=== PATIENT | female | born 1960 | race Caucasian/White ===

== ENCOUNTER 2021-04-21 13:06 | Outpatient (CLI) | payer OTHER, SELFPAY ==
--- NOTE | 2021-04-21 13:42 | MM_ITS ---
WS: [id number] BILATERAL DIGITAL SCREENING MAMMOGRAM WITH CAD CLINICAL INFORMATION: SCREEN HISTORY: Screening mammogram. No current complaints. COMPARISON: TECHNIQUE: Bilateral CC and MLO. FINDINGS: The breast are composed of extremely dense tissue, which can limit the detection of small underlying mass lesions. Vascular calcification. Lucent centered calcification left breast. No suspicious focal mass, asymmetry, calcifications, or architectural distortion. No evidence of malignancy. MM/[place] [id number] IMPRESSION: BI-RADS: 2-Benign FOLLOW UP: 1 Year Follow-up Recommend return to annual screening mammography.
== END 2021-04-21 13:07 | disposition home or self-care (01) ==
LOC: RADSHAW 13:10
PROVIDERS: PCP Physician Assistant; Visit Provider Physician Assistant
DX: Z12.31 Encounter for screening mammogram for malignant neoplasm of breast (principal)
CPT/HCPCS: 77067

== ENCOUNTER 2024-09-22 18:15 | Inpatient (IN) | payer OTHER, SELFPAY ==
[2024-09-22] VITALS (25 sets, daily range): BP systolic 74–123; BP diastolic 48–78; PULSE 79–100; RESP 7–25; TEMP 35.6–35.9; O2SAT 91–100
--- NOTE | 2024-09-22 18:20 | ECG_ITS ---
[employer] ([facility]) Test Date: 2024-09-22 Pat Name: Denisse Narayanan Department: Room: Gender: Female Manager Hvac: : 1960 Requested By: Bertha Balderas Order Number: [id number] Sirisha MD: Annelise Ball M.D. Measurements Intervals [place] Rate: 104 P: 0 IA: 0 QRS: 64 QRSD: 81 T: 47 QT: 340 QTc: 448 Interpretive Statements possible sinus tachycardia with the frequent PVCs. 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 [email or web address]
--- NOTE | 2024-09-22 18:21 | XRR_ITS ---
PROCEDURE INFORMATION: Exam: XR Chest Exam date and time: 09/22/2024 7:14 PM Age: 63 years old Clinical indication: Shortness of breath TECHNIQUE: Imaging protocol: Radiologic exam of the chest. Views: 1 view. COMPARISON: No relevant prior studies available. FINDINGS: Lungs: The lungs are clear and free of effusions. The left diaphragm is slightly elevated with minimal left basilar atelectasis. Pleural spaces: Unremarkable. No pleural effusion. No pneumothorax. Heart/Mediastinum: Unremarkable. No cardiomegaly. Bones/joints: There is a very mild thoracolumbar scoliosis. XR/XR chest 1V portable [id number] IMPRESSION: No significant findings.
[2024-09-22] MEDS: naloxone 0.4 mg/ml SDV 0.1 MG IVP (18:27)
[2024-09-22 18:36] LABS: Basophils % 0.7 %; Eosinophils % 0.9 %; Hematocrit 41.4 % (36-47); Lymphocytes # 1.2 10^3/uL (0.8-4.8); Lymphocytes % 25.4 %; Mean Corpuscular HGB Conc 32.4 g/dL (30-55); Mean Corpuscular Hemoglobin 29.8 pg (27-33); Mean Platelet Volume 10.3 fL (7.4-10.4); Monocytes # 0.4 10^3/uL (0.2-0.9); Monocytes % 8.8 %; Neutrophils # 2.92 10^3/uL (1.8-7.7); Nucleated Red Blood Cells % 0 %; Platelet Count 197 10^3/cmm (157-399); Red Cell Distribution Width 12.4 % (12.1-15.1); White Blood Count 4.56 10^3/uL (3.29-11.43)
[2024-09-22 18:41] LABS: ABG PCO2 51.4 mmHg (35-45); ABG PH Result 7.34 (7.35-7.45); Alveolar-Arterial Oxygen Gradi 2.4 mmHg (5-10); Arterial Blood Gas Hematocrit 40.9 % (37-47); Blood Gas Operator Identificat AMH; Blood Gas Sample Site Brachial, right; Blood Gas Sample Type Arterial; Carboxyhemoglobin 1.1 %THgb (0.4-20.1); HCO3 ABG 27.7 mmol/L (22-26); HGB O2 Sat 89.6 % (95-100); Ionized Calcium Level - ABG 1.2 mmol/L (1.1-1.4); Oxygen Device ROOM AIR; Oxygen Saturation ABG 91.5; PO2 FiO2 Ratio Arterial Blood 314; Potassium Level - ABG 3.4 mmol/L (3.5-5.0); Total Hemoglobin 13.3 g/dL (12-16)
[2024-09-22] MEDS: naloxone 0.4 mg/ml SDV IVP ×2 (18:42→19:20)
--- NOTE | 2024-09-22 18:50 | PC.NURSE ---
PT UNRESPONSIVE UPON ARRIVAL. SNORING RESPIRATIONS. UNABLE TO ASSES PT COGNITION. PT MAINTAINING AIRWAY. EMS STATES PT FOUND WITH MEDICATIONS BESIDE HER. MEDICATIONS IN BOTTLE APPEAR TO BE TRAZEDONE, DIAZEPAM AND OXYCODONE PER THE PILL LABEL
[2024-09-22 18:52] LABS: Lactic Sepsis W/Reflex 2.6 mmol/L (0.5-2.2)
[2024-09-22 19:04] LABS: Alanine Aminotransferase 15 U/L (0-33); Albumin Level 4.3 g/dL (3.5-5.2); Alkaline Phosphatase 80 U/L (35-105); Anion Gap 15.8 (5-19); Aspartate Amino Transferase 30 U/L (0-32); Blood Urea Nitrogen 12 mg/dL (8-23); Calcium 9.4 mg/dL (8.5-10.5); Carbon Dioxide 25 mmol/L (22-29); Chloride 97 mmol/L (98-107); Globulin 2.7 g/dL (1.3-4.6); Glomerular Filtration Rate 101.6 mL/min (90-130); Glucose 113 mg/dL (65-115); Osmolality Calculated 279 mOsm/kg (285-295); Potassium 3.8 mmol/L (3.5-5.1); Sodium 134 mmol/L (136-145); Total Bilirubin 0.4 mg/dL (0.15-1.2)
[2024-09-22 19:05] LABS: Alcohol Level < 10 mg/dL (0-10); Salicylate < 0.3 mg/dL (3-10)
[2024-09-22 19:30] LABS: Bilirubin Urine Negative (Negative); Blood Urine Negative (Negative); Glucose Urine UA Negative (Normal); Ketones Urine Trace (Negative); Leukocyte Esterase Urine Negative (Negative); Nitrate Urine Negative (Negative); Protein Urine 1+ (Negative); Specific Gravity, Urine 1.027 (1.005-1.030); Urine Appearance Clear (CLEAR); Urine Color Yellow (Yellow); pH Urine 5.5 (5-7)
[2024-09-22 19:33] LABS: Bacteria Urine None Seen /hpf; RBC Urine 0-2 /hpf (0-2); Squamous Epithelial Cell Urine 0-5 /hpf (0-5); WBC Urine 0-5 /hpf (0-5)
[2024-09-22 19:39] LABS: Amphetamines Screen Urine Negative (Negative); Barbiturates Screen Urine Negative (Negative); Benzodiazepines Screen Urine Positive (Negative); Cocaine Screen Urine Negative (Negative); Opiate Screen Urine Negative (Negative); PCP Screen Urine Negative (Negative); THC Screen Urine Negative (Negative)
--- NOTE | 2024-09-22 20:03 | W.ED.OVERDOS ---
HPI - Overdose General: Chief Complaint: Overdose Stated Complaint: possible OD Time Seen by Provider: 09/22/24 18:15 History of Present Illness: 63-year-old female who presents emergency room by ambulance with chief complaint of being unresponsive. Family had last doctor last night. They tried to call today and she was not answering her phone. The last that her she had had a really hard day yesterday. She was found with to open pill bottles 1 week was pantoprazole with several unidentified pills left in it. The pills that were leftover included oxycodone, diazepam and trazodone. EMS reports she was somnolent at first they became very agitated on the ambulance ride and by the time she arrives here she is quite somnolent again. She is maintaining her airway. No other history able to be obtained at this time Review of Systems General: Reports: ROS unobtainable due to medical condition and ROS unobtainable due to mental status Physical Exam Narrative: EXAM NARRATIVE: General: responds minimally to painful stimuli. Skin: Warm, dry Head: Normocephalic, atraumatic. Neck: Supple, trachea midline. Eye: Extraocular movements are intact. Ears, nose, mouth and throat: Dry oral mucosa. Cardiovascular: Regular rate and rhythm, Normal peripheral perfusion. Respiratory: Lungs are clear to auscultation, respirations are non-labored, breath sounds are equal, Symmetrical chest wall expansion. Gastrointestinal: Soft, Non distended, Normal bowel sounds. Musculoskeletal: no deformity. Neurological: Not Alert and oriented, No obvious focal neurological deficit observed. Psychiatric: unable to assess. Course Vital Signs: Vital signs: Vital Signs Temperature 96.6 F L 09/22/24 18:17 Pulse Rate 90 09/22/24 18:48 Respiratory Rate 10 L 09/22/24 18:48 Blood Pressure 116/63 09/22/24 18:48 Pulse Oximetry 91 09/22/24 18:48 Oxygen Delivery Me thod Room Air 09/22/24 18:48 MDM - Overdose Medical Decision Making Differential diagnosis: Patient with reported depression and suicidal ideation and possible overdose. concerns for infection, alcohol intoxication, cardiac issues or other medical problems prior to psychiatric admission. Workup: labwork, ekg ordered to evaluate the pathologies and to clear the patient medically prior to psychiatric admission EKG: Time 1818. Rate 104. Sinus tachycardia, No ST-T changes, no ectopy, normal IL & QRS intervals, This was reviewed and interpreted by myself the ER physician at 1820. There is quite a bit of interference secondary to patient movement. No obvious ST elevation. Chest x-ray: No acute process. No infiltrate. No pneumothorax. This was reviewed and interpreted by myself the emergency room physician. I also reviewed the radiology report. Lab Review: Laboratory results were reviewed and interpreted by myself the emergency room physician. - EKG shows no ischemic changes. - Blood alcohol level is negative, -Tylenol and salicylate levels are negative. - Drug screen is positive for benzodiazepine - No signs of infection, urinalysis clear and white count is not elevated - No anemia. - BUN and creatinine are within normal limits. Consultation: Post control was consulted. Their recommendations are being followed. Consultation: I spoke with Dr. Matias who is on-call for the hospitalist service who agrees to admission to the ICU. Reexamination: Patient is still quite somnolent but is maintaining her airway with a O2 sat of 100%. pCO2 was only mildly elevated on her blood gas. For now I am going to sustain from intubation. I spoke to the family at length about the patient. Assessment and plan: Medication overdose Somnolence Suicide attempt ?Admit to the ICU. - All lab work was reviewed and interpreted personally by myself, the ER physician - Evaluation and treatment of this problem were appropriate in the emergency setting Lab Data 09/22/24 18:31 09/22/24 18:31 Radiology Impressions Chest X-Ray 09/22/24 18:21 IMPRESSION: No significant findings. Laboratory Results WBC 4.56 10^3/uL (3.29-11.43) 09/22/24 18: RBC 4.50 10^6/uL (3.85-5.65) 09/22/24 18: Hgb 13.40 g/dL (11.27-16.99) 09/22/24 18: Hct 41.4 % (36-47) 09/22/24 18: MCV 92.0 fl (85-98) 09/22/24 18: MCH 29.8 pg (27-33) 09/22/24 18: MCHC 32.4 g/dL (30-55) 09/22/24 18: RDW 12.4 % (12.1-15.1) 09/22/24 18: Plt Count 197 10^3/cmm (157-399) 09/22/24 18: MPV 10.3 fL (7.4-10.4) 09/22/24 18: Neut % (Auto) 64.0 % 09/22/24 18: Lymph % (Auto) 25.4 % 09/22/24 18: Woodward % (Auto) 8.8 % 09/22/24 18: Eos % (Auto) 0.9 % 09/22/24 18: Baso % (Auto) 0.7 % 09/22/24 Neut # (Auto) 2.92 10^3/uL (1.8-7.7) 09/22/24 Lymph # (Auto) 1.2 10^3/uL (0.8-4.8) 09/22/24 18: Woodward # (Auto) 0.4 10^3/uL (0.2-0.9) 09/22/24 18: Eos # (Auto) 0.0 10^3/uL (0.0-0.8) 09/22/24 18: Baso # (Auto) 0.0 10^3/uL (0.0-0.1) 09/22/24: Nucleated RBC % (auto) 0 % 09/22/24 Nucleated RBCs # 0.0 /100WBC 09/22/24 18 Specimen Type Arterial 09/22/24 18: Sample Site Brachial, right 09/22/24 18:30 ABG pH 7.34 (7.35-7.45) L 09/22/24 18: ABG pCO2 51.4 mmHg (35-45) H 09/22/24 18:30 ABG pO2 66.0 mmHg (80.0-100.0) L 09/22/24 18: ABG PO2/FiO2 Ratio 314 09/22/24 18: ABG HCO3 27.7 mmol/L (22-26) H 09/22/24 18:30 ABG O2 Saturation 91.5 09/22/24 18: ABG Base Excess 1.0 mmol/L (-2.0-2.0) 11/18/24 18:30 Saravanan Test N/a 09/22/24 18:30 A-a O2 Gradient 2.4 mmHg (5-10) L 09/22/24 18:30 Hematocrit 40.9 % (37-47) 09/22/24 18:30 Hgb O2 Saturation 89.6 % (95-100) L 09/22/24 18:30 Carboxyhemoglobin 1.1 %THgb (0.4-20.1) 09/22/24 18:30 Methemoglobin 1.0 % (0.4-1.5) 09/22/24 18:30 Total Hemoglobin 13.3 g/dL (12-16) 09/22/24 18:30 Sodium 140.0 mmol/L (131-143) 09/22/24 18:30 Potassium 3.4 mmol/L (3.5-5.0) L 09/22/24 18:30 Glucose 119.0 mg/dL (70-115) H 09/22/24 18:30 Ionized Calcium 1.2 mmol/L (1.1-1.4) 09/22/24 18:30 O2 Delivery Device Room air 09/22/24 18:30 FiO2 21.0 % 09/22/24 18:30 Real Time Operator ID [id number] 09/22/24 18:30 Sodium 134 mmol/L (136-145) L 09/22/24 18:31 Potassium 3.8 mmol/L (3.5-5.1) 09/22/24 18:31 Chloride 97 mmol/L (98-107) L 09/22/24 18:31 Carbon Dioxide 25 mmol/L (22-29) 09/22/24 18:31 Anion Gap 15.8 (5-19) 09/22/24 18:31 BUN 12 mg/dL (8-23) 09/22/24 18:31 Creatinine 0.6 mg/dL (0.5-0.9) 09/22/24 18:31 GFR Calculation 101.6 mL/min (90-130) 09/22/24 18:31 Glucose 113 mg/dL (65-115) 09/22/24 18:31 Calculated Osmolality 279 mOsm/kg (285-295) L 09/22/24 18:31 Lactic Acid 2.6 mmol/L (0.5-2.2) H 09/22/24 18:31 Calcium 9.4 mg/dL (8.5-10.5) 09/22/24 18:31 Total Bilirubin 0.4 mg/dL (0.15-1.2) 09/22/24 18:31 AST 30 U/L (0-32) 09/22/24 18:31 ALT 15 U/L (0-33) 09/22/24 18:31 Alkaline Phosphatase 80 U/L (35-105) 09/22/24 18:31 Total Protein 7.0 g/dL (6.6-8.7) 09/22/24 18:31 Albumin 4.3 g/dL (3.5-5.2) 09/22/24 18: Globulin 2.7 g/dL (1.3-4.6) 09/22/24 18: TSH 2.90 uIU/mL (0.27-4.20) 09/22/24 18:31 Urine Color Yellow (Yellow) 09/22/24 19:15 Urine Appearance Clear (CLEAR) 09/22/24 19:15 Urine pH 5.5 (5-7) 09/22/24 19:15 Ur Specific Freeman 1.027 (1.005-1.030) 09/22/24 19:15 Urine Protein 1+ (Negative) A 09/22/24 19:15 Urine Glucose (UA) Negative (Normal) 09/22/24 19:15 Urine Ketones Trace (Negative) 09/22/24 19:15 Urine Blood Negative (Negative) 09/22/24 19:15 Urine Nitrate Negative (Negative) 09/22/24 19:15 Urine Bilirubin Negative (Negative) 09/22/24 19:15 Urine Urobilinogen 1.0 mg/dL (Negative) 09/22/24 19:15 Ur Leukocyte Esterase Negative (Negative) 09/22/24 19:15 Urine RBC 0-2 /hpf (0-2) 09/22/24 19:15 Urine WBC 0-5 /hpf (0-5) 09/22/24 19:15 Ur Squamous Epith Cells 0-5 /hpf (0-5) 09/22/24 19:15 Amorphous Sediment Not Reportable 09/22/24 19:15 Urine Bacteria None seen /hpf (NONE) 09/22/24 19:15 Hyaline Casts 0.40 /lpf 09/22/24 19:15 Salicylates < 0.3 mg/dL (3-10) L 09/22/24 18:31 Urine Opiates Screen Negative ng/mL (Negative) 09/22/24 19:15 Acetaminophen 6.0 ug/mL (10-30) L 09/22/24 18:31 Ur Barbiturates Screen Negative ng/mL (Negative) 09/22/24 19:15 Ur Phencyclidine Scrn Negative ng/mL (Negative) 09/22/24 19:15 Ur Amphetamines Screen Negative ng/mL (Negative) 09/22/24 19:15 U Benzodiazepines Scrn Positive ng/mL (Negative) H 09/22/24 19:15 Urine Cocaine Screen Negative ng/mL (Negative) 09/22/24 19:15 U Marijuana (THC) Screen Negative ng/mL (Negative) 09/22/24 19:15 Ethyl Alcohol < 10 mg/dL (0-10) 09/22/24 18:31 All radiology interpretation(s) finalized by discharge Discharge Plan Discharge Patient Disposition: Admitted As Inpatient Clinical Impression: Drug overdose, Suicide attempt by multiple drug overdose Condition: Stable Coding Level of Care Code ED Boat Officer for Denton Chapman
[2024-09-22 20:21] LABS: Reflex Lactate Order REFLEX LACTIC ORDERD
--- NOTE | 2024-09-22 20:28 | P.HP_ITS ---
Providers/Chief Complaint 2 Primary Care Provider: Mireya Willingham Chief Complaint: possible OD History of Present Illness Denisse Narayanan is a 63 year old female with an unknown past medical history who presented the emergency department unresponsive. Upon assessment, patient is unable to provide any history. She is unresponsive. She does not respond to sternal rub. Her niece is bedside and supportive. She provides the history. She reports that the patient lost her in November. She does not have any children. She reports concerns for depression this year with recent worsening which she thinks may be related to the upcoming holidays. She notes that her boss had mention similar concerns recently. Patient was reportedly found today by her mother at her home after she did not answer the phone on multiple attempts. There is reportedly numerous pill bottles and pills everywhere. The obvious concern was for intentional drug overdose. Niece reports that patient initially resisted EMS. By the time she arrived to the emergency department, she was in a comatose state. She was noted to be protecting her airway did not require intubation. Vital signs were significant for bradypnea. CBC was unremarkable. CMP was largely unremarkable with very mild hyponatremia. Mild lactic acidosis 2.6 noted. Toxicology screen revealed Tylenol level was 6 ug/mL and positive for benzodiazepine. Urine opiate screen was negative. She was treated with Narcan and IV fluid bolus in the ED. Niece reports she does not know much about her medical history. She reports patient is severely hard of hearing and is dependent on hearing aids. She states she briefly looked at the home today and was unable to find the hearing aids. She states the patient usually does not follow with physicians. She is not aware of any chronic medical conditions the patient has. She knows she does take some medications, notably a sleep med. She is unsure about her past surgeries. Patient is it is with mentioned above. Patient never had any children. Attempted to obtain a complete medical history, surgical history, family history, and social history; but unable to due to patient's stuporous state. Review of Systems 2 Narrative: Attempted to obtain a complete review of systems but unable due to altered mental status. PFSH Acute 2 PFSH: Medical History (Updated 09/22/24 @ 22:29 by Fede Matias MD) Hearing loss Vitals/I&O/Wt Last Vital Signs Temp 96.6 F L 09/22/24 18:17 Pulse 90 09/22/24 18:48 Resp 10 L 09/22/24 18:48 BP 116/63 09/22/24 18:48 Pulse Ox 91 09/22/24 18:48 O2 Del Method Room Air 09/22/24 18:48 Weight last 48 hrs Weight 57.153 kg Physical Exam 2 Narrative: General: Patient is in a stuporous state. Head: Normocephalic. Pupils are equally round reactive to light. Neck: No JVD. Cardiovascular: RRR. No gallops. No murmurs. No peripheral edema. Blood pressure soft. Lungs: Clear to auscultation, no use of accessory muscles, no crackles or wheezes. Intermittent snores. Skin: No jaundice. No rashes. Abdomen: Hypoactive bowel sounds. Abdomen is not distended. Genito Urinary: Genital exam not performed since complaints not related. Rectal: Rectal exam not performed since no symptoms indicated blood loss. Extremities: No cyanosis or clubbing. Musculoskeletal: No swollen or erythematous joints. Neurological: No myoclonus. Data 09/22/24 18:31 09/22/24 18:31 A&P Assessment and plan (1) Suicide attempt by multiple drug overdose: Presentation consistent with suspected intentional drug overdose ED provider reportedly placed 96-hour hold Admit to intensive care unit Continuous telemetry monitoring Tylenol level mildly elevated, trend acetaminophen levels Start IV fluids Monitor cardiopulmonary status, patient may require intubation if she is unable to protect airway Supportive care Will eventually need psychiatric care when medically improved (2) Acute encephalopathy: Acute toxic encephalopathy Serial neurological exams Management as above (3) Hyponatremia: Status post IV fluid bolus in ED Start maintenance fluids Repeat labs in a.m. (4) Hearing loss: Patient is severely hard of hearing at baseline She currently does not have her hearing aids here, family may be able to bring later Plan DVT prophylaxis: Lovenox CODE STATUS: Full code Attestations 2 Medical Necessity Statement*: Patient presents with altered mentation suspected secondary to intentional drug overdose with expected hospitalization not to cross 2 midnights for IV fluids, serial labs, psychiatric eval, and supportive care. Coding Level of Care Code Acute Code for Chg Fwd Diagnoses Suicide attempt by multiple drug overdose T50.912A Acute encephalopathy G93.40 Hyponatremia E87.1 Hearing loss H91.90
--- NOTE | 2024-09-22 20:55 | PC.NURSE ---
POISON CONTROL CONTACTED @1930. INFO WILL BE FAXED.
--- NOTE | 2024-09-22 20:57 | PC.NURSE ---
PT UNRESPONSIVE AT THIS TIME. PT DOES HAVE SNORING RESPIRATIONS. UNABLE TO ASSES PT COGNITION. PT MAINTAINING AIRWAY. PT IS NOW ON 4L OXYMASK.
[2024-09-22 21:30] LABS: Lactic Acid level (Lactate) 0.9 mmol/L (0.5-2.2)
--- NOTE | 2024-09-22 21:32 | PC.NURSE ---
96 HH Pt served with copy of 96 HH by this RN and Security. Pt slightly responsive to painful stimuli. Pt on oxymask, unable to keep eyes open, low blood pressures with 74 systolic.
[2024-09-22] MEDS: sodium chloride 0.9% 1,000 ML 999 ML IV (21:47)
--- NOTE | 2024-09-22 21:49 | PC.NURSE ---
PT HAS 2 PILL BOTTLES AT BEDSIDE. IN THE PANTOPROZOLE SODIUM PILL BOTTLE 40MG/90 TABS ARE: - (17) WHITE PILLS 06/09 (TRAZODONE) - (5 AND A HALF) OF BLUE TEVA 3927 (DIAZEPAM) - (1) 512 WHITE PILL (OXYCODONE + ACETAMINOPHEN) IN THE PREGABALIN 50MG/60 TAB (PRESCRIBED TO URSULA TUCKER): - (7) PILLS EXP DATE: 06/04/24
--- NOTE | 2024-09-22 22:27 | PC.NURSE ---
PT BELONGINGS AND PILL BOTTLES HANDED TO BARB DINERO IN ICU.
[2024-09-22] MEDS: sodium chloride 0.9% 1,000 ML 100 ML IV (22:49)
[2024-09-22] MEDS: enoxaparin 40 mg/0.4 mL Syringe SUBCUT (22:49)
[2024-09-22 23:07] LABS: Acetaminophen < 5.0 ug/mL (10-30)
[2024-09-23] VITALS (53 sets, daily range): BP systolic 63–165; BP diastolic 34–99; PULSE 61–107; RESP 9–26; TEMP 35.3–38.6; O2SAT 95–100
--- NOTE | 2024-09-23 01:01 | PC.NURSE ---
Pt arrived to ICU @2210. Pt is unresponsive to stimuli/sternal rub. Pupil response brisk/3mm. Pt on 2 L oxygen via oxy mask, normal RR w/snoring. 2 pill bottles handed to this nurse from BARB Pichardo, ER nurse placed in [facility].
[2024-09-23 03:28] LABS: Basophils % 0.3 %; Hematocrit 38.5 % (36-47); Lymphocytes # 0.8 10^3/uL (0.8-4.8); Mean Corpuscular HGB Conc 31.2 g/dL (30-55); Mean Corpuscular Hemoglobin 30.4 pg (27-33); Mean Corpuscular Volume 97.5 fl (85-98); Mean Platelet Volume 10.5 fL (7.4-10.4); Monocytes # 0.7 10^3/uL (0.2-0.9); Monocytes % 6.5 %; Neutrophils # 8.79 10^3/uL (1.8-7.7); Neutrophils % 84.8 %; Nucleated Red Blood Cells % 0 %; Platelet Count 236 10^3/cmm (157-399); Red Blood Count 3.95 10^6/uL (3.85-5.65); Red Cell Distribution Width 12.3 % (12.1-15.1); White Blood Count 10.36 10^3/uL (3.29-11.43)
[2024-09-23] MEDS: sodium chloride 0.9% 1,000 ML 999 ML IV (03:44)
[2024-09-23 03:47] LABS: Alanine Aminotransferase 18 U/L (0-33); Albumin Level 4.1 g/dL (3.5-5.2); Alkaline Phosphatase 83 U/L (35-105); Anion Gap 7.5 (5-19); Aspartate Amino Transferase 34 U/L (0-32); Blood Urea Nitrogen 14 mg/dL (8-23); Calcium 7.7 mg/dL (8.5-10.5); Carbon Dioxide 34 mmol/L (22-29); Chloride 106 mmol/L (98-107); Creatinine Clr Calc Pharmacy 87.9789; Globulin 1.8 g/dL (1.3-4.6); Glomerular Filtration Rate 101.6 mL/min (90-130); Glucose 247 mg/dL (65-115); Magnesium 2.1 mg/dL (1.7-2.3); Osmolality Calculated 305 mOsm/kg (285-295); Phosphorus 5.9 mg/dL (2.5-4.5); Potassium 4.5 mmol/L (3.5-5.1); Sodium 143 mmol/L (136-145); Total Bilirubin 0.2 mg/dL (0.15-1.2); Total Protein 5.9 g/dL (6.6-8.7)
[2024-09-23 03:52] LABS: Acetaminophen < 5.0 ug/mL (10-30)
[2024-09-23] MEDS: vasopressin 40 UNIT/100 ML PREMIX 4.5 UNIT IV (04:58)
[2024-09-23] MEDS: naloxone 0.4 mg/ml SDV IVP (04:58)
[2024-09-23] MEDS: norepinephrine 4 MG/250 ML BAG 7.5 MG IV ×2 (04:59→19:26)
[2024-09-23] MEDS: flumazenil 0.1 mg/mL SDV 5mL 0.2 MG IV (05:15)
--- NOTE | 2024-09-23 05:18 | PC.NURSE ---
Pt hypothermic and hypotensive. Dr Matias at bedside. New order for Narcan 0.4 ivp once, vasopressin and levophed, Flumazenil 0.2 stat. Levophed titrated to 10mcg/min per Dr Matias's order.
--- NOTE | 2024-09-23 08:50 | PC.PHAR ---
pts' niece verified pt medications. Verified fill dates with pharmacy.
[2024-09-23 08:51] LABS: Arterial Blood Gas Hematocrit 35.1 % (37-47); Base Excess ABG -2.5 mmol/L (-2.0-2.0); Blood Gas Operator Identificat MONRO; Blood Gas Sample Site Radial, right; Blood Gas Sample Type Arterial; Carboxyhemoglobin 0.8 %THgb (0.4-20.1); HCO3 ABG 27.9 mmol/L (22-26); HGB O2 Sat 97.6 % (95-100); Ionized Calcium Level - ABG 1.2 mmol/L (1.1-1.4); Methemoglobin 0.4 % (0.4-1.5); Oxygen Device OXY MASK; Oxygen Saturation ABG 98.9; PO2 FiO2 Ratio Arterial Blood 435; Potassium Level - ABG 4.6 mmol/L (3.5-5.0); Total Hemoglobin 11.5 g/dL (12-16)
[2024-09-23 08:52] LABS: ABG PCO2 80.5 mmHg (35-45); ABG PH Result 7.15 (7.35-7.45)
[2024-09-23] MEDS: fentaNYL 1,000 MCG/100 ML BAG 2.5 MCG IV (09:04)
[2024-09-23] MEDS: etomidate 20 ML 1 MG (09:04)
[2024-09-23] MEDS: midazolam hcl 100 MG/100 ML BAG IV (09:04)
--- NOTE | 2024-09-23 09:31 | XR_ITS ---
WS: [id number] Exam: XR chest 1V portable [id number] Date/Time of Exam: 09/23/2024 9:33 AM Reason For Exam: Intubation Comparison 09/22/2024. ET tube is in place ending about 5 cm above the jerod in good position. A gastric tube extends into the stomach with the tip is not visible. No consolidating infiltrates seen in the right lower lung zo ne. The lungs remain fully inflated. No pleural effusion. Prominent pulmonary vascularity. Cardiomedi astinal silhouette is unremarkable. XR/XR chest 1V portable [id number] IMPRESSION: 1. New consolidating infiltrate in the mid and lower RIGHT lung. 2. ET tube and gastric tube both appearing to be in satisfactory position. The tip of the gastric tube is out of the [id number]. 3. Increased pulmonary vascularity.
--- NOTE | 2024-09-23 10:26 | PC.NURSE ---
Upon visulizing patient, patient seemed lethargic, spoke to Dr. Wise and primary nurse Aren DAY, received orders for an ABG. Upon results on ABG, Dr. Wise and Dr. Crawley made the decision to intubate patient. Family in waiting room and notified of patients condition and proceeded with interventions. Dr. Crawley the intubating provider ordered patient to be put on bipap to hyperoxygenate patient. RT currently busy at that moment, and placed patient on non rebreathing to hyper oxygenate. After a few minutes, Dr. Crawley was ready to proceed. At 0925 medications were given to sedate then paralyze for intubation, see MAR. ET tube in place at 0927 size 8 ET 22 @ lip. OG placed at 1020. Xray ordered.
[2024-09-23] MEDS: succinylcholine 20 mg/mL SDV 10mL IVP (10:30)
--- NOTE | 2024-09-23 10:32 | XR_ITS ---
WS: [id number] Exam: XR chest 1V portable [id number] Date/Time of Exam: 09/23/2024 11:38 AM Reason For Exam: PICC PLACEMENT Comparison with the latest exam performed on the same day at 10:18 a.m. A RIGHT subclavian central line has been placed and ends in the lower one third of the SVC. ET tube i n place ending about 5 cm above the jerod. An enteric tube extends below the diaphragm. Again noted is infiltrate in the mid and lower RIGHT lung unchanged. XR/XR chest 1V portable [id number] IMPRESSION: 1. RIGHT subclavian central line ending in the lower one third of the SVC. ET t ube in satisfactory position. 2. The chest x-ray is otherwise unchanged since the earlier exam performed on t he same day.
[2024-09-23 10:57] LABS: ABG PCO2 44.6 mmHg (35-45); ABG PH Result 7.35 (7.35-7.45); Base Excess ABG -1.2 mmol/L (-2.0-2.0); Blood Gas Operator Identificat MONRO; Blood Gas Sample Site Radial, left; Blood Gas Sample Type Arterial; Carboxyhemoglobin 0.6 %THgb (0.4-20.1); HCO3 ABG 24.6 mmol/L (22-26); HGB O2 Sat 98.3 % (95-100); Ionized Calcium Level - ABG 1.1 mmol/L (1.1-1.4); Methemoglobin 0.4 % (0.4-1.5); Oxygen Device VENT; Oxygen Saturation ABG > 99.1; PO2 FiO2 Ratio Arterial Blood 297; Potassium Level - ABG 4.3 mmol/L (3.5-5.0); Total Hemoglobin 12.4 g/dL (12-16)
--- NOTE | 2024-09-23 12:48 | PHA.VACGOAL ---
Vancomycin Goal - Goal Vancomycin Goal:: 15-20 mg/L Vancomycin Indication:: Other - Therapy Current therapy:: Pip/Tazo Day of therpy:: Day 1 of [] Actual body weight (kg): 123 lb 7.342 oz - Data Labs: WBC 10.36 10^3/uL (3.29-11.43) 09/23/24 02:55 RBC 3.95 10^6/uL (3.85-5.65) 09/23/24 02:55 Hgb 12.00 g/dL (11.27-16.99) 09/23/24 02:55 Hct 38.5 % (36-47) 09/23/24 02:55 MCV 97.5 fl (85-98) D 09/23/24 02:55 MCH 30.4 pg (27-33) 09/23/24 02:55 MCHC 31.2 g/dL (30-55) 09/23/24 02:55 RDW 12.3 % (12.1-15.1) 09/23/24 02:55 Sodium 143 mmol/L (136-145) 09/23/24 02:55 Potassium 4.5 mmol/L (3.5-5.1) 09/23/24 02:55 Chloride 106 mmol/L (98-107) 09/23/24 02:55 Carbon Dioxide 34 mmol/L (22-29) H 09/23/24 02:55 Anion Gap 7.5 (5-19) 09/23/24 02:55 BUN 14 mg/dL (8-23) 09/23/24 02:55 Creatinine 0.6 mg/dL (0.5-0.9) 09/23/24 02:55 GFR Calculation 101.6 mL/min (90-130) 09/23/24 02:55 Last dialysis session:: N/A Treatment plan:: new consult Regimen:: Loading dose of 1750 mg x 1 per dosing protocol Maintenance dose of 1000 mg Q12H Follow up:: Will continue to monitor and follow up daily
[2024-09-23] MEDS: vancomycin 1,750 MG/350 ML PIGGYBACK 175 MG IV (13:03)
[2024-09-23] MEDS: acetaminophen 325 mg Tablet 650 MG PO (13:03)
[2024-09-23] MEDS: piperacillin-tazobactam 3.375 GM in sodium chloride 0.9% (plus) 50 ML IV ×2 (13:03→23:12)
--- NOTE | 2024-09-23 13:21 | ANES.PROC ---
Anesthesia Procedures Procedure/Date: 09/23/24 Intubation: Time Out Performed: Yes Consent: risks and benefits reviewed and emergency procedure Sedative (amount): etomidate Paralytic (amount): succinylcholine Laryngoscope: fiber optic video scope Assist Device Used: fiber optic device ET Tube Size: 7 ET Tube Uncuffed: Yes Tube Secured Depth (cm): 23 Tube Secured Location: teeth Tube Placement Confirmation: visualized tube passing through cords, equal breath sounds bilaterally, no breath sounds over epigastrium, confirmation by capnometry and color change noted Patient Tolerated Procedure: well and no complications Intubation Complications: none Additional Comments: paralytic and sedative were ordered by Dr. Crawley
[2024-09-23 14:00] LABS: Alanine Aminotransferase 18 U/L (0-33); Albumin Level 3.4 g/dL (3.5-5.2); Alkaline Phosphatase 68 U/L (35-105); Blood Urea Nitrogen 14 mg/dL (8-23); Calcium 8.2 mg/dL (8.5-10.5); Carbon Dioxide 26 mmol/L (22-29); Chloride 108 mmol/L (98-107); Creatinine Clr Calc Pharmacy 105.5747; Globulin 2.2 g/dL (1.3-4.6); Glomerular Filtration Rate 125.4 mL/min (90-130); Glucose 82 mg/dL (65-115); Osmolality Calculated 292 mOsm/kg (285-295); Sodium 141 mmol/L (136-145); Total Bilirubin 0.4 mg/dL (0.15-1.2); Total Protein 5.6 g/dL (6.6-8.7)
[2024-09-23 14:11] LABS: Anion Gap 11.1 (5-19); Aspartate Amino Transferase 36 U/L (0-32); Potassium 4.1 mmol/L (3.5-5.1)
[2024-09-23 14:11] LABS: ABG PCO2 37.5 mmHg (35-45); ABG PH Result 7.46 (7.35-7.45); Arterial Blood Gas Hematocrit 33.9 % (37-47); Base Excess ABG 2.8 mmol/L (-2.0-2.0); Blood Gas Allen Test Pos; Blood Gas Sample Type Arterial; Carboxyhemoglobin 0.8 %THgb (0.4-20.1); HCO3 ABG 26.7 mmol/L (22-26); HGB O2 Sat 98.2 % (95-100); Ionized Calcium Level - ABG 1.1 mmol/L (1.1-1.4); Methemoglobin 0.5 % (0.4-1.5); Oxygen Saturation ABG > 99.1; Potassium Level - ABG 3.4 mmol/L (3.5-5.0); Total Hemoglobin 11.1 g/dL (12-16)
[2024-09-23 14:13] LABS: Creatine Phosphokinase 1425 U/L (26-192)
[2024-09-23 14:13] LABS: Alveolar-Arterial Oxygen Gradi 16.4 mmHg (5-10); Blood Gas Operator Identificat MONRO; Blood Gas Sample Site Radial, right; Oxygen Device VENT; PO2 FiO2 Ratio Arterial Blood 270
--- NOTE | 2024-09-23 14:45 | P.PN_ITS ---
Subjective 2 Subjective: Seen this morning. Blood gas done this morning showed pH 7.1/CO2 80. Patient unresponsive unable to follow any commands at this time. Decision made to intubate the patient. She is on 2 pressors vasopress[address] and Levop[address] Sepulveda intubated the patient. After administration of succinylcholine patient did develop some rigors and had a temperature rise up to 101.8. Malignant hyperthermia was suspected. Discussed with anesthesia Dr. Powell at bedside. Did call malignant hyperthermia helpline over the phone and discussed with consultants. At this time he does not believe this could be malignant hyperthermia since CO2 has normalized after intubation. Upon reviewing chest x-ray postintubation patient did aspirate and there is infiltrate in right middle and lower lobe. There is a possibility that may be the source of the fever at this time. We have dantrolene available and will administer Tylenol to the patient at this time. If there is no response may consider dantrolene at a later time however suspicion of MH is low at this point. Zosyn vancomycin was added, lactic acid CMP, repeat blood gas ordered. Sputum culture Gram stain, blood cultures, urine culture ordered at this time as well. Patient on Versed and fentanyl. The above note is events from 9 AM to 1 PM. Patient was seen multiple times this morning. Vitals/I&O/Wt Last Vital Signs Temp 97.9 F 09/23/24 10:30 Pulse 93 09/23/24 10:30 Resp 16 09/23/24 11:52 BP 149/81 09/23/24 10:30 Pulse Ox 100 09/23/24 11:52 O2 Del Method Mechanical Ventilation 09/23/24 10:30 O2 Flow Rate 2 09/23/24 08:00 FiO2 40 09/23/24 11:52 09/22/24 09/23/24 09/23/24 22:59 06:59 14:59 Intake Total 2545.667 / 2545.667 698.774 / 698.774 Output Total 350 / 350 Balance 2195.667 / 2195.667 698.774 / 698.774 Weight last 48 hrs Weight 56 kg Weight 56 kg Weight 56 kg Weight 57.153 kg Physical Exam 2 Narrative: General: Intubated sedated. Head: Normocephalic. Pupils are equally round reactive to light. Neck: No JVD. Cardiovascular: RRR. No gallops. No murmurs. No peripheral edema. Currently on pressors, normal S1-S2. Lungs: Clear to auscultation, no use of accessory muscles, no crackles or wheezes. Abdomen: Hypoactive bowel sounds. Abdomen is not distended. Extremities: No cyanosis or clubbing. Musculoskeletal: No swollen or erythematous joints. Neurological: Patient is intubated. initially unresponsive not following any commands. Data 09/23/24 02:55 09/23/24 13:23 Micro: Microbiology 09/23/24 13:23 Blood Culture - Preliminary Blood SPECIMEN COLLECTED 09/23/24 10:35 Gram Stain - Final Sputum - Endotracheal Wash A&P Assessment and plan (1) Suicide attempt by multiple drug overdose: Presentation consistent with suspected intentional drug overdose ED provider reportedly placed 96-hour hold Admit to intensive care unit Continuous telemetry monitoring Tylenol level mildly elevated, trend acetaminophen levels Start IV fluids Monitor cardiopulmonary status, patient may require intubation if she is unable to protect airway Supportive care Will eventually need psychiatric care when medically improved (2) Acute encephalopathy: Acute toxic encephalopathy Serial neurological exams Management as above (3) Hyponatremia: Status post IV fluid bolus in ED Start maintenance fluids Repeat labs in a.m. (4) Hearing loss: Patient is severely hard of hearing at baseline She currently does not have her hearing aids here, family may be able to bring later Plan DVT prophylaxis: Lovenox CODE STATUS: Full code #Electively intubated for airway protection #Suicide attempt #Drug overdose #Malignant hyperthermia? #Fever of unknown origin however most likely secondary to aspiration pneumonia #Aspiration pneumonia #Hyperphosphatemia #Mild hyponatremia?corrected #Hearing loss. -96-hour hold placed in ER -Patient intubated for airway protection ? Fever most likely secondary to aspiration pneumonia. Check blood cultures, sputum culture Gram stain, urine culture to rule out other sources ? Chest x-ray shows aspiration pneumonia, infiltrate right middle lobe and lower lobe. 25. Not present on admission. ? Continue Versed and fentanyl at this time. Patient requiring 2 vasopressors in the ER. Vasopressin and Levophed. Will attempt to wean off as able. ?Discussed with malignant hyperthermia cardiology clinical consultant over the phone. Low suspicion for NPH at this time. Continue to monitor. ? Check CT head, chest abdomen pelvis ? Hyponatremia corrected. ? Continue IV fluids. ? QT 480. Will recheck EKG. ?Psychiatric consult once patient is extubated. ? Continue vancomycin and Zosyn ? CPK 1400. Continue IV fluids ? Continue to monitor Full code Heparin subcu twice daily GI prophylaxis: Protonix 40 IV daily Attestations 2 Medical Necessity Statement*: intubated Critical Care Time: The high probability of a clinically significant, sudden or life threatening deterioration of the patient's [neurological, cardiovascular, respiratory] system(s) required my full and direct attention, intervention and personal management. The critical care time is as shown. This time is in addition to time spent performing any reported procedures but includes the following: [x] Data and vital sign review and interpretation [x] Patient assessment, examination and intervention [x] Documentation [x] Medication orders and management Critical Care Time (min): 120 Coding Level of Care Code Acute Code for Chg Fwd Diagnoses Suicide attempt by multiple drug overdose T50.912A Acute encephalopathy G93.40 Hyponatremia E87.1 Hearing loss H91.90
--- NOTE | 2024-09-23 17:10 | ECG_ITS ---
[employer] Test Date: 2024-09-23 Pat Name: Denisse Narayanan Department: Room: ICU03 Gender: Female Healthcare Management Consultant: : 1960 Requested By: Anna Wise Order Number: [id number] Reading MD: ALEXANDER KING Measurements Intervals [place] Rate: 84 P: -59 VT: 122 QRS: 64 QRSD: 77 T: 57 QT: 370 QTc: 438 Interpretive Statements SINUS RHYTHM SEPTAL MYOCARDIAL INFARCTION , PROBABLY OLD [40+ ms Q WAVE IN V1/V2] Compared to ECG 09/22/2024 18:18:27 Myocardial infarct finding now present Electronically Signed On 09-24-2024 18:10:30 PREPARATOR by ALEXANDER KING [email or web address]
[2024-09-23 17:47] LABS: Glucose Point of Care 58 mg/dL (70-110)
[2024-09-23] MEDS: dextrose 10% 250 ML 1000 ML IV (18:13)
[2024-09-23] MEDS: dextrose 5%-sod chloride 0.9% 1,000 ML 100 ML IV (18:18)
--- NOTE | 2024-09-23 19:05 | PC.NURSE ---
Doctor Billie ordered to stop versed drip and instead do 2 mg versed pushes every 4 hours but can do 2 mg versed pushed every 2 hours if the patient really needs it for tolerating the ventilator.
--- NOTE | 2024-09-23 19:22 | PC.NURSE ---
Patient started to develop a high temperature that kept climbing after intubation medication succinylcholine was given. Temperature went from 97 F to 100 F and then to 102 F. Charge Nurse brought the malignant hyperthermia cart. Doctor Billie was notified and she called the Malignant Hyperthermia hotline. Dr. Arteaga anesthesiologist was also contacted and evaluated the patient at bedside as well. Hotline stated that they did not believe that it was malignant hyperthermia. Doctor Billie ordered to treat fever with tylenol and see what happens. Tylenol helped the patient with the high temperature. 2 vials of Dantrolene were wasted from the Malignant Hyperthermia cart which equaled 40 mg. Pharmacy was notified.
--- NOTE | 2024-09-23 19:43 | ECG_ITS ---
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
[2024-09-23] MEDS: enoxaparin 40 mg/0.4 mL Syringe SUBCUT (20:42)
[2024-09-23] MEDS: fentaNYL 1,000 MCG/100 ML BAG 7.5 MCG IV (20:42)
--- NOTE | 2024-09-23 22:57 | ECG_ITS ---
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
[2024-09-24] VITALS (46 sets, daily range): BP systolic 94–144; BP diastolic 51–79; PULSE 79–123; RESP 14–17; TEMP 37.3–38.6; O2SAT 99–100
--- NOTE | 2024-09-24 00:35 | CTR_ITS ---
PROCEDURE INFORMATION: Exam: CT Head Without Contrast Exam date and time: 09/24/2024 12:55 AM Age: 63 years old Clinical indication: Altered mental status/memory loss TECHNIQUE: Imaging protocol: Computed tomography of the head without contrast. Radiation optimization: All CT scans at this facility use at least one of these dose optimization techniques: automated exposure control; mA and/or kV adjustment per patient size (includes targeted exams where dose is matched to clinical indication); or iterative reconstruction. COMPARISON: No relevant prior studies available. RADIATION DOSE METRICS: Total DLP (mGy-cm): 1418.28 FINDINGS: Brain: No acute intracranial hemorrhage, mass effect or midline shift. Minimal matter hypodensities likely from chronic microangiopathy. Cerebral ventricles: Mild ex vacuo expansion of the ventricles due to volume loss. Paranasal sinuses: Extensive ethmoid air cells opacification along with a small effusion in the right maxillary sinus. Mastoid air cells: Visualized mastoid air cells are well aerated. Bones: No acute bony findings. Soft tissues: Unremarkable. CT/CT head wo con* [id number] IMPRESSION: 1. No acute intracranial findings. 2. Paranasal sinus disease. Correlate for sinusitis.
--- NOTE | 2024-09-24 00:36 | CTR_ITS ---
PROCEDURE INFORMATION: Exam: CTA Chest With Contrast Exam date and time: 09/24/2024 12:59 AM Age: 63 years old Clinical indication: Other: SOB, od, poss pe; Shortness of breath; Additional info: Overdose TECHNIQUE: Imaging protocol: Computed tomographic angiography of the chest with contrast. Exam focused on the arteries. 3D rendering (Not supervised by radiologist): MIP and/or 3D reconstructed images were created by the technologist. Radiation optimization: All CT scans at this facility use at least one of these dose optimization techniques: automated exposure control; mA and/or kV adjustment per patient size (includes targeted exams where dose is matched to clinical indication); or iterative reconstruction. Contrast material: OMNI 350; Contrast volume: 100 ml; Contrast route: INTRAVENOUS (IV); COMPARISON: CR XR chest 1V portable [id number] 09/23/2024 11:40 AM RADIATION DOSE METRICS: Total DLP (mGy-cm): 256.1 FINDINGS: Tubes, catheters and devices: There is an endotracheal tube in place. There is an enteric tube in place. Pulmonary arteries: Pulmonary emboli splaying the right lower lobe pulmonary artery and extending into the basilar segments. There is also suggestion of small distal bibasilar segmental/subsegmental pulmonary emboli (see for example the right lower lobe, series 7, image 327 and left lower lobe, series 7, image 299). Aorta: The aorta is normal in caliber. No aneurysm. Thyroid: The visualized thyroid gland is unremarkable. Trachea: There are scattered impacted small airways at bilateral lung bases. Lungs: Bibasilar atelectasis. Mild heterogeneity of the atelectatic lung, nxova-[id number]-wbpx-left. Pleural spaces: Bilateral pleural fluid, small on the right and trace on the left. No pneumothorax. Heart: The heart is normal in size. No pericardial effusion. Heart RV/LV ratio: 0.8 (normal less than 1). Lymph nodes: No enlarged lymph nodes by size criteria. Bones/joints: The spine demonstrates mild degenerative changes at multiple levels. Soft tissues: Soft tissues are unremarkable as visualized. PROCEDURE INFORMATION: Exam: CT Abdomen And Pelvis With Contrast Exam date and time: 09/24/2024 12:59 AM Age: 63 years old Clinical indication: Other: SOB, od, poss pe; Shortness of breath; Additional info: Overdose TECHNIQUE: Imaging protocol: Computed tomography of the abdomen and pelvis with contrast. Radiation optimization: All CT scans at this facility use at least one of these dose optimization techniques: automated exposure control; mA and/or kV adjustment per patient size (includes targeted exams where dose is matched to clinical indication); or iterative reconstruction. Contrast material: OMNI 350; Contrast volume: 100 ml; Contrast route: INTRAVENOUS (IV); COMPARISON: CR XR chest 1V portable [id number] 09/23/2024 11:40 AM RADIATION DOSE METRICS: Total DLP (mGy-cm): 491.4 FINDINGS: Tubes, catheters and devices: There is an enteric tube terminating within the gastric body. Liver: The liver is unremarkable. There is mild periportal edema, which may be related to hydration status. Gallbladder and biliary ducts: The gallbladder is unremarkable. No biliary dilation. Trace pericholecystic fluid is likely tracking ascites due to 3rd spacing. There is no gallbladder wall thickening. Pancreas: The pancreas is unremarkable. Spleen: The spleen is unremarkable. Adrenal glands: The adrenal glands are unremarkable. Kidneys and ureters: The kidneys are unremarkable. Stomach and bowel: There is no bowel wall thickening. No bowel obstruction. Appendix: Appendix is not identified. No findings to suggest acute appendicitis. Intraperitoneal space: There is mild mesenteric edema.There is a small amount of abdominopelvic ascites. Vasculature: The vasculature is unremarkable. No aneurysm. Lymph nodes: No enlarged lymph nodes by size criteria. Urinary bladder: There is a Dolan catheter within the bladder. Reproductive: Uterus is unremarkable. No suspicious adnexal lesion seen. Bones/joints: The bones are diffusely demineralized. The spine demonstrates mild degenerative changes at multiple levels. Soft tissues: There is mild subcutaneous stranding and air in the anterior abdominal wall, consistent with recent injection. Mild body wall edema. CT/CT angio chest w abd pel w con IMPRESSION: 1. Pulmonary emboli splaying the right lower lobe pulmonary artery and extending into the segmental branches, as well as small bilateral distal segmental/subsegmental pulmonary emboli. 2. No CT evidence of right heart strain. 3. Bibasilar atelectasis and bilateral lower lobe consolidations, which may be the sequela of alveolar edema or multifocal pneumonia. Findings may also be aspiration in etiology given multifocal impacted small airways. 4. Bilateral pleural fluid, small on the right and trace on the left. IMPRESSION: 1. Small amount of abdominopelvic ascites, mesenteric edema and findings suggestive of 3rd spacing. 2. Otherwise, no acute findings. 3. Enteric tube in satisfactory position.
[2024-09-24] MEDS: iohexol 350 mg/mL 500 mL Btl (per mL) IV (01:13)
[2024-09-24] MEDS: midazolam 1 mg/mL INJ 2 mL 2 MG IVP ×2 (01:17→20:48)
[2024-09-24] MEDS: VANCOMYCIN ADD-Vantage 1,000 MG in 0.9% NaCl ADD-Vantage 250 ML 250 MG IV ×2 (02:29→13:31)
[2024-09-24] MEDS: heparin 5,000 unit/mL INJ 1 mL IVP (03:28)
[2024-09-24] MEDS: heparin drip 25,000 UNIT/500 ML PREMIX 16 UNIT IV (03:29)
[2024-09-24] MEDS: dextrose 5%-sod chloride 0.9% 1,000 ML 100 ML IV ×2 (04:42→16:24)
[2024-09-24 05:41] LABS: Basophils % 0.2 %; Eosinophils % 0.1 %; Hematocrit 32.8 % (36-47); Lymphocytes # 0.8 10^3/uL (0.8-4.8); Lymphocytes % 9.1 %; Mean Corpuscular HGB Conc 32.6 g/dL (30-55); Mean Corpuscular Hemoglobin 29.6 pg (27-33); Mean Corpuscular Volume 90.9 fl (85-98); Mean Platelet Volume 11.4 fL (7.4-10.4); Monocytes # 0.6 10^3/uL (0.2-0.9); Monocytes % 7.3 %; Neutrophils # 6.81 10^3/uL (1.8-7.7); Neutrophils % 82.9 %; Nucleated Red Blood Cells % 0 %; Platelet Count 140 10^3/cmm (157-399); Red Blood Count 3.61 10^6/uL (3.85-5.65); Red Cell Distribution Width 12.3 % (12.1-15.1); White Blood Count 8.22 10^3/uL (3.29-11.43)
[2024-09-24 06:08] LABS: Alanine Aminotransferase 15 U/L (0-33); Albumin Level 3.1 g/dL (3.5-5.2); Alkaline Phosphatase 64 U/L (35-105); Aspartate Amino Transferase 28 U/L (0-32); Blood Urea Nitrogen 12 mg/dL (8-23); Carbon Dioxide 24 mmol/L (22-29); Chloride 109 mmol/L (98-107); Creatinine Clr Calc Pharmacy 131.9684; Globulin 1.9 g/dL (1.3-4.6); Glomerular Filtration Rate 162.3 mL/min (90-130); Glucose 104 mg/dL (65-115); Magnesium 1.6 mg/dL (1.7-2.3); Osmolality Calculated 288 mOsm/kg (285-295); Sodium 139 mmol/L (136-145); Total Bilirubin 0.4 mg/dL (0.15-1.2)
[2024-09-24 06:15] LABS: Slide Review Slide Review Perform
[2024-09-24 06:23] LABS: Anion Gap 9.5 (5-19); Creatine Phosphokinase 703 U/L (26-192); Potassium 3.5 mmol/L (3.5-5.1)
[2024-09-24] MEDS: piperacillin-tazobactam 3.375 GM in sodium chloride 0.9% (plus) 50 ML IV ×3 (06:40→21:37)
--- NOTE | 2024-09-24 07:07 | PC.NURSE ---
While waiting for the Malignant Hyperthermia hotline to tell Doctor Billie what their conclusion was, Dr. Varela decided to start reconstituting 2 bottles of Dantrolene but were not used and had to be waisted after 6 hours due to them expiring.
[2024-09-24] MEDS: fentaNYL 1,000 MCG/100 ML BAG 7.5 MCG IV ×2 (08:42→22:25)
[2024-09-24] MEDS: pantoprazole 40 mg SDV IVP (10:24)
[2024-09-24 10:47] LABS: Partial Thromboplastin Time 140.1 SECONDS (23.9-36.7)
[2024-09-24] MEDS: midazolam 1 mg/mL INJ 2 mL IVP (12:20)
--- NOTE | 2024-09-24 13:12 | P.PN_ITS ---
Subjective 2 Subjective: Seen this morning. CT chest and pelvis reviewed from yesterday evening. Patient does have pulmonary embolism. Heparin drip was started overnight. Patient is off vasopressors. She has been off the Versed drip since yesterday evening and 2 mg every 4 hours as needed has been ordered. She only received 1 dose of Versed overnight. Currently on 75 of fentanyl. Will open her eyes to sternal rub. Does appear to be comfortable however is not responding enough at this time. Is on minimal vent settings. Will hold off on breathing trial today. Nieces are present in waiting room. Updated them in detail. They are the closest living relative at this time along with the patient's grandma who is 90 years old. They will be coming in again today around 3:00 to see the patient. Both nieces told me that Protonix and Lyrica was found around the patient and they belong to the patient's . They are not sure if she took those as well. They are unsure regarding oxycodone Valium and trazodone. They believe trazodone might be a previously prescribed medication which she may have taken however they are unsure exactly what she took. Urine drug screen was negative for opioids. They do not know how she could have gotten a hold of Valium. They do strongly believe that she did try to kill herself. They state that she has been depressed. Vitals/I&O/Wt Last Vital Signs Temp 99.8 F H 09/24/24 10:47 Pulse 108 H 09/24/24 12:06 Resp 14 09/24/24 10:53 BP 118/51 09/24/24 12:06 Pulse Ox 100 09/24/24 12:06 O2 Del Method Mechanical Ventilation 09/24/24 12:06 O2 Flow Rate 2 09/23/24 08:00 FiO2 28 09/24/24 12:06 09/23/24 09/24/24 09/24/24 22:59 06:59 14:59 Intake Total 812.50 / 4155.043 3275.125 / 2832.774 228.900 / 228.900 Output Total 100 / 100 550 / 650 800 / 800 Balance 712.50 / 1420.649 762.125 / 2182.774 -571.100 / -571.100 Weight last 48 hrs Weight 56 kg Weight 56 kg Weight 56 kg Weight 57.153 kg Physical Exam 2 Narrative: General: Intubated sedated. Will occasionally open eyes but mainly to sternal rub. Not following any commands at this time. Off sedation. Head: Normocephalic. Pupils are equally round reactive to light. Cardiovascular: RRR. No gallops. No murmurs. No peripheral edema. normal S1-S2. Lungs: Clear to auscultation, no use of accessory muscles, no crackles or wheezes. Abdomen: Hypoactive bowel sounds. Abdomen is not distended. Extremities: No cyanosis or clubbing. Neurological: Patient is intubated. Data 09/24/24 04:30 09/24/24 04:30 Micro: Microbiology 09/23/24 10:35 Gram Stain - Final Sputum - Endotracheal Wash Sputum Culture - Preliminary 09/23/24 21:42 Blood Culture - Preliminary Blood SPECIMEN COLLECTED 09/23/24 13:23 Blood Culture - Preliminary Blood SPECIMEN COLLECTED A&P Assessment and plan (1) Suicide attempt by multiple drug overdose: Presentation consistent with suspected intentional drug overdose ED provider reportedly placed 96-hour hold Admit to intensive care unit Continuous telemetry monitoring Tylenol level mildly elevated, trend acetaminophen levels Start IV fluids Monitor cardiopulmonary status, patient may require intubation if she is unable to protect airway Supportive care Will eventually need psychiatric care when medically improved (2) Acute encephalopathy: Acute toxic encephalopathy Serial neurological exams Management as above (3) Hyponatremia: Status post IV fluid bolus in ED Start maintenance fluids Repeat labs in a.m. (4) Hearing loss: Patient is severely hard of hearing at baseline She currently does not have her hearing aids here, family may be able to bring later Plan DVT prophylaxis: Lovenox CODE STATUS: Full code #Electively intubated for airway protection #Suicide attempt #Drug overdose #Malignant hyperthermia??Ruled out #Fever most likely secondary to aspiration pneumonia #Atelectasis #Aspiration pneumonia #Hyperphosphatemia #Mild hyponatremia?corrected #Hearing loss. #Pulmonary embolism -96-hour hold placed in ER -Patient intubated for airway protection ? Fever most likely secondary to aspiration pneumonia. Check blood cultures, sputum culture Gram stain, urine culture to rule out other sources ? Chest x-ray shows aspiration pneumonia, infiltrate right middle lobe and lower lobe. 25. Not present on admission. ? Continue Versed and fentanyl at this time. Patient requiring 2 vasopressors in the ER. Vasopressin and Levophed. Will attempt to wean off as able. ?Discussed with malignant hyperthermia micro[employer] bi consultant over the phone. Low suspicion for NPH at this time. Continue to monitor. ? Check CT head, chest abdomen pelvis ? Hyponatremia corrected. ? Continue IV fluids. ? QT 480. Will recheck EKG. ?Psychiatric consult once patient is extubated. ? Continue vancomycin and Zosyn ? CPK 1400. Continue IV fluids ? Continue to monitor Full code Heparin subcu twice daily GI prophylaxis: Protonix 40 IV daily 09/24/2024 ?96-hour hold placed in ER patient intubated for airway protection. Fever of unknown origin mostly secondary to aspiration pneumonia but also has evidence of atelectasis on chest x-ray. Malignant hyperthermia unlikely. Discussed with malignant hyperthermia helpline over the phone on 09/23. Blood cultures urine culture urine culture pending. ? Continue Versed every 4 hours as needed and fentanyl. Versed drip was turned off yesterday evening. ? Have discussed with nursing staff to avoid Versed if possible. ? When patient more awake and following commands we will plan for spontaneous breathing trial and potential extubation in next 24 to 48 hours. ? CT head negative for stroke or acute bleed. ? Continue IV fluids ? EKG reviewed. QTc within normal range ? Psychiatric consult when patient extubated ? CPK trending down 700 today. ? Continue to hospitalize patient at this time. Patient is on minimal vent settings however he is not following commands and is not participating despite being off sedation. Will continue with elective intubation at this time. - time was spent discussing patient's care with patient's nurses, multidisciplinary round, family meeting chart review, documentation. Attestations 2 Medical Necessity Statement*: intubated Critical Care Time: The high probability of a clinically significant, sudden or life threatening deterioration of the patient's [neurological, cardiovascular, respiratory] system(s) required my full and direct attention, intervention and personal management. The critical care time is as shown. This time is in addition to time spent performing any reported procedures but includes the following: [x] Data and vital sign review and interpretation [x] Patient assessment, examination and intervention [x] Documentation [x] Medication orders and management Critical Care Time (min): 65 Coding Level of Care Code Acute Code for Chg Fwd Diagnoses Suicide attempt by multiple drug overdose T50.912A Acute encephalopathy G93.40 Hyponatremia E87.1 Hearing loss H91.90
[2024-09-24] MEDS: acetaminophen 325 mg Tablet 650 MG PO (13:48)
[2024-09-24 16:46] LABS: Glucose Point of Care 94 mg/dL (70-110)
[2024-09-24 18:32] LABS: Partial Thromboplastin Time 115.6 SECONDS (23.9-36.7)
[2024-09-24 21:17] LABS: Glucose Point of Care 92 mg/dL (70-110)
[2024-09-25] VITALS (57 sets, daily range): BP systolic 82–157; BP diastolic 45–114; PULSE 80–123; RESP 14–22; TEMP 37.2–38.3; O2SAT 97–100
[2024-09-25 00:50] LABS: Glucose Point of Care 91 mg/dL (70-110)
[2024-09-25 01:05] LABS: Partial Thromboplastin Time 93.1 SECONDS (23.9-36.7)
[2024-09-25] MEDS: VANCOMYCIN ADD-Vantage 1,000 MG in 0.9% NaCl ADD-Vantage 250 ML 250 MG IV (01:45)
[2024-09-25] MEDS: chlorhexidine gluconate 4% Btl 118 mL 1 APPLIC TOPICAL (01:48)
[2024-09-25] MEDS: dextrose 5%-sod chloride 0.9% 1,000 ML 100 ML IV ×3 (02:35→23:01)
[2024-09-25 03:54] LABS: Basophils % 0.5 %; Eosinophils % 0.5 %; Hematocrit 29.7 % (36-47); Lymphocytes # 0.6 10^3/uL (0.8-4.8); Lymphocytes % 8.7 %; Mean Corpuscular HGB Conc 31.6 g/dL (30-55); Mean Corpuscular Hemoglobin 29.7 pg (27-33); Mean Platelet Volume 11.1 fL (7.4-10.4); Monocytes # 0.6 10^3/uL (0.2-0.9); Neutrophils # 5.33 10^3/uL (1.8-7.7); Neutrophils % 80.8 %; Nucleated Red Blood Cells % 0 %; Platelet Count 126 10^3/cmm (157-399); Red Blood Count 3.16 10^6/uL (3.85-5.65); Red Cell Distribution Width 12.4 % (12.1-15.1); White Blood Count 6.58 10^3/uL (3.29-11.43)
[2024-09-25 04:17] LABS: Alanine Aminotransferase 14 U/L (0-33); Albumin Level 2.5 g/dL (3.5-5.2); Alkaline Phosphatase 111 U/L (35-105); Anion Gap 10.9 (5-19); Aspartate Amino Transferase 35 U/L (0-32); Blood Urea Nitrogen 12 mg/dL (8-23); Calcium 6.9 mg/dL (8.5-10.5); Carbon Dioxide 20 mmol/L (22-29); Chloride 116 mmol/L (98-107); Creatinine Clr Calc Pharmacy 43.9895; Globulin 1.8 g/dL (1.3-4.6); Glomerular Filtration Rate 45.7 mL/min (90-130); Glucose 301 mg/dL (65-115); Magnesium 1.4 mg/dL (1.7-2.3); Osmolality Calculated 309 mOsm/kg (285-295); Sodium 144 mmol/L (136-145); Total Bilirubin 0.5 mg/dL (0.15-1.2); Total Protein 4.3 g/dL (6.6-8.7)
[2024-09-25 04:56] LABS: Potassium 2.9 mmol/L (3.5-5.1)
[2024-09-25] MEDS: piperacillin-tazobactam 3.375 GM in sodium chloride 0.9% (plus) 50 ML IV ×3 (05:15→23:01)
[2024-09-25] MEDS: potassium chloride ER 20 mEq Tablet 40 MEQ PO (05:16)
[2024-09-25 06:03] LABS: Glucose Point of Care 96 mg/dL (70-110)
--- NOTE | 2024-09-25 07:00 | PC.NURSE ---
Report received at shift change. Pt remains intubated and sedate with medical restraints. No 1:1 sitters available for day shift. This nurse also has another critical care pt, so constant monitoring of patient is unrealistic/ physically impossible at this time.
[2024-09-25 08:31] LABS: Glucose Point of Care 109 mg/dL (70-110)
[2024-09-25] MEDS: fentaNYL 1,000 MCG/100 ML BAG 10 MCG IV (08:48)
[2024-09-25] MEDS: calcium gluconate 0.9% NaCL 1 GM/50 ML PREMIX IV (09:43)
[2024-09-25] MEDS: pantoprazole 40 mg SDV IVP (09:44)
[2024-09-25] MEDS: potassium chloride premix 100 ML 25 MEQ IV ×2 (09:44→14:22)
--- NOTE | 2024-09-25 11:21 | PM.PN ---
Subjective Subjective: Patient seen at bedside this morning. She is opening eyes to verbal stimuli but not following commands. Still on fentanyl drip for sedation, will try to wean fentanyl off and follow-up mental status. She has to be more alert and awake for breathing trial, hence will hold off on extubation for today. She still had a temperature of 100.4 this morning. Vitals/I&O/Wt Last Vital Signs Temp 99.7 F H 09/25/24 04:00 Pulse 80 09/25/24 06:00 Resp 14 09/25/24 10:17 BP 144/72 09/25/24 06:00 Pulse Ox 99 09/25/24 10:17 O2 Del Method Mechanical Ventilation 09/25/24 06:00 O2 Flow Rate 2 09/23/24 08:00 FiO2 28 09/25/24 10:17 09/24/24 09/25/24 09/25/24 22:59 06:59 14:59 Intake Total 477.967 / 0512.978 1680.167 / 3172.034 154.5 / 154.5 Output Total 250 / 1050 600 / 1650 Balance 227.967 / 706.867 815.167 / 1522.034 154.5 / 154.5 Data 09/25/24 03:14 09/25/24 03:14 Micro: Microbiology 09/23/24 10:35 Gram Stain - Final Sputum - Endotracheal Wash Sputum Culture - Final 09/23/24 21:45 Urine Culture - Preliminary Urine Catheterized 09/23/24 21:42 Blood Culture - Preliminary Blood NEGATIVE TO DATE 09/23/24 13:23 Blood Culture - Preliminary Blood NEGATIVE TO DATE A&P Assessment and plan (1) Suicide attempt by multiple drug overdose: (2) Acute encephalopathy: (3) Hyponatremia: resolved (4) Hearing loss: (5) Pulmonary embolism: (6) Acute hypercapnic respiratory failure: (7) Aspiration pneumonia: Plan 09/22/24 (1) Suicide attempt by multiple drug overdose: Presentation consistent with suspected intentional drug overdose ED provider reportedly placed 96-hour hold Admit to intensive care unit Continuous telemetry monitoring Tylenol level mildly elevated, trend acetaminophen levels Start IV fluids Monitor cardiopulmonary status, patient may require intubation if she is unable to protect airway Supportive care Will eventually need psychiatric care when medically improved (2) Acute encephalopathy: Acute toxic encephalopathy Serial neurological exams Management as above (3) Hyponatremia: Status post IV fluid bolus in ED Start maintenance fluids Repeat labs in a.m. (4) Hearing loss: Patient is severely hard of hearing at baseline She currently does not have her hearing aids here, family may be able to bring later 09/23/24 #Electively intubated for airway protection #Suicide attempt #Drug overdose #Malignant hyperthermia??Ruled out #Fever most likely secondary to aspiration pneumonia #Atelectasis #Aspiration pneumonia #Hyperphosphatemia #Mild hyponatremia?corrected #Hearing loss. #Pulmonary embolism -96-hour hold placed in ER -Patient intubated for airway protection ? Fever most likely secondary to aspiration pneumonia. Check blood cultures, sputum culture Gram stain, urine culture to rule out other sources ? Chest x-ray shows aspiration pneumonia, infiltrate right middle lobe and lower lobe. 25. Not present on admission. ? Continue Versed and fentanyl at this time. Patient requiring 2 vasopressors in the ER. Vasopressin and Levophed. Will attempt to wean off as able. ?Discussed with malignant hyperthermia animal nutrition consultant over the phone. Low suspicion for NPH at this time. Continue to monitor. ? Check CT head, chest abdomen pelvis ? Hyponatremia corrected. ? Continue IV fluids. ? QT 480. Will recheck EKG. ?Psychiatric consult once patient is extubated. ? Continue vancomycin and Zosyn ? CPK 1400. Continue IV fluids ? Continue to monitor 09/24/24 96-hour hold placed in ER patient intubated for airway protection. Fever of unknown origin mostly secondary to aspiration pneumonia but also has evidence of atelectasis on chest x-ray. Malignant hyperthermia unlikely. Discussed with malignant hyperthermia helpline over the phone on 09/23. Blood cultures urine culture urine culture pending. ? Continue Versed every 4 hours as needed and fentanyl. Versed drip was turned off yesterday evening. ? Have discussed with nursing staff to avoid Versed if possible. ? When patient more awake and following commands we will plan for spontaneous breathing trial and potential extubation in next 24 to 48 [address]. ? CT head negative for stroke or acute bleed. ? Continue IV fluids ? EKG reviewed. QTc within normal range ? Psychiatric consult when patient extubated ? CPK trending down 700 today. ? Continue to hospitalize patient at this time. Patient is on minimal vent settings however he is not following commands and is not participating despite being off sedation. Will continue with elective intubation at this time. - time was spent discussing patient's care with patient's nurses, multidisciplinary round, family meeting chart review, documentation. 09/25/24 Patient still intubated. Has been responsive only to verbal stimuli, on fentanyl drip for sedation. Will try to taper off the fentanyl drip for SBT trial. Will repeat chest x-ray in a.m. Continue IV fluids D5 NS at 100 cc/h IV vancomycin 1 g every 12 hours IV Zosyn 3.375 g every 8 hours Blood culture and urine culture negative so far Creatinine 1.2 continue IV fluids Continue heparin drip. Hemoglobin 9.4, platelet count 126. Monitor CBC Will do psychiatric consult once extubated QTc improved to 470. Continue to monitor in ICU. Attestations Medical Necessity Statement*: She needs continued hospitalization crossing 2 midnights for management of acute respiratory failure secondary to drug overdose and psychiatric consult for suicidal ideation, management of PE with heparin drip Time Spent in Patient Care: 35 minutes Coding Level of Care Code Acute Code for [facility] Fwd Diagnoses Suicide attempt by multiple drug overdose T50.912A Acute encephalopathy G93.40 Hyponatremia E87.1 Hearing loss H91.90 Pulmonary embolism I26.99 Acute hypercapnic respiratory failure J96.02 Aspiration pneumonia J69.0 Time Spent (min) 35
[2024-09-25 12:05] LABS: Glucose Point of Care 89 mg/dL (70-110)
[2024-09-25 12:42] LABS: Vancomycin Trough 20.3 ug/mL (10-15)
--- NOTE | 2024-09-25 13:00 | PC.NURSE ---
Due to patient's critical condition allowance made for pt's mother, Omari Barrow, to see pt outside of the 96 hour hold visiting hour restrictions. Discussed this with Charge nurse, BARB Nielson.
[2024-09-25 13:56] LABS: Partial Thromboplastin Time 43.3 SECONDS (23.9-36.7)
[2024-09-25] MEDS: VANCOMYCIN ADD-Vantage 750 MG in 0.9% NaCl ADD-Vantage 250 ML 250 MG IV (14:26)
[2024-09-25 18:00] LABS: Glucose Point of Care 111 mg/dL (70-110)
--- NOTE | 2024-09-25 18:33 | PC.NURSE ---
Shift summary: Pt remains intubated and sedated at end of shift. No changes in the vent settings noted. SHe is making copious secretions per ETT and orally. Fentanyl gtt, at 100 mcg/min, stopped for several hours today, Pt would then open her eyes spontaneously but not track staff while they spoke to her. She did furrow her brow and lean in towards her mother when her mother spoke to her. But she did not track mother with her eyes. She localized to pain mostly . She has been extending her feet. Scleral and periorbital edema noted. Generalized edema on her arms. She does have blisters on her left arm around her elbow and upper arm. Lungs clear and diminished. Her bowel sounds were hypoactive. Heparin gtt infusing and adjusted per PTTs as ordered. Fentanyl rate changed to 30mcg/min. 600 ml of clear yellow urine noted. Calcium and Potassium replacement done per IV today.
--- NOTE | 2024-09-25 19:00 | PC.NURSE ---
MAR Upon initial assessment of patient, heparin drip administering at 10.1 ml/hr while MAR displayed 10.14 unit/kg/hr. MAR updated to reflect administration rate.
[2024-09-25 20:28] LABS: Glucose Point of Care 104 mg/dL (70-110)
[2024-09-25 21:08] LABS: Partial Thromboplastin Time 39.6 SECONDS (23.9-36.7)
[2024-09-25] MEDS: heparin 5,000 unit/mL INJ 1 mL IVP (21:17)
[2024-09-25] MEDS: heparin drip 25,000 UNIT/500 ML PREMIX 12 UNIT IV (22:59)
[2024-09-26] VITALS (55 sets, daily range): BP systolic 109–173; BP diastolic 63–111; PULSE 70–110; RESP 14–141; TEMP 37–38.3; O2SAT 94–100
[2024-09-26 00:35] LABS: Glucose Point of Care 107 mg/dL (70-110)
[2024-09-26] MEDS: VANCOMYCIN ADD-Vantage 750 MG in 0.9% NaCl ADD-Vantage 250 ML 250 MG IV ×2 (03:05→16:20)
[2024-09-26 03:49] LABS: Basophils % 0.5 %; Eosinophils # 0.1 10^3/uL (0.0-0.8); Eosinophils % 1.7 %; Hematocrit 27.3 % (36-47); Lymphocytes # 0.6 10^3/uL (0.8-4.8); Lymphocytes % 10.2 %; Mean Corpuscular HGB Conc 32.6 g/dL (30-55); Mean Corpuscular Hemoglobin 29.9 pg (27-33); Mean Corpuscular Volume 91.6 fl (85-98); Mean Platelet Volume 10.6 fL (7.4-10.4); Monocytes # 0.6 10^3/uL (0.2-0.9); Monocytes % 9.7 %; Neutrophils # 4.57 10^3/uL (1.8-7.7); Neutrophils % 77.7 %; Nucleated Red Blood Cells % 0 %; Platelet Count 99 10^3/cmm (157-399); Red Blood Count 2.98 10^6/uL (3.85-5.65); Red Cell Distribution Width 12.7 % (12.1-15.1); White Blood Count 5.88 10^3/uL (3.29-11.43)
[2024-09-26 04:02] LABS: Partial Thromboplastin Time 66.5 SECONDS (23.9-36.7)
[2024-09-26 04:06] LABS: Blood Urea Nitrogen 14 mg/dL (8-23); Calcium 7.8 mg/dL (8.5-10.5); Carbon Dioxide 19 mmol/L (22-29); Chloride 121 mmol/L (98-107); Creatine Phosphokinase 234 U/L (26-192); Creatinine Clr Calc Pharmacy 23.9943; Glomerular Filtration Rate 22.7 mL/min (90-130); Glucose 115 mg/dL (65-115); Osmolality Calculated 305 mOsm/kg (285-295); Sodium 147 mmol/L (136-145)
[2024-09-26 05:06] LABS: Glucose Point of Care 106 mg/dL (70-110)
[2024-09-26] MEDS: dextrose 10% 1,000 ML 40 ML IV (05:40)
[2024-09-26] MEDS: piperacillin-tazobactam 3.375 GM in sodium chloride 0.9% (plus) 50 ML IV ×2 (05:43→16:20)
[2024-09-26] MEDS: chlorhexidine gluconate 4% Btl 118 mL 1 APPLIC TOPICAL (05:54)
--- NOTE | 2024-09-26 06:00 | XRR_ITS ---
PROCEDURE INFORMATION: Exam: XR Chest Exam date and time: 09/26/2024 5:44 AM Age: 63 years old Clinical indication: Device placement; Ett placement (vent status); Additional info: Intubated patient TECHNIQUE: Imaging protocol: Radiologic exam of the chest. Views: 1 view. COMPARISON: CT angio chest w abd pel w con 09/24/2024 12:59 AM FINDINGS: Tubes, catheters and devices: Endotracheal tube is present with its tip 3 cm above the jerod. PICC line is seen on the right with its tip overlying the SVC. Nasogastric tube is present with its tip below the level of the film. Lungs: There are hazy opacities at both lung bases worse on the left than on the right. Findings may reflect layering pleural fluid, atelectasis, pneumonia, or a combination. There has been interval worsening at the left lung base when compared to prior exam. There has been interval improvement at the right lung base. Pleural spaces: Suspect small pleural effusions. No pneumothorax is appreciated. Heart/Mediastinum: Unremarkable. No cardiomegaly. Bones/joints: Unremarkable. XR/XR chest 1V portable [id number] IMPRESSION: 1. Bibasilar opacities worse on the left.
--- NOTE | 2024-09-26 06:22 | PC.NURSE ---
Physician Communication Patient's platelet count decreasing over time, currently 99. Additionally, increased coarseness noted to be heard in patient's bilateral lower lung ibarra with increasing edema in bilateral hands. Dr. Matias notified; order received to discontinue D5NS and start D10 at 40 ml/hr instead.
--- NOTE | 2024-09-26 07:26 | USCV_ITS ---
Denisse Narayanan Age: 63 Gender: F : 1960 Exam Date: 09/26/2024 08:05 Ordering Phys: Josefina Mendoza MD Technologist: Exam Location: [facility] [place]: cp sob on vent BP: 146 / 81 HR: 98 Rhythm: Sinus Technical Quality: Adequate MEASUREMENTS (Male / Female) Normal Values 2D ECHO LV Diastolic Diameter PLAX 3.7 cm 4.2 - 5.9 / 3.9 - 5.3 cm IVS Diastolic Thickness 0.7 cm 0.6 - 1.0 / 0.6 - 0.9 cm IVS Systolic Thickness 1.3 cm LVPW Diastolic Thickness 1.0 cm 0.6 - 1.0 / 0.6 - 0.9 cm LVPW Systolic Thickness 1.3 cm LVOT Diameter 2.4 cm LV Ejection Fraction 2D Teich 69.7 % LV Ejection Fraction MOD 4C 68.5 % LV Ejection Fraction MOD 2C 67.5 % LV Ejection Fraction 2C AL 68.0 % LA Diameter 2.9 cm RA Systolic Volume 4C AL 25.3 ml RA Systolic Volume 4C MOD 24.2 ml Aorta at Sinotubular Diameter 2.6 cm IVC Diameter 2.5 cm M-MODE LA Ao Ratio MM 1.3 AV Cusp Separation MM 2.1 cm DOPPLER AV Peak Velocity 127.0 cm/s LVOT Peak Velocity 94.0 cm/s AV Area Cont Eq vti 3.4 cm squared AV Area Cont Eq pk 3.2 cm squared MV Peak Velocity 114.0 cm/s MV Area PHT 3.9 cm squared Mitral E to A Ratio 1.3 TR Peak Velocity 136.0 cm/s TR Peak Gradient 7.4 mmHg TV Peak E Velocity 101.0 cm/s Right Atrial Pressure 3.0 mmHg Pulmonary Artery Systolic Pressu 10.4 mmHg PV Peak Velocity 117.0 cm/s FINDINGS Left Ventricle Left ventricle is normal size. LV systolic function is normal with EF of 55 to 60%. No regional wall motion abnormalities are seen. Right Ventricle Normal in size and function Right Atrium Normal in size Left Atrium Normal in size Mitral Valve Structurally normal mitral valve. Trace mitral regurgitation. Aortic Valve Structurally normal aortic valve. No significant stenosis or regurgitation. Tricuspid Valve Mild tricuspid regurgitation. Insufficient TR jet to evaluate RVSP. Pulmonic Valve Not well visualized Pericardium Normal Aorta Normal in size IVC Appears to be dilated CONCLUSIONS LV systolic function is normal with EF of 55-60% Trace mitral regurgitation Mild tricuspid regurgitation No comparison studies are available. Andres Juan MD (Electronically Signed) Final Date: 27 September 2024 10:55 S
[2024-09-26 07:46] LABS: Glucose Point of Care 104 mg/dL (70-110)
--- NOTE | 2024-09-26 09:17 | CT_ITS ---
WS: [id number] CT HEAD TECHNIQUE: Noncontrast CT of the head obtained from the skullbase to the vertex. CLINICAL INFORMATION: neurological deficits, possible stroke? COMPARISON: CT 09/24/2024 DLP: 1058.[address] scans at [facility] use at least one of these dose optimization techniques: automated e xposure control; mA and/or kV adjustment per patient size (includes targeted exams where dose is matc hed to clinical indication); or iterative reconstruction. FINDINGS: No evidence of intracranial hemorrhage or mass effect. Ventricular system and basal cisterns are navarro nt. Mild small vessel changes with mild parenchymal volume loss. Vascular calcification. No extra-axi al fluid collections. No evidence of mass or mass effect. Normal farias-white differentiation. Paranasal sinusitis with air-fluid levels. Air-fluid levels in the maxillary sinuses. Fluid in the RI GHT greater than LEFT frontoethmoidal recesses and ethmoid air cells. Fluid in the sphenoid sinuses. Fluid in the posterior nasopharynx. CT/CT head wo con* [id number] IMPRESSION: 1. No evidence of intracranial hemorrhage or mass effect. 2. Mild small vessel changes with mild parenchymal volume loss. 3. Vascular calcification. 4. Paranasal sinusitis with air-fluid levels. 5. No acute intracranial findings.
[2024-09-26] MEDS: pantoprazole 40 mg SDV IVP (09:55)
[2024-09-26] MEDS: apixaban 5 mg Tablet PO ×2 (09:55→20:08)
[2024-09-26 11:39] LABS: Glucose Point of Care 102 mg/dL (70-110)
--- NOTE | 2024-09-26 13:54 | P.CONIM_ITS ---
Providers/Reason For Consult 2 Consulting Physician/Specialty*: kommana/Nephrology Reason for Consult*: LYNNETTE Attending Physician: Josefina Mendoza MD Primary Care Provider: Mireya Willingham History of Present Illness History of Present Illness Denisse Narayanan is a 63 year old female Patient is a 63-year-old female with no known medical problems was brought to the emergency department after she was found down at home in an unresponsive state. There was also reportedly numerous pill bottles around her. Vital signs in the emergency department were significant for bradycardia other vitals are stable. Other lab data significant for mild hyponatremia, elevated lactic acid urine tox screen positive for benzodiazepines. Patient was started on IV fluids. Her creatinine on presentation was normal at 0.4. During the course of last 2 days patient's mental status has gotten worse progressively and patient is currently intubated for airway protection. CT scan head was unremarkable. Renal function has gotten worse in the last 2 days up to 2.2 today. Nonoliguric. Also has mild metabolic acidosis with a CO2 level of 19. Review of Systems 2 Narrative: Unable to obtain full review of system assessment, patient intubated Medications/Allergies Home Medications Medication Instructions Recorded Confirmed Last Taken Type latanoprost 0.005 % eye drops 1 drp ophthalmic (eye) QPM 09/23/24 09/23/24 Unknown History timolol maleate 0.5 % eye drops 1 drp ophthalmic (eye) BID 09/23/24 09/23/24 Unknown History trazodone 50 mg tablet 50 mg PO QPM PRN Sleep 09/23/24 09/23/24 Unknown History Allergies Allergy/AdvReac Type Severity Reaction Status Date / Time No Known Allergies Allergy Verified 09/23/24 19:05 Current Medications Generic Name Dose Route Start Last Admin Trade Name Freq PRN Reason Stop Dose Admin Acetaminophen 650 mg 09/23/24 12:24 09/24/24 13:48 Acetaminophen 325 Mg Tablet PO 650 mg Q6H PRN Administration MILD PAIN Apixaban 5 mg 09/26/24 10:00 09/26/24 09:55 Apixaban 5 Mg Tablet PO 5 mg BID@0900,2100 GIACOMO Administration Chlorhexidine Gluconate 1 applic 09/25/24 00:00 09/26/24 05:54 Chlorhexidine Gluconate 4% Btl 118 Ml TOPICAL 1 applic DAILY GIACOMO Administration Fentanyl 1,000 mcg in 100 mls @ 0 mls/hr 09/23/24 09:15 09/26/24 12:30 Sublimaze IV 0 mcg/hr .Q0M GIACOMO 0 mls/hr Titration Protocol Per Protocol Piperacillin Sod/Tazobactam 50 mls @ 12.5 mls/hr 09/23/24 14:00 09/26/24 09:35 Sod 3.375 gm/ Sodium Chloride IV Infused Q8H GIACOMO Infusion Dextrose 250 mls @ 1,000 mls/hr 09/23/24 17:53 09/23/24 18:56 D10w IV Infused PRN PRN Infusion HYPOGLYCEMIA Vancomycin HCl 750 mg/ Sodium 250 mls @ 250 mls/hr 09/25/24 14:00 09/26/24 05:43 Chloride IV Infused Q12H GIACOMO Infusion Dextrose 1,000 mls @ 40 mls/hr 09/26/24 05:30 09/26/24 05:40 D10w IV 40 mls/hr .Q24H GIACOMO Administration Midazolam HCl 2 mg 09/23/24 19:17 09/24/24 20:48 Midazolam 1 Mg/Ml Inj 2 Ml IVP 2 mg Q4H PRN Administration Intubated Naloxone HCl 0.1 mg 09/22/24 18:20 09/22/24 18:27 Naloxone 0.4 Mg/Ml Sdv IVP 0.1 mg Q2M PRN Administration RESPIRATORY RATE < 8/MIN Naloxone HCl 0.4 mg 09/22/24 18:35 09/22/24 19:20 Naloxone 0.4 Mg/Ml Sdv IVP 0.4 mg PRN PRN Administration RESPIRATORY RATE < 8/MIN Pantoprazole Sodium 40 mg 09/24/24 09:00 09/26/24 09:55 Pantoprazole 40 Mg Sdv IVP 40 mg DAILY GIACOMO Administration PFSH Acute 2 PFSH: Medical History (Updated 09/26/24 @ 20:05 by Rose Wallace MD) Hearing loss Vitals/I&O/Wt Last Vital Signs Temp 99.5 F 09/26/24 12:00 Pulse 83 09/26/24 12:30 Resp 23 H 09/26/24 13:29 BP 144/80 09/26/24 12:30 Pulse Ox 97 09/26/24 13:29 O2 Del Method Mechanical Ventilation 09/26/24 12:30 O2 Flow Rate 2 09/23/24 08:00 FiO2 24 09/26/24 13:29 09/25/24 09/26/24 09/26/24 22:59 06:59 14:59 Intake Total 507.713 / 0300.462 6442.467 / 3951.600 147.9 / 147.9 Output Total 600 / 600 525 / 1125 Balance -92.287 / 6811.508 7867.467 / 2826.600 147.9 / 147.9 Physical Exam 2 Narrative: Intubated and sedated. Urinary Catheter Management: Dolan: Cath Placed During This Visit: no Reason for Continuing Indwelling Catheter: Accurate Measurement of Urinary Output in Critically Ill Patients Data 09/26/24 03:09 09/26/24 03:09 Micro: Microbiology 09/23/24 21:45 Urine Culture - Final Urine Catheterized 09/23/24 10:35 Gram Stain - Final Sputum - Endotracheal Wash Sputum Culture - Final A&P Assessment and plan (1) LYNNETTE (acute kidney injury): 1. Acute kidney injury: Baseline creatinine was normal on presentation now the creatinine is up to 2.2. Etiology of LYNNETTE likely multifactorial -possible ATN in the setting of acute infection and poor p.o. intake, contrast exposure. Patient nonoliguric, has mild metabolic acidosis -No acute indication for dialysis currently, will monitor closely in the next 24 hours if renal function fails to improve will consider temporary hemodialysis -Avoid nephrotoxic agents and IV contrast studies 2. Metabolic acidosis: Mild, monitor for now 3. Question toxic ingestion of meds, 4. Pulmonary embolism, on anticoagulation 5. Bilateral pneumonia 6. Altered mental status, patient's mental status failed to improve so far, monitor closely, consider neurology consult Patient evaluated using audiovisual cart. Time spent 40 minutes. Consult Attestations 2 Medical Necessity Statement: Per medicine team Coding Level of Care Code Acute Code for [facility] Diagnoses LYNNETTE (acute kidney injury) N17.9
--- NOTE | 2024-09-26 14:53 | P.PN_ITS ---
Subjective 2 Subjective: Patient seen at bedside this morning. She is opening eyes to verbal stimuli but not following commands. Medications: Reviewed: Yes Vitals/I&O/Wt Last Vital Signs Temp 99.5 F 09/26/24 12:00 Pulse 83 09/26/24 12:30 Resp 23 H 09/26/24 13:29 BP 144/80 09/26/24 12:30 Pulse Ox 97 09/26/24 13:29 O2 Del Method Mechanical Ventilation 09/26/24 12:30 O2 Flow Rate 2 09/23/24 08:00 FiO2 24 09/26/24 13:29 09/25/24 09/26/24 09/26/24 22:59 06:59 14:59 Intake Total 507.713 / 1076.579 1663.467 / 3951.600 147.9 / 147.9 Output Total 600 / 600 525 / 1125 Balance -92.287 / 9453.530 1325.467 / 2826.600 147.9 / 147.9 Physical Exam 2 Narrative: General: Intubated sedated. Opening eyes to verbal stimuli, severely hard of hearing . Not following any commands at this ti me. Off sedation. Head: Normocephalic. Pupils are equally round reactive to light but sluggish Cardiovascular: RRR. No gallops. No murmurs. No peripheral edema. normal S1-S2. Lungs: Bilateral crackles present Abdomen: Hypoactive bowel sounds. Abdomen is not distended. Extremities: No cyanosis or clubbing. Neurological: Tongue deviated to left side, right upper and lower extremity flaccid, retracts right lower extremity on plantar reflex. Urinary Catheter Management: Dolan: Cath Placed During This Visit: no Reason for Continuing Indwelling Catheter: Accurate Measurement of Urinary Output in Critically Ill Patients Data 09/26/24 03:09 09/26/24 03:09 Micro: Microbiology 09/23/24 21:45 Urine Culture - Final Urine Catheterized 09/23/24 10:35 Gram Stain - Final Sputum - Endotracheal Wash Sputum Culture - Final A&P Assessment and plan (1) Suicide attempt by multiple drug overdose: (2) Acute encephalopathy: (3) Hyponatremia: resolved (4) Hearing loss: (5) Pulmonary embolism: (6) Acute hypercapnic respiratory failure: (7) Aspiration pneumonia: Plan 11/18/24 (1) Suicide attempt by multiple drug overdose: Presentation consistent with suspected intentional drug overdose ED provider reportedly placed 96-hour hold Admit to intensive care unit Continuous telemetry monitoring Tylenol level mildly elevated, trend acetaminophen levels Start IV fluids Monitor cardiopulmonary status, patient may require intubation if she is unable to protect airway Supportive care Will eventually need psychiatric care when medically improved (2) Acute encephalopathy: Acute toxic encephalopathy Serial neurological exams Management as above (3) Hyponatremia: Status post IV fluid bolus in ED Start maintenance fluids Repeat labs in a.m. (4) Hearing loss: Patient is severely hard of hearing at baseline She currently does not have her hearing aids here, family may be able to bring later 09/23/24 #Electively intubated for airway protection #Suicide attempt #Drug overdose #Malignant hyperthermia??Ruled out #Fever most likely secondary to aspiration pneumonia #Atelectasis #Aspiration pneumonia #Hyperphosphatemia #Mild hyponatremia?corrected #Hearing loss. #Pulmonary embolism -96-hour hold placed in ER -Patient intubated for airway protection ? Fever most likely secondary to aspiration pneumonia. Check blood cultures, sputum culture Gram stain, urine culture to rule out other sources ? Chest x-ray shows aspiration pneumonia, infiltrate right middle lobe and lower lobe. 25. Not present on admission. ? Continue Versed and fentanyl at this time. Patient requiring 2 vasopressors in the ER. Vasopressin and Levophed. Will attempt to wean off as able. ?Discussed with malignant hyperthermia analytics consultant over the phone. Low suspicion for NPH at this time. Continue to monitor. ? Check CT head, chest abdomen pelvis ? Hyponatremia corrected. ? Continue IV fluids. ? QT 480. Will recheck EKG. ?Psychiatric consult once patient is extubated. ? Continue vancomycin and Zosyn ? CPK 1400. Continue IV fluids ? Continue to monitor 09/24/24 96-hour hold placed in ER patient intubated for airway protection. Fever of unknown origin mostly secondary to aspiration pneumonia but also has evidence of atelectasis on chest x-ray. Malignant hyperthermia unlikely. Discussed with malignant hyperthermia helpline over the phone on 09/23. Blood cultures urine culture urine culture pending. ? Continue Versed every 4 hours as needed and fentanyl. Versed drip was turned off yesterday evening. ? Have discussed with nursing staff to avoid Versed if possible. ? When patient more awake and following commands we will plan for spontaneous breathing trial and potential extubation in next 24 to 48 hours. ? CT head negative for stroke or acute bleed. ? Continue IV fluids ? EKG reviewed. QTc within normal range ? Psychiatric consult when patient extubated ? CPK trending down 700 today. ? Continue to hospitalize patient at this time. Patient is on minimal vent settings however he is not following commands and is not participating despite being off sedation. Will continue with elective intubation at this time. - time was spent discussing patient's care with patient's nurses, multidisciplinary round, family meeting chart review, documentation. 09/25/24 Patient still intubated. Has been responsive only to verbal stimuli, on fentanyl drip for sedation. Will try to taper off the fentanyl drip for SBT trial. Will repeat chest x-ray in a.m. Continue IV fluids D5 NS at 100 cc/h IV vancomycin 1 g every 12 hours IV Zosyn 3.375 g every 8 hours Blood culture and urine culture negative so far Creatinine 1.2 continue IV fluids Continue heparin drip. Hemoglobin 9.4, platelet count 126. Monitor CBC Will do psychiatric consult once extubated QTc improved to 470. Continue to monitor in ICU. 09/26/24 Patient still intubated, has been responsive to verbal stimuli, off sedation but unable to follow commands. Also noticed to have tongue deviation and right upper and lower extremity flaccid, pupils sluggish, hence CT head without contrast done was negative for acute stroke. Neurological findings could likely be due to drug overdose. Unable to do MRI at this time since patient is intubated. Also creatinine trending up to 2.2, nephrology consulted. Will follow for further recommendations. Continue to monitor creatinine for now. Follow-up 2D echo Platelet count trending down to 99 as compared to 236 on admission. Will discontinue heparin drip and start Eliquis via NG tube Psychiatry to see the patient once extubated Will continue to monitor in ICU Will discuss with family about goals of care. Attestations 2 Medical Necessity Statement*: She needs continued hospitalization crossing 2 midnights for management of acute respiratory failure secondary to drug overdose and psychiatric consult for suicidal ideation, management of PE , worsening renal function Time Spent in Patient Care: 35 minutes Coding Level of Care Code Critical Care >/= 30 minutes Diagnoses Suicide attempt by multiple drug overdose T50.912A Acute encephalopathy G93.40 Hyponatremia E87.1 Hearing loss H91.90 Pulmonary embolism I26.99 Acute hypercapnic respiratory failure J96.02 Aspiration pneumonia J69.0 Time Spent (min) 35
[2024-09-26 17:35] LABS: Glucose Point of Care 103 mg/dL (70-110)
--- NOTE | 2024-09-26 18:20 | PC.NURSE ---
Shift summary: Pt rested in bed throughout shift. Fentanyl gtt at 30mcg/min stopped (paused) to check patient's alertness today. It remains off at this time.. Pt opening eyes but not tracking or looking at people speaking to her. Her right side is more flaccid than the left. Her tongue protrudes. She does cough and gag on her copious secretions. She does raise eyebrows, shrug and move knees inward while her feet remain extended with stimulus. The periorbital and scleral edema have resolved. Her arms remain edematous. During one of the coughing episodes, gastric secretions filled up her clamped OG, unclamped attached to LIS for a couple hours. Green output noted, at the end slight amount of bloody secretions noted. Bowel sounds improved today. NO flatus or BM this shift. 500 ml of yellow urine output. Nephrology consult done today.
[2024-09-26 20:18] LABS: Glucose Point of Care 105 mg/dL (70-110)
--- NOTE | 2024-09-26 22:36 | PC.NURSE ---
Fever Patient's axillary temperature 101F. Dr. Maitas contacted and order received to change PRN indication for 650 mg tylenol to mild pain or increased temperature.
[2024-09-26] MEDS: acetaminophen 325 mg Tablet 650 MG OG-TUBE (22:56)
[2024-09-27] VITALS (57 sets, daily range): BP systolic 120–167; BP diastolic 62–108; PULSE 49–99; RESP 12–28; TEMP 36.6–38.2; O2SAT 95–100
[2024-09-27 00:24] LABS: Glucose Point of Care 111 mg/dL (70-110)
[2024-09-27] MEDS: piperacillin-tazobactam 3.375 GM in sodium chloride 0.9% (plus) 50 ML IV ×4 (00:32→23:05)
[2024-09-27] MEDS: VANCOMYCIN ADD-Vantage 750 MG in 0.9% NaCl ADD-Vantage 250 ML 250 MG IV (03:00)
[2024-09-27 04:29] LABS: Glucose Point of Care 105 mg/dL (70-110)
[2024-09-27] MEDS: chlorhexidine gluconate 4% Btl 118 mL 1 APPLIC TOPICAL ×2 (04:41→22:40)
[2024-09-27 05:18] LABS: Basophils % 0.6 %; Eosinophils # 0.1 10^3/uL (0.0-0.8); Eosinophils % 2.2 %; Hematocrit 26.6 % (36-47); Lymphocytes # 0.6 10^3/uL (0.8-4.8); Lymphocytes % 11.2 %; Mean Corpuscular HGB Conc 32.3 g/dL (30-55); Mean Corpuscular Hemoglobin 29.9 pg (27-33); Mean Corpuscular Volume 92.4 fl (85-98); Mean Platelet Volume 11.4 fL (7.4-10.4); Monocytes # 0.6 10^3/uL (0.2-0.9); Monocytes % 11.3 %; Neutrophils % 74.3 %; Nucleated Red Blood Cells % 0 %; Platelet Count 106 10^3/cmm (157-399); Red Blood Count 2.88 10^6/uL (3.85-5.65); Red Cell Distribution Width 12.8 % (12.1-15.1); White Blood Count 5.38 10^3/uL (3.29-11.43)
[2024-09-27 05:44] LABS: Anion Gap 13.9 (5-19); Blood Urea Nitrogen 18 mg/dL (8-23); Calcium 8.1 mg/dL (8.5-10.5); Carbon Dioxide 18 mmol/L (22-29); Chloride 118 mmol/L (98-107); Creatinine Clr Calc Pharmacy 21.1149; Glomerular Filtration Rate 19.6 mL/min (90-130); Glucose 107 mg/dL (65-115); Osmolality Calculated 304 mOsm/kg (285-295); Potassium 3.9 mmol/L (3.5-5.1); Sodium 146 mmol/L (136-145)
[2024-09-27] MEDS: dextrose 10% 1,000 ML 40 ML IV (06:25)
[2024-09-27] MEDS: dextrose 5%-sod chloride 0.45% 1,000 ML 75 ML IV ×2 (07:57→21:17)
[2024-09-27] MEDS: pantoprazole 40 mg SDV IVP (08:11)
--- NOTE | 2024-09-27 09:35 | PC.NUTR ---
Since Pt has been NPO for 5 days, recommend consideration of trophic feed w/Jevity 1.5, starting @10mls/hr and increasing 10mls Q8H or as tolerated with goal rate of 40mls/hr, monitoring electrolytes for possible refeeding syndrome, with FWF 120mls Q4H or per MD discretion. Details in RD assessment.
[2024-09-27] MEDS: apixaban 5 mg Tablet OG-TUBE ×2 (09:58→21:29)
[2024-09-27 10:03] LABS: Glucose Point of Care 110 mg/dL (70-110)
--- NOTE | 2024-09-27 11:31 | PC.NURSE ---
pt placed on cpap this am tolerated for approx 3 hr until having apnic resperation , placed back on cmv family at bedside heart rate with episodes of aggie 40s to sr 80 has spontanous eye opening and movement but not purposeful reactions . Mts contacted this am doctor talked with family at length about status
--- NOTE | 2024-09-27 13:07 | P.PN_ITS ---
Subjective 2 Subjective: No acute overnight events noted. Seen her at bedside this morning still opening eyes to verbal stimuli but not following commands. Family at bedside, updated with diagnosis and plan of care. Family still does not want to proceed with dialysis at this time. Explained to them about the need of tracheostomy and PEG tube placement in future, family to think about it. Medications: Reviewed: Yes Vitals/I&O/Wt Last Vital Signs Temp 99.3 F 09/27/24 03:30 Pulse 60 09/27/24 11:00 Resp 23 H 09/27/24 12:48 BP 150/71 09/27/24 11:00 Pulse Ox 98 09/27/24 12:48 O2 Del Method Mechanical Ventilation 09/27/24 03:30 O2 Flow Rate 2 09/23/24 08:00 FiO2 28 09/27/24 12:48 09/26/24 09/27/24 09/27/24 22:59 06:59 14:59 Intake Total 360 / 532.9 1300 / 1832.9 0 / 0 Output Total 500 / 500 425 / 925 Balance -140 / 32.9 875 / 907.9 0 / 0 Physical Exam 2 Narrative: General: Intubated sedated. Opening eyes to verbal stimuli, severely hard of hearing . Not following any commands at this ti me. Off sedation. Head: Normocephalic. Pupils are equally round reactive to light but sluggish Cardiovascular: RRR. No gallops. No murmurs. No peripheral edema. normal S1-S2. Lungs: Bilateral crackles present Abdomen: Hypoactive bowel sounds. Abdomen is not distended. Extremities: No cyanosis or clubbing. Neurological: Tongue deviated to left side, right upper and lower extremity flaccid, retracts right lower extremity on plantar reflex. Urinary Catheter Management: Dolan: Cath Placed During This Visit: no Reason for Continuing Indwelling Catheter: Accurate Measurement of Urinary Output in Critically Ill Patients Data 09/27/24 04:26 09/27/24 04:26 Micro: Microbiology 09/23/24 21:45 Urine Culture - Final Urine Catheterized A&P Assessment and plan (1) Suicide attempt by multiple drug overdose: (2) Acute encephalopathy: (3) Hyponatremia: resolved (4) Hearing loss: (5) Pulmonary embolism: (6) Acute hypercapnic respiratory failure: (7) Aspiration pneumonia: Plan 09/22/24 (1) Suicide attempt by multiple drug overdose: Presentation consistent with suspected intentional drug overdose ED provider reportedly placed 96-hour hold Admit to intensive care unit Continuous telemetry monitoring Tylenol level mildly elevated, trend acetaminophen levels Start IV fluids Monitor cardiopulmonary status, patient may require intubation if she is unable to protect airway Supportive care Will eventually need psychiatric care when medically improved (2) Acute encephalopathy: Acute toxic encephalopathy Serial neurological exams Management as above (3) Hyponatremia: Status post IV fluid bolus in ED Start maintenance fluids Repeat labs in a.m. (4) Hearing loss: Patient is severely hard of hearing at baseline She currently does not have her hearing aids here, family may be able to bring later 09/23/24 #Electively intubated for airway protection #Suicide attempt #Drug overdose #Malignant hyperthermia??Ruled out #Fever most likely secondary to aspiration pneumonia #Atelectasis #Aspiration pneumonia #Hyperphosphatemia #Mild hyponatremia?corrected #Hearing loss. #Pulmonary embolism -96-hour hold placed in ER -Patient intubated for airway protection ? Fever most likely secondary to aspiration pneumonia. Check blood cultures, sputum culture Gram stain, urine culture to rule out other sources ? Chest x-ray shows aspiration pneumonia, infiltrate right middle lobe and lower lobe. 25. Not present on admission. ? Continue Versed and fentanyl at this time. Patient requiring 2 vasopressors in the ER. Vasopressin and Levophed. Will attempt to wean off as able. ?Discussed with malignant hyperthermia packaging sales consultant over the phone. Low suspicion for NPH at this time. Continue to monitor. ? Check CT head, chest abdomen pelvis ? Hyponatremia corrected. ? Continue IV fluids. ? QT 480. Will recheck EKG. ?Psychiatric consult once patient is extubated. ? Continue vancomycin and Zosyn ? CPK 1400. Continue IV fluids ? Continue to monitor 09/24/24 96-hour hold placed in ER patient intubated for airway protection. Fever of unknown origin mostly secondary to aspiration pneumonia but also has evidence of atelectasis on chest x-ray. Malignant hyperthermia unlikely. Discussed with malignant hyperthermia helpline over the phone on 09/23. Blood cultures urine culture urine culture pending. ? Continue Versed every 4 hours as needed and fentanyl. Versed drip was turned off yesterday evening. ? Have discussed with nursing staff to avoid Versed if possible. ? When patient more awake and following commands we will plan for spontaneous breathing trial and potential extubation in next 24 to 48 hours. ? CT head negative for stroke or acute bleed. ? Continue IV fluids ? EKG reviewed. QTc within normal range ? Psychiatric consult when patient extubated ? CPK trending down 700 today. ? Continue to hospitalize patient at this time. Patient is on minimal vent settings however he is not following commands and is not participating despite being off sedation. Will continue with elective intubation at this time. - time was spent discussing patient's care with patient's nurses, multidisciplinary round, family meeting chart review, documentation. 09/25/24 Patient still intubated. Has been responsive only to verbal stimuli, on fentanyl drip for sedation. Will try to taper off the fentanyl drip for SBT trial. Will repeat chest x-ray in a.m. Continue IV fluids D5 NS at 100 cc/h IV vancomycin 1 g every 12 hours IV Zosyn 3.375 g every 8 hours Blood culture and urine culture negative so far Creatinine 1.2 continue IV fluids Continue heparin drip. Hemoglobin 9.4, platelet count 126. Monitor CBC Will do psychiatric consult once extubated QTc improved to 470. Continue to monitor in ICU. 09/26/24 Patient still intubated, has been responsive to verbal stimuli, off sedation but unable to follow commands. Also noticed to have tongue deviation and right upper and lower extremity flaccid, pupils sluggish, hence CT head without contrast done was negative for acute stroke. Neurological findings could likely be due to drug overdose. Unable to do MRI at this time since patient is intubated. Also creatinine trending up to 2.2, nephrology consulted. Will follow for further recommendations. Continue to monitor creatinine for now. Follow-up 2D echo Platelet count trending down to 99 as compared to 236 on admission. Will discontinue heparin drip and start Eliquis via NG tube Psychiatry to see the patient once extubated Will continue to monitor in ICU Will discuss with family about goals of care. 09/27/24 Neurological and respiratory status unchanged. Patient is not on CPAP, SBT trial but not able to support respiration independently. Neurological changes could likely be due to hypoxic brain injury secondary to drug overdose and respiratory acidosis. Family updated about prognosis and plan of care. Continues to defer for trial of hemodialysis at this time. Will start tube feedings. Continue SBT trial. Organ donation contacted, to see family this afternoon Creatinine trending up to 2.5. 2D echo normal Platelets improved to 109. Continue Eliquis. Will continue to monitor in ICU, family aware of current prognosis and goals of care. Case management consulted for placement Attestations 2 Medical Necessity Statement*: She needs continued hospitalization crossing 2 midnights for management of acute respiratory failure secondary to drug overdose and psychiatric consult for suicidal ideation, management of PE , worsening renal function Time Spent in Patient Care: 35 minutes Coding Level of Care Code Critical Care >/= 30 minutes Diagnoses Suicide attempt by multiple drug overdose T50.912A Acute encephalopathy G93.40 Hyponatremia E87.1 Hearing loss H91.90 Pulmonary embolism I26.99 Acute hypercapnic respiratory failure J96.02 Aspiration pneumonia J69.0 Time Spent (min) 35
[2024-09-27 13:10] LABS: Vancomycin Trough 37.6 ug/mL (10-15)
--- NOTE | 2024-09-27 17:02 | P.PN_ITS ---
Subjective 2 Subjective: pt status unchanged remains on vent Medications: Reviewed: Yes Vitals/I&O/Wt Last Vital Signs Temp 98 F 09/27/24 12:30 Pulse 71 09/27/24 16:00 Resp 28 H 09/27/24 16:00 BP 148/74 09/27/24 16:00 Pulse Ox 100 09/27/24 16:00 O2 Del Method Mechanical Ventilation 09/27/24 03:30 O2 Flow Rate 2 09/23/24 08:00 FiO2 28 09/27/24 14:01 09/27/24 09/27/24 09/27/24 06:59 14:59 22:59 Intake Total 1300 / 1832.9 50 / 50 Output Total 425 / 925 Balance 875 / 907.9 50 / 50 Physical Exam 2 Narrative: Intubated and sedated. Urinary Catheter Management: Dolan: Cath Placed During This Visit: no Reason for Continuing Indwelling Catheter: Accurate Measurement of Urinary Output in Critically Ill Patients Data 09/27/24 04:26 09/27/24 04:26 Micro: Microbiology 09/23/24 21:45 Urine Culture - Final Urine Catheterized A&P Assessment and plan (1) LYNNETTE (acute kidney injury): 1. Acute kidney injury: Baseline creatinine was normal on presentation now the creatinine is up to 2.2. Etiology of LYNNETTE likely multifactorial -possible ATN in the setting of acute infection and poor p.o. intake, contrast exposure. Patient nonoliguric, has mild metabolic acidosis -No acute indication for dialysis currently, Temporary HD proposed , but family deferred for now -Avoid nephrotoxic agents and IV contrast studies 2. Metabolic acidosis: Mild, monitor for now 3. Question toxic ingestion of meds, 4. Pulmonary embolism, on anticoagulation 5. Bilateral pneumonia 6. Altered mental status, patient's mental status failed to improve so far, Patient evaluated using audiovisual cart. Time spent 40 minutes. Attestations 2 Medical Necessity Statement*: per medicine Coding Level of Care Code Acute Code for [facility] Diagnoses LYNNETTE (acute kidney injury) N17.9
--- NOTE | 2024-09-27 18:37 | PC.NURSE ---
Addendum entered by Renae Alvarado RN 09/27/24 21:31: Witnessed 35ml Fentanyl waste w/ LUIS ALBERTO RN. Original Note: wasted 35 cc fentynl with witness
--- NOTE | 2024-09-27 21:10 | PC.NURSE ---
Dextrose 10%: D10 off on arrival to shift @1900, MAR edited to reflect this.
[2024-09-27 21:29] LABS: Glucose Point of Care 119 mg/dL (70-110)
[2024-09-28] VITALS (58 sets, daily range): BP systolic 130–184; BP diastolic 72–107; PULSE 61–120; RESP 11–31; TEMP 36.6–38.2; O2SAT 91–100
[2024-09-28 01:10] LABS: Glucose Point of Care 110 mg/dL (70-110)
[2024-09-28 04:40] LABS: Basophils % 0.8 %; Eosinophils # 0.2 10^3/uL (0.0-0.8); Eosinophils % 3.1 %; Hematocrit 28.1 % (36-47); Lymphocytes # 0.4 10^3/uL (0.8-4.8); Lymphocytes % 9.2 %; Mean Corpuscular Hemoglobin 30.3 pg (27-33); Mean Corpuscular Volume 94.6 fl (85-98); Monocytes # 0.8 10^3/uL (0.2-0.9); Monocytes % 16.3 %; Neutrophils # 3.32 10^3/uL (1.8-7.7); Neutrophils % 69.6 %; Nucleated Red Blood Cells % 0 %; Platelet Count 115 10^3/cmm (157-399); Red Blood Count 2.97 10^6/uL (3.85-5.65); Red Cell Distribution Width 12.8 % (12.1-15.1); White Blood Count 4.78 10^3/uL (3.29-11.43)
[2024-09-28 04:46] LABS: ABG PCO2 28.8 mmHg (35-45); ABG PH Result 7.41 (7.35-7.45); Alveolar-Arterial Oxygen Gradi 12.6 mmHg (5-10); Arterial Blood Gas Hematocrit 27.7 % (37-47); Base Excess ABG -5.8 mmol/L (-2.0-2.0); Blood Gas Operator Identificat SAM; Blood Gas Sample Site Brachial, left; Blood Gas Sample Type Arterial; HCO3 ABG 18.1 mmol/L (22-26); HGB O2 Sat 95.2 % (95-100); Ionized Calcium Level - ABG 1.2 mmol/L (1.1-1.4); Methemoglobin 1.1 % (0.4-1.5); Oxygen Device VENT; Oxygen Saturation ABG 97.2; PO2 ABG 78.9 mmHg (80.0-100.0); PO2 FiO2 Ratio Arterial Blood 263; Potassium Level - ABG 3.2 mmol/L (3.5-5.0)
[2024-09-28 05:02] LABS: Glucose Point of Care 117 mg/dL (70-110)
[2024-09-28 05:33] LABS: Anion Gap 14.2 (5-19); Blood Urea Nitrogen 22 mg/dL (8-23); Calcium 7.9 mg/dL (8.5-10.5); Carbon Dioxide 16 mmol/L (22-29); Chloride 114 mmol/L (98-107); Creatinine Clr Calc Pharmacy 19.5509; Glomerular Filtration Rate 17.9 mL/min (90-130); Glucose 137 mg/dL (65-115); Osmolality Calculated 297 mOsm/kg (285-295); Potassium 3.2 mmol/L (3.5-5.1); Sodium 141 mmol/L (136-145)
--- NOTE | 2024-09-28 07:28 | XRR_ITS ---
PROCEDURE INFORMATION: Exam: XR Chest Exam date and time: 09/28/2024 7:45 AM Age: 63 years old Clinical indication: Condition or disease; Lung condition and disease; Pneumonia; Aspiration; Additional info: Aspiration pneumonia TECHNIQUE: Imaging protocol: Radiologic exam of the chest. Views: 1 view. COMPARISON: CR XR chest 1V portable [id number] 09/26/2024 5:44 AM FINDINGS: Tubes, catheters and devices: Endotracheal tube tip resides 3.2 cm above the jerod. Central vascular catheter tip resides at the area of upper superior vena cava. Lungs: Developing pulmonary venous congestion. Pleural spaces: Hazy density at the lower lungs suggests bilateral pleural effusions. Partial involvement of persistent interstitial infiltrate likely. Heart/Mediastinum: Cardiomediastinal silhouette is similar. Diaphragm: The hemidiaphragms are of limited definition. Bones/joints: Thoracic curve left concavity. XR/XR chest 1V portable [id number] IMPRESSION: 1. Bilateral pleural effusions. 2. Pulmonary venous congestion developing or progressive. 3. Bilateral lower lung interstitial infiltrates are likely persistent.
[2024-09-28] MEDS: piperacillin-tazobactam 3.375 GM in sodium chloride 0.9% (plus) 50 ML IV ×2 (07:40→21:13)
[2024-09-28] MEDS: potassium chloride premix 100 ML 25 MEQ IV ×2 (07:40→10:31)
[2024-09-28 08:40] LABS: Glucose Point of Care 117 mg/dL (70-110)
[2024-09-28] MEDS: apixaban 5 mg Tablet OG-TUBE (09:01)
[2024-09-28] MEDS: pantoprazole 40 mg SDV IVP (09:01)
--- NOTE | 2024-09-28 10:02 | PM.PN ---
Subjective Subjective: seen and examined. remains on vent. minimally responsive Medications: Reviewed: Yes Medication Review Details: Current Medications Acetaminophen (Acetaminophen 325 Mg Tablet) 650 mg OG-TUBE Q6H PRN PRN Reason: MILD PAIN OR INCREASE TEMP Last Admin: 09/26/24 22:56 Dose: 650 mg Apixaban (Apixaban 5 Mg Tablet) 5 mg OG-TUBE BID@0900,2100 [facility] Last Admin: 09/28/24 09:01 Dose: 5 mg Chlorhexidine Gluconate (Chlorhexidine Gluconate 4% Btl 118 Ml) 1 applic TOPICAL Q24H [facility] Last Admin: 09/27/24 22:40 Dose: 1 applic Piperacillin Sod/Tazobactam (Sod 3.375 gm/ Sodium Chloride) 50 mls @ 12.5 mls/hr IV Q8H [facility] Last Admin: 09/28/24 07:40 Dose: 12.5 mls/hr Dextrose (D10w) 250 mls @ 1,000 mls/hr IV PRN PRN PRN Reason: HYPOGLYCEMIA Last Infusion: 09/23/24 18:56 Dose: Infused Vancomycin HCl 750 mg/ Sodium (Chloride) 250 mls @ 250 mls/hr IV Q12H [facility] Last Infusion: 09/27/24 04:40 Dose: Infused Dextrose (D10w) 1,000 mls @ 40 mls/hr IV .Q24H [facility] Last Admin: 09/28/24 05:21 Dose: Not Given Dextrose/Sodium Chloride (Dextrose 5%-Sod Chloride 0.45%) 1,000 mls @ 75 mls/hr IV .[id number] [facility] Last Infusion: 09/28/24 05:21 Dose: 75 mls/hr Potassium Chloride (K-Escobar) 100 mls @ 25 mls/hr IV Q4H [facility] Stop: 09/28/24 15:29 Last Admin: 09/28/24 07:40 Dose: 25 mls/hr Lanolin (Lanolin Oint 7 Gm) 1 applic TOPICAL PRN PRN PRN Reason: DRYNESS Naloxone HCl (Naloxone 0.4 Mg/Ml Sdv) 0.1 mg IVP Q2M PRN PRN Reason: RESPIRATORY RATE < 8/MIN Last Admin: 09/22/24 18:27 Dose: 0.1 mg Naloxone HCl (Naloxone 0.4 Mg/Ml Sdv) 0.4 mg IVP PRN PRN PRN Reason: RESPIRATORY RATE < 8/MIN Last Admin: 09/22/24 19:20 Dose: 0.4 mg Pantoprazole Sodium (Pantoprazole 40 Mg Sdv) 40 mg IVP DAILY [facility] Last Admin: 09/28/24 09:01 Dose: 40 mg Vancomycin HCl (Vancomycin 1,000 Mg Sdv (Pharmacy Mix)) 0 mg XX PRN PRN PRN Reason: Pharmacy to Dose Vitals/I&O/Wt Last Vital Signs Temp 98.9 F 09/28/24 05:32 Pulse 80 09/28/24 08:00 Resp 20 H 09/28/24 08:11 BP 147/80 09/28/24 08:00 Pulse Ox 100 09/28/24 08:11 O2 Del Method Mechanical Ventilation 09/28/24 06:00 O2 Flow Rate 2 09/23/24 08:00 FiO2 30 09/28/24 08:11 09/27/24 09/28/24 09/28/24 22:59 06:59 14:59 Intake Total 1282.5 / 1332.5 1005.00 / 2337.50 0 / 0 Output Total 350 / 350 350 / 700 Balance 932.5 / 982.5 655.00 / 1637.50 0 / 0 Physical Exam Narrative: intubated, minimally responsive on vent heent- nc/at, eomi, anicteric neck supple lungs crackles and ronchi b/l heart regular, + s1, s2 abdomen soft, + bs, NT ext no edema neuro- minimally responsive to pain Urinary Catheter Management: Dolan: Cath Placed During This Visit: no Reason for Continuing Indwelling Catheter: Accurate Measurement of Urinary Output in Critically Ill Patients Data 09/28/24 04:21 09/28/24 04:21 A&P Assessment and plan (1) HARMONY (acute kidney injury): 63 year old female s/p suicide attempt w/ drug overdose per chart. she is intubated, has an aspiration pneumonia. Treated with Romycin and Zosyn. Renal called as patient developed acute kidney injury. My partner saw the patient yesterday and the family did not want hemodialysis. Patient is urinating. 1. harmony-urine is 1+ protein. Patient had contrast study on September 24, 2024 she had no hydronephrosis. At that time she had normal renal function her creatinine has since increased to 2.7 mg/dL. Working diagnosis is ATN. Hopefully renal function is improving. No emergent need for dialysis at this time. Will replace potassium and give furosemide. 2. Patient has a respiratory alkalosis with a metabolic acidosis the patient is balance. 3. Hyponatremia improved. 4. Please potassium 5. Pulmonary embolism on anticoagulation. 6. Please renal dose all antibiotics hold vancomycin until levels under 19 Patient was examined using audiovisual equipment as a telehealth visit. The nurse examined the patient. . Check salicylate level Plan See above. Attestations Medical Necessity Statement*: Altered mental status, vent dependent respiratory failure, hypokalemia, acute kidney injury Time Spent in Patient Care: 16 - 35 minutes (>than 50% of time spent in counselling and/or direct pt care on unit). Coding Level of Care Code Acute Code for [facility] Diagnoses HARMONY (acute kidney injury) N17.9
[2024-09-28] MEDS: dextrose 5%-sod chloride 0.45% 1,000 ML 75 ML IV ×2 (10:06→23:00)
[2024-09-28] MEDS: FUROsemide 10 mg/mL SDV 10mL 60 MG IVP (10:30)
[2024-09-28 11:23] LABS: Glucose Point of Care 122 mg/dL (70-110)
--- NOTE | 2024-09-28 13:30 | PC.NURSE ---
pt awake responding approp to family , moving ext, tube feeding off Dr at bedside extubated and placed on 3lnc lot of sectetions og tube removed also and restraints off lasix prior pending nuro consult after family in for visit pt requesting to go home , family had brought up issue that because of 96hr hold they were kept from loved one for 3 days and then allowed to be at beside for 2 days. house superviser call to floor to talk with jil who was also stressing that the 96 hr hold was up and that they were not happy, Dr Kline here has not had consult order obtainted consult . Dr Kline stated that she would not be leaving would reinstat 96 hr hold ,
[2024-09-28 13:51] LABS: Vancomycin Random 24.2 ug/mL (20.0-40.0)
--- NOTE | 2024-09-28 13:59 | PC.NURSE ---
after long discussion with neices and broadcast supervisor family now agree that policy was followed , first of stay and then when staff felt that pt was not going to make it off vent exception was made to allow family with her when unresponsive, and now after extubation will follow visiting policy npu to help staff keep pt safe , after pt stated she wants to go home ,family very agreeable to npu rules and policy
--- NOTE | 2024-09-28 14:56 | PC.NURSE ---
Dr kwan exam pt kept asking to go home , not answering questions about where she is ect.. pt to be placed under 96hour hold
--- NOTE | 2024-09-28 15:27 | P.NPUHP_ITS ---
Providers/Chief Complaint 2 Admitting Physician: Fede Matias MD Primary Care Provider: Mireya Willingham Chief Complaint: possible OD HPI NPU History of Present Illness Denisse Narayanan is a 63 year old female with no history of reported inpatient hospitalization who presented to the emergency department unresponsive and ultimately found to have overdosed on multiple medications intentionally. The patient had been placed in the ICU since 09/22/2024 and today was extubated. The patient was interviewed for the first time today and proceeded to provide no information regarding her placement here. She repeatedly stated I want to go home the patient was unable to provide her name where she is, where she was at this time, but were date, month, or year. She had refused to answer any questions. Some information provided from friends and family members had intimated that the patient had been depressed with the recent of her in November 2023. She had allegedly been more isolative and more sad as the holiday approached. Inpatient psychiatric history: None Outpatient psychiatric history: Unknown Medical history: Hearing loss Surgical history: Unknown Allergies: No known drug allergies Legal history: Unknown Substance abuse history: Unknown Family psychiatric history: Notable for depression and completed suicide Social history: Patient is and currently lives alone in [facility]. 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 Meds NPU Home Medications Medication Instructions Recorded Confirmed Last Taken Type latanoprost 0.005 % eye drops 1 drp ophthalmic (eye) QPM 09/23/24 09/23/24 Unknown History timolol maleate 0.5 % eye drops 1 drp ophthalmic (eye) BID 09/23/24 09/23/24 Unknown History trazodone 50 mg tablet 50 mg PO QPM PRN Sleep 09/23/24 09/23/24 Unknown History Allergies Allergy/AdvReac Type Severity Reaction Status Date / Time No Known Allergies Allergy Verified 09/23/24 19:05 PFS NPU 2 PFSH: Medical History (Updated 09/28/24 @ 15:42 by Omar Henriquez MD) Hearing loss Mental Status Exam 2 MSE Comments: The patient appeared her stated age with fleeting eye contact who appeared hard of hearing. Her speech was nonproductive and slurred. Her mood was not endorsed. Her affect was restricted in range. Her thought process was nonlinear. She had repeatedly stated that she wanted to go home. She did not endorse homicidal or suicidal ideation. She did not appear willing to answer questions regarding her name, location, intent for being here in the hospital. She did not appear to be responding to internal stimuli. There was no clear evidence of delusional thinking. Her insight is impaired. Her judgment appeared poor. Her impulse control appeared limited. Vitals/I&O/Wt Last Vital Signs Temp 98 F 09/28/24 12:00 Pulse 90 09/28/24 14:00 Resp 11 L 09/28/24 11:15 BP 162/107 09/28/24 14:00 Pulse Ox 100 09/28/24 14:00 O2 Del Method Mechanical Ventilation 09/28/24 06:00 O2 Flow Rate 2 09/23/24 08:00 FiO2 30 09/28/24 11:15 09/28/24 09/28/24 09/28/24 06:59 14:59 22:59 Intake Total 1005.00 / 2337.50 677.50 / 677.50 Output Total 350 / 700 Balance 655.00 / 1637.50 677.50 / 677.50 Physical Exam 2 Urinary Catheter Management: Dolan: Cath Placed During This Visit: no Reason for Continuing Indwelling Catheter: Accurate Measurement of Urinary Output in Critically Ill Patients Data NPU 09/28/24 04:21 09/28/24 04:21 Micro: Microbiology 09/23/24 13:23 Blood Culture - Final Blood NO GROWTH AFTER 5 DAYS Microbiology 09/23/24 13:23 Blood Blood Culture - Final NO GROWTH AFTER 5 DAYS A&P Assessment and plan (1) Depression, unspecified: (2) Suicide attempt by multiple drug overdose: Plan 63-year-old female who admitted initially to ICU on overdose currently appearing confused and unable to answer questions with significant concerns about the patient's depression. She expresses desire to return home but does not appear to be capable of returning home at this time. #1.? Engage patient in individual milieu and group therapy. #2?? Recommend sober living treatment at the highest level of care to which the patient is willing to commit #3??? Recommend transfer to NPU when stabilized. Patient placed on involuntary hold. #4?? TO-15 minute checks? #5?? Will attempt to gather collateral information Attestations NPU 2 Medical Necessity Statement*: Inpatient hospitalization is medically necessary and deemed to ?be ?the clinically appropriate intervention ?at this time once acutely stabilized on ICU or medical floor. ? We will monitor/initiate medications and make changes as indicated.? The patient will be in the hospital for over 2 midnights.? The patient?s likely length of stay 7-10 days. Coding Level of Care Code Acute Code for [facility] Fwd Diagnoses Depression, unspecified F32.A Suicide attempt by multiple drug overdose T50.912A
--- NOTE | 2024-09-28 16:08 | P.CONIM_ITS ---
Providers/Reason For Consult 2 Consulting Physician/Specialty*: Josefina Steele Reason for Consult*: prolongued coma Attending Physician: Josefina Mendoza MD Primary Care Provider: Mrieya Willingham History of Present Illness History of Present Illness Denisse Narayanan is a 63 year old female who was found unresponsive and admitted here 09/22/2024. She did not answer her phone and was found with an open pill bottle and leftover tablets of oxycodone, diazepam and trazodone and pantoprazole. The bottle said pantoprazole but there were mixed medications and side. She was initially somnolent when EMS arrived but by the time she came here she was agitated. Her EKG showed sinus tachycardia otherwise unremarkable. Initial chest x-ray was negative. Drug screen was positive for benzodiazepines. She was maintaining her airway and admitted to ICU. It is significant that the patient is deaf at baseline. She is childless and her in November. Hide the following morning her blood gas showed a pH of 7.1 with CO2 of 80 and she was not following commands. She was intubated. During administration of succinylcholine she developed rigors and her temperature went up to 101.8 initially but not ultimately of concern for malignant hyperthermia. Her chest x-ray postintubation showed infiltrate in the right middle and lower lobe and it was thought that aspiration pneumonia accounted for her fever. She was found to have a pulmonary embolism. Heparin drip was started. She was hypotensive and transiently on vasopressors. She has been mainly on fentanyl for sedation. CT head was negative. She developed nonoliguric renal failure and has continued to demonstrate metabolic acidosis. Nephrology has been involved. The family has been somewhat reluctant to proceed with dialysis. She was apparently extubated this morning and talked with Dr. Henriquez saying I want to go home. She otherwise refused to answer questions. Her laboratory exam today shows pancytopenia with hemoglobin 9/hematocrit 28.1 and platelets of 115. BUN/creatinine 22/2.7. Potassium 3.2. CT scan head 09/26/2024 images were reviewed. That is a normal study. Similarly normal study from 09/24/2024. Yesterday she was not really breathing over the vent and she was not following commands. This morning she woke up abruptly and was able to be extubated. Although early on she would not talk with Dr. Henriquez, this afternoon she has been tearful he expressing that she wished she was with her . She actively has expressed the desire to be . Her family has had a hard time trying to decide whether she should be placed on comfort care because of her desire to be . She has not previously been a depressed person. She works full-time at [employer] and has worked there for about 5 years since she left here. I have known her for many years and she recognizes me and says I know you. Review of Systems 2 Narrative: As far as I know she has not ever been depressed before. She just got a deaf English bulldog that she is very fond of. She has her hearing aids on this afternoon but she is still very deaf. She is having a hard time expressing herself because of vocal cord injury from her intubation and she has quite a lot of stridor. She is actively coughing up profuse sputum. Medications/Allergies Home Medications Medication Instructions Recorded Confirmed Last Taken Type latanoprost 0.005 % eye drops 1 drp ophthalmic (eye) QPM 09/23/24 09/23/24 Unknown History timolol maleate 0.5 % eye drops 1 drp ophthalmic (eye) BID 09/23/24 09/23/24 Unknown History trazodone 50 mg tablet 50 mg PO QPM PRN Sleep 09/23/24 09/23/24 Unknown History Allergies Allergy/AdvReac Type Severity Reaction Status Date / Time No Known Allergies Allergy Verified 09/23/24 19:05 Current Medications Generic Name Dose Route Start Last Admin Trade Name Freq PRN Reason Stop Dose Admin Acetaminophen 650 mg 09/26/24 22:52 09/26/24 22:56 Acetaminophen 325 Mg Tablet OG-TUBE 650 mg Q6H PRN Administration MILD PAIN OR INCREASE TEMP Apixaban 5 mg 09/27/24 09:00 09/28/24 09:01 Apixaban 5 Mg Tablet OG-TUBE 5 mg BID@0900,2100 [facility] Administration Chlorhexidine Gluconate 1 applic 09/26/24 22:00 09/27/24 22:40 Chlorhexidine Gluconate 4% Btl 118 Ml TOPICAL 1 applic Q24H [facility] Administration Furosemide 60 mg 09/28/24 10:30 09/28/24 10:30 Furosemide 10 Mg/Ml Sdv 10ml IVP 60 mg Q24H [facility] Administration Dextrose 250 mls @ 1,000 mls/hr 09/23/24 17:53 09/23/24 18:56 D10w IV Infused PRN PRN Infusion HYPOGLYCEMIA Vancomycin HCl 750 mg/ Sodium 250 mls @ 250 mls/hr 09/25/24 14:00 09/27/24 04:40 Chloride IV Infused Q12H [facility] Infusion Dextrose 1,000 mls @ 40 mls/hr 09/26/24 05:30 09/28/24 05:21 D10w IV Not Given .Q24H [facility] Dextrose/Sodium Chloride 1,000 mls @ 75 mls/hr 09/27/24 07:00 09/28/24 10:06 Dextrose 5%-Sod Chloride 0.45% IV 75 mls/hr .[id number] [facility] Administration Naloxone HCl 0.1 mg 09/22/24 18:20 09/22/24 18:27 Naloxone 0.4 Mg/Ml Sdv IVP 0.1 mg Q2M PRN Administration RESPIRATORY RATE < 8/MIN Naloxone HCl 0.4 mg 09/22/24 18:35 09/22/24 19:20 Naloxone 0.4 Mg/Ml Sdv IVP 0.4 mg PRN PRN Administration RESPIRATORY RATE < 8/MIN Pantoprazole Sodium 40 mg 09/24/24 09:00 09/28/24 09:01 Pantoprazole 40 Mg Sdv IVP 40 mg DAILY [facility] Administration PFSH Acute 2 PFSH: Medical History (Updated 09/28/24 @ 17:11 by Ailyn Joshua MD) Hearing loss Vitals/I&O/Wt Last Vital Signs Temp 98 F 09/28/24 12:00 Pulse 82 09/28/24 15:40 Resp 11 L 09/28/24 11:15 BP 162/107 09/28/24 14:00 Pulse Ox 100 09/28/24 14:00 O2 Del Method Mechanical Ventilation 09/28/24 06:00 O2 Flow Rate 2 09/23/24 08:00 FiO2 30 09/28/24 11:15 09/28/24 09/28/24 09/28/24 06:59 14:59 22:59 Intake Total 1005.00 / 2337.50 677.50 / 677.50 100 / 777.50 Output Total 350 / 700 Balance 655.00 / 1637.50 677.50 / 677.50 100 / 777.50 Physical Exam 2 Narrative: She is wide-awake and was talking with her one-on-one sitter when I arrived. She called her nurse by name. She recognized me and called me by name. 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 She was unable to tell me that whole story but she seems somewhat resentful about it or upset. She has been tearful and expressing the wish to be this afternoon but she did not express that to me. She cannot tell me who is taking care of her dog. She says that she got the dog because the dog is deaf like she is. Cranial nerves visual ibarra full on the bitemporal ibarra to counting fingers. Eye movements full. Face symmetric. She has stridor. She is moving air well enough to oxygenate. Motor: She is weak in all 4 extremities. Sensory: Intact to touch distally. Deep tendon reflexes: 2+ throughout. Plantar responses flexor bilaterally. HEENT: Respiratory stridor otherwise unremarkable Neck: Supple. Chest: Diffuse rhonchi Cardiac: S1 and S2 normal without murmur gallop Extremities: No deformities Urinary Catheter Management: Dolan: Cath Placed During This Visit: no Reason for Continuing Indwelling Catheter: Accurate Measurement of Urinary Output in Critically Ill Patients Data 09/28/24 04:21 09/28/24 04:21 Micro: Microbiology 09/23/24 13:23 Blood Culture - Final Blood NO GROWTH AFTER [address] Head: My impression: Normal A&P Assessment and plan (1) Suicide attempt by multiple drug overdose: As far as we know this 63-year-old woman who has no previous history of depression took multiple drugs and possibly other substances that we do not know about. She presented with encephalopathy but initially was managing her oxygenation and CO2 very well but within hours of admission developed hypercapnic respiratory acidosis and renal failure. It is not clear to me why she went into acute renal failure. Her stay has been complicated by pulmonary embolism. I think we have to assume that there were other substances that we do not know about. Although she had some opioid exposure she received Narcan and it did not reverse her problems. There was some benzodiazepine involved as well and those can result in prolonged encephalopathy if they are not cleared, as in the case of her acute kidney injury. As presumably the reason why she woke up abruptly this morning. I have to assume that there were other substances involved. Perhaps she will reveal what those were as she becomes more alert. She appears unwilling at this time to admit to multiple drug suicide attempt although she is willing to admit that she wants to be when her is and he is . There is no reason to give up on this patient's care as this is a single event of depression brought on by her 's and she should eventually finish grieving and go on about her life. We need to do everything we can to support her through this. Qualifiers: Encounter type: initial encounter Qualified Code(s): T50.912A - Poisoning by multiple unspecified drugs, medicaments and biological substances, intentional self-harm, initial encounter (2) Reactive depression: (3) Acute hypercapnic respiratory failure: (4) Aspiration pneumonia: (5) Other specified injuries of vocal cord, initial encounter: Consult Attestations 2 Medical Necessity Statement: 63-year-old woman with polysubstance antonio g overdose. Time Spent in Patient Care: 60 min Coding Level of Care Code Acute Code for Chg Fwd Diagnoses Suicide attempt by multiple drug overdose, initial encounter T50.912A Encounter type: initial encounter Reactive depression F32.9 Acute hypercapnic respiratory failure J96.02 Aspiration pneumonia J69.0 Other specified injuries of vocal cord, initial encounter S19.83XA
--- NOTE | 2024-09-28 16:18 | PM.PN ---
Subjective Subjective: No acute overnight events noted. Seen her at bedside this morning, she was actually following me with her eyes, looked as if she is getting more responsive. Medications: Reviewed: Yes Vitals/I&O/Wt Last Vital Signs Temp 98 F 09/28/24 12:00 Pulse 82 09/28/24 15:40 Resp 11 L 09/28/24 11:15 BP 162/107 09/28/24 14:00 Pulse Ox 100 09/28/24 14:00 O2 Del Method Mechanical Ventilation 09/28/24 06:00 O2 Flow Rate 2 09/23/24 08:00 FiO2 30 09/28/24 11:15 09/28/24 09/28/24 09/28/24 06:59 14:59 22:59 Intake Total 1005.00 / 2337.50 677.50 / 677.50 100 / 777.50 Output Total 350 / 700 Balance 655.00 / 1637.50 677.50 / 677.50 100 / 777.50 Physical Exam Narrative: General: awake, trying to respond, severely hard of hearing . Not following any commands at this time. Off sedation.s/p extubation, family at bedside and responding with few words to the family. Head: Normocephalic. Pupils are equally round reactive to light but sluggish Cardiovascular: RRR. No gallops. No murmurs. No peripheral edema. normal S1-S2. Lungs: Bilateral crackles present Abdomen: Hypoactive bowel sounds. Abdomen is not distended. Extremities: No cyanosis or clubbing. Neurological: awake, but occasionally drowsy, able to squeeze the finger, but not following command completely. Urinary Catheter Management: Dolan: Cath Placed During This Visit: no Reason for Continuing Indwelling Catheter: Accurate Measurement of Urinary Output in Critically Ill Patients Data 09/28/24 04:21 09/28/24 04:21 Micro: Microbiology 09/23/24 13:23 Blood Culture - Final Blood NO GROWTH AFTER 5 DAYS A&P Assessment and plan (1) Suicide attempt by multiple drug overdose: (2) Acute encephalopathy: (3) Hyponatremia: resolved (4) Hearing loss: (5) Pulmonary embolism: (6) Acute hypercapnic respiratory failure: (7) Aspiration pneumonia: Plan 09/22/24 (1) Suicide attempt by multiple drug overdose: Presentation consistent with suspected intentional drug overdose ED provider reportedly placed 96-hour hold Admit to intensive care unit Continuous telemetry monitoring Tylenol level mildly elevated, trend acetaminophen levels Start IV fluids Monitor cardiopulmonary status, patient may require intubation if she is unable to protect airway Supportive care Will eventually need psychiatric care when medically improved (2) Acute encephalopathy: Acute toxic encephalopathy Serial neurological exams Management as above (3) Hyponatremia: Status post IV fluid bolus in ED Start maintenance fluids Repeat labs in a.m. (4) Hearing loss: Patient is severely hard of hearing at baseline She currently does not have her hearing aids here, family may be able to bring later 09/23/24 #Electively intubated for airway protection #Suicide attempt #Drug overdose #Malignant hyperthermia??Ruled out #Fever most likely secondary to aspiration pneumonia #Atelectasis #Aspiration pneumonia #Hyperphosphatemia #Mild hyponatremia?corrected #Hearing loss. #Pulmonary embolism -96-hour hold placed in ER -Patient intubated for airway protection ? Fever most likely secondary to aspiration pneumonia. Check blood cultures, sputum culture Gram stain, urine culture to rule out other sources ? Chest x-ray shows aspiration pneumonia, infiltrate right middle lobe and lower lobe. 25. Not present on admission. ? Continue Versed and fentanyl at this time. Patient requiring 2 vasopressors in the ER. Vasopressin and Levophed. Will attempt to wean off as able. ?Discussed with malignant hyperthermia foreign law consultant over the phone. Low suspicion for NPH at this time. Continue to monitor. ? Check CT head, chest abdomen pelvis ? Hyponatremia corrected. ? Continue IV fluids. ? QT 480. Will recheck EKG. ?Psychiatric consult once patient is extubated. ? Continue vancomycin and Zosyn ? CPK 1400. Continue IV fluids ? Continue to monitor 09/24/24 96-hour hold placed in ER patient intubated for airway protection. Fever of unknown origin mostly secondary to aspiration pneumonia but also has evidence of atelectasis on chest x-ray. Malignant hyperthermia unlikely. Discussed with malignant hyperthermia helpline over the phone on 09/23. Blood cultures urine culture urine culture pending. ? Continue Versed every 4 hours as needed and fentanyl. Versed drip was turned off yesterday evening. ? Have discussed with nursing staff to avoid Versed if possible. ? When patient more awake and following commands we will plan for spontaneous breathing trial and potential extubation in next 24 to 48 hours. ? CT head negative for stroke or acute bleed. ? Continue IV fluids ? EKG reviewed. QTc within normal range ? Psychiatric consult when patient extubated ? CPK trending down 700 today. ? Continue to hospitalize patient at this time. Patient is on minimal vent settings however he is not following commands and is not participating despite being off sedation. Will continue with elective intubation at this time. - time was spent discussing patient's care with patient's nurses, multidisciplinary round, family meeting chart review, documentation. 09/25/24 Patient still intubated. Has been responsive only to verbal stimuli, on fentanyl drip for sedation. Will try to taper off the fentanyl drip for SBT trial. Will repeat chest x-ray in a.m. Continue IV fluids D5 NS at 100 cc/h IV vancomycin 1 g every 12 hours IV Zosyn 3.375 g every 8 hours Blood culture and urine culture negative so far Creatinine 1.2 continue IV fluids Continue heparin drip. Hemoglobin 9.4, platelet count 126. Monitor CBC Will do psychiatric consult once extubated QTc improved to 470. Continue to monitor in ICU. 09/26/24 Patient still intubated, has been responsive to verbal stimuli, off sedation but unable to follow commands. Also noticed to have tongue deviation and right upper and lower extremity flaccid, pupils sluggish, hence CT head without contrast done was negative for acute stroke. Neurological findings could likely be due to drug overdose. Unable to do MRI at this time since patient is intubated. Also creatinine trending up to 2.2, nephrology consulted. Will follow for further recommendations. Continue to monitor creatinine for now. Follow-up 2D echo Platelet count trending down to 99 as compared to 236 on admission. Will discontinue heparin drip and start Eliquis via NG tube Psychiatry to see the patient once extubated Will continue to monitor in ICU Will discuss with family about goals of care. 09/27/24 Neurological and respiratory status unchanged. Patient is not on CPAP, SBT trial but not able to support respiration independently. Neurological changes could likely be due to hypoxic brain injury secondary to drug overdose and respiratory acidosis. Family updated about prognosis and plan of care. Continues to defer for trial of hemodialysis at this time. Will start tube feedings. Continue SBT trial. Organ donation contacted, to see family this afternoon Creatinine trending up to 2.5. 2D echo normal Platelets improved to 109. Continue Eliquis. Will continue to monitor in ICU, family aware of current prognosis and goals of care. Case management consulted for placement 09/28/24 Neurological status improved slightly, she is s/p extubation. Able to communicate with us and family although severely hearing impaired. Doubt hypoxic brain injury given rapid improvement post starting feeds. Creat still trending up to 2.7, As per nephrology, given one dose of lasix. Psychiatry and neurology input appreciated. She is on 96 hour hold again and will need inpatient psych. Continue to monitor in ICU for now. Attestations Medical Necessity Statement*: Needs continued hospitalization for care s/p extubation, management of PE and worsening renal function. Time Spent in Patient Care: 30 minutes Coding Level of Care Code Acute Code for [facility] Fwd Diagnoses Suicide attempt by multiple drug overdose T50.912A Acute encephalopathy G93.40 Hyponatremia E87.1 Hearing loss H91.90 Pulmonary embolism I26.99 Acute hypercapnic respiratory failure J96.02 Aspiration pneumonia J69.0 Time Spent (min) 30
--- NOTE | 2024-09-28 16:30 | PC.NURSE ---
during visiting time from 3 to 4 had conversation about dog and that had [facility] and that she just wants to go be with him .. very tearful , continues to have meaningful conversation with staff about other things but refuses to talk about events before admission , karon here read pt her right and placed under new 96 hold
[2024-09-28 17:35] LABS: Glucose Point of Care 101 mg/dL (70-110)
[2024-09-28 17:41] LABS: Alanine Aminotransferase 33 U/L (0-33); Albumin Level 2.4 g/dL (3.5-5.2); Alkaline Phosphatase 89 U/L (35-105); Anion Gap 12.2 (5-19); Aspartate Amino Transferase 43 U/L (0-32); Blood Urea Nitrogen 20 mg/dL (8-23); Calcium 7.4 mg/dL (8.5-10.5); Carbon Dioxide 17 mmol/L (22-29); Chloride 111 mmol/L (98-107); Creatinine Clr Calc Pharmacy 21.1149; Globulin 2.2 g/dL (1.3-4.6); Glomerular Filtration Rate 19.6 mL/min (90-130); Magnesium 1.6 mg/dL (1.7-2.3); Osmolality Calculated 314 mOsm/kg (285-295); Potassium 3.2 mmol/L (3.5-5.1); Sodium 137 mmol/L (136-145); Total Bilirubin 0.5 mg/dL (0.15-1.2); Total Protein 4.6 g/dL (6.6-8.7)
[2024-09-28 17:44] LABS: Glucose 585 mg/dL (65-115)
--- NOTE | 2024-09-28 17:52 | PC.NURSE ---
asked redraw , had just done accucheck result of 101 ..and have never been above 150
--- NOTE | 2024-09-28 18:01 | PC.NURSE ---
niece brought up xtra hearing aids and glasses as we are not sure the ones she is wearing is working approp.
--- NOTE | 2024-09-28 19:05 | PC.NURSE ---
1:1 Observation: See paper chart for Q15M environment/behavior checks.
[2024-09-28 22:02] LABS: Glucose Point of Care 115 mg/dL (70-110)
[2024-09-28] MEDS: ipratropium-albuterol 3 mL Neb INHALATION (22:28)
--- NOTE | 2024-09-28 22:39 | PC.NURSE ---
Increased SOB: Noted increase in shortness of breath from beginning of shift. Course lung sounds, weak and wet cough. On 1L NC, SpO2 92%, RR 26. Dr. Matias notified @9153. New order for PRN breathing treatments Q4HRs. RT notified. Also notified Dr. Matias of Eliquis ordered to be given via OG and NPO stautus. New order to change Eliquis route from OG to PO and consult speech for eval and treat.
[2024-09-29] VITALS (60 sets, daily range): BP systolic 114–184; BP diastolic 66–107; PULSE 68–121; RESP 17–35; TEMP 36.9–37.9; O2SAT 88–100
[2024-09-29 02:25] LABS: Glucose Point of Care 101 mg/dL (70-110)
[2024-09-29] MEDS: chlorhexidine gluconate 4% Btl 118 mL 1 APPLIC TOPICAL (03:14)
[2024-09-29 04:32] LABS: Basophils % 0.4 %; Eosinophils # 0.1 10^3/uL (0.0-0.8); Eosinophils % 0.9 %; Hematocrit 29.3 % (36-47); Lymphocytes # 0.8 10^3/uL (0.8-4.8); Lymphocytes % 9.2 %; Mean Corpuscular HGB Conc 32.8 g/dL (30-55); Mean Corpuscular Volume 91.6 fl (85-98); Mean Platelet Volume 11.3 fL (7.4-10.4); Monocytes # 1.4 10^3/uL (0.2-0.9); Monocytes % 15.4 %; Neutrophils # 6.52 10^3/uL (1.8-7.7); Neutrophils % 71.5 %; Nucleated Red Blood Cells % 0 %; Platelet Count 201 10^3/cmm (157-399); Red Cell Distribution Width 12.9 % (12.1-15.1); White Blood Count 9.12 10^3/uL (3.29-11.43)
--- NOTE | 2024-09-29 04:48 | ECG_ITS ---
[email or web address] Test Date: 2024-09-29 Pat Name: Denisse Narayanan Department: Room: ICU03 Gender: Female Mattress Stuffer: : [id number] Requested By: Fede Duval Order Number: [id number] Sirisha MD: ALEXANDER KING Measurements Intervals [place] Rate: 116 P: 152 [place]: 128 QRS: 137 QRSD: 72 T: 147 QT: 295 QTc: 411 Interpretive Statements SINUS TACHYCARDIA WITH FREQUENT VENTRICULAR PREMATURE COMPLEXES ARM LEADS REVERSED [INVERTED P AND QRS IN I] ABNORMAL RHYTHM ECG Compared to ECG 09/23/2024 22:57:44 Ventricular premature complex(es) now present Supraventricular rhythm no longer present Electronically Signed On 09-29-2024 19:29:52 PELOTA MAKER by ALEXANDER KING [email or web address]
[2024-09-29 04:52] LABS: Anion Gap 13.9 (5-19); Blood Urea Nitrogen 24 mg/dL (8-23); Calcium 8.2 mg/dL (8.5-10.5); Carbon Dioxide 20 mmol/L (22-29); Chloride 115 mmol/L (98-107); Creatinine Clr Calc Pharmacy 17.5958; Glomerular Filtration Rate 15.9 mL/min (90-130); Glucose 110 mg/dL (65-115); Magnesium 1.8 mg/dL (1.7-2.3); Osmolality Calculated 305 mOsm/kg (285-295); Potassium 3.9 mmol/L (3.5-5.1); Sodium 145 mmol/L (136-145)
[2024-09-29] MEDS: ipratropium-albuterol 3 mL Neb INHALATION ×2 (05:16→10:25)
--- NOTE | 2024-09-29 05:31 | PC.NURSE ---
SOB: At approximately 0445 SpO2 dropped to 87% despite increasing from 1L to 6L NC and HR increased to 120's with frequent PVC's. Oxymask applied @6L. SpO2 increased to low 90's, RR in the 30's. Breathing is shallow and labored. Pt is pale, will track nurse with her eyes but not talk or follow commands. EKG obtained. Dr. Matias and Donald, RT notified of change in oxygen requirements and current vitals. RT on unit to see pt. RR remains in the 30's, HR decreased to 105. Slight improvement noted in pts color. Dr. Matias updated on current vitals @0530.
[2024-09-29 06:55] LABS: Glucose Point of Care 129 mg/dL (70-110)
--- NOTE | 2024-09-29 07:57 | PC.NURSE ---
Notified Dr. Mendoza of patients status change, lethargy, flaccid, increased resp rate. Order for ABG given. Notified Kylee Kirby of order for stat ABG.
[2024-09-29 08:10] LABS: Arterial Blood Gas Hematocrit 34.8 % (37-47); Base Excess ABG -9.3 mmol/L (-2.0-2.0); Blood Gas Allen Test Pos; Blood Gas Operator Identificat BROMA; Blood Gas Sample Site Radial, right; Blood Gas Sample Type Arterial; HCO3 ABG 20.7 mmol/L (22-26); Oxygen Device OXY MASK; PO2 ABG 79.3 mmHg (80.0-100.0)
[2024-09-29 08:13] LABS: ABG PCO2 65.9 mmHg (35-45); ABG PH Result 7.11 (7.35-7.45)
--- NOTE | 2024-09-29 08:20 | PC.NURSE ---
Notified Dr. Mendoza of [facility] results
[2024-09-29 09:07] LABS: Basophils # 0.1 10^3/uL (0.0-0.1); Basophils % 0.6 %; Eosinophils % 0.1 %; Hematocrit 34.1 % (36-47); Lymphocytes # 0.9 10^3/uL (0.8-4.8); Lymphocytes % 5.6 %; Mean Corpuscular HGB Conc 31.7 g/dL (30-55); Mean Corpuscular Hemoglobin 29.8 pg (27-33); Mean Corpuscular Volume 94.2 fl (85-98); Mean Platelet Volume 10.8 fL (7.4-10.4); Monocytes # 2.1 10^3/uL (0.2-0.9); Neutrophils # 12.55 10^3/uL (1.8-7.7); Neutrophils % 76.7 %; Nucleated Red Blood Cells % 0 %; Platelet Count 282 10^3/cmm (157-399); Red Blood Count 3.62 10^6/uL (3.85-5.65); Red Cell Distribution Width 13.2 % (12.1-15.1); White Blood Count 16.35 10^3/uL (3.29-11.43)
[2024-09-29] MEDS: piperacillin-tazobactam 3.375 GM in sodium chloride 0.9% (plus) 50 ML IV ×2 (09:15→20:28)
[2024-09-29] MEDS: lactated ringers 500 ML 999 ML IV (09:16)
[2024-09-29] MEDS: pantoprazole 40 mg SDV IVP (09:16)
[2024-09-29 09:20] LABS: Lactate (Lactic Acid level) 0.9 mmol/L (0.5-2.2)
[2024-09-29 09:21] LABS: Alanine Aminotransferase 48 U/L (0-33); Albumin Level 3.2 g/dL (3.5-5.2); Alkaline Phosphatase 111 U/L (35-105); Anion Gap 17.1 (5-19); Aspartate Amino Transferase 57 U/L (0-32); Blood Urea Nitrogen 22 mg/dL (8-23); Calcium 8.1 mg/dL (8.5-10.5); Carbon Dioxide 18 mmol/L (22-29); Chloride 112 mmol/L (98-107); Creatinine Clr Calc Pharmacy 17.5958; Globulin 2.6 g/dL (1.3-4.6); Glomerular Filtration Rate 15.9 mL/min (90-130); Glucose 144 mg/dL (65-115); Osmolality Calculated 302 mOsm/kg (285-295); Potassium 4.1 mmol/L (3.5-5.1); Sodium 143 mmol/L (136-145); Total Bilirubin 0.4 mg/dL (0.15-1.2); Total Protein 5.8 g/dL (6.6-8.7)
[2024-09-29 09:22] LABS: Troponin(5th) Baseline 28 ng/L (0-10)
--- NOTE | 2024-09-29 09:22 | PC.SLP ---
Hold EMPLOYMENT DIRECTOR evaluation due to patient on biPap this am and intubation is being discussed per nursing.
[2024-09-29 09:36] LABS: Bilirubin Urine Negative (Negative); Blood Urine 2+ (Negative); Glucose Urine UA Negative (Normal); Ketones Urine Negative (Negative); Leukocyte Esterase Urine Negative (Negative); Nitrate Urine Negative (Negative); Protein Urine 1+ (Negative); Specific Gravity, Urine 1.009 (1.005-1.030); Urine Appearance Cloudy (CLEAR); Urine Color Yellow (Yellow); Urobilinogen Urine 0.2 mg/dL (Negative)
--- NOTE | 2024-09-29 09:37 | PC.NURSE ---
0830 -- Dr. Mendoza to bedside, ABG and current patient status reviewed. Labwork and 500ml LR bolus ordered. Placed on bipap per RT. 0835 -- [facility] called and notified that Dr. Mendoza is requesting them to be at bedside with patient due to decline in patient status. 844 - Dr. Mendoza called [facility] and updated on patient status. 899 -- Family to bedside, Dr. Mendoza talking with family. Family states that they do not want her to be intubated. 939 -- Medications reviewed with Dr. Mendoza. D10W discontinued, Elaquis discontinued, Lasix discontinued, Lovenox 1mg/kg every 12 hours ordered for VTE
[2024-09-29 09:41] LABS: Add Urine Microscopic? YES; Bacteria Urine None Seen /hpf; Hyaline Casts Urine 17.77 /lpf; RBC Urine 0-2 /hpf (0-2); WBC Urine 0-5 /hpf (0-5)
[2024-09-29 09:54] LABS: Glucose Point of Care 131 mg/dL (70-110)
[2024-09-29 10:08] LABS: Arterial Blood Gas Hematocrit 32.7 % (37-47); Base Excess ABG -9.7 mmol/L (-2.0-2.0); Blood Gas Allen Test Pos; Blood Gas Sample Type Arterial; HCO3 ABG 20.3 mmol/L (22-26)
[2024-09-29 10:10] LABS: ABG PCO2 65.2 mmHg (35-45); Blood Gas Operator Identificat BROMA; Oxygen Device AVAPS
[2024-09-29 10:11] LABS: PO2 FiO2 Ratio Arterial Blood 282
--- NOTE | 2024-09-29 10:21 | PC.NURSE ---
otified Dr. Mendoza of ABG results pH , pCo2 65.2, pO2 141. Order given to continue bipap.
--- NOTE | 2024-09-29 11:01 | PM.PN ---
Subjective Subjective: on bipap lethargic Medications: Reviewed: Yes Vitals/I&O/Wt Last Vital Signs Temp 98.4 F 09/29/24 08:00 Pulse 104 H 09/29/24 10:00 Resp 26 H 09/29/24 10:00 BP 133/73 09/29/24 10:00 Pulse Ox 100 09/29/24 10:00 O2 Del Method BiPAP 09/29/24 10:00 O2 Flow Rate 5 09/29/24 08:00 FiO2 50 09/29/24 10:00 09/28/24 09/29/24 09/29/24 22:59 06:59 14:59 Intake Total 932.50 / 1610.00 535.0 / 2145.00 0 / 0 Output Total 2150 / 2150 1225 / 3375 Balance -1217.50 / -540.00 -690.0 / -1230.00 0 / 0 Physical Exam Narrative: lethargic on BIPAP Urinary Catheter Management: Dolan: Cath Placed During This Visit: no Reason for Continuing Indwelling Catheter: Accurate Measurement of Urinary Output in Critically Ill Patients Data 09/29/24 08:42 09/29/24 08:42 Micro: Microbiology 09/29/24 09:25 Blood Culture - Preliminary Blood SPECIMEN COLLECTED 09/29/24 09:25 Blood Culture - Preliminary Blood SPECIMEN COLLECTED 09/23/24 21:42 Blood Culture - Final Blood NO GROWTH AFTER 5 DAYS 09/23/24 13:23 Blood Culture - Final Blood NO GROWTH AFTER 5 DAYS A&P Assessment and plan (1) LYNNETTE (acute kidney injury): 63 year old female s/p suicide attempt w/ drug overdose per chart. she is intubated, has an aspiration pneumonia. Treated with Romycin and Zosyn. Renal called as patient developed acute kidney injury. My partner saw the patient yesterday and the family did not want hemodialysis. Patient is urinating. 1. lynnette-urine is 1+ protein. Patient had contrast study on September 24, 2024 she had no hydronephrosis. At that time she had normal renal function her creatinine has since increased to 3.0 mg/dL today . Working diagnosis is ATN. No emergent need for dialysis at this time. Will replace potassium and give furosemide. 2. Patient has a respiratory alkalosis with a metabolic acidosis the patient is balance. 3. Hyponatremia improved. 4. Please potassium 5. Pulmonary embolism on anticoagulation. 6. Please renal dose all antibiotics hold vancomycin until levels under 19 Patient was examined using audiovisual equipment as a telehealth visit. The nurse examined the patient. . Check salicylate level Plan See above. Attestations Medical Necessity Statement*: per medicine Coding Level of Care Code Acute Code for [facility] Fwd Diagnoses LYNNETTE (acute kidney injury) N17.9
[2024-09-29] MEDS: dextrose 5%-sod chloride 0.45% 1,000 ML 75 ML IV (11:25)
[2024-09-29] MEDS: enoxaparin 60 mg/0.6 mL Syringe SUBCUT (11:25)
[2024-09-29 11:32] LABS: Troponin 5 2HR 32.43 ng/L (0-10); Troponin 5 2HR Delta 4.43 ABS# (0-10)
--- NOTE | 2024-09-29 11:47 | PC.NURSE ---
Dr. lepe to bedside, patient status and current treatment plan discussed with family. Will continue Bipap at present time and reevaluate ABG at around 2PM.
--- NOTE | 2024-09-29 13:37 | PC.PT ---
PT eval on hold, patient but back on Bipap and unable to complete PT at this time.
[2024-09-29 13:50] LABS: Glucose Point of Care 102 mg/dL (70-110)
[2024-09-29 14:52] LABS: Vancomycin Trough 19.8 ug/mL (10-15)
[2024-09-29 15:38] LABS: Troponin 5 6HR 27.97 ng/L (0-10)
[2024-09-29 15:44] LABS: Troponin 5 6HR Delta -0.03 ng/L (0-12)
[2024-09-29 15:58] LABS: ABG PCO2 39.9 mmHg (35-45); ABG PH Result 7.29 (7.35-7.45); Arterial Blood Gas Hematocrit 30.4 % (37-47); Base Excess ABG -6.9 mmol/L (-2.0-2.0); Blood Gas Allen Test Pos; Blood Gas Operator Identificat glc; Blood Gas Sample Site Radial, right; Blood Gas Sample Type Arterial; HCO3 ABG 19.2 mmol/L (22-26); Oxygen Device BIPAP; PO2 FiO2 Ratio Arterial Blood 455
--- NOTE | 2024-09-29 16:13 | PC.NURSE ---
Dr. Mendoza to bedside, current ABG and labs reviewed. Patient currently awake on bipap and moving all extremities. Dr. Mendoza on phone to consult with Dr. Joshua about patients waxing and waning status.
[2024-09-29 17:50] LABS: Glucose Point of Care 87 mg/dL (70-110)
--- NOTE | 2024-09-29 18:28 | P.PN_ITS ---
Subjective 2 Subjective: Seen her at bedside this morning. She was stable s/p extubation yesterday, although was noncooperative with subspecialty consultants, was having a normal meaningful conversation with the sitter. Since 5:00 this morning she was found to be drowsy and in respiratory distress. Medications: Reviewed: Yes Vitals/I&O/Wt Last Vital Signs Temp 99.1 F 09/29/24 16:00 Pulse 79 09/29/24 18:00 Resp 25 H 09/29/24 18:00 BP 144/92 09/29/24 18:00 Pulse Ox 100 09/29/24 18:00 O2 Del Method BiPAP 09/29/24 18:00 O2 Flow Rate 5 09/29/24 08:00 FiO2 50 09/29/24 18:00 09/29/24 09/29/24 09/29/24 06:59 14:59 22:59 Intake Total 535.0 / 2145.00 663.75 / 663.75 Output Total 1225 / 3375 575 / 575 Balance -690.0 / -1230.00 663.75 / 663.75 -575 / 88.75 Physical Exam 2 Narrative: General: in severe respiratory distress, non comprehensive and unable to follow commands, currently on BiPaP. Head: Normocephalic. Pupils are equally round reactive to light but sluggish Cardiovascular: RRR. No gallops. No murmurs. No peripheral edema. normal S1-S2. Lungs: Bilateral crackles present Abdomen: Hypoactive bowel sounds. Abdomen is not distended. Extremities: No cyanosis or clubbing. Neurological: occasionally opening eyes and family felt like she is responding. Urinary Catheter Management: Dolan: Cath Placed During This Visit: no Reason for Continuing Indwelling Catheter: Accurate Measurement of Urinary Output in Critically Ill Patients Data 09/29/24 08:42 09/29/24 08:42 Micro: Microbiology 09/29/24 09:25 Blood Culture - Preliminary Blood SPECIMEN COLLECTED 09/29/24 09:25 Blood Culture - Preliminary Blood SPECIMEN COLLECTED 09/23/24 21:42 Blood Culture - Final Blood NO GROWTH AFTER 5 DAYS 09/23/24 13:23 Blood Culture - Final Blood NO GROWTH AFTER 5 DAYS A&P Assessment and plan (1) Suicide attempt by multiple drug overdose: Qualifiers: Encounter type: initial encounter Qualified Code(s): T50.912A - Poisoning by multiple unspecified drugs, medicaments and biological substances, intentional self-harm, initial encounter (2) Acute encephalopathy: (3) Hyponatremia: resolved (4) Hearing loss: (5) Pulmonary embolism: (6) Acute hypercapnic respiratory failure: (7) Aspiration pneumonia: Plan 09/22/24 (1) Suicide attempt by multiple drug overdose: Presentation consistent with suspected intentional drug overdose ED provider reportedly placed 96-hour hold Admit to intensive care unit Continuous telemetry monitoring Tylenol level mildly elevated, trend acetaminophen levels Start IV fluids Monitor cardiopulmonary status, patient may require intubation if she is unable to protect airway Supportive care Will eventually need psychiatric care when medically improved (2) Acute encephalopathy: Acute toxic encephalopathy Serial neurological exams Management as above (3) Hyponatremia: Status post IV fluid bolus in ED Start maintenance fluids Repeat labs in a.m. (4) Hearing loss: Patient is severely hard of hearing at baseline She currently does not have her hearing aids here, family may be able to bring later 09/23/24 #Electively intubated for airway protection #Suicide attempt #Drug overdose #Malignant hyperthermia??Ruled out #Fever most likely secondary to aspiration pneumonia #Atelectasis #Aspiration pneumonia #Hyperphosphatemia #Mild hyponatremia?corrected #Hearing loss. #Pulmonary embolism -96-hour hold placed in ER -Patient intubated for airway protection ? Fever most likely secondary to aspiration pneumonia. Check blood cultures, sputum culture Gram stain, urine culture to rule out other sources ? Chest x-ray shows aspiration pneumonia, infiltrate right middle lobe and lower lobe. 25. Not present on admission. ? Continue Versed and fentanyl at this time. Patient requiring 2 vasopressors in the ER. Vasopressin and Levophed. Will attempt to wean off as able. ?Discussed with malignant hyperthermia science consultant over the phone. Low suspicion for NPH at this time. Continue to monitor. ? Check CT head, chest abdomen pelvis ? Hyponatremia corrected. ? Continue IV fluids. ? QT 480. Will recheck EKG. ?Psychiatric consult once patient is extubated. ? Continue vancomycin and Zosyn ? CPK 1400. Continue IV fluids ? Continue to monitor 09/24/24 96-hour hold placed in ER patient intubated for airway protection. Fever of unknown origin mostly secondary to aspiration pneumonia but also has evidence of atelectasis on chest x-ray. Malignant hyperthermia unlikely. Discussed with malignant hyperthermia helpline over the phone on 09/23. Blood cultures urine culture urine culture pending. ? Continue Versed every 4 hours as needed and fentanyl. Versed drip was turned off yesterday evening. ? Have discussed with nursing staff to avoid Versed if possible. ? When patient more awake and following commands we will plan for spontaneous breathing trial and potential extubation in next 24 to 48 hours. ? CT head negative for stroke or acute bleed. ? Continue IV fluids ? EKG reviewed. QTc within normal range ? Psychiatric consult when patient extubated ? CPK trending down 700 today. ? Continue to hospitalize patient at this time. Patient is on minimal vent settings however he is not following commands and is not participating despite being off sedation. Will continue with elective intubation at this time. - time was spent discussing patient's care with patient's nurses, multidisciplinary round, family meeting chart review, documentation. 09/25/24 Patient still intubated. Has been responsive only to verbal stimuli, on fentanyl drip for sedation. Will try to taper off the fentanyl drip for SBT trial. Will repeat chest x-ray in a.m. Continue IV fluids D5 NS at 100 cc/h IV vancomycin 1 g every 12 hours IV Zosyn 3.375 g every 8 hours Blood culture and urine culture negative so far Creatinine 1.2 continue IV fluids Continue heparin drip. Hemoglobin 9.4, platelet count 126. Monitor CBC Will do psychiatric consult once extubated QTc improved to 470. Continue to monitor in ICU. 09/26/24 Patient still intubated, has been responsive to verbal stimuli, off sedation but unable to follow commands. Also noticed to have tongue deviation and right upper and lower extremity flaccid, pupils sluggish, hence CT head without contrast done was negative for acute stroke. Neurological findings could likely be due to drug overdose. Unable to do MRI at this time since patient is intubated. Also creatinine trending up to 2.2, nephrology consulted. Will follow for further recommendations. Continue to monitor creatinine for now. Follow-up 2D echo Platelet count trending down to 99 as compared to 236 on admission. Will discontinue heparin drip and start Eliquis via NG tube Psychiatry to see the patient once extubated Will continue to monitor in ICU Will discuss with family about goals of care. 09/27/24 Neurological and respiratory status unchanged. Patient is not on CPAP, SBT trial but not able to support respiration independently. Neurological changes could likely be due to hypoxic brain injury secondary to drug overdose and respiratory acidosis. Family updated about prognosis and plan of care. Continues to defer for trial of hemodialysis at this time. Will start tube feedings. Continue SBT trial. Organ donation contacted, to see family this afternoon Creatinine trending up to 2.5. 2D echo normal Platelets improved to 109. Continue Eliquis. Will continue to monitor in ICU, family aware of current prognosis and goals of care. Case management consulted for placement 09/28/24 Neurological status improved slightly, she is s/p extubation. Able to communicate with us and family although severely hearing impaired. Doubt hypoxic brain injury given rapid improvement post starting feeds. Creat still trending up to 2.7, As per nephrology, given one dose of lasix. Psychiatry and neurology input appreciated. She is on 96 hour hold again and will need inpatient psych. Continue to monitor in ICU for now. 09/29/24 Deterioration of neurological and respiratory status since this morning. She was found to be tachypneic, using accessory muscles. Patient is on BiPAP. Was initially in acute respiratory acidosis with pCO2 of 72, repeated ABG in 1 hour showed pCO2 of 65. After being on BiPAP for 4 to 5 hours ABG improved with pCO2 in 40s. Patient seen at bedside repeatedly, later during the afternoon was found to be awake, responding to verbal stimuli, family at bedside. As the day progressed she became more awake and is now agitated secondary to BiPAP. She is alert, will discontinue BiPAP and monitor respiratory status on nasal cannula. Had an extensive discussion with the family at bedside about fluctuations in encephalopathic state could likely be secondary to medications overdose which we still not sure about what she actually took. Leukocyte count trended up to 16.3, likely reactive. Will continue to monitor Renal function continue to deteriorate with creatinine of 3 today. Hemoglobin stable Family, her mom and niece decided about limited resuscitation with DNI/no mechanical ventilator. Currently agree with plan of care. Will continue to monitor in ICU. Attestations 2 Medical Necessity Statement*: Needs continued hospitalization for fluctuating encephalopathy secondary to drug overdose, acute hypercarbic respiratory failure/respiratory acidosis. Time Spent in Patient Care: 120 minutes Coding Level of Care Code Critical Care >/= 30 minutes Diagnoses Suicide attempt by multiple drug overdose, initial encounter T50.912A Encounter type: initial encounter Acute encephalopathy G93.40 Hyponatremia E87.1 Hearing loss H91.90 Pulmonary embolism I26.99 Acute hypercapnic respiratory failure J96.02 Aspiration pneumonia J69.0 Time Spent (min) 120
--- NOTE | 2024-09-29 20:00 | PC.NURSE ---
Neuro Assessment Upon asking patient her name, , location, and date, patient unwilling to answer. Patient additionally unwilling to follow commands. While family present, patient witnessed saying water and no as well as moving arm feebly.
[2024-09-29 20:40] LABS: Glucose Point of Care 102 mg/dL (70-110)
[2024-09-30] VITALS (33 sets, daily range): BP systolic 126–174; BP diastolic 68–125; PULSE 67–115; RESP 13–24; TEMP 36.3–37.1; O2SAT 92–100
[2024-09-30] MEDS: dextrose 5%-sod chloride 0.45% 1,000 ML 75 ML IV ×2 (00:41→14:27)
[2024-09-30 00:48] LABS: Glucose Point of Care 107 mg/dL (70-110)
[2024-09-30 04:44] LABS: Glucose Point of Care 109 mg/dL (70-110)
[2024-09-30 05:04] LABS: Basophils % 0.4 %; Eosinophils # 0.1 10^3/uL (0.0-0.8); Eosinophils % 1.4 %; Hematocrit 25.9 % (36-47); Lymphocytes # 0.7 10^3/uL (0.8-4.8); Lymphocytes % 8.9 %; Mean Corpuscular HGB Conc 32.8 g/dL (30-55); Mean Corpuscular Hemoglobin 29.4 pg (27-33); Mean Corpuscular Volume 89.6 fl (85-98); Mean Platelet Volume 10.9 fL (7.4-10.4); Monocytes # 0.9 10^3/uL (0.2-0.9); Monocytes % 11.2 %; Neutrophils # 5.97 10^3/uL (1.8-7.7); Neutrophils % 76.3 %; Nucleated Red Blood Cells % 0 %; Platelet Count 188 10^3/cmm (157-399); Red Blood Count 2.89 10^6/uL (3.85-5.65); Red Cell Distribution Width 13.3 % (12.1-15.1); White Blood Count 7.83 10^3/uL (3.29-11.43)
--- NOTE | 2024-09-30 05:08 | PM.PN ---
Subjective Subjective: events noted Medications: Reviewed: Yes Vitals/I&O/Wt Last Vital Signs Temp 98.6 F 09/30/24 04:00 Pulse 92 09/30/24 04:00 Resp 20 H 09/30/24 04:00 BP 174/84 09/30/24 04:00 Pulse Ox 100 09/30/24 04:00 O2 Del Method BiPAP 09/30/24 04:00 O2 Flow Rate 5 09/29/24 08:00 FiO2 30 09/30/24 04:00 09/29/24 09/29/24 09/30/24 14:59 22:59 06:59 Intake Total 663.75 / 663.75 1045 / 1708.75 Output Total 575 / 575 Balance 663.75 / 663.75 -575 / 88.75 1045 / 1133.75 Physical Exam Narrative: lethargic on BIPAP Urinary Catheter Management: Dolan: Cath Placed During This Visit: no Reason for Continuing Indwelling Catheter: Accurate Measurement of Urinary Output in Critically Ill Patients Data 09/30/24 04:35 09/30/24 04:35 Micro: Microbiology 09/29/24 09:25 Blood Culture - Preliminary Blood SPECIMEN COLLECTED 09/29/24 09:25 Blood Culture - Preliminary Blood SPECIMEN COLLECTED A&P Assessment and plan (1) LYNNETTE (acute kidney injury): 63 year old female s/p suicide attempt w/ drug overdose per chart. she is intubated, has an aspiration pneumonia. Treated with Romycin and Zosyn. Renal called as patient developed acute kidney injury. . Patient is urinating. 1. lynnette-urine is 1+ protein. Patient had contrast study on September 24, 2024 she had no hydronephrosis. At that time she had normal renal function her creatinine has since increased to 2.9 mg/dL today . Working diagnosis is ATN. No emergent need for dialysis at this time. Will replace potassium and give furosemide. 2. Patient has a respiratory alkalosis with a metabolic acidosis the patient is balance. 3. Hyponatremia improved. 4. Please potassium 5. Pulmonary embolism on anticoagulation. Patient was examined using audiovisual equipment as a telehealth visit. The nurse examined the patient. Plan See above. Attestations Medical Necessity Statement*: per medicine Coding Level of Care Code Acute Code for [facility] Diagnoses LYNNETTE (acute kidney injury) N17.9
[2024-09-30 05:17] LABS: Vancomycin Random 18.5 ug/mL (20.0-40.0)
[2024-09-30 05:19] LABS: Alanine Aminotransferase 48 U/L (0-33); Albumin Level 2.8 g/dL (3.5-5.2); Alkaline Phosphatase 101 U/L (35-105); Anion Gap 13.7 (5-19); Aspartate Amino Transferase 61 U/L (0-32); Blood Urea Nitrogen 24 mg/dL (8-23); Calcium 8.2 mg/dL (8.5-10.5); Carbon Dioxide 18 mmol/L (22-29); Chloride 114 mmol/L (98-107); Creatinine Clr Calc Pharmacy 18.2025; Globulin 2.5 g/dL (1.3-4.6); Glomerular Filtration Rate 16.5 mL/min (90-130); Glucose 109 mg/dL (65-115); Magnesium 1.9 mg/dL (1.7-2.3); Osmolality Calculated 299 mOsm/kg (285-295); Potassium 3.7 mmol/L (3.5-5.1); Sodium 142 mmol/L (136-145); Total Bilirubin 0.4 mg/dL (0.15-1.2); Total Protein 5.3 g/dL (6.6-8.7)
[2024-09-30 05:23] LABS: Salicylate < 0.3 mg/dL (3-10)
--- NOTE | 2024-09-30 06:00 | XRR_ITS ---
PROCEDURE INFORMATION: Exam: XR Chest Exam date and time: 09/30/2024 6:58 AM Age: 63 years old Clinical indication: Condition or disease; Lung condition and disease; Pneumonia; Aspiration; Additional info: Aspiration pneumonia TECHNIQUE: Imaging protocol: Radiologic exam of the chest. Views: 1 view. COMPARISON: CR (CHEST, ) 09/28/2024 7:45 AM FINDINGS: Tubes, catheters and devices: Right PICC line terminates in the SVC. Lungs: Haziness in the lower half of each lung are caused by an unknown combination of effusion plus atelectasis and/or infiltrate. There is vascular engorgement with mild interstitial edema and congestive heart failure or fluid overload is suspected. Pleural spaces: Unremarkable. No pleural effusion. No pneumothorax. Heart/Mediastinum: The heart mediastinum are normal. Bones/joints: Unremarkable. XR/XR chest 1V portable [id number] IMPRESSION: 1. No acute findings. 2. Persistent opacity in the lower lobes.
--- NOTE | 2024-09-30 08:00 | PC.NURSE ---
Pt begging for a drink. Bedside swallow test done. Pt's voice raspy and garbled. Water dribbled out the side of her mouth and she coughed. Bedside swallow test failed.
--- NOTE | 2024-09-30 08:00 | PC.NURSE ---
Assessment: Pt coughing. BiPap mask removed to provide oral care. Pt's voice raspy and garbled. Stridor noted upon inspiration. RT at bedside. Treatment started. BiPap back on.
[2024-09-30] MEDS: racepinephrine 0.5 mL Neb INHALATION ×2 (08:30→15:26)
--- NOTE | 2024-09-30 08:52 | P.PN_ITS ---
Subjective 2 Subjective: She was wide-awake and alert day before yesterday when I saw her and then yesterday slipped into unconsciousness again with elevated CO2 and had to go on BiPAP. She has convinced her family not to allow dialysis and they have also been concerned about administering any life-saving measures because she wanted to be and be with her . She tells me this morning that she took diazepam (the tablets were 10 mg and there were several of them remaining), trazodone and oxycodone. He has significant renal failure from one of the steps and says that she consumed, but she does not want to do dialysis because that is what killed her . She told him not to take dialysis but he did and then he . Vitals/I&O/Wt Last Vital Signs Temp 98.6 F 09/30/24 04:00 Pulse 115 H 09/30/24 08:30 Resp 24 H 09/30/24 08:30 BP 155/88 09/30/24 07:00 Pulse Ox 92 09/30/24 08:30 O2 Del Method Room Air 09/30/24 08:30 O2 Flow Rate 5 09/29/24 08:00 FiO2 24 09/30/24 08:23 09/29/24 09/30/24 09/30/24 22:59 06:59 14:59 Intake Total 1045 / 1708.75 Output Total 575 / 575 475 / 1050 Balance -575 / 88.75 570 / 658.75 Physical Exam 2 Narrative: She was awake and called me by name. Has been on BiPAP since yesterday. She has a racking cough. She can tell me what pills she took. She can tell me I wanted to be with my . She is moving both upper extremities with strong handgrips. She has significant stridor which has been present since she was extubated Urinary Catheter Management: Dolan: Cath Placed During This Visit: no Reason for Continuing Indwelling Catheter: Accurate Measurement of Urinary Output in Critically Ill Patients Data 09/30/24 04:35 09/30/24 04:35 Micro: Microbiology 09/29/24 09:25 Blood Culture - Preliminary Blood SPECIMEN COLLECTED 09/29/24 09:25 Blood Culture - Preliminary Blood SPECIMEN COLLECTED A&P Assessment and plan (1) Suicide attempt by multiple drug overdose: She presented with altered mental status and multiple pills beside her including diazepam 10 mg which she has probably never taken in her life and those were presumably her 's pills. All of the other pills that she took belonged to her . She keeps becoming hypercarbic again because she is in renal failure and not clearing diazepam. She is unwilling to be dialyzed because her after dialysis. Romazicon might be an alternative but she would basically have to be on a Romazicon drip until the Valium clears. Her creatinine is not coming down. Nephrology is on board. I asked the patient to undergo dialysis and she was willing to talk with me about it but she feels very strongly against it because her was on dialysis at the time of his . Qualifiers: Encounter type: initial encounter Qualified Code(s): T50.912A - Poisoning by multiple unspecified drugs, medicaments and biological substances, intentional self-harm, initial encounter (2) Reactive depression: Acute single episode of depression in response to grief. (3) Acute hypercapnic respiratory failure: (4) Aspiration pneumonia: Plan The patient's family need to understand that her depression, though profound, it is grief related and that she will survive it if she survives this acute multisystem problem caused by her polysubstance overdose. Attestations 2 Medical Necessity Statement*: 63-year-old woman with hypercapnic respi ratory failure, drug-induced, and severe aspiration pneumonia. She has vocal cord injury from intubation. Time Spent in Patient Care: 45 min Coding Level of Care Code Acute Code for g Fwd Diagnoses Suicide attempt by multiple drug overdose, initial encounter T50.912A Encounter type: initial encounter Reactive depression F32.9 Acute hypercapnic respiratory failure J96.02 Aspiration pneumonia J69.0
[2024-09-30] MEDS: piperacillin-tazobactam 3.375 GM in sodium chloride 0.9% (plus) 50 ML IV ×2 (09:40→19:53)
[2024-09-30] MEDS: pantoprazole 40 mg SDV IVP (09:42)
[2024-09-30] MEDS: lidocaine 1% 5 ML in potassium chloride premix 100 ML 26.25 ML IV (09:44)
[2024-09-30] MEDS: enoxaparin 60 mg/0.6 mL Syringe SUBCUT (10:43)
--- NOTE | 2024-09-30 12:43 | PC.SLP ---
Patient not appropriate for TOPOGRAPHICAL SURVEYOR assessment at this time. Patient is currently on BiPAP.
--- NOTE | 2024-09-30 13:05 | P.PN_ITS ---
Subjective 2 Subjective: No acute overnight events noted. She has been on BiPAP overnight, seen her at bedside this morning along with Dr. Joshua. She was more awake, alert and talking/providing history. But she did refuse for hemodialysis and mechanical ventilator. She was found to have difficulty talking and had hoarseness likely secondary to intubation/extubation. Medications: Reviewed: Yes Vitals/I&O/Wt Last Vital Signs Temp 98.6 F 09/30/24 04:00 Pulse 83 09/30/24 12:07 Resp 24 H 09/30/24 08:30 BP 155/88 09/30/24 07:00 Pulse Ox 100 09/30/24 12:07 O2 Del Method Room Air 09/30/24 08:30 O2 Flow Rate 5 09/29/24 08:00 FiO2 24 09/30/24 12:07 09/29/24 09/30/24 09/30/24 22:59 06:59 14:59 Intake Total 1045 / 1708.75 Output Total 575 / 575 475 / 1050 Balance -575 / 88.75 570 / 658.75 Physical Exam 2 Narrative: General: She is awake, alert and comprehensive, was able to tell what medication she overdosed on. Head: Normocephalic. Pupils are equally round reactive to light but sluggish Cardiovascular: RRR. No gallops. No murmurs. No peripheral edema. normal S1-S2. Lungs: Bilateral crackles present. Significant stridor postextubation, wheezing present Abdomen: Hypoactive bowel sounds. Abdomen is not distended. Extremities: No cyanosis or clubbing. Neurological: Able to squeeze finger, was moving bilateral upper and lower extremities Urinary Catheter Management: Dolan: Cath Placed During This Visit: no Reason for Continuing Indwelling Catheter: Accurate Measurement of Urinary Output in Critically Ill Patients Data 09/30/24 04:35 09/30/24 04:35 Micro: Microbiology 09/29/24 09:25 Blood Culture - Preliminary Blood NEGATIVE TO DATE 09/29/24 09:25 Blood Culture - Preliminary Blood NEGATIVE TO DATE A&P Assessment and plan (1) Suicide attempt by multiple drug overdose: Qualifiers: Encounter type: initial encounter Qualified Code(s): T50.912A - Poisoning by multiple unspecified drugs, medicaments and biological substances, intentional self-harm, initial encounter (2) Acute encephalopathy: (3) Hyponatremia: resolved (4) Hearing loss: (5) Pulmonary embolism: (6) Acute hypercapnic respiratory failure: (7) Aspiration pneumonia: Plan 09/22/24 (1) Suicide attempt by multiple drug overdose: Presentation consistent with suspected intentional drug overdose ED provider reportedly placed 96-hour hold Admit to intensive care unit Continuous telemetry monitoring Tylenol level mildly elevated, trend acetaminophen levels Start IV fluids Monitor cardiopulmonary status, patient may require intubation if she is unable to protect airway Supportive care Will eventually need psychiatric care when medically improved (2) Acute encephalopathy: Acute toxic encephalopathy Serial neurological exams Management as above (3) Hyponatremia: Status post IV fluid bolus in ED Start maintenance fluids Repeat labs in a.m. (4) Hearing loss: Patient is severely hard of hearing at baseline She currently does not have her hearing aids here, family may be able to bring later 09/23/24 #Electively intubated for airway protection #Suicide attempt #Drug overdose #Malignant hyperthermia??Ruled out #Fever most likely secondary to aspiration pneumonia #Atelectasis #Aspiration pneumonia #Hyperphosphatemia #Mild hyponatremia?corrected #Hearing loss. #Pulmonary embolism -96-hour hold placed in ER -Patient intubated for airway protection ? Fever most likely secondary to aspiration pneumonia. Check blood cultures, sputum culture Gram stain, urine culture to rule out other sources ? Chest x-ray shows aspiration pneumonia, infiltrate right middle lobe and lower lobe. 25. Not present on admission. ? Continue Versed and fentanyl at this time. Patient requiring 2 vasopressors in the ER. Vasopressin and Levophed. Will attempt to wean off as able. ?Discussed with malignant hyperthermia biometrics consultant over the phone. Low suspicion for NPH at this time. Continue to monitor. ? Check CT head, chest abdomen pelvis ? Hyponatremia corrected. ? Continue IV fluids. ? QT 480. Will recheck EKG. ?Psychiatric consult once patient is extubated. ? Continue vancomycin and Zosyn ? CPK 1400. Continue IV fluids ? Continue to monitor 09/24/24 96-hour hold placed in ER patient intubated for airway protection. Fever of unknown origin mostly secondary to aspiration pneumonia but also has evidence of atelectasis on chest x-ray. Malignant hyperthermia unlikely. Discussed with malignant hyperthermia helpline over the phone on 09/23. Blood cultures urine culture urine culture pending. ? Continue Versed every 4 hours as needed and fentanyl. Versed drip was turned off yesterday evening. ? Have discussed with nursing staff to avoid Versed if possible. ? When patient more awake and following commands we will plan for spontaneous breathing trial and potential extubation in next 24 to 48 hours. ? CT head negative for stroke or acute bleed. ? Continue IV fluids ? EKG reviewed. QTc within normal range ? Psychiatric consult when patient extubated ? CPK trending down 700 today. ? Continue to hospitalize patient at this time. Patient is on minimal vent settings however he is not following commands and is not participating despite being off sedation. Will continue with elective intubation at this time. - time was spent discussing patient's care with patient's nurses, multidisciplinary round, family meeting chart review, documentation. 09/25/24 Patient still intubated. Has been responsive only to verbal stimuli, on fentanyl drip for sedation. Will try to taper off the fentanyl drip for SBT trial. Will repeat chest x-ray in a.m. Continue IV fluids D5 NS at 100 cc/h IV vancomycin 1 g every 12 hours IV Zosyn 3.375 g every 8 hours Blood culture and urine culture negative so far Creatinine 1.2 continue IV fluids Continue heparin drip. Hemoglobin 9.4, platelet count 126. Monitor CBC Will do psychiatric consult once extubated QTc improved to 470. Continue to monitor in ICU. 09/26/24 Patient still intubated, has been responsive to verbal stimuli, off sedation but unable to follow commands. Also noticed to have tongue deviation and right upper and lower extremity flaccid, pupils sluggish, hence CT head without contrast done was negative for acute stroke. Neurological findings could likely be due to drug overdose. Unable to do MRI at this time since patient is intubated. Also creatinine trending up to 2.2, nephrology consulted. Will follow for further recommendations. Continue to monitor creatinine for now. Follow-up 2D echo Platelet count trending down to 99 as compared to 236 on admission. Will discontinue heparin drip and start Eliquis via NG tube Psychiatry to see the patient once extubated Will continue to monitor in ICU Will discuss with family about goals of care. 09/27/24 Neurological and respiratory status unchanged. Patient is not on CPAP, SBT trial but not able to support respiration independently. Neurological changes could likely be due to hypoxic brain injury secondary to drug overdose and respiratory acidosis. Family updated about prognosis and plan of care. Continues to defer for trial of hemodialysis at this time. Will start tube feedings. Continue SBT trial. Organ donation contacted, to see family this afternoon Creatinine trending up to 2.5. 2D echo normal Platelets improved to 109. Continue Eliquis. Will continue to monitor in ICU, family aware of current prognosis and goals of care. Case management consulted for placement 09/28/24 Neurological status improved slightly, she is s/p extubation. Able to communicate with us and family although severely hearing impaired. Doubt hypoxic brain injury given rapid improvement post starting feeds. Creat still trending up to 2.7, As per nephrology, given one dose of lasix. Psychiatry and neurology input appreciated. She is on 96 hour hold again and will need inpatient psych. Continue to monitor in ICU for now. 09/29/24 Deterioration of neurological and respiratory status since this morning. She was found to be tachypneic, using accessory muscles. Patient is on BiPAP. Was initially in acute respiratory acidosis with pCO2 of 72, repeated ABG in 1 hour showed pCO2 of 65. After being on BiPAP for 4 to 5 hours ABG improved with pCO2 in 40s. Patient seen at bedside repeatedly, later during the afternoon was found to be awake, responding to verbal stimuli, family at bedside. As the day progressed she became more awake and is now agitated secondary to BiPAP. She is alert, will discontinue BiPAP and monitor respiratory status on nasal cannula. Had an extensive discussion with the family at bedside about fluctuations in encephalopathic state could likely be secondary to medications overdose which we still not sure about what she actually took. Leukocyte count trended up to 16.3, likely reactive. Will continue to monitor Renal function continue to deteriorate with creatinine of 3 today. Hemoglobin stable Family, her mom and niece decided about limited resuscitation with DNI/no mechanical ventilator. Currently agree with plan of care. Will continue to monitor in ICU. 09/30/24 She has been on BiPAP since yesterday, respiratory rodarte stable. Was awake and alert this morning able to talk and being comprehensive on nasal cannula but still using accessory muscles. Will continue BiPAP with intermittent breaks. Creatinine 2.9 today, refusing hemodialysis. Follow-up nephrology, continue IV fluids. Hemoglobin stable at 8.5, platelets improved to 188. Significant stridor likely secondary to intubation/extubation, racemic nebulization helped. Will continue to monitor Chest x-ray showed persistent opacity in lower lobes, mild interstitial edema As per neurology since she took Valium and has LYNNETTE, will be having respiratory issues for a while. Need respiratory support for now. Spoke with pharmacy about antidote for Valium, no significant options present at this time. Continue Zosyn for now. will Discontinue vancomycin Had bedside swallow eval done, she failed. Will keep n.p.o. for now. Continue therapeutic Lovenox for PE. Creat clearance is 18. Attestations 2 Medical Necessity Statement*: Needs continued hospitalization for fluctuating encephalopathy secondary to drug overdose, acute hypercarbic respiratory failure/respiratory acidosis. Time Spent in Patient Care: 35 minutes Coding Level of Care Code Critical Care >/= 30 minutes Diagnoses Suicide attempt by multiple drug overdose, initial encounter T50.912A Encounter type: initial encounter Acute encephalopathy G93.40 Hyponatremia E87.1 Hearing loss H91.90 Pulmonary embolism I26.99 Acute hypercapnic respiratory failure J96.02 Aspiration pneumonia J69.0 Time Spent (min) 35
--- NOTE | 2024-09-30 14:45 | PC.NURSE ---
At pt's request beddside swallow test performed again. Her voice is still raspy but not as garbled. She was able to swallow without any coughing or choking. Water did dribble out the right side of her mouth. Will continue to hold.
--- NOTE | 2024-09-30 15:00 | PC.NURSE ---
Presumptive OD ingested medications where from Her 's prescription. Oxycodone, Trazadone and Diazepam loose in plastic ziploc bag and Lyrica in a prescription bottle. All sent to In patient pharmacy for disposal , as requested by Dr Mendoza and Dr Joshua.
[2024-09-30] MEDS: dexamethasone 4 mg/mL INJ IVP (15:46)
--- NOTE | 2024-09-30 16:27 | PC.SLP ---
Pt still not ready for TOBACCO SAMPLER/swallow eval due to her medical condition. TOBACCO SAMPLER will reattempt tomorrow.
[2024-09-30 17:15] LABS: Glucose Point of Care 95 mg/dL (70-110)
--- NOTE | 2024-09-30 17:35 | P.NPUPN_ITS ---
Subjective NPU 2 Subjective: 63-year-old female currently on hold due to continued to report depression. She had perseverated about wanting to have her phone and evaded and avoided any questions regarding her overdose. The patient had acknowledged having taken pills that were not her own. She had reported that her had but appeared distant when discussing her mood at this time. Patient had expressed frustration with having numerous wires and cords attached to her. Mental Status Exam 2 MSE Comments: The patient appeared her stated age with fair eye contact who appeared hard of hearing. Her speech was productive with diminished volume. Her mood was not endorsed. Her affect was subdued. Her thought process was persverative about wanting to have her phone. . She did not endorse homicidal or suicidal ideation. She was unwilling or unable to answer questions regarding her overdose. She did not appear to be responding to internal stimuli. There was no clear evidence of delusional thinking. Her insight is impaired. Her judgment appeared poor. Her impulse control appeared limited. Vitals/I&O/Wt Last Vital Signs Temp 98.7 F 09/30/24 13:00 Pulse 88 09/30/24 15:36 Resp 22 H 09/30/24 15:26 BP 162/82 09/30/24 15:00 Pulse Ox 100 09/30/24 15:33 O2 Del Method BiPAP 09/30/24 15:26 O2 Flow Rate 2 09/30/24 15:00 FiO2 24 09/30/24 15:33 09/30/24 09/30/24 09/30/24 06:59 14:59 22:59 Intake Total 1045 / 1708.75 1160 / 1160 Output Total 475 / 1050 Balance 570 / 658.75 1160 / 1160 Physical Exam 2 Urinary Catheter Management: Dolan: Cath Placed During This Visit: no Reason for Continuing Indwelling Catheter: Accurate Measurement of Urinary Output in Critically Ill Patients Data NPU 09/30/24 04:35 09/30/24 04:35 Micro: Microbiology 09/29/24 09:25 Blood Culture - Preliminary Blood NEGATIVE TO DATE 09/29/24 09:25 Blood Culture - Preliminary Blood NEGATIVE TO DATE Microbiology 09/29/24 09:25 Blood Blood Culture - Preliminary NEGATIVE TO DATE 09/29/24 09:25 Blood Blood Culture - Preliminary NEGATIVE TO DATE A&P Assessment and plan (1) Depression, unspecified: (2) Suicide attempt by multiple drug overdose: Qualifiers: Encounter type: initial encounter Qualified Code(s): T50.912A - Poisoning by multiple unspecified drugs, medicaments and biological substances, intentional self-harm, initial encounter Plan 63-year-old female who admitted initially to ICU on overdose currently appearing confused and unable to answer questions with significant concerns about the patient's depression. She expresses desire to return home but does not appear to be capable of returning home at this time. #1.? Engage patient in individual milieu and group therapy. #2?? Recommend sober living treatment at the highest level of care to which the patient is willing to commit #3??? Recommend transfer to NPU when stabilized. Patient placed on involuntary hold will likely file for 21 day hearing soon. #4?? TO-15 minute checks? #5?? Will attempt to gather collateral information Attestations NPU 2 Medical Necessity Statement*: Inpatient psychiatric hospitalization is medically necessary and deemed to ?be ?the clinically appropriate intervention ?at this time once acutely stabilized on ICU or medical floor and transferred to NPU. ? We will monitor/initiate medications and make changes as indicated.? The patient will be in the hospital for over 2 midnights.? The patient?s likely length of stay 7-10 days. Coding Level of Care Code Acute Code for [facility] Fwd Diagnoses Depression, unspecified F32.A Suicide attempt by multiple drug overdose, initial encounter T50.912A Encounter type: initial encounter
--- NOTE | 2024-09-30 18:57 | PC.NURSE ---
Shift summary: Pt alert. Her voice is weak. Difficult to understand her , even without the BiPap mask. She remains on AVAPS at 30%. She has had a couple breaks from the mask , the first on room air then this afternoon on 2lpm/NC. Zhour noted this am, Racemic epi admin by RT. Decadron IVP started. She has rested in the bed except for when PT assisted her to BSC this afternoon, She was very weak and unable to hold herself up; Maximum assist. No complains of pain this shift. The ruptured blister on her left upper arm is covered in slough. Her family came during the visiting hours for her, she was off the Mask for most of the visit, She smiled and laughed with them. She admitted to taking her 's medication. Bedside swallow tests done, fluid dribbles out of the right side of her mouth. That and the stidor, sips of water, and any other oral intake, were put on hold today. She had 650ml of urine output. She was incontinent of copious amounts of liquid stool today.
[2024-09-30 20:06] LABS: Glucose Point of Care 95 mg/dL (70-110)
[2024-10-01] VITALS (29 sets, daily range): BP systolic 137–180; BP diastolic 71–129; PULSE 54–98; RESP 10–29; TEMP 36.8–36.9; O2SAT 74–100
[2024-10-01 00:39] LABS: Glucose Point of Care 142 mg/dL (70-110)
[2024-10-01] MEDS: dexamethasone 4 mg/mL INJ IVP ×2 (02:56→17:08)
[2024-10-01] MEDS: dextrose 5%-sod chloride 0.45% 1,000 ML 75 ML IV ×2 (03:29→17:11)
[2024-10-01 05:17] LABS: Anion Gap 16.7 (5-19); Blood Urea Nitrogen 21 mg/dL (8-23); Calcium 8.5 mg/dL (8.5-10.5); Carbon Dioxide 18 mmol/L (22-29); Chloride 114 mmol/L (98-107); Creatinine Clr Calc Pharmacy 18.8526; Glomerular Filtration Rate 17.2 mL/min (90-130); Glucose 126 mg/dL (65-115); Osmolality Calculated 305 mOsm/kg (285-295); Potassium 3.7 mmol/L (3.5-5.1); Sodium 145 mmol/L (136-145)
[2024-10-01 07:34] LABS: C.Diff PCR (Lab) NEGATIVE (Negative)
[2024-10-01] MEDS: pantoprazole 40 mg SDV IVP (08:33)
[2024-10-01] MEDS: piperacillin-tazobactam 3.375 GM in sodium chloride 0.9% (plus) 50 ML IV ×2 (08:33→19:56)
--- NOTE | 2024-10-01 09:28 | PC.NURSE ---
Patient been on the hypertensive side, Dr. Mazariegos advised to monitor if continues then add po amlodipine
[2024-10-01] MEDS: enoxaparin 60 mg/0.6 mL Syringe SUBCUT (11:12)
--- NOTE | 2024-10-01 11:46 | P.PN_ITS ---
Subjective 2 Subjective: ON bipap Medications: Reviewed: Yes Vitals/I&O/Wt Last Vital Signs Temp 98.4 F 10/01/24 02:00 Pulse 98 10/01/24 11:23 Resp 12 10/01/24 10:00 BP 173/87 10/01/24 10:00 Pulse Ox 74 L 10/01/24 11:23 O2 Del Method BiPAP 09/30/24 18:00 O2 Flow Rate 2 09/30/24 15:00 FiO2 24 10/01/24 11:23 09/30/24 10/01/24 10/01/24 22:59 06:59 14:59 Intake Total 1027.5 / 2187.5 Output Total 650 / 650 600 / 1250 Balance -650 / 510 427.5 / 937.5 Weight last 48 hrs Weight 55.792 kg Physical Exam 2 Narrative: awake , no distress S1S2 RRR per report lUNGS CLEAR PER REPORT NO EDEMA on BIPAP Urinary Catheter Management: Dolan: Cath Placed During This Visit: no Reason for Continuing Indwelling Catheter: Accurate Measurement of Urinary Output in Critically Ill Patients Data 09/30/24 04:35 10/01/24 04:16 Micro: Microbiology 09/29/24 09:25 Blood Culture - Preliminary Blood NEGATIVE TO DATE 09/29/24 09:25 Blood Culture - Preliminary Blood NEGATIVE TO DATE A&P Assessment and plan (1) LYNNETTE (acute kidney injury): 63 year old female s/p suicide attempt w/ drug overdose per chart. she is intubated, has an aspiration pneumonia. Treated with Romycin and Zosyn. Renal called as patient developed acute kidney injury. . Patient is urinating. 1. lynnette-urine is 1+ protein. Patient had contrast study on September 24, 2024 she had no hydronephrosis. At that time she had normal renal function her creatinine has since increased to 2.8 mg/dL today . Working diagnosis is ATN. No emergent need for dialysis at this time. Lasix PRN 2. Patient has a respiratory alkalosis with a metabolic acidosis the patient is balance. 3. Hyponatremia improved. 4. Please potassium 5. Pulmonary embolism on anticoagulation. Patient was examined using audiovisual equipment as a telehealth visit. The nurse examined the patient. Plan See above. Attestations 2 Medical Necessity Statement*: PER MEDICINE Coding Level of Care Code Acute Code for [facility] Fwd Diagnoses LYNNETTE (acute kidney injury) N17.9
[2024-10-01] MEDS: FUROsemide 10 mg/mL SDV 4mL 40 MG IVP (13:34)
--- NOTE | 2024-10-01 18:04 | P.PN_ITS ---
Subjective 2 Subjective: No acute overnight events noted. Seen at bedside this morning. She has been more awake and alert, comprehensive, able to provide history and was crying while remembering her . She was able to remember Dr. oJshua's visit yesterday Medications: Reviewed: Yes Vitals/I&O/Wt Last Vital Signs Temp 98.4 F 10/01/24 02:00 Pulse 89 10/01/24 18:00 Resp 16 10/01/24 18:00 BP 137/106 10/01/24 18:00 Pulse Ox 95 10/01/24 18:02 O2 Del Method BiPAP 09/30/24 18:00 O2 Flow Rate 2 09/30/24 15:00 FiO2 24 10/01/24 11:23 10/01/24 10/01/24 10/01/24 06:59 14:59 22:59 Intake Total 1027.5 / 2187.5 1150 / 1150 Output Total 600 / 1250 1200 / 1200 Balance 427.5 / 937.5 -50 / -50 Weight last 48 hrs Weight 55.792 kg Physical Exam 2 Narrative: General: She is awake, alert and comprehensive, was able to tell what medication she overdosed on. Head: Normocephalic. Pupils are equally round reactive to light but sluggish Cardiovascular: RRR. No gallops. No murmurs. No peripheral edema. normal S1-S2. Lungs: Bilateral crackles present. Significant stridor postextubation, wheezing present Abdomen: Hypoactive bowel sounds. Abdomen is not distended. Extremities: No cyanosis or clubbing. Neurological: Able to squeeze finger, was moving bilateral upper and lower extremities Urinary Catheter Management: Dolan: Cath Placed During This Visit: no Reason for Continuing Indwelling Catheter: Accurate Measurement of Urinary Output in Critically Ill Patients Data 09/30/24 04:35 10/01/24 04:16 A&P Assessment and plan (1) Suicide attempt by multiple drug overdose: Qualifiers: Encounter type: initial encounter Qualified Code(s): T50.912A - Poisoning by multiple unspecified drugs, medicaments and biological substances, intentional self-harm, initial encounter (2) Acute encephalopathy: (3) Hyponatremia: resolved (4) Hearing loss: (5) Pulmonary embolism: (6) Acute hypercapnic respiratory failure: (7) Aspiration pneumonia: Plan 09/22/24 (1) Suicide attempt by multiple drug overdose: Presentation consistent with suspected intentional drug overdose ED provider reportedly placed 96-hour hold Admit to intensive care unit Continuous telemetry monitoring Tylenol level mildly elevated, trend acetaminophen levels Start IV fluids Monitor cardiopulmonary status, patient may require intubation if she is unable to protect airway Supportive care Will eventually need psychiatric care when medically improved (2) Acute encephalopathy: Acute toxic encephalopathy Serial neurological exams Management as above (3) Hyponatremia: Status post IV fluid bolus in ED Start maintenance fluids Repeat labs in a.m. (4) Hearing loss: Patient is severely hard of hearing at baseline She currently does not have her hearing aids here, family may be able to bring later 09/23/24 #Electively intubated for airway protection #Suicide attempt #Drug overdose #Malignant hyperthermia??Ruled out #Fever most likely secondary to aspiration pneumonia #Atelectasis #Aspiration pneumonia #Hyperphosphatemia #Mild hyponatremia?corrected #Hearing loss. #Pulmonary embolism -96-hour hold placed in ER -Patient intubated for airway protection ? Fever most likely secondary to aspiration pneumonia. Check blood cultures, sputum culture Gram stain, urine culture to rule out other sources ? Chest x-ray shows aspiration pneumonia, infiltrate right middle lobe and lower lobe. 25. Not present on admission. ? Continue Versed and fentanyl at this time. Patient requiring 2 vasopressors in the ER. Vasopressin and Levophed. Will attempt to wean off as able. ?Discussed with malignant hyperthermia organization development consultant over the phone. Low suspicion for NPH at this time. Continue to monitor. ? Check CT head, chest abdomen pelvis ? Hyponatremia corrected. ? Continue IV fluids. ? QT 480. Will recheck EKG. ?Psychiatric consult once patient is extubated. ? Continue vancomycin and Zosyn ? CPK 1400. Continue IV fluids ? Continue to monitor 09/24/24 96-hour hold placed in ER patient intubated for airway protection. Fever of unknown origin mostly secondary to aspiration pneumonia but also has evidence of atelectasis on chest x-ray. Malignant hyperthermia unlikely. Discussed with malignant hyperthermia helpline over the phone on 09/23. Blood cultures urine culture urine culture pending. ? Continue Versed every 4 hours as needed and fentanyl. Versed drip was turned off yesterday evening. ? Have discussed with nursing staff to avoid Versed if possible. ? When patient more awake and following commands we will plan for spontaneous breathing trial and potential extubation in next 24 to 48 hours. ? CT head negative for stroke or acute bleed. ? Continue IV fluids ? EKG reviewed. QTc within normal range ? Psychiatric consult when patient extubated ? CPK trending down 700 today. ? Continue to hospitalize patient at this time. Patient is on minimal vent settings however he is not following commands and is not participating despite being off sedation. Will continue with elective intubation at this time. - time was spent discussing patient's care with patient's nurses, multidisciplinary round, family meeting chart review, documentation. 09/25/24 Patient still intubated. Has been responsive only to verbal stimuli, on fentanyl drip for sedation. Will try to taper off the fentanyl drip for SBT trial. Will repeat chest x-ray in a.m. Continue IV fluids D5 NS at 100 cc/h IV vancomycin 1 g every 12 hours IV Zosyn 3.375 g every 8 hours Blood culture and urine culture negative so far Creatinine 1.2 continue IV fluids Continue heparin drip. Hemoglobin 9.4, platelet count 126. Monitor CBC Will do psychiatric consult once extubated QTc improved to 470. Continue to monitor in ICU. 09/26/24 Patient still intubated, has been responsive to verbal stimuli, off sedation but unable to follow commands. Also noticed to have tongue deviation and right upper and lower extremity flaccid, pupils sluggish, hence CT head without contrast done was negative for acute stroke. Neurological findings could likely be due to drug overdose. Unable to do MRI at this time since patient is intubated. Also creatinine trending up to 2.2, nephrology consulted. Will follow for further recommendations. Continue to monitor creatinine for now. Follow-up 2D echo Platelet count trending down to 99 as compared to 236 on admission. Will discontinue heparin drip and start Eliquis via NG tube Psychiatry to see the patient once extubated Will continue to monitor in ICU Will discuss with family about goals of care. 09/27/24 Neurological and respiratory status unchanged. Patient is not on CPAP, SBT trial but not able to support respiration independently. Neurological changes could likely be due to hypoxic brain injury secondary to drug overdose and respiratory acidosis. Family updated about prognosis and plan of care. Continues to defer for trial of hemodialysis at this time. Will start tube feedings. Continue SBT trial. Organ donation contacted, to see family this afternoon Creatinine trending up to 2.5. 2D echo normal Platelets improved to 109. Continue Eliquis. Will continue to monitor in ICU, family aware of current prognosis and goals of care. Case management consulted for placement 09/28/24 Neurological status improved slightly, she is s/p extubation. Able to communicate with us and family although severely hearing impaired. Doubt hypoxic brain injury given rapid improvement post starting feeds. Creat still trending up to 2.7, As per nephrology, given one dose of lasix. Psychiatry and neurology input appreciated. She is on 96 hour hold again and will need inpatient psych. Continue to monitor in ICU for now. 09/29/24 Deterioration of neurological and respiratory status since this morning. She was found to be tachypneic, using accessory muscles. Patient is on BiPAP. Was initially in acute respiratory acidosis with pCO2 of 72, repeated ABG in 1 hour showed pCO2 of 65. After being on BiPAP for 4 to 5 hours ABG improved with pCO2 in 40s. Patient seen at bedside repeatedly, later during the afternoon was found to be awake, responding to verbal stimuli, family at bedside. As the day progressed she became more awake and is now agitated secondary to BiPAP. She is alert, will discontinue BiPAP and monitor respiratory status on nasal cannula. Had an extensive discussion with the family at bedside about fluctuations in encephalopathic state could likely be secondary to medications overdose which we still not sure about what she actually took. Leukocyte count trended up to 16.3, likely reactive. Will continue to monitor Renal function continue to deteriorate with creatinine of 3 today. Hemoglobin stable Family, her mom and niece decided about limited resuscitation with DNI/no mechanical ventilator. Currently agree with plan of care. Will continue to monitor in ICU. 09/30/24 She has been on BiPAP since yesterday, respiratory rodarte stable. Was awake and alert this morning able to talk and being comprehensive on nasal cannula but still using accessory muscles. Will continue BiPAP with intermittent breaks. Creatinine 2.9 today, refusing hemodialysis. Follow-up nephrology, continue IV fluids. Hemoglobin stable at 8.5, platelets improved to 188. Significant stridor likely secondary to intubation/extubation, racemic nebulization helped. Will continue to monitor Chest x-ray showed persistent opacity in lower lobes, mild interstitial edema As per neurology since she took Valium and has LYNNETTE, will be having respiratory issues for a while. Need respiratory support for now. Spoke with pharmacy about antidote for Valium, no significant options present at this time. Continue Zosyn for now. will Discontinue vancomycin Had bedside swallow eval done, she failed. Will keep n.p.o. for now. Continue therapeutic Lovenox for PE. Creat clearance is 18. 10/01/24 She has been more awake and alert this morning, comprehensive, tolerated clear liquid diet. Bilateral chest wheezing and stridor improved with IV Decadron. Creatinine 2.8 today. Slowly improving. Will follow-up nephrology and neurology for further recommendations As per psychiatry, she needs inpatient psychiatric hospitalization for management of severe depression and drug overdose once medically stable. Has been doing better with PT Will continue current management. Family aware about the plan of care. Attestations 2 Medical Necessity Statement*: Needs continued hospitalization for management of hypoxic respiratory failure, ATN, encephalopathy with supplemental oxygen/BiPAP, PT and speech and swallow assessment Time Spent in Patient Care: 35 minutes Coding Level of Care Code Acute Code for [facility] Fwd Diagnoses Suicide attempt by multiple drug overdose, initial encounter T50.912A Encounter type: initial encounter Acute encephalopathy G93.40 Hyponatremia E87.1 Hearing loss H91.90 Pulmonary embolism I26.99 Acute hypercapnic respiratory failure J96.02 Aspiration pneumonia J69.0 Time Spent (min) 35
--- NOTE | 2024-10-01 18:37 | W.PM.NPUPNS ---
Subjective NPU Subjective: 63-year-old female currently on hold due to continued to report depression. The patient appeared more interactive today. She had appeared more sad when discussing her . She had reported that she was feeling a little bit better. She had reported feeling tired and fatigued. She continued remained somewhat evasive about the issues leading to her placement in the hospital. She had reported desire to to return home to see her dogs. Mental Status Exam MSE Comments: The patient appeared her stated age with fair eye contact who appeared hard of hearing. Her speech was more productive with diminished volume. Her mood was reported as better. Her affect was tearful. Her thought process was more circumstantial. She did not endorse homicidal or suicidal ideation. She was unwilling or unable to answer questions regarding her overdose. She did not appear to be responding to internal stimuli. There was no clear evidence of delusional thinking. Her insight is impaired. Her judgment appeared poor. Her impulse control appeared limited. Vitals/I&O/Wt Last Vital Signs Temp 98.4 F 10/01/24 02:00 Pulse 89 10/01/24 18:00 Resp 16 10/01/24 18:00 BP 137/106 10/01/24 18:00 Pulse Ox 95 10/01/24 18:02 O2 Del Method BiPAP 09/30/24 18:00 O2 Flow Rate 2 09/30/24 15:00 FiO2 24 10/01/24 11:23 10/01/24 10/01/24 10/01/24 06:59 14:59 22:59 Intake Total 1027.5 / 2187.5 1150 / 1150 Output Total 600 / 1250 1200 / 1200 Balance 427.5 / 937.5 -50 / -50 Weight last 48 hrs Weight 55.792 kg Physical Exam Urinary Catheter Management: Dolan: Cath Placed During This Visit: no Reason for Continuing Indwelling Catheter: Accurate Measurement of Urinary Output in Critically Ill Patients Data NPU 09/30/24 04:35 10/01/24 04:16 A&P Assessment and plan (1) Depression, unspecified: (2) Suicide attempt by multiple drug overdose: Qualifiers: Encounter type: initial encounter Qualified Code(s): T50.912A - Poisoning by multiple unspecified drugs, medicaments and biological substances, intentional self-harm, initial encounter Plan 63-year-old female who admitted initially to ICU on overdose currently appearing confused and unable to answer questions with significant concerns about the patient's depression. She expresses desire to return home but does not appear to be capable of returning home at this time. #1.? Engage patient in individual milieu and group therapy. #2?? Recommend sober living treatment at the highest level of care to which the patient is willing to commit #3??? Recommend transfer to NPU when stabilized. Patient placed on involuntary hold set to on 10/07/24 with extension likely. #4?? TO-15 minute checks? #5?? Will attempt to gather collateral information Attestations NPU Medical Necessity Statement*: Inpatient psychiatric hospitalization is medically necessary and deemed to ?be ?the clinically appropriate intervention ?at this time once acutely stabilized on ICU or medical floor and transferred to NPU. ? We will monitor/initiate medications and make changes as indicated.? The patient will be in the hospital for over 2 midnights.? The patient?s likely length of stay 7-10 days. Coding Level of Care Code Acute Code for [facility] Fwd Diagnoses Depression, unspecified F32.A Suicide attempt by multiple drug overdose, initial encounter T50.912A Encounter type: initial encounter
[2024-10-01 21:39] LABS: Glucose Point of Care 118 mg/dL (70-110)
[2024-10-02] VITALS (26 sets, daily range): BP systolic 130–192; BP diastolic 71–111; PULSE 47–88; RESP 12–25; TEMP 36.6–36.8; O2SAT 91–100; BMI 20.5
[2024-10-02 01:56] LABS: Glucose Point of Care 146 mg/dL (70-110)
[2024-10-02] MEDS: dexamethasone 4 mg/mL INJ IVP ×2 (05:02→15:01)
[2024-10-02 05:09] LABS: Glucose Point of Care 110 mg/dL (70-110)
[2024-10-02] MEDS: dextrose 5%-sod chloride 0.45% 1,000 ML 75 ML IV ×2 (05:11→19:36)
[2024-10-02 05:13] LABS: Blood Urea Nitrogen 24 mg/dL (8-23); Calcium 8.3 mg/dL (8.5-10.5); Carbon Dioxide 17 mmol/L (22-29); Chloride 114 mmol/L (98-107); Creatinine Clr Calc Pharmacy 21.9624; Glomerular Filtration Rate 20.5 mL/min (90-130); Glucose 122 mg/dL (65-115); Osmolality Calculated 305 mOsm/kg (285-295); Sodium 145 mmol/L (136-145)
[2024-10-02 05:15] LABS: Anion Gap 17.3 (5-19); Potassium 3.3 mmol/L (3.5-5.1)
[2024-10-02] MEDS: pantoprazole 40 mg SDV IVP (08:47)
[2024-10-02] MEDS: piperacillin-tazobactam 3.375 GM in sodium chloride 0.9% (plus) 50 ML IV ×2 (08:47→19:39)
[2024-10-02] MEDS: amlodipine 5 mg Tablet PO (08:49)
[2024-10-02] MEDS: potassium chloride ER 20 mEq Tablet 40 MEQ PO ×2 (08:49→14:10)
--- NOTE | 2024-10-02 09:32 | PM.PN ---
Subjective Subjective: no new c/o Medications: Reviewed: Yes Vitals/I&O/Wt Last Vital Signs Temp 98.3 F 10/02/24 04:00 Pulse 62 10/02/24 06:00 Resp 17 10/02/24 06:00 BP 174/110 10/02/24 06:00 Pulse Ox 97 10/02/24 06:00 O2 Del Method BiPAP 09/30/24 18:00 O2 Flow Rate 2 09/30/24 15:00 FiO2 24 10/02/24 00:00 10/01/24 10/02/24 10/02/24 22:59 06:59 14:59 Intake Total 1200 / 1200 1190 / 2390 Output Total 1200 / 1200 800 / 2000 Balance 0 / 0 390 / 390 Weight last 48 hrs Weight 55.792 kg Weight 55.792 kg Physical Exam Narrative: awake , no distress S1S2 RRR per report lUNGS CLEAR PER REPORT NO EDEMA on BIPAP Urinary Catheter Management: Dolan: Cath Placed During This Visit: no Reason for Continuing Indwelling Catheter: Accurate Measurement of Urinary Output in Critically Ill Patients Data 09/30/24 04:35 10/02/24 04:27 A&P Assessment and plan (1) LYNNETTE (acute kidney injury): 63 year old female s/p suicide attempt w/ drug overdose per chart. , has aspiration pneumonia. Renal called as patient developed acute kidney injury. . Patient is urinating. 1. LYNNETTE : urine is 1+ protein. Patient had contrast study on September 24, 2024 she had no hydronephrosis. . Working diagnosis is ATN. No emergent need for dialysis at this time. Lasix PRN Cr improving 2. hypokalemia : replete K 3. Hyponatremia improved. 4. Metabolic acidosis : will add Bicitra today 5. Pulmonary embolism on anticoagulation. Patient was examined using audiovisual equipment as a telehealth visit. The nurse examined the patient. Plan See above. Attestations Medical Necessity Statement*: per [place] Coding Level of Care Code Acute Code for [facility] Fwd Diagnoses LYNNETTE (acute kidney injury) N17.9
[2024-10-02 09:51] LABS: Glucose Point of Care 113 mg/dL (70-110)
[2024-10-02] MEDS: citric acid-sodium citrate 30 mL UDC PO (10:29)
[2024-10-02] MEDS: enoxaparin 60 mg/0.6 mL Syringe SUBCUT (10:59)
--- NOTE | 2024-10-02 11:11 | P.PN_ITS ---
Subjective 2 Medications: Reviewed: Yes Vitals/I&O/Wt Last Vital Signs Temp 98.3 F 10/02/24 04:00 Pulse 59 L 10/02/24 10:00 Resp 19 H 10/02/24 10:00 BP 180/83 10/02/24 10:00 Pulse Ox 95 10/02/24 10:00 O2 Del Method BiPAP 09/30/24 18:00 O2 Flow Rate 2 09/30/24 15:00 FiO2 24 10/02/24 00:00 10/01/24 10/02/24 10/02/24 22:59 06:59 14:59 Intake Total 1200 / 1200 1190 / 2390 100 / 100 Output Total 1200 / 1200 800 / 2000 Balance 0 / 0 390 / 390 100 / 100 Weight last 48 hrs Weight 55.792 kg Weight 55.792 kg Physical Exam 2 Narrative: General: She is awake, alert and comprehensive, was able to tell what medication she overdosed on. Head: Normocephalic. Pupils are equally round reactive to light but sluggish Cardiovascular: RRR. No gallops. No murmurs. No peripheral edema. normal S1-S2. Lungs: Bilateral crackles present. Significant stridor postextubation, wheezing present Abdomen: Hypoactive bowel sounds. Abdomen is not distended. Extremities: No cyanosis or clubbing. Neurological: Able to squeeze finger, was moving bilateral upper and lower extremities Urinary Catheter Management: Dolan: Cath Placed During This Visit: no Reason for Continuing Indwelling Catheter: Accurate Measurement of Urinary Output in Critically Ill Patients Data 09/30/24 04:35 10/02/24 04:27 A&P Assessment and plan (1) Suicide attempt by multiple drug overdose: Qualifiers: Encounter type: initial encounter Qualified Code(s): T50.912A - Poisoning by multiple unspecified drugs, medicaments and biological substances, intentional self-harm, initial encounter (2) Acute encephalopathy: (3) Hyponatremia: resolved (4) Hearing loss: (5) Pulmonary embolism: (6) Acute hypercapnic respiratory failure: (7) Aspiration pneumonia: Plan 09/22/24 (1) Suicide attempt by multiple drug overdose: Presentation consistent with suspected intentional drug overdose ED provider reportedly placed 96-hour hold Admit to intensive care unit Continuous telemetry monitoring Tylenol level mildly elevated, trend acetaminophen levels Start IV fluids Monitor cardiopulmonary status, patient may require intubation if she is unable to protect airway Supportive care Will eventually need psychiatric care when medically improved (2) Acute encephalopathy: Acute toxic encephalopathy Serial neurological exams Management as above (3) Hyponatremia: Status post IV fluid bolus in ED Start maintenance fluids Repeat labs in a.m. (4) Hearing loss: Patient is severely hard of hearing at baseline She currently does not have her hearing aids here, family may be able to bring later 09/23/24 #Electively intubated for airway protection #Suicide attempt #Drug overdose #Malignant hyperthermia??Ruled out #Fever most likely secondary to aspiration pneumonia #Atelectasis #Aspiration pneumonia #Hyperphosphatemia #Mild hyponatremia?corrected #Hearing loss. #Pulmonary embolism -96-hour hold placed in ER -Patient intubated for airway protection ? Fever most likely secondary to aspiration pneumonia. Check blood cultures, sputum culture Gram stain, urine culture to rule out other sources ? Chest x-ray shows aspiration pneumonia, infiltrate right middle lobe and lower lobe. 25. Not present on admission. ? Continue Versed and fentanyl at this time. Patient requiring 2 vasopressors in the ER. Vasopressin and Levophed. Will attempt to wean off as able. ?Discussed with malignant hyperthermia service delivery management consultant over the phone. Low suspicion for NPH at this time. Continue to monitor. ? Check CT head, chest abdomen pelvis ? Hyponatremia corrected. ? Continue IV fluids. ? QT 480. Will recheck EKG. ?Psychiatric consult once patient is extubated. ? Continue vancomycin and Zosyn ? CPK 1400. Continue IV fluids ? Continue to monitor 09/24/24 96-hour hold placed in ER patient intubated for airway protection. Fever of unknown origin mostly secondary to aspiration pneumonia but also has evidence of atelectasis on chest x-ray. Malignant hyperthermia unlikely. Discussed with malignant hyperthermia helpline over the phone on 09/23. Blood cultures urine culture urine culture pending. ? Continue Versed every 4 hours as needed and fentanyl. Versed drip was turned off yesterday evening. ? Have discussed with nursing staff to avoid Versed if possible. ? When patient more awake and following commands we will plan for spontaneous breathing trial and potential extubation in next 24 to 48 hours. ? CT head negative for stroke or acute bleed. ? Continue IV fluids ? EKG reviewed. QTc within normal range ? Psychiatric consult when patient extubated ? CPK trending down 700 today. ? Continue to hospitalize patient at this time. Patient is on minimal vent settings however he is not following commands and is not participating despite being off sedation. Will continue with elective intubation at this time. - time was spent discussing patient's care with patient's nurses, multidisciplinary round, family meeting chart review, documentation. 09/25/24 Patient still intubated. Has been responsive only to verbal stimuli, on fentanyl drip for sedation. Will try to taper off the fentanyl drip for SBT trial. Will repeat chest x-ray in a.m. Continue IV fluids D5 NS at 100 cc/h IV vancomycin 1 g every 12 hours IV Zosyn 3.375 g every 8 hours Blood culture and urine culture negative so far Creatinine 1.2 continue IV fluids Continue heparin drip. Hemoglobin 9.4, platelet count 126. Monitor CBC Will do psychiatric consult once extubated QTc improved to 470. Continue to monitor in ICU. 09/26/24 Patient still intubated, has been responsive to verbal stimuli, off sedation but unable to follow commands. Also noticed to have tongue deviation and right upper and lower extremity flaccid, pupils sluggish, hence CT head without contrast done was negative for acute stroke. Neurological findings could likely be due to drug overdose. Unable to do MRI at this time since patient is intubated. Also creatinine trending up to 2.2, nephrology consulted. Will follow for further recommendations. Continue to monitor creatinine for now. Follow-up 2D echo Platelet count trending down to 99 as compared to 236 on admission. Will discontinue heparin drip and start Eliquis via NG tube Psychiatry to see the patient once extubated Will continue to monitor in ICU Will discuss with family about goals of care. 09/27/24 Neurological and respiratory status unchanged. Patient is not on CPAP, SBT trial but not able to support respiration independently. Neurological changes could likely be due to hypoxic brain injury secondary to drug overdose and respiratory acidosis. Family updated about prognosis and plan of care. Continues to defer for trial of hemodialysis at this time. Will start tube feedings. Continue SBT trial. Organ donation contacted, to see family this afternoon Creatinine trending up to 2.5. 2D echo normal Platelets improved to 109. Continue Eliquis. Will continue to monitor in ICU, family aware of current prognosis and goals of care. Case management consulted for placement 09/28/24 Neurological status improved slightly, she is s/p extubation. Able to communicate with us and family although severely hearing impaired. Doubt hypoxic brain injury given rapid improvement post starting feeds. Creat still trending up to 2.7, As per nephrology, given one dose of lasix. Psychiatry and neurology input appreciated. She is on 96 hour hold again and will need inpatient psych. Continue to monitor in ICU for now. 09/29/24 Deterioration of neurological and respiratory status since this morning. She was found to be tachypneic, using accessory muscles. Patient is on BiPAP. Was initially in acute respiratory acidosis with pCO2 of 72, repeated ABG in 1 hour showed pCO2 of 65. After being on BiPAP for 4 to 5 hours ABG improved with pCO2 in 40s. Patient seen at bedside repeatedly, later during the afternoon was found to be awake, responding to verbal stimuli, family at bedside. As the day progressed she became more awake and is now agitated secondary to BiPAP. She is alert, will discontinue BiPAP and monitor respiratory status on nasal cannula. Had an extensive discussion with the family at bedside about fluctuations in encephalopathic state could likely be secondary to medications overdose which we still not sure about what she actually took. Leukocyte count trended up to 16.3, likely reactive. Will continue to monitor Renal function continue to deteriorate with creatinine of 3 today. Hemoglobin stable Family, her mom and niece decided about limited resuscitation with DNI/no mechanical ventilator. Currently agree with plan of care. Will continue to monitor in ICU. 09/30/24 She has been on BiPAP since yesterday, respiratory rodarte stable. Was awake and alert this morning able to talk and being comprehensive on nasal cannula but still using accessory muscles. Will continue BiPAP with intermittent breaks. Creatinine 2.9 today, refusing hemodialysis. Follow-up nephrology, continue IV fluids. Hemoglobin stable at 8.5, platelets improved to 188. Significant stridor likely secondary to intubation/extubation, racemic nebulization helped. Will continue to monitor Chest x-ray showed persistent opacity in lower lobes, mild interstitial edema As per neurology since she took Valium and has LYNNETTE, will be having respiratory issues for a while. Need respiratory support for now. Spoke with pharmacy about antidote for Valium, no significant options present at this time. Continue Zosyn for now. will Discontinue vancomycin Had bedside swallow eval done, she failed. Will keep n.p.o. for now. Continue therapeutic Lovenox for PE. Creat clearance is 18. 10/01/24 She has been more awake and alert this morning, comprehensive, tolerated clear liquid diet. Bilateral chest wheezing and stridor improved with IV Decadron. Creatinine 2.8 today. Slowly improving. Will follow-up nephrology and neurology for further recommendations As per psychiatry, she needs inpatient psychiatric hospitalization for management of severe depression and drug overdose once medically stable. Has been doing better with PT Will continue current management. Family aware about the plan of care. 10/02/24 She has been more awake and comprehensive. Tolerating diet. Creatinine improved to 2.4. Follow-up nephrology for further recommendations. Still has upper and lower extremity flaccidity, hence would need PT for few days until she starts ambulating. Can be transferred to inpatient psychiatry once out of bed and ambulating and medically stable. Has not required BiPAP overnight. Saturating well on nasal cannula. Has been hypertensive since yesterday, will add amlodipine 5 mg daily and monitor. Attestations 2 Medical Necessity Statement*: Needs continued hospitalization for management of hypoxic respiratory failure, ATN, encephalopathy with supplemental oxygen/BiPAP, PT and speech and swallow assessment Time Spent in Patient Care: 25 minutes Coding Level of Care Code Acute Code for Chg Fwd Diagnoses Suicide attempt by multiple drug overdose, initial encounter T50.912A Encounter type: initial encounter Acute encephalopathy G93.40 Hyponatremia E87.1 Hearing loss H91.90 Pulmonary embolism I26.99 Acute hypercapnic respiratory failure J96.02 Aspiration pneumonia J69.0 Time Spent (min) 25
--- NOTE | 2024-10-02 11:24 | PC.NURSE ---
awaken up on bedside commade with assist of 2 people . remains very weak .speech hoarse with some confusion noted , loose liquid bm
--- NOTE | 2024-10-02 13:43 | P.NPUPN_ITS ---
Subjective NPU 2 Subjective: 63-year-old female currently on hold due to continued to report depression currently in ICU. The patient remains somewhat confused. She was unable to provide date or reason that she was currently in the hospital. The patient appeared at times able to answer questions but at other times appeared perplexed and confused as she had been unable to recall the underwriter's name. Mental Status Exam 2 MSE Comments: The patient appeared her stated age with fair eye contact who appeared hard of hearing. Her speech was more productive with diminished volume. Her mood was described as okay. Her affect was odd. Her thought process was more circumstantial. She did not endorse homicidal or suicidal ideation. She was unwilling or unable to answer questions regarding her overdose. She did not appear to be responding to internal stimuli. There was no clear evidence of delusional thinking. Her insight is impaired. Her judgment appeared poor. Her impulse control appeared limited. She was not able to provide place, date, month, year. Vitals/I&O/Wt Last Vital Signs Temp 98.3 F 10/02/24 04:00 Pulse 58 L 10/02/24 12:00 Resp 19 H 10/02/24 12:00 BP 163/79 10/02/24 12:00 Pulse Ox 91 10/02/24 12:00 O2 Del Method BiPAP 09/30/24 18:00 O2 Flow Rate 2 09/30/24 15:00 FiO2 24 10/02/24 00:00 10/01/24 10/02/24 10/02/24 22:59 06:59 14:59 Intake Total 1200 / 1200 1190 / 2390 250 / 250 Output Total 1200 / 1200 800 / 2000 Balance 0 / 0 390 / 390 250 / 250 Weight last 48 hrs Weight 55.792 kg Weight 55.792 kg Physical Exam 2 Urinary Catheter Management: Dolan: Cath Placed During This Visit: no Reason for Continuing Indwelling Catheter: Accurate Measurement of Urinary Output in Critically Ill Patients Data NPU 09/30/24 04:35 10/02/24 04:27 A&P Assessment and plan (1) Depression, unspecified: (2) Suicide attempt by multiple drug overdose: Qualifiers: Encounter type: initial encounter Qualified Code(s): T50.912A - Poisoning by multiple unspecified drugs, medicaments and biological substances, intentional self-harm, initial encounter Plan 63-year-old female who admitted initially to ICU on overdose currently appearing confused and unable to answer questions with significant concerns about the patient's depression. She expresses desire to return home but does not appear to be capable of returning home at this time. #1.? Engage patient in individual milieu and group therapy. #2?? Recommend sober living treatment at the highest level of care to which the patient is willing to commit #3??? Recommend transfer to NPU when stabilized. Patient placed on involuntary hold set to on 10/07/24 with 21 day hold to be filed. #4?? TO-15 minute checks? #5?? Will attempt to gather collateral information Attestations NPU 2 Medical Necessity Statement*: Inpatient psychiatric hospitalization is medically necessary and deemed to ?be ?the clinically appropriate intervention ?at this time once acutely stabilized on ICU or medical floor and transferred to NPU. ? We will monitor/initiate medications and make changes as indicated.? The patient will be in the hospital for over 2 midnights.? The patient?s likely length of stay 7-10 days. Coding Level of Care Code Acute Code for Chg Fwd Diagnoses Depression, unspecified F32.A Suicide attempt by multiple drug overdose, initial encounter T50.912A Encounter type: initial encounter
--- NOTE | 2024-10-02 14:05 | PC.NURSE ---
pt restless and agitated confusion wanting to get out of bed , unable to stand , up to chair with max assist of 2 unaware of where she is at this time
[2024-10-02 22:02] LABS: Glucose Point of Care 127 mg/dL (70-110)
[2024-10-03] VITALS (24 sets, daily range): BP systolic 133–177; BP diastolic 65–114; PULSE 49–97; RESP 16–21; TEMP 36.4–37.4; O2SAT 92–99; BMI 23.8
[2024-10-03] MEDS: dexamethasone 4 mg/mL INJ IVP ×2 (02:58→14:51)
[2024-10-03 03:46] LABS: Basophils % 0.4 %; Eosinophils % 0.3 %; Hematocrit 26.2 % (36-47); Lymphocytes # 0.8 10^3/uL (0.8-4.8); Lymphocytes % 11.8 %; Mean Corpuscular HGB Conc 32.8 g/dL (30-55); Mean Corpuscular Hemoglobin 30.3 pg (27-33); Mean Corpuscular Volume 92.3 fl (85-98); Mean Platelet Volume 11.1 fL (7.4-10.4); Monocytes # 0.6 10^3/uL (0.2-0.9); Monocytes % 9.2 %; Neutrophils % 76.6 %; Nucleated Red Blood Cells % 0 %; Platelet Count 308 10^3/cmm (157-399); Red Blood Count 2.84 10^6/uL (3.85-5.65); Red Cell Distribution Width 13.7 % (12.1-15.1); White Blood Count 6.93 10^3/uL (3.29-11.43)
[2024-10-03 04:09] LABS: Blood Urea Nitrogen 23 mg/dL (8-23); Calcium 8.3 mg/dL (8.5-10.5); Carbon Dioxide 21 mmol/L (22-29); Chloride 111 mmol/L (98-107); Creatinine Clr Calc Pharmacy 21.0839; Glomerular Filtration Rate 19.6 mL/min (90-130); Glucose 131 mg/dL (65-115); Osmolality Calculated 299 mOsm/kg (285-295); Sodium 142 mmol/L (136-145)
[2024-10-03] MEDS: levoFLOXacin 500 mg Tablet PO (10:10)
[2024-10-03] MEDS: potassium chloride ER 20 mEq Tablet 40 MEQ PO ×2 (10:10→14:51)
[2024-10-03] MEDS: amlodipine 5 mg Tablet 10 MG PO (10:11)
[2024-10-03] MEDS: pantoprazole 40 mg SDV IVP (10:11)
[2024-10-03] MEDS: lisinopril 5 mg Tablet PO (10:11)
[2024-10-03] MEDS: dextrose 5%-sod chloride 0.45% 1,000 ML 75 ML IV (10:11)
--- NOTE | 2024-10-03 11:20 | P.NPUPN_ITS ---
Subjective NPU 2 Subjective: 63-year-old female currently on hold due to continued to report depression currently in ICU. The patient was able to discuss the events leading to overdose today on interview. The patient reported that she wished to go home. She reported that she had been feeling extraordinarily lonely and had few social supports. She had stated that she had friends but she had not confided with them about her mood. She had acknowledged having the intention to when she took the pills. Patient had reported that she had fought off the urge to take those pills for several months stating that she had hoarded her 's pills and stated that she thought every day to not take those pills. Patient had reported that she was not depressed. However she proceeded to describe problems with sleep disturbance, frequent tearfulness, low motivation, and low energy.The patient had reported that nobody cares about me . Mental Status Exam 2 MSE Comments: The patient appeared her stated age with fair eye contact who appeared hard of hearing. Her speech was more productive with diminished volume. Her speech was more productive in rate and volume today with less speech latency appreciated. Her mood was described as okay. Her affect was tearful and mood incongruent. Her thought process was more linear and logical today. She did not endorse homicidal or suicidal ideation. She did not appear to be responding to internal stimuli. There was no evidence of delusional thiking. Themes of hopelessness were evident. The patient was alert and oriented to person place month, year, and situation. She did not know the date or day of the week. Her recent and remote recall appeared much improved. Vitals/I&O/Wt Last Vital Signs Temp 98.3 F 10/03/24 05:00 Pulse 69 10/03/24 10:00 Resp 18 10/03/24 10:00 BP 133/114 10/03/24 10:00 Pulse Ox 98 10/03/24 08:00 O2 Del Method Room Air 10/03/24 05:00 O2 Flow Rate 2 10/02/24 20:00 FiO2 24 10/02/24 00:00 10/02/24 10/03/24 10/03/24 22:59 06:59 14:59 Intake Total 1450 / 1750 530 / 2280 1240 / 1240 Output Total 600 / 600 750 / 1350 Balance 850 / 1150 -220 / 930 1240 / 1240 Weight last 48 hrs Weight 65 kg Weight 55.792 kg Physical Exam 2 Urinary Catheter Management: Dolan: Cath Placed During This Visit: no Reason for Continuing Indwelling Catheter: Accurate Measurement of Urinary Output in Critically Ill Patients Data NPU 10/03/24 03:23 10/03/24 03:23 A&P Assessment and plan (1) Depression, unspecified: (2) Suicide attempt by multiple drug overdose: Qualifiers: Encounter type: initial encounter Qualified Code(s): T50.912A - Poisoning by multiple unspecified drugs, medicaments and biological substances, intentional self-harm, initial encounter Plan 63-year-old female who admitted initially to ICU on overdose currently appearing confused and unable to answer questions with significant concerns about the patient's depression. She expresses desire to return home but does not appear to be capable of returning home at this time. #1.? Engage patient in individual milieu and group therapy. #2?? Recommend sober living treatment at the highest level of care to which the patient is willing to commit #3??? Recommend transfer to NPU when stabilized. Patient placed on involuntary hold set to on 10/07/24 with 21 day hold to be filed. Start Prozac 10mg daily with plan to increase this medication to target depression. #4?? TO-15 minute checks? #5?? Will attempt to gather collateral information Attestations NPU 2 Medical Necessity Statement*: Inpatient psychiatric hospitalization is medically necessary and deemed to ?be ?the clinically appropriate intervention ?at this time once acutely stabilized on ICU or medical floor and transferred to NPU. ? We will monitor/initiate medications and make changes as indicated.? The patient will be in the hospital for over 2 midnights.? The patient?s likely length of stay 7-10 days. Coding Level of Care Code Acute Code for Chg Fwd Diagnoses Depression, unspecified F32.A Suicide attempt by multiple drug overdose, initial encounter T50.912A Encounter type: initial encounter
[2024-10-03] MEDS: enoxaparin 60 mg/0.6 mL Syringe SUBCUT (12:37)
--- NOTE | 2024-10-03 15:57 | P.PN_ITS ---
Subjective 2 Subjective: Seen her at bedside this morning. She was sitting in a chair, pleasant, comprehensive and states that she wants to go home. Explained to her in details about the need for treatment for grief/depression. Denies any new complaints Medications: Reviewed: Yes Vitals/I&O/Wt Last Vital Signs Temp 98.3 F 10/03/24 05:00 Pulse 85 10/03/24 14:00 Resp 18 10/03/24 10:00 BP 144/77 10/03/24 14:00 Pulse Ox 98 10/03/24 08:00 O2 Del Method Room Air 10/03/24 05:00 O2 Flow Rate 2 10/02/24 20:00 FiO2 24 10/02/24 00:00 10/03/24 10/03/24 10/03/24 06:59 14:59 22:59 Intake Total 530 / 2280 1480 / 1480 Output Total 750 / 1350 Balance -220 / 930 1480 / 1480 Weight last 48 hrs Weight 65 kg Weight 55.792 kg Physical Exam 2 Narrative: General: She is awake, alert and comprehensive, was able to tell what medication she overdosed on. Head: Normocephalic. Pupils are equally round reactive to light but sluggish Cardiovascular: RRR. No gallops. No murmurs. No peripheral edema. normal S1-S2. Lungs: Bilateral crackles present. Significant stridor postextubation, wheezing present Abdomen: Hypoactive bowel sounds. Abdomen is not distended. Extremities: No cyanosis or clubbing. Neurological: Able to squeeze finger, was moving bilateral upper and lower extremities Urinary Catheter Management: Dolan: Cath Placed During This Visit: no Reason for Continuing Indwelling Catheter: Accurate Measurement of Urinary Output in Critically Ill Patients Data 10/03/24 03:23 10/03/24 03:23 A&P Assessment and plan (1) Suicide attempt by multiple drug overdose: Qualifiers: Encounter type: initial encounter Qualified Code(s): T50.912A - Poisoning by multiple unspecified drugs, medicaments and biological substances, intentional self-harm, initial encounter (2) Acute encephalopathy: (3) Hyponatremia: resolved (4) Hearing loss: (5) Pulmonary embolism: (6) Acute hypercapnic respiratory failure: (7) Aspiration pneumonia: Plan 09/22/24 (1) Suicide attempt by multiple drug overdose: Presentation consistent with suspected intentional drug overdose ED provider reportedly placed 96-hour hold Admit to intensive care unit Continuous telemetry monitoring Tylenol level mildly elevated, trend acetaminophen levels Start IV fluids Monitor cardiopulmonary status, patient may require intubation if she is unable to protect airway Supportive care Will eventually need psychiatric care when medically improved (2) Acute encephalopathy: Acute toxic encephalopathy Serial neurological exams Management as above (3) Hyponatremia: Status post IV fluid bolus in ED Start maintenance fluids Repeat labs in a.m. (4) Hearing loss: Patient is severely hard of hearing at baseline She currently does not have her hearing aids here, family may be able to bring later 09/23/24 #Electively intubated for airway protection #Suicide attempt #Drug overdose #Malignant hyperthermia??Ruled out #Fever most likely secondary to aspiration pneumonia #Atelectasis #Aspiration pneumonia #Hyperphosphatemia #Mild hyponatremia?corrected #Hearing loss. #Pulmonary embolism -96-hour hold placed in ER -Patient intubated for airway protection ? Fever most likely secondary to aspiration pneumonia. Check blood cultures, sputum culture Gram stain, urine culture to rule out other sources ? Chest x-ray shows aspiration pneumonia, infiltrate right middle lobe and lower lobe. 25. Not present on admission. ? Continue Versed and fentanyl at this time. Patient requiring 2 vasopressors in the ER. Vasopressin and Levophed. Will attempt to wean off as able. ?Discussed with malignant hyperthermia operational risk consultant over the phone. Low suspicion for NPH at this time. Continue to monitor. ? Check CT head, chest abdomen pelvis ? Hyponatremia corrected. ? Continue IV fluids. ? QT 480. Will recheck EKG. ?Psychiatric consult once patient is extubated. ? Continue vancomycin and Zosyn ? CPK 1400. Continue IV fluids ? Continue to monitor 09/24/24 96-hour hold placed in ER patient intubated for airway protection. Fever of unknown origin mostly secondary to aspiration pneumonia but also has evidence of atelectasis on chest x-ray. Malignant hyperthermia unlikely. Discussed with malignant hyperthermia helpline over the phone on 09/23. Blood cultures urine culture urine culture pending. ? Continue Versed every 4 hours as needed and fentanyl. Versed drip was turned off yesterday evening. ? Have discussed with nursing staff to avoid Versed if possible. ? When patient more awake and following commands we will plan for spontaneous breathing trial and potential extubation in next 24 to 48 hours. ? CT head negative for stroke or acute bleed. ? Continue IV fluids ? EKG reviewed. QTc within normal range ? Psychiatric consult when patient extubated ? CPK trending down 700 today. ? Continue to hospitalize patient at this time. Patient is on minimal vent settings however he is not following commands and is not participating despite being off sedation. Will continue with elective intubation at this time. - time was spent discussing patient's care with patient's nurses, multidisciplinary round, family meeting chart review, documentation. 09/25/24 Patient still intubated. Has been responsive only to verbal stimuli, on fentanyl drip for sedation. Will try to taper off the fentanyl drip for SBT trial. Will repeat chest x-ray in a.m. Continue IV fluids D5 NS at 100 cc/h IV vancomycin 1 g every 12 hours IV Zosyn 3.375 g every 8 hours Blood culture and urine culture negative so far Creatinine 1.2 continue IV fluids Continue heparin drip. Hemoglobin 9.4, platelet count 126. Monitor CBC Will do psychiatric consult once extubated QTc improved to 470. Continue to monitor in ICU. 09/26/24 Patient still intubated, has been responsive to verbal stimuli, off sedation but unable to follow commands. Also noticed to have tongue deviation and right upper and lower extremity flaccid, pupils sluggish, hence CT head without contrast done was negative for acute stroke. Neurological findings could likely be due to drug overdose. Unable to do MRI at this time since patient is intubated. Also creatinine trending up to 2.2, nephrology consulted. Will follow for further recommendations. Continue to monitor creatinine for now. Follow-up 2D echo Platelet count trending down to 99 as compared to 236 on admission. Will discontinue heparin drip and start Eliquis via NG tube Psychiatry to see the patient once extubated Will continue to monitor in ICU Will discuss with family about goals of care. 09/27/24 Neurological and respiratory status unchanged. Patient is not on CPAP, SBT trial but not able to support respiration independently. Neurological changes could likely be due to hypoxic brain injury secondary to drug overdose and respiratory acidosis. Family updated about prognosis and plan of care. Continues to defer for trial of hemodialysis at this time. Will start tube feedings. Continue SBT trial. Organ donation contacted, to see family this afternoon Creatinine trending up to 2.5. 2D echo normal Platelets improved to 109. Continue Eliquis. Will continue to monitor in ICU, family aware of current prognosis and goals of care. Case management consulted for placement 09/28/24 Neurological status improved slightly, she is s/p extubation. Able to communicate with us and family although severely hearing impaired. Doubt hypoxic brain injury given rapid improvement post starting feeds. Creat still trending up to 2.7, As per nephrology, given one dose of lasix. Psychiatry and neurology input appreciated. She is on 96 hour hold again and will need inpatient psych. Continue to monitor in ICU for now. 09/29/24 Deterioration of neurological and respiratory status since this morning. She was found to be tachypneic, using accessory muscles. Patient is on BiPAP. Was initially in acute respiratory acidosis with pCO2 of 72, repeated ABG in 1 hour showed pCO2 of 65. After being on BiPAP for 4 to 5 hours ABG improved with pCO2 in 40s. Patient seen at bedside repeatedly, later during the afternoon was found to be awake, responding to verbal stimuli, family at bedside. As the day progressed she became more awake and is now agitated secondary to BiPAP. She is alert, will discontinue BiPAP and monitor respiratory status on nasal cannula. Had an extensive discussion with the family at bedside about fluctuations in encephalopathic state could likely be secondary to medications overdose which we still not sure about what she actually took. Leukocyte count trended up to 16.3, likely reactive. Will continue to monitor Renal function continue to deteriorate with creatinine of 3 today. Hemoglobin stable Family, her mom and niece decided about limited resuscitation with DNI/no mechanical ventilator. Currently agree with plan of care. Will continue to monitor in ICU. 09/30/24 She has been on BiPAP since yesterday, respiratory rodarte stable. Was awake and alert this morning able to talk and being comprehensive on nasal cannula but still using accessory muscles. Will continue BiPAP with intermittent breaks. Creatinine 2.9 today, refusing hemodialysis. Follow-up nephrology, continue IV fluids. Hemoglobin stable at 8.5, platelets improved to 188. Significant stridor likely secondary to intubation/extubation, racemic nebulization helped. Will continue to monitor Chest x-ray showed persistent opacity in lower lobes, mild interstitial edema As per neurology since she took Valium and has LYNNETTE, will be having respiratory issues for a while. Need respiratory support for now. Spoke with pharmacy about antidote for Valium, no significant options present at this time. Continue Zosyn for now. will Discontinue vancomycin Had bedside swallow eval done, she failed. Will keep n.p.o. for now. Continue therapeutic Lovenox for PE. Creat clearance is 18. 10/01/24 She has been more awake and alert this morning, comprehensive, tolerated clear liquid diet. Bilateral chest wheezing and stridor improved with IV Decadron. Creatinine 2.8 today. Slowly improving. Will follow-up nephrology and neurology for further recommendations As per psychiatry, she needs inpatient psychiatric hospitalization for management of severe depression and drug overdose once medically stable. Has been doing better with PT Will continue current management. Family aware about the plan of care. 10/02/24 She has been more awake and comprehensive. Tolerating diet. Creatinine improved to 2.4. Follow-up nephrology for further recommendations. Still has upper and lower extremity flaccidity, hence would need PT for few days until she starts ambulating. Can be transferred to inpatient psychiatry once out of bed and ambulating and medically stable. Has not required BiPAP overnight. Saturating well on nasal cannula. Has been hypertensive since yesterday, will add amlodipine 5 mg daily and monitor. 10/03/24 She has been improving. Creatinine still 2.5. Antibiotics de-escalated to p.o. levofloxacin. Will discontinue IV fluids, blood pressure medication adjusted to amlodipine 10 mg daily and lisinopril 5 mg daily. She has still been requiring clothing sales assistant for transfer from bed to chair. She has been working with PT for management of generalized weakness and inability to walk due to complicated hospitalization. She has to be ambulating before being transferred to inpatient psychiatry unit. Attestations 2 Medical Necessity Statement*: Needs continued hospitalization for management of generalized weakness due to complicated hospitalization with PT for transfer to inpatient psych unit Time Spent in Patient Care: 25 minutes Coding Level of Care Code Acute Code for Chg Fwd Diagnoses Suicide attempt by multiple drug overdose, initial encounter T50.912A Encounter type: initial encounter Acute encephalopathy G93.40 Hyponatremia E87.1 Hearing loss H91.90 Pulmonary embolism I26.99 Acute hypercapnic respiratory failure J96.02 Aspiration pneumonia J69.0 Time Spent (min) 25
[2024-10-04] VITALS (7 sets, daily range): BP systolic 156–164; BP diastolic 81–87; PULSE 72–105; RESP 15–20; TEMP 36.7–37; O2SAT 93–97
[2024-10-04] MEDS: dexamethasone 4 mg/mL INJ IVP ×2 (02:19→15:11)
--- NOTE | 2024-10-04 03:22 | PC.NURSE ---
CARINA/halie called this nurse in the room and showed me a rash on her back that goes from the top of her shoulders all the way down to her flanks. Its red, circular, and non raised throughout and the patient states she has had it since being admitted. Dr Andrea BAE hospitalist notified.
[2024-10-04 08:30] LABS: Blood Urea Nitrogen 22 mg/dL (8-23); Calcium 8.5 mg/dL (8.5-10.5); Carbon Dioxide 20 mmol/L (22-29); Chloride 109 mmol/L (98-107); Creatinine Clr Calc Pharmacy 26.2763; Glomerular Filtration Rate 23.9 mL/min (90-130); Glucose 109 mg/dL (65-115); Osmolality Calculated 296 mOsm/kg (285-295); Sodium 141 mmol/L (136-145)
[2024-10-04 08:31] LABS: Anion Gap 16.7 (5-19); Potassium 4.7 mmol/L (3.5-5.1)
[2024-10-04] MEDS: pantoprazole 40 mg SDV IVP (08:58)
[2024-10-04] MEDS: lisinopril 5 mg Tablet PO (08:58)
[2024-10-04] MEDS: amlodipine 5 mg Tablet 10 MG PO (08:59)
--- NOTE | 2024-10-04 09:39 | PM.PN ---
Subjective Subjective: NO NEW C/O MENTAL STAATUS IMPROVED Medications: Reviewed: Yes Vitals/I&O/Wt Last Vital Signs Temp 98.3 F 10/03/24 05:00 Pulse 68 10/03/24 06:23 Resp 21 H 10/03/24 05:00 BP 177/88 10/03/24 06:00 Pulse Ox 99 10/03/24 06:00 O2 Del Method Room Air 10/03/24 05:00 O2 Flow Rate 2 10/02/24 20:00 FiO2 24 10/02/24 00:00 10/02/24 10/03/24 10/03/24 22:59 06:59 14:59 Intake Total 1450 / 1750 530 / 2280 Output Total 600 / 600 750 / 1350 Balance 850 / 1150 -220 / 930 Weight last 48 hrs Weight 65 kg Weight 55.792 kg Physical Exam Narrative: awake , no distress S1S2 RRR per report lUNGS CLEAR PER REPORT NO EDEMA Urinary Catheter Management: Dolan: Cath Placed During This Visit: no Reason for Continuing Indwelling Catheter: Accurate Measurement of Urinary Output in Critically Ill Patients Data 10/03/24 03:23 10/03/24 03:23 A&P Assessment and plan (1) LYNNETTE (acute kidney injury): 63 year old female s/p suicide attempt w/ drug overdose per chart. , has aspiration pneumonia. Renal called as patient developed acute kidney injury. . Patient is urinating. 1. LYNNETTE : urine is 1+ protein.Patient had contrast study on September 24, 2024 she had no hydronephrosis. . Working diagnosis is ATN. Lasix PRN Cr improving 2. hypokalemia : repleted 3. Hyponatremia improved. 4. Metabolic acidosis : improving 5. Pulmonary embolism on anticoagulation. Patient was examined using audiovisual equipment as a telehealth visit. The nurse examined the patient. Plan See above. Attestations Medical Necessity Statement*: per medicine team Coding Level of Care Code Acute Code for [facility] F[facility] Diagnoses LNYNETTE (acute kidney injury) N17.9
--- NOTE | 2024-10-04 14:22 | P.PN_ITS ---
Subjective 2 Subjective: Seen her at bedside this morning. She was looking more pleasant and oriented. Was able to walk with a walker and assistance with the help of PT. Denies any new complaints Medications: Reviewed: Yes Vitals/I&O/Wt Last Vital Signs Temp 98.0 F 10/04/24 11:41 Pulse 74 10/04/24 11:41 Resp 16 10/04/24 11:41 BP 164/83 10/04/24 11:41 Pulse Ox 93 10/04/24 11:41 O2 Del Method Room Air 10/04/24 11:41 O2 Flow Rate 2 10/02/24 20:00 FiO2 24 10/02/24 00:00 10/03/24 10/04/24 10/04/24 22:59 06:59 14:59 Intake Total 1000 / 2480 240 / 240 Output Total 1000 / 1000 350 / 1350 900 / 900 Balance 0 / 1480 -350 / 1130 -660 / -660 Weight last 48 hrs Weight 62.414 kg Weight 65 kg Physical Exam 2 Narrative: She is alert awake oriented x 3, not in acute distress Chest clear to auscultation bilaterally, still has hoarseness of voice but improved as compared to postextubation Cardiovascular normal heart sounds no murmurs Abdomen soft nontender nondistended normal bowel sounds Extremities still has flaccidity of upper and lower extremities but was able to walk with the help of assistance from PT. Urinary Catheter Management: Dolan: Cath Placed During This Visit: no Data 10/03/24 03:23 10/04/24 07:49 Micro: Microbiology 09/29/24 09:25 Blood Culture - Final Blood NO GROWTH AFTER 5 DAYS 09/29/24 09:25 Blood Culture - Final Blood NO GROWTH AFTER 5 DAYS A&P Assessment and plan (1) Suicide attempt by multiple drug overdose: Qualifiers: Encounter type: initial encounter Qualified Code(s): T50.912A - Poisoning by multiple unspecified drugs, medicaments and biological substances, intentional self-harm, initial encounter (2) Acute encephalopathy: (3) Hyponatremia: resolved (4) Hearing loss: (5) Pulmonary embolism: (6) Acute hypercapnic respiratory failure: (7) Aspiration pneumonia: Plan 09/22/24 (1) Suicide attempt by multiple drug overdose: Presentation consistent with suspected intentional drug overdose ED provider reportedly placed 96-hour hold Admit to intensive care unit Continuous telemetry monitoring Tylenol level mildly elevated, trend acetaminophen levels Start IV fluids Monitor cardiopulmonary status, patient may require intubation if she is unable to protect airway Supportive care Will eventually need psychiatric care when medically improved (2) Acute encephalopathy: Acute toxic encephalopathy Serial neurological exams Management as above (3) Hyponatremia: Status post IV fluid bolus in ED Start maintenance fluids Repeat labs in a.m. (4) Hearing loss: Patient is severely hard of hearing at baseline She currently does not have her hearing aids here, family may be able to bring later 09/23/24 #Electively intubated for airway protection #Suicide attempt #Drug overdose #Malignant hyperthermia??Ruled out #Fever most likely secondary to aspiration pneumonia #Atelectasis #Aspiration pneumonia #Hyperphosphatemia #Mild hyponatremia?corrected #Hearing loss. #Pulmonary embolism -96-hour hold placed in ER -Patient intubated for airway protection ? Fever most likely secondary to aspiration pneumonia. Check blood cultures, sputum culture Gram stain, urine culture to rule out other sources ? Chest x-ray shows aspiration pneumonia, infiltrate right middle lobe and lower lobe. 25. Not present on admission. ? Continue Versed and fentanyl at this time. Patient requiring 2 vasopressors in the ER. Vasopressin and Levophed. Will attempt to wean off as able. ?Discussed with malignant hyperthermia men[employer] hair piece consultant over the phone. Low suspicion for NPH at this time. Continue to monitor. ? Check CT head, chest abdomen pelvis ? Hyponatremia corrected. ? Continue IV fluids. ? QT 480. Will recheck EKG. ?Psychiatric consult once patient is extubated. ? Continue vancomycin and Zosyn ? CPK 1400. Continue IV fluids ? Continue to monitor 09/24/24 96-hour hold placed in ER patient intubated for airway protection. Fever of unknown origin mostly secondary to aspiration pneumonia but also has evidence of atelectasis on chest x-ray. Malignant hyperthermia unlikely. Discussed with malignant hyperthermia helpline over the phone on 09/23. Blood cultures urine culture urine culture pending. ? Continue Versed every 4 hours as needed and fentanyl. Versed drip was turned off yesterday evening. ? Have discussed with nursing staff to avoid Versed if possible. ? When patient more awake and following commands we will plan for spontaneous breathing trial and potential extubation in next 24 to 48 hours. ? CT head negative for stroke or acute bleed. ? Continue IV fluids ? EKG reviewed. QTc within normal range ? Psychiatric consult when patient extubated ? CPK trending down 700 today. ? Continue to hospitalize patient at this time. Patient is on minimal vent settings however he is not following commands and is not participating despite being off sedation. Will continue with elective intubation at this time. - time was spent discussing patient's care with patient's nurses, multidisciplinary round, family meeting chart review, documentation. 09/25/24 Patient still intubated. Has been responsive only to verbal stimuli, on fentanyl drip for sedation. Will try to taper off the fentanyl drip for SBT trial. Will repeat chest x-ray in a.m. Continue IV fluids D5 NS at 100 cc/h IV vancomycin 1 g every 12 hours IV Zosyn 3.375 g every 8 hours Blood culture and urine culture negative so far Creatinine 1.2 continue IV fluids Continue heparin drip. Hemoglobin 9.4, platelet count 126. Monitor CBC Will do psychiatric consult once extubated QTc improved to 470. Continue to monitor in ICU. 09/26/24 Patient still intubated, has been responsive to verbal stimuli, off sedation but unable to follow commands. Also noticed to have tongue deviation and right upper and lower extremity flaccid, pupils sluggish, hence CT head without contrast done was negative for acute stroke. Neurological findings could likely be due to drug overdose. Unable to do MRI at this time since patient is intubated. Also creatinine trending up to 2.2, nephrology consulted. Will follow for further recommendations. Continue to monitor creatinine for now. Follow-up 2D echo Platelet count trending down to 99 as compared to 236 on admission. Will discontinue heparin drip and start Eliquis via NG tube Psychiatry to see the patient once extubated Will continue to monitor in ICU Will discuss with family about goals of care. 09/27/24 Neurological and respiratory status unchanged. Patient is not on CPAP, SBT trial but not able to support respiration independently. Neurological changes could likely be due to hypoxic brain injury secondary to drug overdose and respiratory acidosis. Family updated about prognosis and plan of care. Continues to defer for trial of hemodialysis at this time. Will start tube feedings. Continue SBT trial. Organ donation contacted, to see family this afternoon Creatinine trending up to 2.5. 2D echo normal Platelets improved to 109. Continue Eliquis. Will continue to monitor in ICU, family aware of current prognosis and goals of care. Case management consulted for placement 09/28/24 Neurological status improved slightly, she is s/p extubation. Able to communicate with us and family although severely hearing impaired. Doubt hypoxic brain injury given rapid improvement post starting feeds. Creat still trending up to 2.7, As per nephrology, given one dose of lasix. Psychiatry and neurology input appreciated. She is on 96 hour hold again and will need inpatient psych. Continue to monitor in ICU for now. 09/29/24 Deterioration of neurological and respiratory status since this morning. She was found to be tachypneic, using accessory muscles. Patient is on BiPAP. Was initially in acute respiratory acidosis with pCO2 of 72, repeated ABG in 1 hour showed pCO2 of 65. After being on BiPAP for 4 to 5 hours ABG improved with pCO2 in 40s. Patient seen at bedside repeatedly, later during the afternoon was found to be awake, responding to verbal stimuli, family at bedside. As the day progressed she became more awake and is now agitated secondary to BiPAP. She is alert, will discontinue BiPAP and monitor respiratory status on nasal cannula. Had an extensive discussion with the family at bedside about fluctuations in encephalopathic state could likely be secondary to medications overdose which we still not sure about what she actually took. Leukocyte count trended up to 16.3, likely reactive. Will continue to monitor Renal function continue to deteriorate with creatinine of 3 today. Hemoglobin stable Family, her mom and niece decided about limited resuscitation with DNI/no mechanical ventilator. Currently agree with plan of care. Will continue to monitor in ICU. 09/30/24 She has been on BiPAP since yesterday, respiratory rodarte stable. Was awake and alert this morning able to talk and being comprehensive on nasal cannula but still using accessory muscles. Will continue BiPAP with intermittent breaks. Creatinine 2.9 today, refusing hemodialysis. Follow-up nephrology, continue IV fluids. Hemoglobin stable at 8.5, platelets improved to 188. Significant stridor likely secondary to intubation/extubation, racemic nebulization helped. Will continue to monitor Chest x-ray showed persistent opacity in lower lobes, mild interstitial edema As per neurology since she took Valium and has LYNNETTE, will be having respiratory issues for a while. Need respiratory support for now. Spoke with pharmacy about antidote for Valium, no significant options present at this time. Continue Zosyn for now. will Discontinue vancomycin Had bedside swallow eval done, she failed. Will keep n.p.o. for now. Continue therapeutic Lovenox for PE. Creat clearance is 18. 10/01/24 She has been more awake and alert this morning, comprehensive, tolerated clear liquid diet. Bilateral chest wheezing and stridor improved with IV Decadron. Creatinine 2.8 today. Slowly improving. Will follow-up nephrology and neurology for further recommendations As per psychiatry, she needs inpatient psychiatric hospitalization for management of severe depression and drug overdose once medically stable. Has been doing better with PT Will continue current management. Family aware about the plan of care. 10/02/24 She has been more awake and comprehensive. Tolerating diet. Creatinine improved to 2.4. Follow-up nephrology for further recommendations. Still has upper and lower extremity flaccidity, hence would need PT for few days until she starts ambulating. Can be transferred to inpatient psychiatry once out of bed and ambulating and medically stable. Has not required BiPAP overnight. Saturating well on nasal cannula. Has been hypertensive since yesterday, will add amlodipine 5 mg daily and monitor. 10/03/24 She has been improving. Creatinine still 2.5. Antibiotics de-escalated to p.o. levofloxacin. Will discontinue IV fluids, blood pressure medication adjusted to amlodipine 10 mg daily and lisinopril 5 mg daily. She has still been requiring photographer assistant for transfer from bed to chair. She has been working with PT for management of generalized weakness and inability to walk due to complicated hospitalization. She has to be ambulating before being transferred to inpatient psychiatry unit. 10/04/24 She has been doing well, tolerating diet, has been in a good mood. She is on 96-hour hold which expires on Sunday midnight, into Sunday. She has been able to walk with assistance from PT with the help of walker. Plan for transfer to inpatient psychiatry unit once ambulating. Will discontinue subcutaneous Lovenox and start on p.o. Eliquis 5 mg twice daily for PE. Continue current management. Attestations 2 Medical Necessity Statement*: Needs continued hospitalization for management of generalized weakness due to complicated hospitalization with PT for transfer to inpatient psych unit Time Spent in Patient Care: 25 minutes Coding Level of Care Code Acute Code for Chg Fwd Diagnoses Suicide attempt by multiple drug overdose, initial encounter T50.912A Encounter type: initial encounter Acute encephalopathy G93.40 Hyponatremia E87.1 Hearing loss H91.90 Pulmonary embolism I26.99 Acute hypercapnic respiratory failure J96.02 Aspiration pneumonia J69.0 Time Spent (min) 25
[2024-10-04] MEDS: apixaban 5 mg Tablet PO (20:27)
[2024-10-05] VITALS (11 sets, daily range): BP systolic 124–179; BP diastolic 66–84; PULSE 65–89; RESP 15–18; TEMP 36.4–37; O2SAT 91–100
[2024-10-05] MEDS: dexamethasone 4 mg/mL INJ IVP ×2 (03:07→15:32)
[2024-10-05 03:30] LABS: Basophils % 0.2 %; Eosinophils % 0.1 %; Hematocrit 25.4 % (36-47); Lymphocytes # 0.8 10^3/uL (0.8-4.8); Mean Corpuscular HGB Conc 32.7 g/dL (30-55); Mean Corpuscular Hemoglobin 29.7 pg (27-33); Mean Platelet Volume 10.5 fL (7.4-10.4); Monocytes # 0.6 10^3/uL (0.2-0.9); Monocytes % 6.3 %; Neutrophils # 8.32 10^3/uL (1.8-7.7); Neutrophils % 83.2 %; Nucleated Red Blood Cells % 0 %; Platelet Count 366 10^3/cmm (157-399); Red Blood Count 2.79 10^6/uL (3.85-5.65)
[2024-10-05 03:49] LABS: Anion Gap 13.4 (5-19); Blood Urea Nitrogen 22 mg/dL (8-23); Calcium 7.9 mg/dL (8.5-10.5); Carbon Dioxide 22 mmol/L (22-29); Chloride 113 mmol/L (98-107); Creatinine Clr Calc Pharmacy 26.2763; Glomerular Filtration Rate 23.9 mL/min (90-130); Glucose 115 mg/dL (65-115); Osmolality Calculated 304 mOsm/kg (285-295); Potassium 3.4 mmol/L (3.5-5.1); Sodium 145 mmol/L (136-145)
--- NOTE | 2024-10-05 08:09 | XRR_ITS ---
PROCEDURE INFORMATION: Exam: XR Chest Exam date and time: 10/05/2024 8:50 AM Age: 63 years old Clinical indication: Shortness of breath; Additional info: Pneumonia follow up TECHNIQUE: Imaging protocol: Radiologic exam of the chest. Views: 1 view. COMPARISON: CR XR chest 1V portable [id number] 09/30/2024 6:58 AM FINDINGS: Tubes, catheters and devices: Stable PICC line just reaches the SVC. Lungs: Hypoventilatory changes in each lower lobe. Pleural spaces: Small/moderate bilateral pleural effusions are stable. Heart/Mediastinum: Unremarkable. No cardiomegaly. Bones/joints: Unremarkable. XR/XR chest 1V portable [id number] IMPRESSION: No significant change.
--- NOTE | 2024-10-05 08:13 | PC.NURSE ---
Patient talking on phone, telling the other person she has to get out of here because she has stuff to do and things to take care. Patient is discussing her current situation with the person on the phone, stating, They can't tell me how to live my life. They can keep you here as long as they want, but they can't stop you from doing it if you want to do it.
[2024-10-05] MEDS: levoFLOXacin 500 mg Tablet PO (08:37)
[2024-10-05] MEDS: pantoprazole 40 mg SDV IVP (08:38)
[2024-10-05] MEDS: apixaban 5 mg Tablet PO ×2 (08:38→20:04)
[2024-10-05] MEDS: amlodipine 5 mg Tablet 10 MG PO (08:38)
[2024-10-05] MEDS: potassium chloride ER 20 mEq Tablet 40 MEQ PO ×2 (08:38→15:32)
[2024-10-05] MEDS: lisinopril 5 mg Tablet PO (08:38)
--- NOTE | 2024-10-05 14:15 | PM.PN ---
Subjective Subjective: Seen her at bedside this morning. She is doing and feeling well. Has been able to ambulate with the help of walker. Has been adamant on discharge and wanted to know about discharge planning. Explained to her about the drug overdose situation and she needs to be evaluated by psychiatry for inpatient psychiatry placement for treatment for depression/grief. She is refusing at this time and wanted to sign out AMA, explained and counseled about the need for treatment for depression and psychiatry evaluation. Also advised her to discuss with her family, mother and niece Medications: Reviewed: Yes Vitals/I&O/Wt Last Vital Signs Temp 98.3 F 10/05/24 08:30 Pulse 78 10/05/24 11:32 Resp 16 10/05/24 11:32 BP 179/74 10/05/24 11:32 Pulse Ox 100 10/05/24 11:32 O2 Del Method Room Air 10/05/24 11:32 O2 Flow Rate 2 10/02/24 20:00 FiO2 24 10/02/24 00:00 10/04/24 10/05/24 10/05/24 22:59 06:59 14:59 Intake Total 740 / 980 120 / 1100 600 / 600 Output Total 500 / 1400 400 / 1800 Balance 240 / -420 -280 / -700 600 / 600 Weight last 48 hrs Weight 63.73 kg Weight 62.414 kg Physical Exam Narrative: She is alert awake oriented x 3, not in acute distress Chest clear to auscultation bilaterally, still has hoarseness of voice but improved as compared to postextubation Cardiovascular normal heart sounds no murmurs Abdomen soft nontender nondistended normal bowel sounds Extremities still has flaccidity of upper and lower extremities but was able to walk with the help of assistance from PT. Urinary Catheter Management: Dolan: Cath Placed During This Visit: yes, but has since been removed by the nurse Reason for Continuing Indwelling Catheter: Accurate Measurement of Urinary Output in Critically Ill Patients Date Urinary Catheter Removed: 10/04/24 Time Urinary Catheter Discontinued: 10:00 Data 10/05/24 03:11 10/05/24 03:11 Micro: Microbiology 09/29/24 09:25 Blood Culture - Final Blood NO GROWTH AFTER 5 DAYS 09/29/24 09:25 Blood Culture - Final Blood NO GROWTH AFTER 5 DAYS A&P Assessment and plan (1) Suicide attempt by multiple drug overdose: Qualifiers: Encounter type: initial encounter Qualified Code(s): T50.912A - Poisoning by multiple unspecified drugs, medicaments and biological substances, intentional self-harm, initial encounter (2) Acute encephalopathy: (3) Hyponatremia: resolved (4) Hearing loss: (5) Pulmonary embolism: (6) Acute hypercapnic respiratory failure: (7) Aspiration pneumonia: Plan 09/22/24 (1) Suicide attempt by multiple drug overdose: Presentation consistent with suspected intentional drug overdose ED provider reportedly placed 96-hour hold Admit to intensive care unit Continuous telemetry monitoring Tylenol level mildly elevated, trend acetaminophen levels Start IV fluids Monitor cardiopulmonary status, patient may require intubation if she is unable to protect airway Supportive care Will eventually need psychiatric care when medically improved (2) Acute encephalopathy: Acute toxic encephalopathy Serial neurological exams Management as above (3) Hyponatremia: Status post IV fluid bolus in ED Start maintenance fluids Repeat labs in a.m. (4) Hearing loss: Patient is severely hard of hearing at baseline She currently does not have her hearing aids here, family may be able to bring later 09/23/24 #Electively intubated for airway protection #Suicide attempt #Drug overdose #Malignant hyperthermia??Ruled out #Fever most likely secondary to aspiration pneumonia #Atelectasis #Aspiration pneumonia #Hyperphosphatemia #Mild hyponatremia?corrected #Hearing loss. #Pulmonary embolism -96-hour hold placed in ER -Patient intubated for airway protection ? Fever most likely secondary to aspiration pneumonia. Check blood cultures, sputum culture Gram stain, urine culture to rule out other sources ? Chest x-ray shows aspiration pneumonia, infiltrate right middle lobe and lower lobe. 25. Not present on admission. ? Continue Versed and fentanyl at this time. Patient requiring 2 vasopressors in the ER. Vasopressin and Levophed. Will attempt to wean off as able. ?Discussed with malignant hyperthermia storage management consultant over the phone. Low suspicion for NPH at this time. Continue to monitor. ? Check CT head, chest abdomen pelvis ? Hyponatremia corrected. ? Continue IV fluids. ? QT 480. Will recheck EKG. ?Psychiatric consult once patient is extubated. ? Continue vancomycin and Zosyn ? CPK 1400. Continue IV fluids ? Continue to monitor 09/24/24 96-hour hold placed in ER patient intubated for airway protection. Fever of unknown origin mostly secondary to aspiration pneumonia but also has evidence of atelectasis on chest x-ray. Malignant hyperthermia unlikely. Discussed with malignant hyperthermia helpline over the phone on 09/23. Blood cultures urine culture urine culture pending. ? Continue Versed every 4 hours as needed and fentanyl. Versed drip was turned off yesterday evening. ? Have discussed with nursing staff to avoid Versed if possible. ? When patient more awake and following commands we will plan for spontaneous breathing trial and potential extubation in next 24 to 48 hours. ? CT head negative for stroke or acute bleed. ? Continue IV fluids ? EKG reviewed. QTc within normal range ? Psychiatric consult when patient extubated ? CPK trending down 700 today. ? Continue to hospitalize patient at this time. Patient is on minimal vent settings however he is not following commands and is not participating despite being off sedation. Will continue with elective intubation at this time. - time was spent discussing patient's care with patient's nurses, multidisciplinary round, family meeting chart review, documentation. 09/25/24 Patient still intubated. Has been responsive only to verbal stimuli, on fentanyl drip for sedation. Will try to taper off the fentanyl drip for SBT trial. Will repeat chest x-ray in a.m. Continue IV fluids D5 NS at 100 cc/h IV vancomycin 1 g every 12 hours IV Zosyn 3.375 g every 8 hours Blood culture and urine culture negative so far Creatinine 1.2 continue IV fluids Continue heparin drip. Hemoglobin 9.4, platelet count 126. Monitor CBC Will do psychiatric consult once extubated QTc improved to 470. Continue to monitor in ICU. 09/26/24 Patient still intubated, has been responsive to verbal stimuli, off sedation but unable to follow commands. Also noticed to have tongue deviation and right upper and lower extremity flaccid, pupils sluggish, hence CT head without contrast done was negative for acute stroke. Neurological findings could likely be due to drug overdose. Unable to do MRI at this time since patient is intubated. Also creatinine trending up to 2.2, nephrology consulted. Will follow for further recommendations. Continue to monitor creatinine for now. Follow-up 2D echo Platelet count trending down to 99 as compared to 236 on admission. Will discontinue heparin drip and start Eliquis via NG tube Psychiatry to see the patient once extubated Will continue to monitor in ICU Will discuss with family about goals of care. 09/27/24 Neurological and respiratory status unchanged. Patient is not on CPAP, SBT trial but not able to support respiration independently. Neurological changes could likely be due to hypoxic brain injury secondary to drug overdose and respiratory acidosis. Family updated about prognosis and plan of care. Continues to defer for trial of hemodialysis at this time. Will start tube feedings. Continue SBT trial. Organ donation contacted, to see family this afternoon Creatinine trending up to 2.5. 2D echo normal Platelets improved to 109. Continue Eliquis. Will continue to monitor in ICU, family aware of current prognosis and goals of care. Case management consulted for placement 09/28/24 Neurological status improved slightly, she is s/p extubation. Able to communicate with us and family although severely hearing impaired. Doubt hypoxic brain injury given rapid improvement post starting feeds. Creat still trending up to 2.7, As per nephrology, given one dose of lasix. Psychiatry and neurology input appreciated. She is on 96 hour hold again and will need inpatient psych. Continue to monitor in ICU for now. 09/29/24 Deterioration of neurological and respiratory status since this morning. She was found to be tachypneic, using accessory muscles. Patient is on BiPAP. Was initially in acute respiratory acidosis with pCO2 of 72, repeated ABG in 1 hour showed pCO2 of 65. After being on BiPAP for 4 to 5 hours ABG improved with pCO2 in 40s. Patient seen at bedside repeatedly, later during the afternoon was found to be awake, responding to verbal stimuli, family at bedside. As the day progressed she became more awake and is now agitated secondary to BiPAP. She is alert, will discontinue BiPAP and monitor respiratory status on nasal cannula. Had an extensive discussion with the family at bedside about fluctuations in encephalopathic state could likely be secondary to medications overdose which we still not sure about what she actually took. Leukocyte count trended up to 16.3, likely reactive. Will continue to monitor Renal function continue to deteriorate with creatinine of 3 today. Hemoglobin stable Family, her mom and niece decided about limited resuscitation with DNI/no mechanical ventilator. Currently agree with plan of care. Will continue to monitor in ICU. 09/30/24 She has been on BiPAP since yesterday, respiratory rodarte stable. Was awake and alert this morning able to talk and being comprehensive on nasal cannula but still using accessory muscles. Will continue BiPAP with intermittent breaks. Creatinine 2.9 today, refusing hemodialysis. Follow-up nephrology, continue IV fluids. Hemoglobin stable at 8.5, platelets improved to 188. Significant stridor likely secondary to intubation/extubation, racemic nebulization helped. Will continue to monitor Chest x-ray showed persistent opacity in lower lobes, mild interstitial edema As per neurology since she took Valium and has LYNNETTE, will be having respiratory issues for a while. Need respiratory support for now. Spoke with pharmacy about antidote for Valium, no significant options present at this time. Continue Zosyn for now. will Discontinue vancomycin Had bedside swallow eval done, she failed. Will keep n.p.o. for now. Continue therapeutic Lovenox for PE. Creat clearance is 18. 10/01/24 She has been more awake and alert this morning, comprehensive, tolerated clear liquid diet. Bilateral chest wheezing and stridor improved with IV Decadron. Creatinine 2.8 today. Slowly improving. Will follow-up nephrology and neurology for further recommendations As per psychiatry, she needs inpatient psychiatric hospitalization for management of severe depression and drug overdose once medically stable. Has been doing better with PT Will continue current management. Family aware about the plan of care. 10/02/24 She has been more awake and comprehensive. Tolerating diet. Creatinine improved to 2.4. Follow-up nephrology for further recommendations. Still has upper and lower extremity flaccidity, hence would need PT for few days until she starts ambulating. Can be transferred to inpatient psychiatry once out of bed and ambulating and medically stable. Has not required BiPAP overnight. Saturating well on nasal cannula. Has been hypertensive since yesterday, will add amlodipine 5 mg daily and monitor. 10/03/24 She has been improving. Creatinine still 2.5. Antibiotics de-escalated to p.o. levofloxacin. Will discontinue IV fluids, blood pressure medication adjusted to amlodipine 10 mg daily and lisinopril 5 mg daily. She has still been requiring preschool teacher's assistant for transfer from bed to chair. She has been working with PT for management of generalized weakness and inability to walk due to complicated hospitalization. She has to be ambulating before being transferred to inpatient psychiatry unit. 10/04/24 She has been doing well, tolerating diet, has been in a good mood. She is on 96-hour hold which expires on Sunday midnight, into Sunday. She has been able to walk with assistance from PT with the help of walker. Plan for transfer to inpatient psychiatry unit once ambulating. Will discontinue subcutaneous Lovenox and start on p.o. Eliquis 5 mg twice daily for PE. Continue current management. 10/05/24 She has been medically stable and ambulating with the help of a walker. Will follow-up psychiatry for further recommendations. Continue current management Attestations Medical Necessity Statement*: Needs continued hospitalization for management of generalized weakness due to complicated hospitalization with PT for transfer to inpatient psych unit Time Spent in Patient Care: 25 minutes Coding Level of Care Code Acute Code for Ch[facility] Fwd Diagnoses Suicide attempt by multiple drug overdose, initial encounter T50.912A Encounter type: initial encounter Acute encephalopathy G93.40 Hyponatremia E87.1 Hearing loss H91.90 Pulmonary embolism I26.99 Acute hypercapnic respiratory failure J96.02 Aspiration pneumonia J69.0 Time Spent (min) 25
--- NOTE | 2024-10-05 17:06 | PC.NURSE ---
Patient has stated to this nurse multiple times, I didn't ask for them to save me. I shouldn't be responsible for this because I didn't want this. Patient has also stated, It doesn't matter how long you keep someone, you could keep them for months and if they wanted to hurt themselves, they would do it the moment they were released.
--- NOTE | 2024-10-05 17:38 | P.NPUPN_ITS ---
Subjective NPU 2 Subjective: Patient presented today reporting that she is doing okay. We had a fairly lengthy discussion with her with her family present as she was lobbying to be discharged immediately and having the 96-hour hold rescinded. We discussed the treatment of active suicide attempts with the clarity of hers and the need for active treatment both inpatient and outpatient after the suicide attempt. She was fairly resistant and made sure to report that she was upset that she did not and that she does not want to do anything right now but that if she wanted to kill herself that keeping her in the hospital would not stop her ultimately she could just do it when she went home as an argument to why she should be discharged immediately. We began the discussion of the importance of there being an antidepressant on board. We discussed the risks, benefits and alternatives of initiating an antidepressant and she understood and agreed to consider the possibilities. Mental Status Exam 2 MSE Comments: This is a well-nourished well-developed white female with adequate dress, grooming and eye contact. No abnormal movements except for mild psychomotor retardation. Cooperative with exam in mild to moderate distress. Speech was slightly decreased rate normal volume. Mood described as feeling better, affect slightly subdued. Thought process organized. Thought content: Patient denies suicidal or homicidal ideation but clearly acknowledged that this was a clear suicide attempt and went on to say that keeping her in the hospital cannot stop of her syndrome killing themselves if they really want to, there were no delusions reported or noted, she denied any auditory or visual hallucinations. Attention and concentration appear intact and memory appeared mostly reliable but no more formally tested. She is alert and oriented x 3. Insight, judgment and impulse control all appear impaired. Vitals/I&O/Wt Last Vital Signs Temp 97.5 F L 10/05/24 17:00 Pulse 77 10/05/24 17:00 Resp 18 10/05/24 17:00 BP 159/84 10/05/24 17:00 Pulse Ox 94 10/05/24 17:00 O2 Del Method Room Air 10/05/24 17:00 O2 Flow Rate 2 10/02/24 20:00 FiO2 24 10/02/24 00:00 10/05/24 10/05/24 10/05/24 06:59 14:59 22:59 Intake Total 120 / 1100 600 / 600 Output Total 400 / 1800 Balance -280 / -700 600 / 600 Weight last 48 hrs Weight 63.73 kg Weight 62.414 kg Physical Exam 2 Urinary Catheter Management: Dolan: Cath Placed During This Visit: yes, but has since been removed by the nurse Reason for Continuing Indwelling Catheter: Accurate Measurement of Urinary Output in Critically Ill Patients Date Urinary Catheter Removed: 10/04/24 Time Urinary Catheter Discontinued: 10:00 Data NPU 10/05/24 03:11 10/05/24 03:11 A&P Assessment and plan (1) Suicide attempt by multiple drug overdose: Qualifiers: Encounter type: initial encounter Qualified Code(s): T50.912A - Poisoning by multiple unspecified drugs, medicaments and biological substances, intentional self-harm, initial encounter (2) Bereavement: (3) Major depressive disorder, recurrent: Plan This is a 63-year-old female who was admitted initially to ICU on overdose who presented initially appearing confused and unable to answer questions with significant concerns about the patient's depression. She acknowledged the overdose as an active suicide attempt and continues to have resistance to engaging in treatment. 1. Continue current medications. Will discussed the possibility of different antidepressants. 2.??Switch to every 15 minute checks for safety once she reaches the unit. 3. Transfer to neuropsychiatric unit. 4. Obtain collateral information. 5. Encourage individual, group and milieu therapy. Attestations NPU 2 Medical Necessity Statement*: Inpatient psychiatric hospitalization is medically necessary and the clinically appropriate intervention ?at this time. We will monitor/initiate medications and make changes as indicated.? The patient will be in the hospital for over 2 midnights.? The patient?s likely length of stay 7-10 days. Coding Level of Care Code Acute Code for [facility] Fwd Diagnoses Suicide attempt by multiple drug overdose, initial encounter T50.912A Encounter type: initial encounter Bereavement Z63.4 Major depressive disorder, recurrent F33.9
--- NOTE | 2024-10-05 18:16 | PM.TDS ---
Transfer Summary Providers Date of Admission: 09/22/24 20:36 Date of Discharge/Transfer: 10/05/24 Attending Provider at Admission: Fede Matias MD Attending Provider at Transfer: Josefina Mendoza MD Primary Care Provider: Mireya Willingham Transfer Plans: Anticipated date of transfer: 10/05/24. Diagnoses at Discharge Discharge Diagnosis (1) Suicide attempt by multiple drug overdose: Status: Acute Qualifiers: Encounter type: initial encounter Qualified Code(s): T50.912A - Poisoning by multiple unspecified drugs, medicaments and biological substances, intentional self-harm, initial encounter (2) Bereavement: Status: Acute (3) Major depressive disorder, recurrent: Status: Acute Reason for Visit Reason for Visit possible OD Brief History: Denisse Narayanan is a 63 year old female with an unknown past medical history who presented the emergency department unresponsive. Upon assessment, patient is unable to provide any history. She is unresponsive. She does not respond to sternal rub. Her niece is bedside and supportive. She provides the history. She reports that the patient lost her in November. She does not have any children. She reports concerns for depression this year with recent worsening which she thinks may be related to the upcoming holidays. She notes that her boss had mention similar concerns recently. Patient was reportedly found today by her mother at her home after she did not answer the phone on multiple attempts. There is reportedly numerous pill bottles and pills everywhere. The obvious concern was for intentional drug overdose. Niece reports that patient initially resisted EMS. By the time she arrived to the emergency department, she was in a comatose state. She was noted to be protecting her airway did not require intubation. Vital signs were significant for bradypnea. CBC was unremarkable. CMP was largely unremarkable with very mild hyponatremia. Mild lactic acidosis 2.6 noted. Toxicology screen revealed Tylenol level was 6 ug/mL and positive for benzodiazepine. Urine opiate screen was negative. She was treated with Narcan and IV fluid bolus in the ED. Niece reports she does not know much about her medical history. She reports patient is severely hard of hearing and is dependent on hearing aids. She states she briefly looked at the home today and was unable to find the hearing aids. She states the patient usually does not follow with physicians. She is not aware of any chronic medical conditions the patient has. She knows she does take some medications, notably a sleep med. She is unsure about her past surgeries. Patient is it is with mentioned above. Patient never had any children. Attempted to obtain a complete medical history, surgical history, family history, and social history; but unable to due to patient's stuporous state. Hospital Course Hospital Course Plan 09/22/24 (1) Suicide attempt by multiple drug overdose: Presentation consistent with suspected intentional drug overdose ED provider reportedly placed 96-hour hold Admit to intensive care unit Continuous telemetry monitoring Tylenol level mildly elevated, trend acetaminophen levels Start IV fluids Monitor cardiopulmonary status, patient may require intubation if she is unable to protect airway Supportive care Will eventually need psychiatric care when medically improved (2) Acute encephalopathy: Acute toxic encephalopathy Serial neurological exams Management as above (3) Hyponatremia: Status post IV fluid bolus in ED Start maintenance fluids Repeat labs in a.m. (4) Hearing loss: Patient is severely hard of hearing at baseline She currently does not have her hearing aids here, family may be able to bring later 09/23/24 #Electively intubated for airway protection #Suicide attempt #Drug overdose #Malignant hyperthermia??Ruled out #Fever most likely secondary to aspiration pneumonia #Atelectasis #Aspiration pneumonia #Hyperphosphatemia #Mild hyponatremia?corrected #Hearing loss. #Pulmonary embolism -96-hour hold placed in ER -Patient intubated for airway protection ? Fever most likely secondary to aspiration pneumonia. Check blood cultures, sputum culture Gram stain, urine culture to rule out other sources ? Chest x-ray shows aspiration pneumonia, infiltrate right middle lobe and lower lobe. 25. Not present on admission. ? Continue Versed and fentanyl at this time. Patient requiring 2 vasopressors in the ER. Vasopressin and Levophed. Will attempt to wean off as able. ?Discussed with malignant hyperthermia qa consultant over the phone. Low suspicion for NPH at this time. Continue to monitor. ? Check CT head, chest abdomen pelvis ? Hyponatremia corrected. ? Continue IV fluids. ? QT 480. Will recheck EKG. ?Psychiatric consult once patient is extubated. ? Continue vancomycin and Zosyn ? CPK 1400. Continue IV fluids ? Continue to monitor 09/24/24 96-hour hold placed in ER patient intubated for airway protection. Fever of unknown origin mostly secondary to aspiration pneumonia but also has evidence of atelectasis on chest x-ray. Malignant hyperthermia unlikely. Discussed with malignant hyperthermia helpline over the phone on 09/23. Blood cultures urine culture urine culture pending. ? Continue Versed every 4 hours as needed and fentanyl. Versed drip was turned off yesterday evening. ? Have discussed with nursing staff to avoid Versed if possible. ? When patient more awake and following commands we will plan for spontaneous breathing trial and potential extubation in next 24 to 48 [address]. ? CT head negative for stroke or acute bleed. ? Continue IV fluids ? EKG reviewed. QTc within normal range ? Psychiatric consult when patient extubated ? CPK trending down 700 today. ? Continue to hospitalize patient at this time. Patient is on minimal vent settings however he is not following commands and is not participating despite being off sedation. Will continue with elective intubation at this time. - time was spent discussing patient's care with patient's nurses, multidisciplinary round, family meeting chart review, documentation. 09/25/24 Patient still intubated. Has been responsive only to verbal stimuli, on fentanyl drip for sedation. Will try to taper off the fentanyl drip for SBT trial. Will repeat chest x-ray in a.m. Continue IV fluids D5 NS at 100 cc/h IV vancomycin 1 g every 12 hours IV Zosyn 3.375 g every 8 hours Blood culture and urine culture negative so far Creatinine 1.2 continue IV fluids Continue heparin drip. Hemoglobin 9.4, platelet count 126. Monitor CBC Will do psychiatric consult once extubated QTc improved to 470. Continue to monitor in ICU. 09/26/24 Patient still intubated, has been responsive to verbal stimuli, off sedation but unable to follow commands. Also noticed to have tongue deviation and right upper and lower extremity flaccid, pupils sluggish, hence CT head without contrast done was negative for acute stroke. Neurological findings could likely be due to drug overdose. Unable to do MRI at this time since patient is intubated. Also creatinine trending up to 2.2, nephrology consulted. Will follow for further recommendations. Continue to monitor creatinine for now. Follow-up 2D echo Platelet count trending down to 99 as compared to 236 on admission. Will discontinue heparin drip and start Eliquis via NG tube Psychiatry to see the patient once extubated Will continue to monitor in ICU Will discuss with family about goals of care. 09/27/24 Neurological and respiratory status unchanged. Patient is not on CPAP, SBT trial but not able to support respiration independently. Neurological changes could likely be due to hypoxic brain injury secondary to drug overdose and respiratory acidosis. Family updated about prognosis and plan of care. Continues to defer for trial of hemodialysis at this time. Will start tube feedings. Continue SBT trial. Organ donation contacted, to see family this afternoon Creatinine trending up to 2.5. 2D echo normal Platelets improved to 109. Continue Eliquis. Will continue to monitor in ICU, family aware of current prognosis and goals of care. Case management consulted for placement 09/28/24 Neurological status improved slightly, she is s/p extubation. Able to communicate with us and family although severely hearing impaired. Doubt hypoxic brain injury given rapid improvement post starting feeds. Creat still trending up to 2.7, As per nephrology, given one dose of lasix. Psychiatry and neurology input appreciated. She is on 96 hour hold again and will need inpatient psych. Continue to monitor in ICU for now. 09/29/24 Deterioration of neurological and respiratory status since this morning. She was found to be tachypneic, using accessory muscles. Patient is on BiPAP. Was initially in acute respiratory acidosis with pCO2 of 72, repeated ABG in 1 hour showed pCO2 of 65. After being on BiPAP for 4 to 5 hours ABG improved with pCO2 in 40s. Patient seen at bedside repeatedly, later during the afternoon was found to be awake, responding to verbal stimuli, family at bedside. As the day progressed she became more awake and is now agitated secondary to BiPAP. She is alert, will discontinue BiPAP and monitor respiratory status on nasal cannula. Had an extensive discussion with the family at bedside about fluctuations in encephalopathic state could likely be secondary to medications overdose which we still not sure about what she actually took. Leukocyte count trended up to 16.3, likely reactive. Will continue to monitor Renal function continue to deteriorate with creatinine of 3 today. Hemoglobin stable Family, her mom and niece decided about limited resuscitation with DNI/no mechanical ventilator. Currently agree with plan of care. Will continue to monitor in ICU. 09/30/24 She has been on BiPAP since yesterday, respiratory rodarte stable. Was awake and alert this morning able to talk and being comprehensive on nasal cannula but still using accessory muscles. Will continue BiPAP with intermittent breaks. Creatinine 2.9 today, refusing hemodialysis. Follow-up nephrology, continue IV fluids. Hemoglobin stable at 8.5, platelets improved to 188. Significant stridor likely secondary to intubation/extubation, racemic nebulization helped. Will continue to monitor Chest x-ray showed persistent opacity in lower lobes, mild interstitial edema As per neurology since she took Valium and has LYNNETTE, will be having respiratory issues for a while. Need respiratory support for now. Spoke with pharmacy about antidote for Valium, no significant options present at this time. Continue Zosyn for now. will Discontinue vancomycin Had bedside swallow eval done, she failed. Will keep n.p.o. for now. Continue therapeutic Lovenox for PE. Creat clearance is 18. 10/01/24 She has been more awake and alert this morning, comprehensive, tolerated clear liquid diet. Bilateral chest wheezing and stridor improved with IV Decadron. Creatinine 2.8 today. Slowly improving. Will follow-up nephrology and neurology for further recommendations As per psychiatry, she needs inpatient psychiatric hospitalization for management of severe depression and drug overdose once medically stable. Has been doing better with PT Will continue current management. Family aware about the plan of care. 10/02/24 She has been more awake and comprehensive. Tolerating diet. Creatinine improved to 2.4. Follow-up nephrology for further recommendations. Still has upper and lower extremity flaccidity, hence would need PT for few days until she starts ambulating. Can be transferred to inpatient psychiatry once out of bed and ambulating and medically stable. Has not required BiPAP overnight. Saturating well on nasal cannula. Has been hypertensive since yesterday, will add amlodipine 5 mg daily and monitor. 10/03/24 She has been improving. Creatinine still 2.5. Antibiotics de-escalated to p.o. levofloxacin. Will discontinue IV fluids, blood pressure medication adjusted to amlodipine 10 mg daily and lisinopril 5 mg daily. She has still been requiring mailroom assistant for transfer from bed to chair. She has been working with PT for management of generalized weakness and inability to walk due to complicated hospitalization. She has to be ambulating before being transferred to inpatient psychiatry unit. 10/04/24 She has been doing well, tolerating diet, has been in a good mood. She is on 96-hour hold which expires on Sunday midnight, into Sunday. She has been able to walk with assistance from PT with the help of walker. Plan for transfer to inpatient psychiatry unit once ambulating. Will discontinue subcutaneous Lovenox and start on p.o. Eliquis 5 mg twice daily for PE. Continue current management. 10/05/24 She has been medically stable and ambulating with the help of a walker. Will follow-up psychiatry for further recommendations. Continue current management She is medically stable and is being transferred to [facility] inpatient psychiatry for further management. Physical Exam Narrative: She is alert awake oriented x 3, not in acute distress Chest clear to auscultation bilaterally, still has hoarseness of voice but improved Cardiovascular normal heart sounds no murmurs Abdomen soft nontender nondistended normal bowel sounds Extremities no edema noted bilateral lower extremity Urinary Catheter Management: Dolan: Cath Placed During This Visit: yes, but has since been removed by the nurse Reason for Continuing Indwelling Catheter: Accurate Measurement of Urinary Output in Critically Ill Patients Date Urinary Catheter Removed: 10/04/24 Time Urinary Catheter Discontinued: 10:00 TS Data Studies Completed and Pending Completed Studies During Hospitalization Category Date Time Status CT angio chest w abd pel w con Stat Cat Scan 09/24/24 00:[address] head wo con* [id number] Routine Cat Scan 09/26/24 09:[address] head wo con* [id number] Stat Cat Scan 09/24/24 00:35 Completed CXRP [XR chest 1V portable [id number]] Routine Exams 09/23/24 10:32 Completed XR chest 1V portable [id number] Routine Exams 09/26/24 06:00 Completed XR chest 1V portable [id number] Routine Exams 09/30/24 06:00 Completed XR chest 1V portable [id number] Stat Exams 09/22/24 18:21 Completed XR chest 1V portable [id number] Stat Exams 09/23/24 09:31 Completed XR chest 1V portable [id number] Stat Exams 09/28/24 07:28 Completed XR chest 1V portable [id number] Stat Exams 10/05/24 08:09 Completed CV. echo complete* [id number] Stat Ultrasound 09/26/24 07:26 Completed Laboratory Last Values WBC 10.00 10^3/uL (3.29-11.43) 10/05/24 03:11 RBC 2.79 10^6/uL (3.85-5.65) L 10/05/24 03:11 Hgb 8.30 g/dL (11.27-16.99) L 10/05/24 03:11 Hct 25.4 % (36-47) L 10/05/24 03:11 MCV 91.0 fl (85-98) 10/05/24 03:11 MCH 29.7 pg (27-33) 10/05/24 03:11 MCHC 32.7 g/dL (30-55) 10/05/24 03:11 RDW 14.0 % (12.1-15.1) 10/05/24 03:11 Plt Count 366 10^3/cmm (157-399) 10/05/24 03:11 MPV 10.5 fL (7.4-10.4) H 10/05/24 03:11 Neut % (Auto) 83.2 % 10/05/24 03:11 Lymph % (Auto) 8.0 % 10/05/24 03:11 Moore % (Auto) 6.3 % 10/05/24 03:11 Eos % (Auto) 0.1 % 10/05/24 03:11 Baso % (Auto) 0.2 % 10/05/24 03:11 Neut # (Auto) 8.32 10^3/uL (1.8-7.7) H 10/05/24 03:11 Lymph # (Auto) 0.8 10^3/uL (0.8-4.8) 10/05/24 03:11 Moore # (Auto) 0.6 10^3/uL (0.2-0.9) 10/05/24 03:11 Eos # (Auto) 0.0 10^3/uL (0.0-0.8) 10/05/24 03:11 Baso # (Auto) 0.0 10^3/uL (0.0-0.1) 10/05/24 03:11 Nucleated RBC % (auto) 0 % 10/05/24 03:11 Nucleated RBCs # 0.0 /100WBC 10/05/24 03:11 APTT 66.5 SECONDS (23.9-36.7) H D 09/26/24 03:09 Specimen Type Arterial 09/29/24 15:50 Sample Site Radial, right 09/29/24 15:50 ABG pH 7.29 (7.35-7.45) L 09/29/24 15:50 ABG pCO2 39.9 mmHg (35-45) 09/29/24 15:50 ABG pO2 182.0 mmHg (80.0-100.0) H 09/29/24 15:50 ABG PO2/FiO2 Ratio 455 09/29/24 15:50 ABG HCO3 19.2 mmol/L (22-26) L 09/29/24 15:50 ABG O2 Saturation 97.2 09/28/24 04:34 ABG Base Excess -6.9 mmol/L (-2.0-2.0) L 09/29/24 15:50 Saravanan Test Pos 09/29/24 15:50 A-a O2 Gradient 12.6 mmHg (5-10) H 09/28/24 04:34 Hematocrit 30.4 % (37-47) L 09/29/24 15:50 Hgb O2 Saturation 95.2 % (95-100) 09/28/24 04:34 Carboxyhemoglobin 1.0 %THgb (0.4-20.1) 09/28/24 04:34 Methemoglobin 1.1 % (0.4-1.5) 09/28/24 04:34 Total Hemoglobin 9.0 g/dL (12-16) L 09/28/24 04:34 Sodium 143.0 mmol/L (131-143) 09/28/24 04:34 Potassium 3.2 mmol/L (3.5-5.0) L 09/28/24 04:34 Glucose 140.0 mg/dL (70-115) H 09/28/24 04:34 Ionized Calcium 1.2 mmol/L (1.1-1.4) 09/28/24 04:34 O2 Delivery Device Bipap 09/29/24 15:50 O2 Liters/Min 6.0 % 09/29/24 08:00 FiO2 40.0 % 09/29/24 15:50 Tidal Volume .45 09/29/24 09:55 PEEP 10.0 cmH20 09/29/24 09:55 CPAP 5.0 cmH20 09/28/24 04:34 Telephone Engineer ID [email or web address] 09/29/24 15:50 Sodium 145 mmol/L (136-145) 10/05/24 03:11 Potassium 3.4 mmol/L (3.5-5.1) L 10/05/24 03:11 Chloride 113 mmol/L (98-107) H 10/05/24 03:11 Carbon Dioxide 22 mmol/L (22-29) 10/05/24 03:11 Anion Gap 13.4 (5-19) 10/05/24 03:11 BUN 22 mg/dL (8-23) 10/05/24 03:11 Creatinine 2.1 mg/dL (0.5-0.9) H 10/05/24 03:11 GFR Calculation 23.9 mL/min (90-130) L 10/05/24 03:11 Glucose 115 mg/dL (65-115) 10/05/24 03:11 POC Glucose 127 mg/dL (70-110) H 10/02/24 21:56 Calculated Osmolality 304 mOsm/kg (285-295) H 10/05/24 03:11 Lactic Acid 1.0 mmol/L (0.5-2.2) 09/23/24 13:23 Lactic Acid (Sepsis) 0.9 mmol/L (0.5-2.2) 09/22/24 21:05 Lactate 0.9 mmol/L (0.5-2.2) 09/29/24 08:42 Calcium 7.9 mg/dL (8.5-10.5) L 10/05/24 03:11 Phosphorus 5.9 mg/dL (2.5-4.5) H 09/23/24 02:55 Magnesium 1.9 mg/dL (1.7-2.3) 09/30/24 04:35 Total Bilirubin 0.4 mg/dL (0.15-1.2) 09/30/24 04:35 AST 61 U/L (0-32) H 09/30/24 04:35 ALT 48 U/L (0-33) H 09/30/24 04:35 Alkaline Phosphatase 101 U/L (35-105) 09/30/24 04:35 Creatine Kinase 234 U/L (26-192) H 09/26/24 03:09 Troponin T Baseline 28 ng/L (0-10) H 09/29/24 08:42 Troponin T 120 Minute 32.43 ng/L (0-10) H 09/29/24 10:37 Delta Troponin T 4.43 ABS# (0-10) 09/29/24 10:37 Troponin T Hi Sens 6Hr 27.97 ng/L (0-10) H 09/29/24 13:35 Troponin T Hi Sens 6Hr Delta -0.03 ng/L (0-12) L 09/29/24 13:35 Total Protein 5.3 g/dL (6.6-8.7) L 09/30/24 04:35 Albumin 2.8 g/dL (3.5-5.2) L 09/30/24 04:35 Globulin 2.5 g/dL (1.3-4.6) 09/30/24 04:35 TSH 0.60 uIU/mL (0.27-4.20) 09/23/24 13:23 Random Cortisol 11.00 ug/dL (2.47-19.5) 09/23/24 13:23 Urine Color Yellow (Yellow) 09/29/24 08:43 Urine Appearance Cloudy (CLEAR) A 09/29/24 08:43 Urine pH 5.0 (5-7) 09/29/24 08:43 Ur Specific Leadore 1.009 (1.005-1.030) 09/29/24 08:43 Urine Protein 1+ (Negative) A 09/29/24 08:43 Urine Glucose (UA) Negative (Normal) 09/29/24 08:43 Urine Ketones Negative (Negative) 09/29/24 08:43 Urine Blood 2+ (Negative) A 09/29/24 08:43 Urine Nitrate Negative (Negative) 09/29/24 08:43 Urine Bilirubin Negative (Negative) 09/29/24 08:43 Urine Urobilinogen 0.2 mg/dL (Negative) 09/29/24 08:43 Ur Leukocyte Esterase Negative (Negative) 09/29/24 08:43 Urine RBC 0-2 /hpf (0-2) 09/29/24 08:43 Urine WBC 0-5 /hpf (0-5) 09/29/24 08:43 Ur Squamous Epith Cells 6-10 /hpf (0-5) 09/29/24 08:43 Amorphous Sediment Not Reportable 09/29/24 08:43 Urine Bacteria None seen /hpf (NONE) 09/29/24 08:43 Hyaline Casts 17.77 /lpf 09/29/24 08:43 Vancomycin Trough 19.8 ug/mL (10-15) H 09/29/24 13:35 Random Vancomycin 18.5 ug/mL (20.0-40.0) L 09/30/24 04:35 Salicylates < 0.3 mg/dL (3-10) L 09/30/24 04:35 Urine Opiates Screen Negative ng/mL (Negative) 09/22/24 19:15 Acetaminophen < 5.0 ug/mL (10-30) L 09/23/24 02:55 Ur Barbiturates Screen Negative ng/mL (Negative) 09/22/24 19:15 Ur Phencyclidine Scrn Negative ng/mL (Negative) 09/22/24 19:15 Ur Amphetamines Screen Negative ng/mL (Negative) 09/22/24 19:15 U Benzodiazepines Scrn Positive ng/mL (Negative) H 09/22/24 19:15 Urine Cocaine Screen Negative ng/mL (Negative) 09/22/24 19:15 U Marijuana (THC) Screen Negative ng/mL (Negative) 09/22/24 19:15 Ethyl Alcohol < 10 mg/dL (0-10) 09/22/24 18:31 C. difficile (PCR) Negative (Negative) 10/01/24 06:02 Radiology Impressions Chest/Abdomen/Pelvis CT 09/24/24 00:36 IMPRESSION: 1. Pulmonary emboli splaying the right lower lobe pulmonary artery and extending into the segmental branches, as well as small bilateral distal segmental/subsegmental pulmonary emboli. 2. No CT evidence of right heart strain. 3. Bibasilar atelectasis and bilateral lower lobe consolidations, which may be the sequela of alveolar edema or multifocal pneumonia. Findings may also be aspiration in etiology given multifocal impacted small airways. 4. Bilateral pleural fluid, small on the right and trace on the left. IMPRESSION: 1. Small amount of abdominopelvic ascites, mesenteric edema and findings suggestive of 3rd spacing. 2. Otherwise, no acute findings. 3. Enteric tube in satisfactory position. ADDENDUM: 09/24/24 020 COMMENT: THIS REPORT CONTAINS FINDINGS THAT MAY BE CRITICAL TO PATIENT CARE. The exam findings were verbally communicated by me to Fede Matias via telephone conference at 2:08 AM ADMINISTRATIVE OPERATIONS COORDINATOR on 09/24/2024. The findings were acknowledged and understood. Head CT 09/26/24 09:17 IMPRESSION: 1. No evidence of intracranial hemorrhage or mass effect. 2. Mild small vessel changes with mild parenchymal volume loss. 3. Vascular calcification. 4. Paranasal sinusitis with air-fluid levels. 5. No acute intracranial findings. Chest X-Ray 10/05/24 08:09 IMPRESSION: No significant change. Recent Clincial Data Last Vital Signs Temp 97.5 F L 10/05/24 17:00 Pulse 77 10/05/24 17:00 Resp 18 10/05/24 17:00 BP 159/84 10/05/24 17:00 Pulse Ox 94 10/05/24 17:00 O2 Del Method Room Air 10/05/24 17:00 O2 Flow Rate 2 10/02/24 20:00 FiO2 24 10/02/24 00:00 Vital Signs Temp Pulse Resp BP Pulse Ox O2 Del Method 10/05/24 17:00 97.5 F L 77 18 159/84 94 Room Air 10/05/24 11:32 78 16 179/74 100 Room Air 10/05/24 11:01 89 18 97 Room Air 10/05/24 08:30 98.3 F 89 18 166/82 97 Room Air Intake & Output/Weight 10/03/24 10/04/24 10/05/24 10/06/24 06:59 06:59 06:59 06:59 Intake Total 2280 / 2280 2480 / 2480 1100 / 1100 600 / 600 Output Total 1350 / 1350 1350 / 1350 1800 / 1800 Balance 930 / 930 1130 / 1130 -700 / -700 600 / 600 Weight 65 kg 62.414 kg 63.73 kg Vitals Last Vital Signs Temp 97.5 F L 10/05/24 17:00 Pulse 77 10/05/24 17:00 Resp 18 10/05/24 17:00 BP 159/84 10/05/24 17:00 Pulse Ox 94 10/05/24 17:00 O2 Del Method Room Air 10/05/24 17:00 O2 Flow Rate 2 10/02/24 20:00 FiO2 24 10/02/24 00:00 TS Medications Medications Amlodipine Besylate (Amlodipine 5 Mg Tablet) 10 mg PO DAILY GIACOMO Last Admin: 10/05/24 08:38 Dose: 10 mg Apixaban (Apixaban 5 Mg Tablet) 5 mg PO BID@0900,2100 [facility] Last Admin: 10/05/24 08:38 Dose: 5 mg Epinephrine (Racepinephrine 0.5 Ml Neb) 0.5 ml INHALATION Q4H.RESPIRATORY PRN PRN Reason: SHORTNESS OF BREATH Last Admin: 09/30/24 15:26 Dose: 0.5 ml Lanolin (Lanolin Oint 7 Gm) 1 applic TOPICAL PRN PRN PRN Reason: DRYNESS Levofloxacin (Levofloxacin 750 Mg Tablet) 750 mg PO Q48H [facility]; Protocol Lisinopril (Lisinopril 5 Mg Tablet) 5 mg PO DAILY [facility] Last Admin: 10/05/24 08:38 Dose: 5 mg Pantoprazole Sodium (Pantoprazole 40 Mg Sdv) 40 mg IVP DAILY [facility] Last Admin: 10/05/24 08:38 Dose: 40 mg Discontinued Medications Acetaminophen (Acetaminophen 325 Mg Tablet) 650 mg PO Q6H PRN PRN Reason: MILD PAIN OR INCREASE TEMP Last Admin: 09/24/24 13:48 Dose: 650 mg Acetaminophen (Acetaminophen 325 Mg Tablet) 650 mg OG-TUBE Q6H PRN PRN Reason: MILD PAIN OR INCREASE TEMP Last Admin: 09/26/24 22:56 Dose: 650 mg Albuterol/Ipratropium (Ipratropium-Albuterol 3 Ml Neb) 3 ml INHALATION Q4H PRN PRN Reason: SHORTNESS OF BREATH Last Admin: 09/29/24 10:25 Dose: 3 ml Amlodipine Besylate (Amlodipine 5 Mg Tablet) 5 mg PO DAILY [facility] Last Admin: 10/02/24 08:49 Dose: 5 mg Apixaban (Apixaban 5 Mg Tablet) 5 mg PO BID@0900,2100 [facility] Last Admin: 09/26/24 20:08 Dose: 5 mg Apixaban (Apixaban 5 Mg Tablet) 5 mg OG-TUBE BID@0900,2100 [facility] Last Admin: 09/28/24 22:27 Dose: Not Given Apixaban (Apixaban 5 Mg Tablet) 5 mg PO BID@0900,2100 [facility] Last Admin: 09/29/24 09:29 Dose: Not Given Chlorhexidine Gluconate (Chlorhexidine Gluconate 4% Btl 118 Ml) 1 applic TOPICAL DAILY [facility] Last Admin: 09/26/24 05:54 Dose: 1 applic Chlorhexidine Gluconate (Chlorhexidine Gluconate 4% Btl 118 Ml) 1 applic TOPICAL Q24H [facility] Last Admin: 09/30/24 04:22 Dose: Not Given Citric Acid/Sodium Citrate (Citric Acid-Sodium Citrate 30 Ml Udc) 30 ml PO BID ONE Stop: 10/02/24 09:39 Last Admin: 10/02/24 10:29 Dose: 30 ml Dantrolene Sodium (Dantrolene 20 Mg Sdv) 40 mg .ROUTE .STK-MED ONE Stop: 09/23/24 16:59 Dexamethasone (Dexamethasone 4 Mg/Ml Inj) 4 mg IVP Q12H [facility] Last Admin: 10/05/24 15:32 Dose: 4 mg Enoxaparin Sodium (Enoxaparin 40 Mg/0.4 Ml Syringe) 40 mg SUBCUT Q24H [facility] Last Admin: 09/23/24 20:42 Dose: 40 mg Enoxaparin Sodium (Enoxaparin 60 Mg/0.6 Ml Syringe) 60 mg SUBCUT Q12H [facility] Last Admin: 09/29/24 11:25 Dose: 60 mg Enoxaparin Sodium (Enoxaparin 60 Mg/0.6 Ml Syringe) 60 mg SUBCUT Q24H [facility] Last Admin: 10/03/24 12:37 Dose: 60 mg Etomidate (Etomidate 2 Mg/Ml Inj Sdv 10 Ml) 20 mg IVP NOW ONE Stop: 09/23/24 10:22 Last Admin: 09/23/24 10:30 Dose: Not Given Flumazenil (Flumazenil 0.1 Mg/Ml Sdv 5ml) Confirm Administered Dose 0.5 mg .ROUTE .STK-MED ONE Stop: 09/23/24 05:02 Flumazenil (Flumazenil 0.1 Mg/Ml Sdv 5ml) 0.2 mg IV ONCE STA Stop: 09/23/24 05:14 Last Admin: 09/23/24 05:15 Dose: 0.2 mg Furosemide (Furosemide 10 Mg/Ml Sdv 10ml) 60 mg IVP Q24H [facility] Last Admin: 09/28/24 10:30 Dose: 60 mg Furosemide (Furosemide 10 Mg/Ml Sdv 4ml) 40 mg IVP ONCE ONE Stop: 10/01/24 11:49 Last Admin: 10/01/24 13:34 Dose: 40 mg Heparin Sodium (Porcine) (Heparin 5,000 Unit/Ml Inj 1 Ml) 0 unit IVP PRN PRN; Protocol PRN Reason: Heparin Weight Based Protocol -Subsequent Bolus Last Admin: 09/25/24 21:17 Dose: 2,200 unit Heparin Sodium (Porcine) (Heparin 5,000 Unit/Ml Inj 1 Ml) 0 unit IVP ONCE ONE; Protocol Stop: 09/24/24 02:53 Last Admin: 09/24/24 03:28 Dose: 2,800 unit Sodium Chloride (Sodium Chloride 0.9%) 1,000 mls @ 999 mls/hr IV .Q1H1M ONE Stop: 09/22/24 22:36 Last Infusion: 09/22/24 23:55 Dose: Infused Sodium Chloride (Sodium Chloride 0.9%) 1,000 mls @ 125 mls/hr IV .Q8H [facility] Last Infusion: 09/23/24 10:38 Dose: Infused Sodium Chloride (Sodium Chloride 0.9%) 1,000 mls @ 999 mls/hr IV .Q1H1M ONE Stop: 09/23/24 04:28 Last Infusion: 09/23/24 04:51 Dose: Infused Norepinephrine Bitartrate (Levophed) 4 mg in 250 mls @ 0 mls/hr IV .Q0M [facility]; Protocol Last Titration: 09/25/24 10:12 Dose: Infused Vasopressin (Vasostrict) 40 unit in 100 mls @ 4.5 mls/hr IV CONT [facility] Last Infusion: 09/25/24 10:12 Dose: Infused Etomidate (Amidate) Confirm Administered Dose 20 mls @ as directed .ROUTE .STK-MED ONE Stop: 09/23/24 09:05 Last Admin: 09/23/24 09:04 Dose: 1 mls/hr Fentanyl (Sublimaze) 1,000 mcg in 100 mls @ 0 mls/hr IV .Q0M [facility]; Protocol Last Titration: 09/27/24 18:37 Dose: Infused Midazolam HCl (Versed) 100 mg in 100 mls @ 0 mls/hr IV .Q0M [facility]; Protocol Last Titration: 09/25/24 10:12 Dose: Infused Piperacillin Sod/Tazobactam (Sod / Sodium Chloride) 50 mls @ 0 mls/hr QNA0HRIV CONT [facility]; Protocol Vancomycin HCl / Sodium (Chloride) 250 mls @ 0 mls/hr [id number] PROTOCOL [facility]; Protocol Piperacillin Sod/Tazobactam (Sod 3.375 gm/ Sodium Chloride) 50 mls @ 12.5 mls/hr IV Q8H [facility] Last Infusion: 09/28/24 12:54 Dose: Infused Vancomycin HCl (Vancocin) 1,750 mg in 350 mls @ 175 mls/hr IV ONCE ONE Stop: 09/23/24 14:59 Last Infusion: 09/23/24 19:30 Dose: Infused Vancomycin HCl 1,000 mg/ (Sodium Chloride) 250 mls @ 250 mls/hr IV Q12H [facility] Last Infusion: 09/25/24 02:59 Dose: Infused Dextrose (D10w) 1,000 mls @ 70 mls/hr IV .[id number] [facility] Dextrose (D10w) 250 mls @ 1,000 mls/hr IV PRN PRN PRN Reason: HYPOGLYCEMIA Last Infusion: 09/23/24 18:56 Dose: Infused Dextrose/Sodium Chloride (Dextrose 5%-Sod Chloride 0.9%) 1,000 mls @ 100 mls/hr IV .Q10H [facility] Last Infusion: 09/26/24 05:44 Dose: Infused Heparin Sodium/Sodium Chloride (Heparin Drip) 25,000 unit in 500 mls @ 0 mls/hr IV CONT [facility]; Protocol Last Admin: 09/26/24 19:35 Dose: Not Given Potassium Chloride (K-Escobar) 100 mls @ 25 mls/hr IV Q4H [facility] Stop: 09/25/24 15:59 Last Infusion: 09/25/24 20:00 Dose: Infused Calcium Gluconate/Sodium Chloride (Calcium Gluconate 0.9% Nacl) 1 gm in 50 mls @ 50 mls/hr IV ONCE ONE Stop: 09/25/24 08:50 Last Infusion: 09/25/24 10:45 Dose: Infused Vancomycin HCl 750 mg/ Sodium (Chloride) 250 mls @ 250 mls/hr IV Q12H [facility] Last Infusion: 09/27/24 04:40 Dose: Infused Dextrose (D10w) 1,000 mls @ 40 mls/hr IV .Q24H [facility] Last Admin: 10/04/24 18:48 Dose: Not Given Dextrose/Sodium Chloride (Dextrose 5%-Sod Chloride 0.45%) 1,000 mls @ 75 mls/hr IV .[id number] [facility] Last Infusion: 10/03/24 16:05 Dose: Infused Potassium Chloride (K-Escobar) 100 mls @ 25 mls/hr IV Q4H [facility] Stop: 09/28/24 15:29 Last Infusion: 09/28/24 15:45 Dose: Infused Piperacillin Sod/Tazobactam (Sod 3.375 gm/ Sodium Chloride) 50 mls @ 12.5 mls/hr IV Q12H [facility] Last Infusion: 10/03/24 03:57 Dose: Infused Lactated Ringer's (Lactated Ringers) 500 mls @ 999 mls/hr IV .Q31M ONE Stop: 09/29/24 09:23 Last Infusion: 10/04/24 18:48 Dose: Infused Lidocaine HCl 5 ml/ Potassium (Chloride) 105 mls @ 26.25 mls/hr IV ONCE ONE Stop: 09/30/24 11:44 Last Infusion: 09/30/24 14:26 Dose: Infused Iohexol (Iohexol 350 Mg/Ml 500 Ml Btl (Per Ml)) 0 ml IV ONCE ONE Stop: 09/24/24 01:14 Last Admin: 09/24/24 01:13 Dose: 100 ml Levofloxacin (Levofloxacin 750 Mg Tablet) 750 mg PO DAILY@0600 [facility]; Protocol Last Admin: 10/03/24 10:02 Dose: Not Given Levofloxacin (Levofloxacin 500 Mg Tablet) 500 mg PO Q48H [facility]; Protocol Last Admin: 10/05/24 08:37 Dose: 500 mg Lorazepam (Lorazepam 2 Mg/Ml Inj 1 Ml) Confirm Administered Dose 2 mg .ROUTE .STK-MED ONE Stop: 09/23/24 05:03 Lorazepam (Lorazepam 2 Mg/Ml Inj 1 Ml) 2 mg IVP ONCE ONE Stop: 09/23/24 05:17 Last Admin: 09/23/24 05:47 Dose: Not Given Midazolam HCl (Midazolam 1 Mg/Ml Inj 2 Ml) 2 mg IVP Q4H [facility] Midazolam HCl (Midazolam 1 Mg/Ml Inj 2 Ml) 2 mg IVP Q4H PRN PRN Reason: Intubated Last Admin: 09/24/24 20:48 Dose: 2 mg Midazolam HCl (Midazolam 1 Mg/Ml Inj 2 Ml) 1 mg IVP ONCE ONE Stop: 09/24/24 12:09 Last Admin: 09/24/24 12:20 Dose: 1 mg Naloxone HCl (Naloxone 0.4 Mg/Ml Sdv) 0.1 mg IVP Q2M PRN PRN Reason: RESPIRATORY RATE < 8/MIN Last Admin: 09/22/24 18:27 Dose: 0.1 mg Naloxone HCl (Naloxone 0.4 Mg/Ml Sdv) 0.4 mg IVP PRN PRN PRN Reason: RESPIRATORY RATE < 8/MIN Last Admin: 09/22/24 19:20 Dose: 0.4 mg Naloxone HCl (Naloxone 0.4 Mg/Ml Sdv) 0.4 mg IVP ONCE ONE Stop: 09/23/24 04:49 Last Admin: 09/23/24 04:58 Dose: 0.4 mg Potassium Chloride (Potassium Chloride Er 20 Meq Tablet) 40 meq PO ONCE ONE Stop: 09/25/24 05:03 Last Admin: 09/25/24 05:16 Dose: 40 meq Potassium Chloride (Potassium Chloride Er 20 Meq Tablet) 40 meq PO Q6H [facility] Stop: 10/02/24 14:01 Last Admin: 10/02/24 14:10 Dose: 40 meq Potassium Chloride (Potassium Chloride Er 20 Meq Tablet) 40 meq PO Q6H [facility] Stop: 10/03/24 14:01 Last Admin: 10/03/24 14:51 Dose: 40 meq Potassium Chloride (Potassium Chloride Er 20 Meq Tablet) 40 meq PO Q6H [facility] Stop: 10/05/24 14:16 Last Admin: 10/05/24 15:32 Dose: 40 meq Succinylcholine Chloride (Succinylcholine 20 Mg/Ml Sdv 10ml) Confirm Administered Dose 400 mg .ROUTE .STK-MED ONE Stop: 09/23/24 09:06 Succinylcholine Chloride (Succinylcholine 20 Mg/Ml Sdv 10ml) 0 mg IVP NOW ONE Stop: 09/23/24 10:22 Last Admin: 09/23/24 10:30 Dose: 60 mg Vancomycin HCl (Vancomycin 1,000 Mg Sdv (Pharmacy Mix)) 0 mg XX PRN PRN PRN Reason: Pharmacy to Dose Allergies No Known Allergies Allergy (Verified 09/23/24 19:05) Home Medications latanoprost 0.005 % eye drops 1 drp ophthalmic (eye) QPM 09/23/24 [History Confirmed 09/23/24] timolol maleate 0.5 % eye drops 1 drp ophthalmic (eye) BID 09/23/24 [History Confirmed 09/23/24] trazodone 50 mg tablet 50 mg PO QPM PRN Sleep 09/23/24 [History Confirmed 09/23/24] Discharge Plan Discharge Patient Disposition: Home Condition: Stable Prescriptions: Discontinued latanoprost 0.005 % drops 1 drp ophthalmic (eye) QPM trazodone 50 mg tablet 50 mg PO QPM PRN (Reason: Sleep) timolol maleate 0.5 % drops 1 drp ophthalmic (eye) BID Discharge Orders: Discharge Order (Routine); Ordered 10/05/24 Ordered By: Josefina Mendoza Referrals: Mireya Willingham PA [Primary Care Provider] - Discharge Diet: As Directed Discharge Activity: Increase activity as tolerated Patient Instructions: Opioid Safety Transfer Attestations Time Spent in Transfer Care: less than 30 min Quality Metrics Clinical Quality Measures [ No reported AMI, CVA or VTE this stay] Coding Level of Care Code Acute Code for Chg Fwd Diagnoses Suicide attempt by multiple drug overdose, initial encounter T50.912A Encounter type: initial encounter Bereavement Z63.4 Major depressive disorder, recurrent F33.9 Time Spent (min) 20
--- NOTE | 2024-10-05 18:56 | PC.NURSE ---
Patient stated, I had told my family, that if I was ordered to be discharged home with someone for a product safety professional, that they could just lie for me and that family had told her they would not lie about that and that she needed to accept the help while at the hospital.
--- NOTE | 2024-10-05 20:15 | PC.NURSE ---
pulled picc line, patient tolerated well, no bleeding noted, picc measures 28 cm
[2024-10-06 04:41] VITALS: BP 145/73; PULSE 80; RESP 18; TEMP 36.8; O2SAT 99
--- NOTE | 2024-10-06 06:46 | PC.NURSE ---
PT BELONGINGS Pt has 2 sets of hearing aids and 1 individual hearing aid sitting in the nurses station charging.
[2024-10-06] MEDS: lisinopril 5 mg Tablet PO (08:47)
[2024-10-06] MEDS: apixaban 5 mg Tablet PO ×2 (08:47→21:44)
[2024-10-06] MEDS: amlodipine 5 mg Tablet 10 MG PO (08:47)
--- NOTE | 2024-10-06 11:18 | P.NPUPN_ITS ---
Subjective NPU 2 Subjective: Patient presented today reporting that she is doing okay. We discussed our long conversation yesterday and a consideration of how initiating an antidepressant seemed appropriate. She reports that she did possibly take Lexapro 20+ years ago reportedly for an anger problem that she had in the past. She was unsure if she took any other antidepressants but reported that the Lexapro helped her with her irritability but also seem to be the source of some very vivid and disturbing dreams. We discussed the risks, benefits and alternatives of initiating Wellbutrin XL and she understood and agreed to proceed as is documented in this note. We discussed giving her a dose of Wellbutrin SR 150 mg one-time this afternoon evening and then starting the Wellbutrin XL 150 mg in the morning. She denied any other issues with the medication. Mental Status Exam 2 MSE Comments: This is a well-nourished well-developed white female with adequate dress, grooming and eye contact. No abnormal movements except for mild psychomotor retardation. Cooperative with exam in mild to moderate distress. Speech was slightly decreased rate normal volume. Mood described as feeling better, affect slightly subdued. Thought process organized. Thought content: Patient denies suicidal or homicidal ideation but clearly acknowledged that this was a clear suicide attempt and went on to say that keeping her in the hospital cannot stop of her syndrome killing themselves if they really want to, there were no delusions reported or noted, she denied any auditory or visual hallucinations. Attention and concentration appear intact and memory appeared mostly reliable but no more formally tested. She is alert and oriented x 3. Insight, judgment and impulse control all appear impaired. Vitals/I&O/Wt Last Vital Signs Temp 98.3 F 10/06/24 04:41 Pulse 80 10/06/24 04:41 Resp 18 10/06/24 04:41 BP 145/73 10/06/24 04:41 Pulse Ox 99 10/06/24 04:41 O2 Del Method Room Air 10/06/24 04:41 O2 Flow Rate 2 10/02/24 20:00 FiO2 24 10/02/24 00:00 Weight last 48 hrs Weight 63.73 kg Physical Exam 2 Urinary Catheter Management: Dolan: Cath Placed During This Visit: yes, but has since been removed by the nurse Reason for Continuing Indwelling Catheter: Accurate Measurement of Urinary Output in Critically Ill Patients Date Urinary Catheter Removed: 10/04/24 Time Urinary Catheter Discontinued: 10:00 Data NPU 10/05/24 03:11 10/05/24 03:11 A&P Assessment and plan (1) Suicide attempt by multiple drug overdose: Qualifiers: Encounter type: initial encounter Qualified Code(s): T50.912A - Poisoning by multiple unspecified drugs, medicaments and biological substances, intentional self-harm, initial encounter (2) Bereavement: (3) Major depressive disorder, recurrent: Plan This is a 63-year-old female who was admitted initially to ICU on overdose who presented initially appearing confused and unable to answer questions with significant concerns about the patient's depression. She acknowledged the overdose as an active suicide attempt and continues to have resistance to engaging in treatment. 1. Continue current medications. Start Wellbutrin XL 150 mg po qam 2.??Switch to every 15 minute checks for safety once she reaches the unit. 3. Transferred to neuropsychiatric unit. 4. Obtain collateral information. 5. Encourage individual, group and milieu therapy. Involuntary Hold Information 2 Other Hold: Hold End Date: 10/07/24 Attestations NPU 2 Medical Necessity Statement*: Inpatient psychiatric hospitalization is medically necessary and the clinically appropriate intervention ?at this time. We will monitor/initiate medications and make changes as indicated.? The patient will be in the hospital for over 2 midnights.? The patient?s likely length of stay 7-10 days. Coding Level of Care Code Acute Code for Chg Fwd Diagnoses Suicide attempt by multiple drug overdose, initial encounter T50.912A Encounter type: initial encounter Bereavement Z63.4 Major depressive disorder, recurrent F33.9
[2024-10-06 12:39] VITALS: BMI 23.3
[2024-10-06 13:52] VITALS: BP 141/79; PULSE 81; RESP 16; TEMP 36.4; O2SAT 100
[2024-10-06] MEDS: buPROPion SR (12 HR) 150 mg Tablet PO (15:24)
[2024-10-06 21:41] VITALS: BP 125/77; PULSE 72; RESP 18; TEMP 36.6; O2SAT 98
[2024-10-07 06:00] VITALS: BP 136/67; PULSE 64; RESP 18; TEMP 37.1; O2SAT 98
[2024-10-07] MEDS: lisinopril 5 mg Tablet PO (08:19)
[2024-10-07] MEDS: buPROPion XL (24 HR) 150 mg Tablet PO (08:19)
[2024-10-07] MEDS: amlodipine 5 mg Tablet 10 MG PO (08:19)
[2024-10-07] MEDS: apixaban 5 mg Tablet PO ×2 (08:19→21:18)
--- NOTE | 2024-10-07 09:33 | PC.NURSE ---
PT CURRENTLY DENIES SI/HI/AH/VH. PT CURRENTLY DENIES DEPRESSION AND ANXIETY. PT APPEARS TO BE SLIGHTLY CONFUSED ABOUT SITUATION. PT STATED SCHOOL JUST STARTED RIGHT? THIS WAS PT WAY OF DETERMINING THAT TODAY WAS SUNDAY. PT WAS ABLE TO STATE WHERE SHE WAS AND WHAT DAY AND YEAR IT IS ACCURATELY. PT WAS COOPERATIVE WITH ASSESSMENT AND MEDICATIONS. PT CURRENT NEEDS ARE MET AT THIS TIME.
[2024-10-07 14:00] VITALS: BP 108/62; PULSE 68; RESP 18; TEMP 36.6; O2SAT 98
--- NOTE | 2024-10-07 18:37 | P.NPUPN_ITS ---
Subjective NPU 2 Subjective: Patient presented today reporting that she is feeling okay. She denied any specific side effects to the Wellbutrin XL. Staff report of continued resistance to being here including being upset about the DNR being changed. She did not report any side effects to the medication. Mental Status Exam 2 MSE Comments: This is a well-nourished well-developed white female with adequate dress, grooming and eye contact. No abnormal movements except for mild psychomotor retardation. Cooperative with exam in mild to moderate distress. Speech was slightly decreased rate normal volume. Mood described as feeling better, affect slightly subdued. Thought process organized. Thought content: Patient denies suicidal or homicidal ideation but clearly acknowledged that this was a clear suicide attempt and went on to say that keeping her in the hospital cannot stop of her syndrome killing themselves if they really want to, there were no delusions reported or noted, she denied any auditory or visual hallucinations. Attention and concentration appear intact and memory appeared mostly reliable but no more formally tested. She is alert and oriented x 3. Insight, judgment and impulse control all appear impaired. Vitals/I&O/Wt Last Vital Signs Temp 98.7 F 10/07/24 20:31 Pulse 92 10/07/24 20:31 Resp 18 10/07/24 20:31 BP 146/80 10/07/24 20:31 Pulse Ox 96 10/07/24 20:31 O2 Del Method Room Air 10/07/24 20:31 O2 Flow Rate 2 10/02/24 20:00 FiO2 24 10/02/24 00:00 Weight last 48 hrs Weight 63.73 kg Physical Exam 2 Urinary Catheter Management: Dolan: Cath Placed During This Visit: yes, but has since been removed by the nurse Reason for Continuing Indwelling Catheter: Accurate Measurement of Urinary Output in Critically Ill Patients Date Urinary Catheter Removed: 10/04/24 Time Urinary Catheter Discontinued: 10:00 Data NPU 10/05/24 03:11 10/05/24 03:11 A&P Assessment and plan (1) Suicide attempt by multiple drug overdose: Qualifiers: Encounter type: initial encounter Qualified Code(s): T50.912A - Poisoning by multiple unspecified drugs, medicaments and biological substances, intentional self-harm, initial encounter (2) Bereavement: (3) Major depressive disorder, recurrent: Plan This is a 63-year-old female who was admitted initially to ICU on overdose who presented initially appearing confused and unable to answer questions with significant concerns about the patient's depression. She acknowledged the overdose as an active suicide attempt and continues to have resistance to engaging in treatment. 1. Continue current medications. Started Wellbutrin XL 150 mg po qam 2.??Switch to every 15 minute checks for safety once she reaches the unit. 3. Transferred to neuropsychiatric unit. 4. Obtain collateral information. 5. Encourage individual, group and milieu therapy. 6. 21-day hold paperwork filed. Involuntary Hold Information 2 Other Hold: Hold End Date: 10/07/24 Attestations NPU 2 Medical Necessity Statement*: Inpatient psychiatric hospitalization is medically necessary and the clinically appropriate intervention ?at this time. We will monitor/initiate medications and make changes as indicated.? The patient?s likely length of stay 6-9 days. Coding Level of Care Code Acute Code for Chg Fwd Diagnoses Suicide attempt by multiple drug overdose, initial encounter T50.912A Encounter type: initial encounter Bereavement Z63.4 Major depressive disorder, recurrent F33.9
[2024-10-07 20:31] VITALS: BP 146/80; PULSE 92; RESP 18; TEMP 37.1; O2SAT 96
[2024-10-08 06:00] VITALS: BP 130/76; PULSE 90; RESP 18; TEMP 36.9; O2SAT 94
[2024-10-08] MEDS: buPROPion XL (24 HR) 150 mg Tablet PO (08:17)
[2024-10-08] MEDS: apixaban 5 mg Tablet PO ×2 (08:17→21:49)
[2024-10-08] MEDS: lisinopril 5 mg Tablet PO (08:17)
[2024-10-08] MEDS: amlodipine 5 mg Tablet 10 MG PO (08:17)
[2024-10-08] MEDS: albuterol 2.5 mg/3 mL Neb INHALATION (09:13)
[2024-10-08 09:15] VITALS: PULSE 97; RESP 18; O2SAT 95
[2024-10-08 14:00] VITALS: BP 111/77; PULSE 97; RESP 17; TEMP 36.8; O2SAT 99
--- NOTE | 2024-10-08 17:59 | P.NPUPN_ITS ---
Subjective NPU 2 Subjective: Patient presented today reporting that she is doing okay. Most of her session talking about how she feels like she is going to lose everything and that she does not know why she has done this and why she continues to feel this way. She denied any side effects to the medication. Mental Status Exam 2 MSE Comments: This is a well-nourished well-developed white female with adequate dress, grooming and eye contact. No abnormal movements except for mild psychomotor retardation. Cooperative with exam in mild to moderate distress. Speech was slightly decreased rate normal volume. Mood described as feeling better, affect slightly subdued. Thought process organized. Thought content: Patient denies suicidal or homicidal ideation but clearly acknowledged that this was a clear suicide attempt and went on to say that keeping her in the hospital cannot stop of her syndrome killing themselves if they really want to, there were no delusions reported or noted, she denied any auditory or visual hallucinations. Attention and concentration appear intact and memory appeared mostly reliable but no more formally tested. She is alert and oriented x 3. Insight, judgment and impulse control all appear impaired. Vitals/I&O/Wt Last Vital Signs Temp 98.3 F 10/08/24 14:00 Pulse 97 10/08/24 14:00 Resp 17 10/08/24 14:00 BP 111/77 10/08/24 14:00 Pulse Ox 99 10/08/24 14:00 O2 Del Method Room Air 10/08/24 09:15 O2 Flow Rate 99 10/08/24 08:00 FiO2 24 10/02/24 00:00 Physical Exam 2 Urinary Catheter Management: Dolan: Cath Placed During This Visit: yes, but has since been removed by the nurse Reason for Continuing Indwelling Catheter: Accurate Measurement of Urinary Output in Critically Ill Patients Date Urinary Catheter Removed: 10/04/24 Time Urinary Catheter Discontinued: 10:00 Data NPU 10/05/24 03:11 10/05/24 03:11 A&P Assessment and plan (1) Suicide attempt by multiple drug overdose: Qualifiers: Encounter type: initial encounter Qualified Code(s): T50.912A - Poisoning by multiple unspecified drugs, medicaments and biological substances, intentional self-harm, initial encounter (2) Bereavement: (3) Major depressive disorder, recurrent: Plan This is a 63-year-old female who was admitted initially to ICU on overdose who presented initially appearing confused and unable to answer questions with significant concerns about the patient's depression. She acknowledged the overdose as an active suicide attempt and continues to have resistance to engaging in treatment. 1. Continue current medications. Started Wellbutrin XL 150 mg po qam 2.??Switch to every 15 minute checks for safety once she reaches the unit. 3. Transferred to neuropsychiatric unit. 4. Obtain collateral information. 5. Encourage individual, group and milieu therapy. 6. 21-day hold paperwork filed. The hearing was today and she was placed on a 21-day hold. Involuntary Hold Information 2 Other Hold: Hold End Date: 10/30/24 Attestations NPU 2 Medical Necessity Statement*: Inpatient psychiatric hospitalization is medically necessary and the clinically appropriate intervention ?at this time. We will monitor/initiate medications and make changes as indicated.? The patient?s likely length of stay 6-9 days. Coding Level of Care Code Acute Code for Chg Fwd Diagnoses Suicide attempt by multiple drug overdose, initial encounter T50.912A Encounter type: initial encounter Bereavement Z63.4 Major depressive disorder, recurrent F33.9
[2024-10-08 21:27] VITALS: BP 134/76; PULSE 94; RESP 18; TEMP 36.8; O2SAT 98
[2024-10-09 06:00] VITALS: BP 121/68; PULSE 90; RESP 18; TEMP 36.7; O2SAT 94
[2024-10-09] MEDS: lisinopril 5 mg Tablet PO (08:09)
[2024-10-09] MEDS: buPROPion XL (24 HR) 150 mg Tablet PO (08:09)
[2024-10-09] MEDS: amlodipine 5 mg Tablet 10 MG PO (08:09)
[2024-10-09] MEDS: apixaban 5 mg Tablet PO ×2 (08:09→21:40)
[2024-10-09 12:20] VITALS: PULSE 90; RESP 18; O2SAT 96
[2024-10-09] MEDS: albuterol 2.5 mg/3 mL Neb INHALATION (12:20)
[2024-10-09 12:58] VITALS: PULSE 86
[2024-10-09 14:00] VITALS: BP 94/63; PULSE 96; RESP 17; TEMP 36.6; O2SAT 100
[2024-10-09 19:36] VITALS: BP 120/75; PULSE 85; RESP 16; TEMP 36.3; O2SAT 100
--- NOTE | 2024-10-09 21:36 | P.NPUPN_ITS ---
Subjective NPU 2 Subjective: Patient presented today reporting that she is feeling fine but has been sleepy. She continues to have limited ability to clearly state that she will not proceed with any kind of suicidal behavior. She can at some level to speak to not planning on doing it at this time but being able to say that she does not want to do it still escapes her. She denied any side effects to the medication. Mental Status Exam 2 MSE Comments: This is a well-nourished well-developed white female with adequate dress, grooming and eye contact. No abnormal movements except for mild psychomotor retardation. Cooperative with exam in mild to moderate distress. Speech was slightly decreased rate normal volume. Mood described as feeling better, affect slightly subdued. Thought process organized. Thought content: Patient denies suicidal or homicidal ideation but clearly acknowledged that this was a clear suicide attempt and went on to say that keeping her in the hospital cannot stop of her syndrome killing themselves if they really want to, there were no delusions reported or noted, she denied any auditory or visual hallucinations. Attention and concentration appear intact and memory appeared mostly reliable but no more formally tested. She is alert and oriented x 3. Insight, judgment and impulse control all appear impaired. Vitals/I&O/Wt Last Vital Signs Temp 97.3 F L 10/09/24 19:36 Pulse 85 10/09/24 19:36 Resp 16 10/09/24 19:36 BP 120/75 10/09/24 19:36 Pulse Ox 100 10/09/24 19:36 O2 Del Method Room Air 10/09/24 12:20 O2 Flow Rate 99 10/09/24 08:00 FiO2 24 10/02/24 00:00 10/09/24 10/09/24 10/09/24 06:59 14:59 22:59 Intake Total 350 / 350 Output Total 1300 / 1300 Balance -950 / -950 Physical Exam 2 Urinary Catheter Management: Dolan: Cath Placed During This Visit: yes, but has since been removed by the nurse Reason for Continuing Indwelling Catheter: Accurate Measurement of Urinary Output in Critically Ill Patients Date Urinary Catheter Removed: 10/04/24 Time Urinary Catheter Discontinued: 10:00 Data NPU 10/05/24 03:11 10/05/24 03:11 A&P Assessment and plan (1) Suicide attempt by multiple drug overdose: Qualifiers: Encounter type: initial encounter Qualified Code(s): T50.912A - Poisoning by multiple unspecified drugs, medicaments and biological substances, intentional self-harm, initial encounter (2) Bereavement: (3) Major depressive disorder, recurrent: Plan This is a 63-year-old female who was admitted initially to ICU on overdose who presented initially appearing confused and unable to answer questions with significant concerns about the patient's depression. She acknowledged the overdose as an active suicide attempt and continues to have resistance to engaging in treatment. 1. Continue current medications. Started Wellbutrin XL 150 mg po qam 2.??Switch to every 15 minute checks for safety once she reaches the unit. 3. Transferred to neuropsychiatric unit. 4. Obtain collateral information. 5. Encourage individual, group and milieu therapy. 6. 21-day hold paperwork filed. The hearing was today and she was placed on a 21-day hold. Involuntary Hold Information 2 Other Hold: Hold End Date: 10/30/24 Attestations NPU 2 Medical Necessity Statement*: Inpatient psychiatric hospitalization is medically necessary and the clinically appropriate intervention ?at this time. We will monitor/initiate medications and make changes as indicated.? The patient?s likely length of stay 5-8 days. Coding Level of Care Code Acute Code for Chg Fwd Diagnoses Suicide attempt by multiple drug overdose, initial encounter T50.912A Encounter type: initial encounter Bereavement Z63.4 Major depressive disorder, recurrent F33.9
--- NOTE | 2024-10-10 02:26 | PC.NURSE ---
pt gave me her hearing aides and asked to put them on battery recharger in nurses station. charged aware
[2024-10-10 06:00] VITALS: BP 141/79; PULSE 89; RESP 16; TEMP 36.4; O2SAT 92
--- NOTE | 2024-10-10 07:36 | XR_ITS ---
WS: [id number] XR chest 1V portable [id number] REASON FOR EXAM: wheezing FINDINGS: Compared to 10/05/2024 the bilateral pleural effusions appear to be resolving. The overall increased opacity of the right lower hemithorax is felt to represent posteriorly layering pleural fluid and atelectasis in the right lower lung. No other interval change or new finding noted compared to 10/05/2024. XR/XR chest 1V portable [id number] IMPRESSION: Pleural effusions appear to be resolving compared to the previous examination. Increased opacity of the lower right hemithorax as above.
[2024-10-10] MEDS: amlodipine 5 mg Tablet 10 MG PO (08:16)
[2024-10-10] MEDS: apixaban 5 mg Tablet PO ×2 (08:16→21:38)
[2024-10-10] MEDS: lisinopril 5 mg Tablet PO (08:16)
[2024-10-10] MEDS: buPROPion XL (24 HR) 150 mg Tablet PO (08:16)
[2024-10-10 09:00] VITALS: O2SAT 92
--- NOTE | 2024-10-10 09:22 | P.NPUPN_ITS ---
Subjective NPU 2 Subjective: Patient presented today reporting she is wondering about her plan for discharge. We discussed continuing to monitor her and evaluate for safety. We allowed her mother to bring in her on an try to get some bills paid. We discussed whether or not an increase in the Wellbutrin is warranted. She reports feeling decreased appetite and some other somatic complaints including worries that her pneumonia is not resolving we agreed we would continue to evaluate the need for any medication change and we discussed the goal of possible discharge next week depending on her progress. Mental Status Exam 2 MSE Comments: This is a well-nourished well-developed white female with adequate dress, grooming and eye contact. No abnormal movements except for mild psychomotor retardation. Cooperative with exam in mild to moderate distress. Speech was slightly decreased rate normal volume. Mood described as feeling better, affect slightly subdued. Thought process organized. Thought content: Patient denies suicidal or homicidal ideation but clearly acknowledged that this was a clear suicide attempt and went on to say that keeping her in the hospital cannot stop of her syndrome killing themselves if they really want to, there were no delusions reported or noted, she denied any auditory or visual hallucinations. Attention and concentration appear intact and memory appeared mostly reliable but no more formally tested. She is alert and oriented x 3. Insight, judgment and impulse control all appear impaired. Vitals/I&O/Wt Last Vital Signs Temp 97.5 F L 10/10/24 06:00 Pulse 89 10/10/24 06:00 Resp 16 10/10/24 06:00 BP 141/79 10/10/24 06:00 Pulse Ox 92 10/10/24 06:00 O2 Del Method Room Air 10/09/24 12:20 O2 Flow Rate 99 10/09/24 08:00 FiO2 24 10/02/24 00:00 Physical Exam 2 Urinary Catheter Management: Dolan: Cath Placed During This Visit: yes, but has since been removed by the nurse Reason for Continuing Indwelling Catheter: Accurate Measurement of Urinary Output in Critically Ill Patients Date Urinary Catheter Removed: 10/04/24 Time Urinary Catheter Discontinued: 10:00 Data NPU 10/05/24 03:11 10/05/24 03:11 A&P Assessment and plan (1) Suicide attempt by multiple drug overdose: Qualifiers: Encounter type: initial encounter Qualified Code(s): T50.912A - Poisoning by multiple unspecified drugs, medicaments and biological substances, intentional self-harm, initial encounter (2) Bereavement: (3) Major depressive disorder, recurrent: Plan This is a 63-year-old female who was admitted initially to ICU on overdose who presented initially appearing confused and unable to answer questions with significant concerns about the patient's depression. She acknowledged the overdose as an active suicide attempt and continues to have resistance to engaging in treatment. 1. Continue current medications. Started Wellbutrin XL 150 mg po qam 2.??Switch to every 15 minute checks for safety once she reaches the unit. 3. Transferred to neuropsychiatric unit. 4. Obtain collateral information. 5. Encourage individual, group and milieu therapy. 6. 21-day hold paperwork filed. The hearing was today and she was placed on a 21-day hold. Involuntary Hold Information 2 Other Hold: Hold End Date: 10/30/24 Attestations NPU 2 Medical Necessity Statement*: Inpatient psychiatric hospitalization is medically necessary and the clinically appropriate intervention ?at this time. We will monitor/initiate medications and make changes as indicated.? The patient?s likely length of stay 4-8 days. Coding Level of Care Code Acute Code for Chg Fwd Diagnoses Suicide attempt by multiple drug overdose, initial encounter T50.912A Encounter type: initial encounter Bereavement Z63.4 Major depressive disorder, recurrent F33.9
[2024-10-10 14:00] VITALS: BP 127/74; PULSE 91; RESP 18; TEMP 36.6; O2SAT 95
[2024-10-10 20:14] VITALS: BP 145/67; PULSE 101; RESP 16; TEMP 36.3; O2SAT 93
[2024-10-11 06:30] VITALS: BP 132/75; PULSE 88; RESP 16; TEMP 36.9; O2SAT 93
[2024-10-11] MEDS: timolol 0.5% Op Soln 5 mL Btl 1 DROP EYE-BOTH ×2 (09:02→17:49)
[2024-10-11] MEDS: amlodipine 5 mg Tablet 10 MG PO (09:02)
[2024-10-11] MEDS: apixaban 5 mg Tablet PO ×2 (09:02→21:50)
[2024-10-11] MEDS: lisinopril 5 mg Tablet PO (09:02)
[2024-10-11] MEDS: buPROPion XL (24 HR) 150 mg Tablet PO (09:02)
--- NOTE | 2024-10-11 09:23 | P.NPUPN_ITS ---
Subjective NPU 2 Subjective: Patient presented today reporting that she is doing okay. She reports that she is not having much of an appetite which she wonders if that is related to the Wellbutrin or if it is related to her antibiotic. We discussed the risks, benefits and alternatives of considering a probiotic given she has been on the antibiotics for a a while now and she understood and agreed to proceed as is documented in this note. We also discussed her recent chest x-ray which does not reflect a clear or identifiable abnormality or pneumonia as she continues to feel like she has not cleared her breathing difficulties yet. Mental Status Exam 2 MSE Comments: This is a well-nourished well-developed white female with adequate dress, grooming and eye contact. No abnormal movements except for mild psychomotor retardation. Cooperative with exam in mild distress. Speech was slightly decreased rate normal volume. Mood described as feeling better, affect slightly subdued. Thought process organized. Thought content: Patient denies suicidal or homicidal ideation but clearly acknowledged that this was a clear suicide attempt and went on to say that keeping her in the hospital cannot stop someone from killing themselves if they really want to, there were no delusions reported or noted, she denied any auditory or visual hallucinations. Attention and concentration appear intact and memory appeared mostly reliable but no more formally tested. She is alert and oriented x 3. Insight, judgment and impulse control all appear impaired. Vitals/I&O/Wt Last Vital Signs Temp 98.5 F 10/11/24 06:30 Pulse 88 10/11/24 06:30 Resp 16 10/11/24 06:30 BP 132/75 10/11/24 06:30 Pulse Ox 93 10/11/24 06:30 O2 Del Method Room Air 10/10/24 09:00 O2 Flow Rate 99 10/09/24 08:00 FiO2 24 10/02/24 00:00 Physical Exam 2 Urinary Catheter Management: Dolan: Cath Placed During This Visit: yes, but has since been removed by the nurse Reason for Continuing Indwelling Catheter: Accurate Measurement of Urinary Output in Critically Ill Patients Date Urinary Catheter Removed: 10/04/24 Time Urinary Catheter Discontinued: 10:00 Data NPU 10/05/24 03:11 10/05/24 03:11 A&P Assessment and plan (1) Suicide attempt by multiple drug overdose: Qualifiers: Encounter type: initial encounter Qualified Code(s): T50.912A - Poisoning by multiple unspecified drugs, medicaments and biological substances, intentional self-harm, initial encounter (2) Bereavement: (3) Major depressive disorder, recurrent: Plan This is a 63-year-old female who was admitted initially to ICU on overdose who presented initially appearing confused and unable to answer questions with significant concerns about the patient's depression. She acknowledged the overdose as an active suicide attempt and continues to have resistance to engaging in treatment. 1. Continue current medications. Started Wellbutrin XL 150 mg po qam 2.??Switch to every 15 minute checks for safety once she reaches the unit. 3. Transferred to neuropsychiatric unit. 4. Obtain collateral information. 5. Encourage individual, group and milieu therapy. 6. 21-day hold paperwork filed. Patient on a 21-day hold. Involuntary Hold Information 2 Other Hold: Hold End Date: 10/30/24 Attestations NPU 2 Medical Necessity Statement*: Inpatient psychiatric hospitalization is medically necessary and the clinically appropriate intervention ?at this time. We will monitor/initiate medications and make changes as indicated.? The patient?s likely length of stay 3-7 days. Coding Level of Care Code Acute Code for Chg Fwd Diagnoses Suicide attempt by multiple drug overdose, initial encounter T50.912A Encounter type: initial encounter Bereavement Z63.4 Major depressive disorder, recurrent F33.9
[2024-10-11 12:03] VITALS: BMI 20.8
[2024-10-11 14:00] VITALS: BP 129/71; PULSE 79; RESP 17; O2SAT 100
[2024-10-11] MEDS: lactobacillus 1 Tablet 1 TAB PO (17:52)
[2024-10-11 20:27] VITALS: BP 120/60; PULSE 62; RESP 16; TEMP 37; O2SAT 96
[2024-10-12 06:00] VITALS: BP 132/80; PULSE 77; RESP 16; O2SAT 94
[2024-10-12] MEDS: ondansetron 4 MG Tablet PO (09:06)
[2024-10-12] MEDS: loperamide 2 mg Capsule PO (09:06)
[2024-10-12] MEDS: apixaban 5 mg Tablet PO ×2 (11:15→21:48)
[2024-10-12] MEDS: buPROPion XL (24 HR) 150 mg Tablet PO (11:15)
[2024-10-12] MEDS: timolol 0.5% Op Soln 5 mL Btl 1 DROP EYE-BOTH ×2 (11:16→17:49)
--- NOTE | 2024-10-12 11:26 | PC.NURSE ---
pt refused amlodipine and lisinopril this morning.
--- NOTE | 2024-10-12 12:06 | P.NPUPN_ITS ---
Subjective NPU 2 Subjective: Patient presented today reporting that she is feeling better. She is being less isolative per staff reports and direct observation. She seems to be demonstrating more personality and engagement per staff reports and direct conversation. She is more open to conversations about her maintaining her life and figuring out how to exist in this world without her . We discussed the likelihood of discharge by Sunday. She denied effects of the medication. Mental Status Exam 2 MSE Comments: This is a well-nourished well-developed white female with adequate dress, grooming and eye contact. No abnormal movements except for mild psychomotor retardation. Cooperative with exam in mild distress. Speech was slightly decreased rate normal volume. Mood described as feeling better, affect slightly subdued. Thought process organized. Thought content: Patient denies suicidal or homicidal ideation but clearly acknowledged that this was a clear suicide attempt and went on to say that keeping her in the hospital cannot stop someone from killing themselves if they really want to, there were no delusions reported or noted, she denied any auditory or visual hallucinations. Attention and concentration appear intact and memory appeared mostly reliable but no more formally tested. She is alert and oriented x 3. Insight, judgment and impulse control all appear impaired. Vitals/I&O/Wt Last Vital Signs Temp 98.6 F 10/11/24 20:27 Pulse 77 10/12/24 06:00 Resp 16 10/12/24 06:00 BP 132/80 10/12/24 06:00 Pulse Ox 94 10/12/24 06:00 O2 Del Method Room Air 10/11/24 14:00 O2 Flow Rate 99 10/09/24 08:00 FiO2 24 10/02/24 00:00 Weight last 48 hrs Weight 56.699 kg Weight 56.756 kg Physical Exam 2 Urinary Catheter Management: Dolan: Cath Placed During This Visit: yes, but has since been removed by the nurse Reason for Continuing Indwelling Catheter: Accurate Measurement of Urinary Output in Critically Ill Patients Date Urinary Catheter Removed: 10/04/24 Time Urinary Catheter Discontinued: 10:00 Data NPU 10/05/24 03:11 10/05/24 03:11 A&P Assessment and plan (1) Suicide attempt by multiple drug overdose: Qualifiers: Encounter type: initial encounter Qualified Code(s): T50.912A - Poisoning by multiple unspecified drugs, medicaments and biological substances, intentional self-harm, initial encounter (2) Bereavement: (3) Major depressive disorder, recurrent: Plan This is a 63-year-old female who was admitted initially to ICU on overdose who presented initially appearing confused and unable to answer questions with significant concerns about the patient's depression. She acknowledged the overdose as an active suicide attempt and continues to have resistance to engaging in treatment. 1. Continue current medications. Started Wellbutrin XL 150 mg po qam 2.??Continue every 15 minute checks for safety. 3. Transferred to neuropsychiatric unit. 4. Obtain collateral information. 5. Encourage individual, group and milieu therapy. 6. 21-day hold paperwork filed. Patient on a 21-day hold. 7. Patient showing some improvement and seeming more future oriented. Involuntary Hold Information 2 Other Hold: Hold End Date: 10/30/24 Attestations NPU 2 Medical Necessity Statement*: Inpatient psychiatric hospitalization is medically necessary and the clinically appropriate intervention ?at this time. We will monitor/initiate medications and make changes as indicated.? The patient?s likely length of stay 3-6 days. Coding Level of Care Code Acute Code for Chg Fwd Diagnoses Suicide attempt by multiple drug overdose, initial encounter T50.912A Encounter type: initial encounter Bereavement Z63.4 Major depressive disorder, recurrent F33.9
[2024-10-12 14:00] VITALS: BP 135/71; PULSE 78; RESP 14; TEMP 36.7; O2SAT 97
[2024-10-12] MEDS: blistex lip oint 7 gm Tube 1 APPLIC TOPICAL (14:04)
[2024-10-12] MEDS: latanoprost 0.005% Op Soln 2.5 mL Btl 1 DROP EYE-RIGHT (17:49)
[2024-10-12 19:49] VITALS: BP 110/71; PULSE 67; RESP 16; TEMP 36.1; O2SAT 95
[2024-10-13 06:15] VITALS: BP 137/79; PULSE 70; RESP 16; TEMP 36.3; O2SAT 91
[2024-10-13] MEDS: timolol 0.5% Op Soln 5 mL Btl 1 DROP EYE-BOTH ×2 (08:36→18:01)
[2024-10-13] MEDS: apixaban 5 mg Tablet PO ×2 (08:37→20:31)
[2024-10-13] MEDS: amlodipine 5 mg Tablet 10 MG PO (08:37)
[2024-10-13] MEDS: buPROPion XL (24 HR) 150 mg Tablet PO (08:37)
[2024-10-13] MEDS: lactobacillus 1 Tablet 1 TAB PO (08:38)
[2024-10-13] MEDS: lisinopril 5 mg Tablet PO (08:38)
[2024-10-13 14:00] VITALS: BP 150/88; PULSE 70; RESP 16; TEMP 36.6; O2SAT 98
--- NOTE | 2024-10-13 16:12 | P.NPUPN_ITS ---
Subjective NPU 2 Subjective: Patient presented today reporting that she is doing fine. She reports that she feels like she is ready to go home and that she is just being tired and may be more depressed about being here. She asked questions about the DNR again. We discussed the fact that that continues to raise a concern for people that she is trying to have herself as a DO NOT RESUSCITATE at 63 years old with no significant medical problems. She continues to assure this life insurance underwriter that she has no intention of attempting to hurt himself again. She denies any side effects of the medication. Mental Status Exam 2 MSE Comments: This is a well-nourished well-developed white female with adequate dress, grooming and eye contact. No abnormal movements except for mild psychomotor retardation. Cooperative with exam in mild distress. Speech was slightly decreased rate normal volume. Mood described as feeling better, affect slightly subdued. Thought process organized. Thought content: Patient denies suicidal or homicidal ideation but clearly acknowledged that this was a clear suicide attempt and went on to say that keeping her in the hospital cannot stop someone from killing themselves if they really want to, there were no delusions reported or noted, she denied any auditory or visual hallucinations. Attention and concentration appear intact and memory appeared mostly reliable but no more formally tested. She is alert and oriented x 3. Insight, judgment and impulse control all appear impaired. Vitals/I&O/Wt Last Vital Signs Temp 97.9 F 10/13/24 14:00 Pulse 70 10/13/24 14:00 Resp 16 10/13/24 14:00 BP 150/88 10/13/24 14:00 Pulse Ox 98 10/13/24 14:00 O2 Del Method Room Air 10/12/24 14:00 O2 Flow Rate 99 10/09/24 08:00 FiO2 24 10/02/24 00:00 10/13/24 10/13/24 10/13/24 06:59 14:59 22:59 Intake Total 350 / 350 Output Total 1300 / 1300 Balance -950 / -950 Weight last 48 hrs Weight 56.699 kg Physical Exam 2 Urinary Catheter Management: Dolan: Cath Placed During This Visit: yes, but has since been removed by the nurse Reason for Continuing Indwelling Catheter: Accurate Measurement of Urinary Output in Critically Ill Patients Date Urinary Catheter Removed: 10/04/24 Time Urinary Catheter Discontinued: 10:00 Data NPU 10/05/24 03:11 10/05/24 03:11 A&P Assessment and plan (1) Suicide attempt by multiple drug overdose: Qualifiers: Encounter type: initial encounter Qualified Code(s): T50.912A - Poisoning by multiple unspecified drugs, medicaments and biological substances, intentional self-harm, initial encounter (2) Bereavement: (3) Major depressive disorder, recurrent: Plan This is a 63-year-old female who was admitted initially to ICU on overdose who presented initially appearing confused and unable to answer questions with significant concerns about the patient's depression. She acknowledged the overdose as an active suicide attempt and continues to have resistance to engaging in treatment. 1. Continue current medications. Started Wellbutrin XL 150 mg po qam 2.??Continue every 15 minute checks for safety. 3. Transferred to neuropsychiatric unit. 4. Obtain collateral information. 5. Encourage individual, group and milieu therapy. 6. 21-day hold paperwork filed. Patient on a 21-day hold. 7. Patient showing some improvement and seeming more future oriented. Involuntary Hold Information 2 Other Hold: Hold End Date: 10/30/24 Attestations NPU 2 Medical Necessity Statement*: Inpatient psychiatric hospitalization is medically necessary and the clinically appropriate intervention ?at this time. We will monitor/initiate medications and make changes as indicated.? The patient?s likely length of stay 2-5 days. Coding Level of Care Code Acute Code for Chg Fwd Diagnoses Suicide attempt by multiple drug overdose, initial encounter T50.912A Encounter type: initial encounter Bereavement Z63.4 Major depressive disorder, recurrent F33.9
[2024-10-13] MEDS: latanoprost 0.005% Op Soln 2.5 mL Btl 1 DROP EYE-RIGHT (18:02)
--- NOTE | 2024-10-13 18:10 | PC.NURSE ---
refused scheduled Lactobacillus, says it gives her diarrhea
[2024-10-13] MEDS: trazodone 50 mg Tablet PO (20:31)
[2024-10-13 21:05] VITALS: BP 119/72; PULSE 66; RESP 16; TEMP 36.6; O2SAT 98
[2024-10-14 06:00] VITALS: BP 128/63; PULSE 69; RESP 18; TEMP 36.6; O2SAT 96
[2024-10-14] MEDS: lisinopril 5 mg Tablet PO (10:22)
[2024-10-14] MEDS: apixaban 5 mg Tablet PO ×2 (10:23→20:36)
[2024-10-14] MEDS: buPROPion XL (24 HR) 150 mg Tablet PO (10:23)
[2024-10-14] MEDS: amlodipine 5 mg Tablet 10 MG PO (10:23)
[2024-10-14] MEDS: timolol 0.5% Op Soln 5 mL Btl 1 DROP EYE-BOTH ×2 (10:24→17:26)
[2024-10-14 14:00] VITALS: RESP 15
--- NOTE | 2024-10-14 15:12 | P.NPUPN_ITS ---
Subjective NPU 2 Subjective: Patient presented today reporting that he is doing okay with being discharged hopefully by Sunday. We did discuss however concerns about her not being ready for this transition back to home alone. She continues to show very poor insight per staff reports and direct observation. She denied any side effects of the medication. Mental Status Exam 2 MSE Comments: This is a well-nourished well-developed white female with adequate dress, grooming and eye contact. No abnormal movements except for mild psychomotor retardation. Cooperative with exam in mild distress. Speech was slightly decreased rate normal volume. Mood described as feeling better, affect slightly subdued. Thought process organized. Thought content: Patient denies suicidal or homicidal ideation but clearly acknowledged that this was a clear suicide attempt and went on to say that keeping her in the hospital cannot stop someone from killing themselves if they really want to, there were no delusions reported or noted, she denied any auditory or visual hallucinations. Attention and concentration appear intact and memory appeared mostly reliable but no more formally tested. She is alert and oriented x 3. Insight, judgment and impulse control all appear impaired. Vitals/I&O/Wt Last Vital Signs Temp 97.9 F 10/14/24 06:00 Pulse 69 10/14/24 06:00 Resp 18 10/14/24 06:00 BP 128/63 10/14/24 06:00 Pulse Ox 96 10/14/24 06:00 O2 Del Method Room Air 10/14/24 06:00 O2 Flow Rate 99 10/09/24 08:00 FiO2 24 10/02/24 00:00 10/14/24 10/14/24 10/14/24 06:59 14:59 22:59 Intake Total 350 / 350 Output Total 1300 / 1300 Balance -950 / -950 Physical Exam 2 Urinary Catheter Management: Dolan: Cath Placed During This Visit: yes, but has since been removed by the nurse Reason for Continuing Indwelling Catheter: Accurate Measurement of Urinary Output in Critically Ill Patients Date Urinary Catheter Removed: 10/04/24 Time Urinary Catheter Discontinued: 10:00 Data NPU 10/05/24 03:11 10/05/24 03:11 Micro: Microbiology 09/29/24 09:25 Blood Culture - Preliminary Blood NEGATIVE TO DATE 09/29/24 09:25 Blood Culture - Preliminary Blood NEGATIVE TO DATE Microbiology 09/29/24 09:25 Blood Blood Culture - Preliminary NEGATIVE TO DATE 09/29/24 09:25 Blood Blood Culture - Preliminary NEGATIVE TO DATE A&P Assessment and plan (1) Suicide attempt by multiple drug overdose: Qualifiers: Encounter type: initial encounter Qualified Code(s): T50.912A - Poisoning by multiple unspecified drugs, medicaments and biological substances, intentional self-harm, initial encounter (2) Bereavement: (3) Major depressive disorder, recurrent: Plan This is a 63-year-old female who was admitted initially to ICU on overdose who presented initially appearing confused and unable to answer questions with significant concerns about the patient's depression. She acknowledged the overdose as an active suicide attempt and continues to have resistance to engaging in treatment. 1. Continue current medications. Started Wellbutrin XL 150 mg po qam 2.??Continue every 15 minute checks for safety. 3. Transferred to neuropsychiatric unit. 4. Obtain collateral information. 5. Encourage individual, group and milieu therapy. 6. 21-day hold paperwork filed. Patient on a 21-day hold. 7. Patient continues to struggle with being able to give a convincing report of safety and having no lethality and being focused on being able to go home but it is unclear whether she is safe for discharge at this time. Involuntary Hold Information 2 Other Hold: Hold End Date: 10/30/24 Attestations NPU 2 Medical Necessity Statement*: Inpatient psychiatric hospitalization is medically necessary and the clinically appropriate intervention ?at this time. We will monitor/initiate medications and make changes as indicated.? The patient?s likely length of stay 2-5 days. Coding Level of Care Code Acute Code for [facility] Fwd Diagnoses Suicide attempt by multiple drug overdose, initial encounter T50.912A Encounter type: initial encounter Bereavement Z63.4 Major depressive disorder, recurrent F33.9
[2024-10-14] MEDS: latanoprost 0.005% Op Soln 2.5 mL Btl 1 DROP EYE-RIGHT (17:26)
--- NOTE | 2024-10-14 18:45 | PC.NURSE ---
This nurse removed wound dressing from patient's upper and inner arm, from PICC line insertion. Area is normal skin color and is healed. No swelling, redness, or foul odors. This nurse also removed a dressing from patient's left outer and upper arm. Area appears healthy in color. Scabbing noted, along with new skin development. Patient denies pain. Area has a large bump, approximately the size of a silver dollar, below the surface of the wound. No foul odors detected. No bleeding.
[2024-10-14 21:00] VITALS: BP 154/77; PULSE 73; RESP 18; TEMP 36.8; O2SAT 96
[2024-10-15 06:00] VITALS: BP 133/75; PULSE 74; RESP 16; TEMP 36.7; O2SAT 93
[2024-10-15] MEDS: timolol 0.5% Op Soln 5 mL Btl 1 DROP EYE-BOTH ×2 (08:26→17:29)
[2024-10-15] MEDS: amlodipine 5 mg Tablet 10 MG PO (08:26)
[2024-10-15] MEDS: lisinopril 5 mg Tablet PO (08:26)
[2024-10-15] MEDS: buPROPion XL (24 HR) 150 mg Tablet PO (08:26)
[2024-10-15] MEDS: apixaban 5 mg Tablet PO ×2 (08:27→21:21)
--- NOTE | 2024-10-15 09:04 | P.NPUPN_ITS ---
Subjective NPU 2 Subjective: Patient presented today reporting that she is doing all right. We continue to discuss concerns about her safety and the continued since by many that she still has some wishes and suicidal thoughts. We discussed her seeming unable to really embrace a position of not having plans to harm herself. She expressed an openness to figure out why people were feeling that way. We discussed the tentative plan to allow Dr. Henriquez to see her again and to consider discharge after evaluating her with fresh eyes. She expressed some frustration about not discharging sooner but seem to understand the concerns about her safety. She denied any side effects to the medication. Mental Status Exam 2 MSE Comments: This is a well-nourished well-developed white female with adequate dress, grooming and eye contact. No abnormal movements except for mild psychomotor retardation. Cooperative with exam in mild distress. Speech was slightly decreased rate normal volume. Mood described as feeling better, affect slightly subdued. Thought process organized. Thought content: Patient denies suicidal or homicidal ideation but clearly acknowledged that this was a clear suicide attempt and went on to say that keeping her in the hospital cannot stop someone from killing themselves if they really want to, there were no delusions reported or noted, she denied any auditory or visual hallucinations. Attention and concentration appear intact and memory appeared mostly reliable but no more formally tested. She is alert and oriented x 3. Insight, judgment and impulse control all appear impaired. Vitals/I&O/Wt Last Vital Signs Temp 98.0 F 10/15/24 06:00 Pulse 74 10/15/24 06:00 Resp 16 10/15/24 06:00 BP 133/75 10/15/24 06:00 Pulse Ox 93 10/15/24 06:00 O2 Del Method Room Air 10/15/24 06:00 O2 Flow Rate 99 10/09/24 08:00 FiO2 24 10/02/24 00:00 Physical Exam 2 Urinary Catheter Management: Dolan: Cath Placed During This Visit: yes, but has since been removed by the nurse Reason for Continuing Indwelling Catheter: Accurate Measurement of Urinary Output in Critically Ill Patients Date Urinary Catheter Removed: 10/04/24 Time Urinary Catheter Discontinued: 10:00 Data NPU 10/05/24 03:11 10/05/24 03:11 A&P Assessment and plan (1) Suicide attempt by multiple drug overdose: Qualifiers: Encounter type: initial encounter Qualified Code(s): T50.912A - Poisoning by multiple unspecified drugs, medicaments and biological substances, intentional self-harm, initial encounter (2) Bereavement: (3) Major depressive disorder, recurrent: Plan This is a 63-year-old female who was admitted initially to ICU on overdose who presented initially appearing confused and unable to answer questions with significant concerns about the patient's depression. She acknowledged the overdose as an active suicide attempt and continues to have resistance to engaging in treatment. 1. Continue current medications. Started Wellbutrin XL 150 mg po qam 2.??Continue every 15 minute checks for safety. 3. Transferred to neuropsychiatric unit. 4. Obtain collateral information. 5. Encourage individual, group and milieu therapy. 6. 21-day hold paperwork filed. Patient on a 21-day hold. 7. Patient continues to struggle with being able to give a convincing report of safety and having no lethality and being focused on being able to go home but it is unclear whether she is safe for discharge at this time. We continue to discuss this grave concern and the likelihood that at this point this medical technical writer will defer her discharged after Dr. Henriquez returns on Sunday in a proxy second opinion. She was more able to have a conversation today about the concerns and the reason that discharge is likely later than sooner. Talk about concerns about her discontinuing her interactions with her family. She identified that others have the same concern and she is trying to accept her situation. Involuntary Hold Information 2 Other Hold: Hold End Date: 10/30/24 Attestations NPU 2 Medical Necessity Statement*: Inpatient psychiatric hospitalization is medically necessary and the clinically appropriate intervention ?at this time. We will monitor/initiate medications and make changes as indicated.? The patient?s likely length of stay 2-5 days. Coding Level of Care Code Acute Code for Chg Fwd Diagnoses Suicide attempt by multiple drug overdose, initial encounter T50.912A Encounter type: initial encounter Bereavement Z63.4 Major depressive disorder, recurrent F33.9
[2024-10-15 14:00] VITALS: BP 147/89; PULSE 61; RESP 18; TEMP 36.3; O2SAT 98
--- NOTE | 2024-10-15 15:19 | PC.NURSE ---
refused scheduled [facility]
[2024-10-15] MEDS: latanoprost 0.005% Op Soln 2.5 mL Btl 1 DROP EYE-RIGHT (17:29)
[2024-10-15 20:26] VITALS: BP 116/72; PULSE 68; RESP 17; TEMP 36.7; O2SAT 96
[2024-10-15] MEDS: loperamide 2 mg Capsule PO (21:21)
[2024-10-16 06:00] VITALS: BP 119/73; PULSE 66; RESP 15; TEMP 36.7; O2SAT 96
[2024-10-16] MEDS: apixaban 5 mg Tablet PO ×2 (08:28→21:18)
[2024-10-16] MEDS: amlodipine 5 mg Tablet 10 MG PO (08:28)
[2024-10-16] MEDS: lisinopril 5 mg Tablet PO (08:28)
[2024-10-16] MEDS: buPROPion XL (24 HR) 150 mg Tablet PO (08:28)
[2024-10-16] MEDS: timolol 0.5% Op Soln 5 mL Btl 1 DROP EYE-BOTH ×2 (08:29→17:32)
[2024-10-16 14:00] VITALS: BP 117/62; PULSE 68; RESP 18; TEMP 36.3; O2SAT 97
--- NOTE | 2024-10-16 14:35 | P.NPUPN_ITS ---
Subjective NPU 2 Subjective: Patient presented today reporting that she is feeling better. She spent much of the time asking what she needed to do to get this job specification writer to buy into the fact that she is not going to repeat the behavior that led to her hospitalization. We discussed it was important for her to be a participant on the unit and that she is lying in bed only for there is the opinion that she is still stuck in a rut. We discussed the fact that Dr. Henriquez will be back on Sunday and that there was a greater likelihood we would allow him to see her and render a second opinion that her be discharged on Sunday. She denied any side effects of the medication. She also seem to focus very heavily on the fact that she is now down to 112 pounds. She reports at 1 point she was reported as weighing 130 pounds which was heavy for her and we discussed the importance of her not getting on a contest of how much she weighs. Mental Status Exam 2 MSE Comments: This is a well-nourished well-developed white female with adequate dress, grooming and eye contact. No abnormal movements except for mild psychomotor retardation. Cooperative with exam in mild distress. Speech was slightly decreased rate normal volume. Mood described as feeling better, affect slightly subdued. Thought process organized. Thought content: Patient denies suicidal or homicidal ideation but clearly acknowledged that this was a clear suicide attempt and went on to say that keeping her in the hospital cannot stop someone from killing themselves if they really want to, there were no delusions reported or noted, she denied any auditory or visual hallucinations. Attention and concentration appear intact and memory appeared mostly reliable but no more formally tested. She is alert and oriented x 3. Insight, judgment and impulse control all appear impaired. Vitals/I&O/Wt Last Vital Signs Temp 98.0 F 10/16/24 06:00 Pulse 66 10/16/24 06:00 Resp 15 10/16/24 06:00 BP 119/73 10/16/24 06:00 Pulse Ox 96 10/16/24 06:00 O2 Del Method Room Air 10/16/24 10:38 O2 Flow Rate 99 10/09/24 08:00 FiO2 24 10/02/24 00:00 Physical Exam 2 Urinary Catheter Management: Dolan: Cath Placed During This Visit: yes, but has since been removed by the nurse Reason for Continuing Indwelling Catheter: Accurate Measurement of Urinary Output in Critically Ill Patients Date Urinary Catheter Removed: 10/04/24 Time Urinary Catheter Discontinued: 10:00 Data NPU 10/05/24 03:11 10/05/24 03:11 A&P Assessment and plan (1) Suicide attempt by multiple drug overdose: Qualifiers: Encounter type: initial encounter Qualified Code(s): T50.912A - Poisoning by multiple unspecified drugs, medicaments and biological substances, intentional self-harm, initial encounter (2) Bereavement: (3) Major depressive disorder, recurrent: Plan This is a 63-year-old female who was admitted initially to ICU on overdose who presented initially appearing confused and unable to answer questions with significant concerns about the patient's depression. She acknowledged the overdose as an active suicide attempt and continues to have resistance to engaging in treatment. 1. Continue current medications. Started Wellbutrin XL 150 mg po qam 2.??Continue every 15 minute checks for safety. 3. Transferred to neuropsychiatric unit. 4. Obtain collateral information. 5. Encourage individual, group and milieu therapy. 6. 21-day hold paperwork filed. Patient on a 21-day hold. 7. Patient continues to struggle with being able to give a convincing report of safety and having no lethality and being focused on being able to go home but it is unclear whether she is safe for discharge at this time. We continue to discuss this grave concern and the likelihood that at this point this job specification writer will defer her discharged after Dr. Henriquez returns on Sunday in a proxy second opinion. She was more able to have a conversation today about the concerns and the reason that discharge is likely later than sooner. Talk about concerns about her discontinuing her interactions with her family. She identified that others have the same concern and she is trying to accept her situation. Involuntary Hold Information 2 Other Hold: Hold End Date: 10/29/24 Attestations NPU 2 Medical Necessity Statement*: Inpatient psychiatric hospitalization is medically necessary and the clinically appropriate intervention ?at this time. We will monitor/initiate medications and make changes as indicated.? The patient?s likely length of stay 2-5 days. Coding Level of Care Code Acute Code for Chg Fwd Diagnoses Suicide attempt by multiple drug overdose, initial encounter T50.912A Encounter type: initial encounter Bereavement Z63.4 Major depressive disorder, recurrent F33.9
[2024-10-16] MEDS: latanoprost 0.005% Op Soln 2.5 mL Btl 1 DROP EYE-RIGHT (17:32)
[2024-10-16 20:56] VITALS: BP 145/67; PULSE 77; RESP 17; TEMP 36.4; O2SAT 98
[2024-10-16] MEDS: loperamide 2 mg Capsule PO (21:18)
[2024-10-17 06:00] VITALS: BP 119/70; PULSE 73; RESP 16; TEMP 36.7; O2SAT 96
[2024-10-17] MEDS: lisinopril 5 mg Tablet PO (09:40)
[2024-10-17] MEDS: timolol 0.5% Op Soln 5 mL Btl 1 DROP EYE-BOTH ×2 (09:40→17:28)
[2024-10-17] MEDS: apixaban 5 mg Tablet PO ×2 (09:40→21:14)
[2024-10-17] MEDS: amlodipine 5 mg Tablet 10 MG PO (09:40)
[2024-10-17] MEDS: buPROPion XL (24 HR) 150 mg Tablet PO (09:40)
--- NOTE | 2024-10-17 09:59 | P.NPUPN_ITS ---
Subjective NPU 2 Subjective: Patient presented today reporting that she is feeling all right. She once again was inquiring about when she might leave and how she can manage herself while she is here. We discussed the importance of her participating on the unit and not just lying in bed. She has become more open about her life and her situation with her . She talked about how before he got sick [place] and would be gone 3 weeks at home for a week and how she was totally fine with that. We discussed the likelihood that she might discharge at the beginning of the week. She denied any side effects to the medication. Mental Status Exam 2 MSE Comments: This is a well-nourished well-developed white female with adequate dress, grooming and eye contact. No abnormal movements except for mild psychomotor retardation. Cooperative with exam in mild distress. Speech was slightly decreased rate normal volume. Mood described as feeling better, affect slightly subdued. Thought process organized. Thought content: Patient denies suicidal or homicidal ideation but clearly acknowledged that this was a clear suicide attempt and went on to say that keeping her in the hospital cannot stop someone from killing themselves if they really want to, there were no delusions reported or noted, she denied any auditory or visual hallucinations. Attention and concentration appear intact and memory appeared mostly reliable but no more formally tested. She is alert and oriented x 3. Insight, judgment and impulse control all appear impaired. Vitals/I&O/Wt Last Vital Signs Temp 98.1 F 10/17/24 06:00 Pulse 73 10/17/24 06:00 Resp 16 10/17/24 06:00 BP 119/70 10/17/24 06:00 Pulse Ox 96 10/17/24 06:00 O2 Del Method Room Air 10/17/24 06:00 O2 Flow Rate 99 10/09/24 08:00 FiO2 24 10/02/24 00:00 10/16/24 10/17/24 10/17/24 22:59 06:59 14:59 Output Total 1300 / 1300 Balance -1300 / -1300 Physical Exam 2 Urinary Catheter Management: Dolan: Cath Placed During This Visit: yes, but has since been removed by the nurse Reason for Continuing Indwelling Catheter: Accurate Measurement of Urinary Output in Critically Ill Patients Date Urinary Catheter Removed: 10/04/24 Time Urinary Catheter Discontinued: 10:00 Data NPU 10/05/24 03:11 10/05/24 03:11 A&P Assessment and plan (1) Suicide attempt by multiple drug overdose: Qualifiers: Encounter type: initial encounter Qualified Code(s): T50.912A - Poisoning by multiple unspecified drugs, medicaments and biological substances, intentional self-harm, initial encounter (2) Bereavement: (3) Major depressive disorder, recurrent: Plan This is a 63-year-old female who was admitted initially to ICU on overdose who presented initially appearing confused and unable to answer questions with significant concerns about the patient's depression. She acknowledged the overdose as an active suicide attempt and continues to have resistance to engaging in treatment. 1. Continue current medications. Started Wellbutrin XL 150 mg po qam 2.??Continue every 15 minute checks for safety. 3. Transferred to neuropsychiatric unit. 4. Obtain collateral information. 5. Encourage individual, group and milieu therapy. 6. 21-day hold paperwork filed. Patient on a 21-day hold. 7. Patient continues to struggle with being able to give a convincing report of safety and having no lethality and being focused on being able to go home but it is unclear whether she is safe for discharge at this time. We continue to discuss this grave concern and the likelihood that at this point this procedure writer will defer her discharged after Dr. Henriquez returns on Sunday in a proxy second opinion. She was more able to have a conversation today about the concerns and the reason that discharge is likely later than sooner. Talk about concerns about her discontinuing her interactions with her family. She identified that others have the same concern and she is trying to accept her situation. Involuntary Hold Information 2 Other Hold: Hold End Date: 10/29/24 Attestations NPU 2 Medical Necessity Statement*: Inpatient psychiatric hospitalization is medically necessary and the clinically appropriate intervention ?at this time. We will monitor/initiate medications and make changes as indicated.? The patient?s likely length of stay 2-5 days. Coding Level of Care Code Acute Code for Chg Fwd Diagnoses Suicide attempt by multiple drug overdose, initial encounter T50.912A Encounter type: initial encounter Bereavement Z63.4 Major depressive disorder, recurrent F33.9
[2024-10-17 14:00] VITALS: BP 120/80; PULSE 71; RESP 18; TEMP 36.3; O2SAT 97
[2024-10-17 15:08] VITALS: PULSE 75; RESP 18; O2SAT 99
[2024-10-17] MEDS: blistex lip oint 7 gm Tube 1 APPLIC TOPICAL (16:09)
[2024-10-17] MEDS: latanoprost 0.005% Op Soln 2.5 mL Btl 1 DROP EYE-RIGHT (17:29)
[2024-10-17 19:48] VITALS: BP 123/66; PULSE 73; RESP 16; TEMP 36.4; O2SAT 100
[2024-10-18 06:00] VITALS: BP 130/70; PULSE 71; RESP 16; TEMP 36.8; O2SAT 97
[2024-10-18] MEDS: amlodipine 5 mg Tablet 10 MG PO (08:19)
[2024-10-18] MEDS: lisinopril 5 mg Tablet PO (08:20)
[2024-10-18] MEDS: timolol 0.5% Op Soln 5 mL Btl 1 DROP EYE-BOTH ×2 (08:20→17:06)
[2024-10-18] MEDS: buPROPion XL (24 HR) 150 mg Tablet PO (08:20)
[2024-10-18] MEDS: apixaban 5 mg Tablet PO ×2 (08:20→21:30)
--- NOTE | 2024-10-18 10:04 | P.NPUPN_ITS ---
Subjective NPU 2 Subjective: Patient presented today reporting that she is feeling all right. We continued to discuss the importance of her participating on the unit and not just lying in bed. She reported her family would be back to visit her today. We discussed Dr. Henriquez returning tomorrow . We discussed the likelihood that she might discharge at the beginning of the week. She denied any side effects to the medication. Mental Status Exam 2 MSE Comments: This is a well-nourished well-developed white female with adequate dress, grooming and eye contact. No abnormal movements except for mild psychomotor retardation. Cooperative with exam in mild distress. Speech was slightly decreased rate normal volume. Mood described as feeling better, affect slightly subdued. Thought process organized. Thought content: Patient denies suicidal or homicidal ideation but clearly acknowledged that this was a clear suicide attempt and went on to say that keeping her in the hospital cannot stop someone from killing themselves if they really want to, there were no delusions reported or noted, she denied any auditory or visual hallucinations. Attention and concentration appear intact and memory appeared mostly reliable but no more formally tested. She is alert and oriented x 3. Insight, judgment and impulse control all appear impaired. Vitals/I&O/Wt Last Vital Signs Temp 98.2 F 10/18/24 06:00 Pulse 71 10/18/24 06:00 Resp 16 10/18/24 06:00 BP 130/70 10/18/24 06:00 Pulse Ox 97 10/18/24 06:00 O2 Del Method Room Air 10/17/24 15:08 O2 Flow Rate 99 10/09/24 08:00 FiO2 24 10/02/24 00:00 Physical Exam 2 Urinary Catheter Management: Dolan: Cath Placed During This Visit: yes, but has since been removed by the nurse Reason for Continuing Indwelling Catheter: Accurate Measurement of Urinary Output in Critically Ill Patients Date Urinary Catheter Removed: 10/04/24 Time Urinary Catheter Discontinued: 10:00 Data NPU 10/05/24 03:11 10/05/24 03:11 A&P Assessment and plan (1) Suicide attempt by multiple drug overdose: Qualifiers: Encounter type: initial encounter Qualified Code(s): T50.912A - Poisoning by multiple unspecified drugs, medicaments and biological substances, intentional self-harm, initial encounter (2) Bereavement: (3) Major depressive disorder, recurrent: Plan This is a 63-year-old female who was admitted initially to ICU on overdose who presented initially appearing confused and unable to answer questions with significant concerns about the patient's depression. She acknowledged the overdose as an active suicide attempt and continues to have resistance to engaging in treatment. 1. Continue current medications. Started Wellbutrin XL 150 mg po qam 2.??Continue every 15 minute checks for safety. 3. Transferred to neuropsychiatric unit. 4. Obtain collateral information. 5. Encourage individual, group and milieu therapy. 6. 21-day hold paperwork filed. Patient on a 21-day hold. 7. Patient continues to struggle with being able to give a convincing report of safety and having no lethality and being focused on being able to go home but it is unclear whether she is safe for discharge at this time. We continue to discuss this grave concern and the likelihood that at this point this conventional underwriter will defer her discharged after Dr. Henriquez returns on Sunday in a proxy second opinion. She was more able to have a conversation today about the concerns and the reason that discharge is likely later than sooner. Talk about concerns about her discontinuing her interactions with her family. She identified that others have the same concern and she is trying to accept her situation. Involuntary Hold Information 2 Other Hold: Hold End Date: 10/29/24 Attestations NPU 2 Medical Necessity Statement*: Inpatient psychiatric hospitalization is medically necessary and the clinically appropriate intervention ?at this time. We will monitor/initiate medications and make changes as indicated.? The patient?s likely length of stay 2-5 days. Coding Level of Care Code Acute Code for Chg Fwd Diagnoses Suicide attempt by multiple drug overdose, initial encounter T50.912A Encounter type: initial encounter Bereavement Z63.4 Major depressive disorder, recurrent F33.9
[2024-10-18 14:00] VITALS: BP 123/74; PULSE 71; RESP 18; TEMP 36.5; O2SAT 100
[2024-10-18] MEDS: latanoprost 0.005% Op Soln 2.5 mL Btl 1 DROP EYE-RIGHT (17:06)
[2024-10-18 19:44] VITALS: BP 152/68; PULSE 85; RESP 18; TEMP 36.7; O2SAT 94
[2024-10-19 06:15] VITALS: BP 117/65; PULSE 73; RESP 16; O2SAT 97
[2024-10-19] MEDS: amlodipine 5 mg Tablet 10 MG PO (08:47)
[2024-10-19] MEDS: buPROPion XL (24 HR) 150 mg Tablet PO (08:47)
[2024-10-19] MEDS: apixaban 5 mg Tablet PO ×2 (08:47→20:33)
[2024-10-19] MEDS: lisinopril 5 mg Tablet PO (08:47)
[2024-10-19] MEDS: timolol 0.5% Op Soln 5 mL Btl 1 DROP EYE-BOTH ×2 (08:48→17:29)
[2024-10-19 14:00] VITALS: BP 115/64; PULSE 77; RESP 15; TEMP 36.6; O2SAT 99
[2024-10-19] MEDS: latanoprost 0.005% Op Soln 2.5 mL Btl 1 DROP EYE-RIGHT (17:29)
--- NOTE | 2024-10-19 18:26 | P.NPUPN_ITS ---
Subjective NPU 2 Subjective: 63-year-old female with major depressive disorder admitted after significant overdose leading to ICU placement. Patient had stated that she was not feeling suicidal any longer. The patient had stated that she would never do it again. She had continued to isolate herself on the milieu. She had shown some improvement in regards to self-care. She had reported a good visit with family members including her niece today. Patient had reported general lack of desire to do anything here. The patient had stated that she would like to simply go home and resume her life. Mental Status Exam 2 MSE Comments: This is a well-nourished well-developed white female with adequate dress, grooming and eye contact. No abnormal movements except for mild psychomotor retardation. She was cooperative with exam in mild distress. Speech was slightly decreased rate and normal in volume. Mood described as better. Affect remained flat. Thought process was linear and organized. Thought content: Patient denies suicidal or homicidal ideation but clearly acknowledged that this was a clear suicide attempt and went on to say that keeping her in the hospital cannot stop someone from killing themselves if they really want to, there were no delusions reported or noted, she denied any auditory or visual hallucinations. Attention and concentration appear intact and memory appeared mostly reliable but no more formally tested. She is alert and oriented x 3. Insight, judgment and impulse control all appear impaired. Vitals/I&O/Wt Last Vital Signs Temp 97.9 F 10/19/24 14:00 Pulse 77 10/19/24 14:00 Resp 15 10/19/24 14:00 BP 115/64 10/19/24 14:00 Pulse Ox 99 10/19/24 14:00 O2 Del Method Room Air 10/19/24 14:00 O2 Flow Rate 99 10/09/24 08:00 FiO2 24 10/02/24 00:00 10/19/24 10/19/24 10/19/24 06:59 14:59 22:59 Intake Total 700 / 700 350 / 1050 Output Total 2600 / 2600 1300 / 3900 Balance -1900 / -1900 -950 / -2850 Weight last 48 hrs Weight 50.576 kg Physical Exam 2 Urinary Catheter Management: Dolan: Cath Placed During This Visit: yes, but has since been removed by the nurse Reason for Continuing Indwelling Catheter: Accurate Measurement of Urinary Output in Critically Ill Patients Date Urinary Catheter Removed: 10/04/24 Time Urinary Catheter Discontinued: 10:00 Data NPU 10/05/24 03:11 10/05/24 03:11 A&P Assessment and plan (1) Suicide attempt by multiple drug overdose: Qualifiers: Encounter type: initial encounter Qualified Code(s): T50.912A - Poisoning by multiple unspecified drugs, medicaments and biological substances, intentional self-harm, initial encounter (2) Bereavement: (3) Major depressive disorder, recurrent: Plan This is a 63-year-old female who was admitted initially to ICU on overdose who presented initially appearing confused and unable to answer questions with significant concerns about the patient's depression. She acknowledged the overdose as an active suicide attempt and continues to have resistance to engaging in treatment. 1. Continue current medications. Started Wellbutrin XL 150 mg po qam 2.??Continue every 15 minute checks for safety. 3. Transferred to neuropsychiatric unit. 4. Obtain collateral information. 5. Encourage individual, group and milieu therapy. 6. 21-day hold paperwork filed. Patient on a 21-day hold. 7. Patient continues to struggle with being able to give a convincing report of safety and having no lethality and being focused on being able to go home but it is unclear whether she is safe for discharge at this time. She was more able to have a conversation today about the concerns and the reason that discharge is likely later than sooner. Talk about concerns about her discontinuing her interactions with her family. She identified that others have the same concern and she is trying to accept her situation. 8. Will work with patient on safety planning. Involuntary Hold Information 2 Other Hold: Hold End Date: 10/29/24 Attestations NPU 2 Medical Necessity Statement*: Inpatient psychiatric hospitalization is medically necessary and the clinically appropriate intervention ?at this time. We will monitor/initiate medications and make changes as indicated.? The patient?s likely length of stay 2-5 days. Coding Level of Care Code Acute Code for Chg Fwd Diagnoses Suicide attempt by multiple drug overdose, initial encounter T50.912A Encounter type: initial encounter Bereavement Z63.4 Major depressive disorder, recurrent F33.9
[2024-10-19 19:59] VITALS: BP 127/64; PULSE 108; RESP 18; TEMP 36.4; O2SAT 99
[2024-10-20] VITALS (8 sets, daily range): BP systolic 105–145; BP diastolic 61–79; PULSE 72–89; RESP 16–18; TEMP 36.6–37.1; O2SAT 98–100
--- NOTE | 2024-10-20 09:01 | PC.NURSE ---
During assessment, patient denies pain, anxiety, depression, suicidal and homicidal thoughts. Patient denies any questions or concerns besides when she will be discharged.
--- NOTE | 2024-10-20 09:02 | PC.NURSE ---
Morning assessment During assessment, patient denies pain, anxiety, depression, suicidal and homicidal thoughts. Patient denies any questions or concerns besides when she will be discharged.
[2024-10-20] MEDS: amlodipine 5 mg Tablet 10 MG PO (09:13)
[2024-10-20] MEDS: apixaban 5 mg Tablet PO ×2 (09:13→21:28)
[2024-10-20] MEDS: lisinopril 5 mg Tablet PO (09:13)
[2024-10-20] MEDS: timolol 0.5% Op Soln 5 mL Btl 1 DROP EYE-BOTH ×2 (09:13→18:18)
[2024-10-20] MEDS: buPROPion XL (24 HR) 150 mg Tablet PO (09:13)
[2024-10-20 10:56] LABS: Glucose Point of Care 159 mg/dL (70-110)
--- NOTE | 2024-10-20 11:07 | ECG_ITS ---
[facility] Test Date: 2024-10-20 Pat Name: Denisse Narayanan Department: Room: 154 Gender: Female Cor[place] Boss: : 1960 Requested By: Omar Henriquez Order Number: [id number] Sirisha MD: Annelise Ball M.D. Measurements Intervals [place] Rate: 68 P: -18 CA: 116 QRS: 31 QRSD: 90 T: 31 QT: 423 QTc: 451 Interpretive Statements SINUS RHYTHM WITH SHORT CA INTERVAL Compared to ECG 09/29/2024 04:52:55 Short CA interval now present Sinus tachycardia no longer present Ventricular premature complex(es) no longer present Electronically Signed On 10-20-2024 19:23:36 CAMP ASSISTANT by Annelise Ball M.D. [id number]
--- NOTE | 2024-10-20 11:10 | PC.NURSE ---
At approximately 1053 staff was alerted by call button in [facility] shower of an issue. When staff checked, this patient was sitting on the bathroom floor following a shower. Patient was naked. Patient's skin was very pale and farias. Patient was quite and still with eyes closed. Patient denied falling. Patient said that she felt like she was going to pass out, so she sat down. Patient said prior to this happening, her abdomen was hurting. Patient denies chest pain and shortness of breath. Patient's VS were quickly obtained. BP: 105/61, HR 72, 99% RA. Patient's blood glucose is 159. Patient says that she has not been drinking much fluid. Patient reports that she ate half a biscuit at breakfast. After a few minutes, patient's color became pinker. Patient became more alert. Patient was aided to a wheelchair, wrapped in a large blanket. Patient was taken to her room and dressed into clean clothing. STAT EKG ordered. Results show sinus rhythym with short IA interval. patient says she has passed out before, that this just sometimes happens. The lsat time was about one year ago.
--- NOTE | 2024-10-20 17:39 | P.NPUPN_ITS ---
Subjective NPU 2 Subjective: 63-year-old female with major depressive disorder admitted after significant overdose leading to ICU placement. The patient had attended groups for the first time yesterday. She had complained this morning of feeling lightheaded after receiving her blood pressure medication in the morning. She had continued to simply state that she would not overdose anymore but had at the same time reported feeling lonely and often feeling isolated. She had reported no clear changes since the last time she was at home. She had reported no sleep continuity disruption. She had stated that she may wish to have visits with her niece more frequently. She had described having some struggles with finding pleasure in every day activities. Mental Status Exam 2 MSE Comments: This is a well-nourished well-developed white female with adequate dress, grooming and eye contact. No abnormal movements except for mild psychomotor retardation. She was cooperative with exam in mild distress. Speech was slightly decreased rate and normal in volume. Mood described as good. Affect remained flat and mood incongruent. Thought process was linear and organized. Thought content: Patient denies suicidal or homicidal ideation but clearly acknowledged that this was a clear suicide attempt and went on to say that keeping her in the hospital cannot stop someone from killing themselves if they really want to, there were no delusions reported or noted, she denied any auditory or visual hallucinations. Attention and concentration appear intact and memory appeared mostly reliable but no more formally tested. She is alert and oriented x 3. Insight, judgment and impulse control all appear impaired. Vitals/I&O/Wt Last Vital Signs Temp 98 F 10/20/24 14:00 Pulse 74 10/20/24 14:00 Resp 18 10/20/24 14:00 BP 108/62 10/20/24 14:00 Pulse Ox 99 10/20/24 14:00 O2 Del Method Room Air 10/20/24 10:56 O2 Flow Rate 99 10/09/24 08:00 FiO2 24 10/02/24 00:00 10/20/24 10/20/24 10/20/24 06:59 14:59 22:59 Intake Total 350 / 350 Output Total 1300 / 1300 Balance -950 / -950 Weight last 48 hrs Weight 50.576 kg Physical Exam 2 Urinary Catheter Management: Dolan: Cath Placed During This Visit: yes, but has since been removed by the nurse Reason for Continuing Indwelling Catheter: Accurate Measurement of Urinary Output in Critically Ill Patients Date Urinary Catheter Removed: 10/04/24 Time Urinary Catheter Discontinued: 10:00 Data NPU 10/05/24 03:11 10/05/24 03:11 A&P Assessment and plan (1) Suicide attempt by multiple drug overdose: Qualifiers: Encounter type: initial encounter Qualified Code(s): T50.912A - Poisoning by multiple unspecified drugs, medicaments and biological substances, intentional self-harm, initial encounter (2) Bereavement: (3) Major depressive disorder, recurrent: Plan This is a 63-year-old female who was admitted initially to ICU on overdose who presented initially appearing confused and unable to answer questions with significant concerns about the patient's depression. She acknowledged the overdose as an active suicide attempt and continues to have resistance to engaging in treatment. 1. Continue current medications. Continue Wellbutrin XL 150 mg po qam, Depression and anxiety rating scales to be completed. 2.??Continue every 15 minute checks for safety. 3. Transferred to neuropsychiatric unit. 4. Obtain collateral information. 5. Encourage individual, group and milieu therapy. 6. 21-day hold paperwork filed. Patient on a 21-day hold. 7. Patient continues to struggle with being able to give a convincing report of safety and having no lethality and being focused on being able to go home but it is unclear whether she is safe for discharge at this time. She was more able to have a conversation today about the concerns and the reason that discharge is likely later than sooner. Talk about concerns about her discontinuing her interactions with her family. She identified that others have the same concern and she is trying to accept her situation. 8. Will work with patient on safety planning. Involuntary Hold Information 2 Other Hold: Hold End Date: 10/29/24 Attestations NPU 2 Medical Necessity Statement*: Inpatient psychiatric hospitalization is medically necessary and the clinically appropriate intervention ?at this time. We will monitor/initiate medications and make changes as indicated.? The patient?s likely length of stay 5-7 days. Coding Level of Care Code Acute Code for Chg Fwd Diagnoses Suicide attempt by multiple drug overdose, initial encounter T50.912A Encounter type: initial encounter Bereavement Z63.4 Major depressive disorder, recurrent F33.9
[2024-10-20] MEDS: latanoprost 0.005% Op Soln 2.5 mL Btl 1 DROP EYE-RIGHT (18:18)
[2024-10-20 20:34] LABS: Basophils % 0.8 %; Eosinophils # 0.3 10^3/uL (0.0-0.8); Eosinophils % 4.9 %; Hematocrit 24.3 % (36-47); Lymphocytes # 0.8 10^3/uL (0.8-4.8); Lymphocytes % 15.4 %; Mean Corpuscular HGB Conc 34.2 g/dL (30-55); Mean Corpuscular Hemoglobin 29.2 pg (27-33); Mean Corpuscular Volume 85.6 fl (85-98); Mean Platelet Volume 11.1 fL (7.4-10.4); Monocytes # 0.6 10^3/uL (0.2-0.9); Monocytes % 11.2 %; Neutrophils # 3.41 10^3/uL (1.8-7.7); Neutrophils % 67.1 %; Nucleated Red Blood Cells % 0 %; Platelet Count 115 10^3/cmm (157-399); Red Blood Count 2.84 10^6/uL (3.85-5.65); Red Cell Distribution Width 14.9 % (12.1-15.1); White Blood Count 5.08 10^3/uL (3.29-11.43)
[2024-10-20 20:55] LABS: Alanine Aminotransferase 9 U/L (0-33); Albumin Level 4.1 g/dL (3.5-5.2); Alkaline Phosphatase 77 U/L (35-105); Aspartate Amino Transferase 14 U/L (0-32); Blood Urea Nitrogen 12 mg/dL (8-23); Calcium 9.3 mg/dL (8.5-10.5); Carbon Dioxide 25 mmol/L (22-29); Chloride 97 mmol/L (98-107); Creatinine Clr Calc Pharmacy 42.3033; Globulin 2.7 g/dL (1.3-4.6); Glomerular Filtration Rate 45.7 mL/min (90-130); Glucose 92 mg/dL (65-115); Iron 37 ug/dL (37-145); Osmolality Calculated 291 mOsm/kg (285-295); Percent Saturation 15.9 % (20-50); Sodium 141 mmol/L (136-145); Total Bilirubin 0.7 mg/dL (0.15-1.2); Total Iron Binding Capacity 232 mcg/dl; Total Protein 6.8 g/dL (6.6-8.7); Unsaturated Iron Binding 195 ug/dL (112-347)
[2024-10-20 21:10] LABS: Vitamin B12 1310 pg/mL (232-1245)
[2024-10-20 21:15] LABS: Estmated Average Glucose 85; Hemoglobin A1C 4.6 % (4.0-6.0)
--- NOTE | 2024-10-21 01:11 | P.CONIM_ITS ---
Providers/Reason For Consult 2 Consulting Physician/Specialty*: Hospitalist Reason for Consult*: Presyncope Attending Physician: Anna Wise MD Primary Care Provider: Mireya Willingham History of Present Illness History of Present Illness Denisse Narayanan is a 63 year old female who was initially admitted to the medical floor on 09/28 with concerns for suicide attempt with drug overdose was found to have aspiration pneumonia, septic shock, pulmonary embolism. Patient was treated medically and was transferred to Neuropsych Unit on 10/05. Patient has been at her baseline health since then. Today in the morning she had an event of presyncope. It seems patient has been feeling lightheaded on and off for last few days especially after taking her antihypertensive. On review after the patient he has had events of lightheadedness and presyncope even at home before. Vitals appreciated. No bloodwork seen 10/05. Giurgius patient denies any nausea vomiting, headache, chest pain, weakness in any of her limbs, dysuria, abdominal pain. Review of Systems 2 General: Reports: 10 or more systems reviewed and unremarkable except in HPI and below Const: Denies: fever(s), chills, body aches, change in appetite, change in weight, malaise, night sweats, diaphoresis, change in sleep pattern, daytime sleepiness or snoring Eyes: Denies: change in vision, blurry vision, photophobia, eye discomfort or eye discharge ENMT: Denies: throat pain, enlarged tonsils, hoarseness, mouth pain, oral sores, dry mouth, tinnitus, nasal congestion or post nasal drip Card: Denies: chest pain, palpitations, irregular heart rhythm, edema, swelling of feet/ankles, lightheadedness, syncope, pre-syncope, dyspnea on exertion, orthopnea, leg pain with exertion or acrocyanosis Resp: Denies: dyspnea, productive cough, non-productive cough, wheezing, stridor, pain on inspiration, change in phlegm color, hemoptysis or chest congestion GI: Denies: abdominal pain, nausea, vomiting, hematemesis, coffee ground emesis, dysphagia, heartburn, diarrhea, constipation, bloating, GI cramping, change in bowel habits, pain on defecation, hematochezia or melena : Denies: flank pain, dysuria, urinary frequency, urinary urgency, urinary hesitancy, nocturia or hematuria Musc: Denies: neck pain, back pain, extremity pain, joint pain, joint swelling, joint redness, joint stiffness or limited range of motion Neuro: Denies: headache(s), numbness in extremities, weakness in extremities, sensory changes, lack of coordination, difficulty walking, frequent falls, dizziness, vertigo, confusion, Slurred speech present, difficulty communicating thoughts or seizure-like activity Psych: Denies: anxiety, depression, mood swings, panic attacks, hopelessness or irritability Endo: Denies: polyuria, polydipsia, tired all the time, cold intolerance, excessive sweating, flushing or heat intolerance Jean/Lymph: Denies: easy bruising or easy bleeding All/Imm: Denies: tongue swelling, facial swelling or acute wheezing Medications/Allergies Home Medications Medication Instructions Recorded Confirmed Last Taken Type latanoprost 0.005 % eye drops 0.005 drp ophthalmic (eye) QPM 10/11/24 10/11/24 Unknown History (Xalatan) timolol maleate 0.5 % eye drops 0.5 drp ophthalmic (eye) BID 10/11/24 10/11/24 Unknown History Allergies Allergy/AdvReac Type Severity Reaction Status Date / Time No Known Allergies Allergy Verified 09/23/24 19:05 Current Medications Generic Name Dose Route Start Last Admin Trade Name Freq PRN Reason Stop Dose Admin Albuterol Sulfate 2.5 mg 10/07/24 09:54 10/09/24 12:20 Albuterol 2.5 Mg/3 Ml Neb INHALATION 2.5 mg TID.RESP PRN Administration SHORTNESS OF BREATH Apixaban 5 mg 10/04/24 21:00 10/20/24 21:28 Apixaban 5 Mg Tablet PO 5 mg BID@0900,2100 GIACOMO Administration Bupropion HCl 150 mg 10/07/24 09:00 10/20/24 09:13 Bupropion Xl (24 Hr) 150 Mg Tablet PO 150 mg DAILY GIACOMO Administration Camphor/Menthol/Phenol 1 applic 10/05/24 22:19 10/17/24 16:09 Blistex Lip Oint 7 Gm Tube TOPICAL 1 applic Q1H PRN Administration DRYNESS Latanoprost 1 drop 10/11/24 18:00 10/20/24 18:18 Latanoprost 0.005% Op Soln 2.5 Ml Btl EYE-RIGHT 1 drop QPM GIACOMO Administration Loperamide HCl 2 mg 10/05/24 22:19 10/16/24 21:18 Loperamide 2 Mg Capsule PO 2 mg Q6H PRN Administration DIARRHEA Ondansetron HCl 4 mg 10/05/24 22:19 10/12/24 09:06 Ondansetron 4 Mg Tablet PO 4 mg Q6H PRN Administration NAUSEA AND VOMITING Timolol Maleate 1 drop 10/11/24 09:00 10/20/24 18:18 Timolol 0.5% Op Soln 5 Ml Btl EYE-BOTH 1 drop BID GIACOMO Administration Trazodone HCl 50 mg 10/05/24 22:19 10/13/24 20:31 Trazodone 50 Mg Tablet PO 50 mg BEDTIME PRN Administration SLEEP PFSH Acute 2 PFSH: Medical History (Updated 10/21/24 @ 13:49 by Estevan Anderson MD) Septic shock Hearing loss Vitals/I&O/Wt Last Vital Signs Temp 98.3 F 10/20/24 20:08 Pulse 75 10/20/24 20:08 Resp 18 10/20/24 20:08 BP 126/62 10/20/24 20:08 Pulse Ox 100 10/20/24 20:08 O2 Del Method Room Air 10/20/24 20:08 O2 Flow Rate 99 10/09/24 08:00 FiO2 24 10/02/24 00:00 10/20/24 10/20/24 10/21/24 14:59 22:59 06:59 Intake Total 350 / 350 Output Total 1300 / 1300 Balance -950 / -950 Weight last 48 hrs Weight 50.576 kg Physical Exam 2 Narrative: General: No acute distress, AO x3 HEENT: PERRLA, pupils bilaterally equal and reactive Chest: Normal vesicular breath sounds, no added sounds, equal good air entry bilaterally CVS: S1-S2 regular, no murmurs, no tachycardia, no gallops, no rubs Abdomen: Soft, nontender, no organomegaly, bowel sounds present Neuro: No focal deficits, no facial deformity, AO x3, power 5/5 in all limbs Urinary Catheter Management: Dolan: Cath Placed During This Visit: yes, but has since been removed by the nurse Reason for Continuing Indwelling Catheter: Accurate Measurement of Urinary Output in Critically Ill Patients Date Urinary Catheter Removed: 10/04/24 Time Urinary Catheter Discontinued: 10:00 Data 10/20/24 20:14 10/20/24 20:14 A&P Assessment and plan (1) Suicide attempt by multiple drug overdose: Qualifiers: Encounter type: initial encounter Qualified Code(s): T50.912A - Poisoning by multiple unspecified drugs, medicaments and biological substances, intentional self-harm, initial encounter (2) Pulmonary embolism: (3) Acute hypercapnic respiratory failure: (4) Acute encephalopathy: (5) Pre-syncope: (6) Hypertension: Plan 63-year-old female being treated for suicide attempt from multidrug overdose in Neuropsych Unit after being transferred from medical floor post treatment for septic shock, aspiration pneumonia, pulmonary embolism. Medicine consulted for concerns for presyncope today. In the past there was a concern for hyponatremia, LYNNETTE, hypokalemia. She was started on new antihypertensive as started on new anticoagulation. Patient denies any concerns of bleeding. Check stat CBC, CMP, iron panel, vitamin B12, folate, A1c, lipid panels. Hold off on 10 mg of amlodipine and 5 mg of lisinopril for now. Transition to 5 mg of oral amlodipine. Check orthostatic every shift. Depending on the orthostatics will decide about IV hydration versus discontinuation of antihypertensive. Did have hypokalemia along with LYNNETTE before. Will monitor. Monitor for acute anemia. Check blood sugars. Plan discussed in detail with nurse at bedside. Thank you for involving us in care of Ms. Narayanan. Please call with any questions. Consult Attestations 2 Medical Necessity Statement: As per primary team. Medicine consulted for presyncope in a patient with new diagnosis of pulmonary embolism, survivor of septic shock in setting of aspiration pneumonitis. Diagnoses Suicide attempt by multiple drug overdose, initial encounter T50.912A Encounter type: initial encounter Pulmonary embolism I26.99 Acute hypercapnic respiratory failure J96.02 Acute encephalopathy G93.40 Pre-syncope R55 Hypertension I10
[2024-10-21 06:00] VITALS: BP 112/64; PULSE 74; RESP 16; TEMP 36.6; O2SAT 98
[2024-10-21 08:00] VITALS: BP 119/78; BP 125/74; BP 126/62; PULSE 75; PULSE 77; PULSE 89
[2024-10-21] MEDS: apixaban 5 mg Tablet PO ×2 (09:26→21:37)
[2024-10-21] MEDS: timolol 0.5% Op Soln 5 mL Btl 1 DROP EYE-BOTH ×2 (09:26→17:16)
[2024-10-21] MEDS: amlodipine 5 mg Tablet PO (09:26)
[2024-10-21] MEDS: buPROPion XL (24 HR) 150 mg Tablet PO (09:26)
[2024-10-21 09:28] VITALS: BP 108/74; BP 112/58; BP 124/78; PULSE 74; PULSE 81; PULSE 84
[2024-10-21 12:53] LABS: Chol HDL Ratio 5.47 mg/dL (0.0-4.40); Cholesterol 235 mg/dL (0-200); HDL Cholesterol 43 mg/dL (60-100); LDL Cholesterol Calculated 160 mg/dL (50-129); Triglycerides 161 mg/dL (0-150); VLDL Cholestrol Calculation 32 mg/dL (0-30)
[2024-10-21 13:14] LABS: Folate Level 8.8 ng/mL (4.8-37.3)
--- NOTE | 2024-10-21 13:52 | P.PN_ITS ---
Subjective 2 Subjective: Acute events overnight. Patient has remained hemodynamically stable and afebrile. Orthostatics have been negative. No further events of presyncope or lightheadedness reported by the nurse. Vitals/I&O/Wt Last Vital Signs Temp 97.8 F 10/21/24 06:00 Pulse 84 10/21/24 09:28 Resp 16 10/21/24 06:00 BP 108/74 10/21/24 09:28 Pulse Ox 98 10/21/24 06:00 O2 Del Method Room Air 10/21/24 06:00 O2 Flow Rate 99 10/09/24 08:00 FiO2 24 10/02/24 00:00 10/20/24 10/21/24 10/21/24 22:59 06:59 14:59 Intake Total 350 / 350 Output Total 1300 / 1300 Balance -950 / -950 Physical Exam 2 Narrative: General: No acute distress, AO x3 HEENT: PERRLA, pupils bilaterally equal and reactive Chest: Normal vesicular breath sounds, no added sounds, equal good air entry bilaterally CVS: S1-S2 regular, no murmurs, no tachycardia, no gallops, no rubs Abdomen: Soft, nontender, no organomegaly, bowel sounds present Neuro: No focal deficits, no facial deformity, AO x3, power 5/5 in all limbs Urinary Catheter Management: Dolan: Cath Placed During This Visit: yes, but has since been removed by the nurse Reason for Continuing Indwelling Catheter: Accurate Measurement of Urinary Output in Critically Ill Patients Date Urinary Catheter Removed: 10/04/24 Time Urinary Catheter Discontinued: 10:00 Data 10/20/24 20:14 10/20/24 20:14 A&P Assessment and plan (1) Suicide attempt by multiple drug overdose: Qualifiers: Encounter type: initial encounter Qualified Code(s): T50.912A - Poisoning by multiple unspecified drugs, medicaments and biological substances, intentional self-harm, initial encounter (2) Pulmonary embolism: (3) Acute hypercapnic respiratory failure: (4) Acute encephalopathy: (5) Pre-syncope: (6) Hypertension: Plan 63-year-old female being treated for suicide attempt from multidrug overdose in Neuropsych Unit after being transferred from medical floor post treatment for septic shock, aspiration pneumonia, pulmonary embolism. Medicine consulted for concerns for presyncope today. In the past there was a concern for hyponatremia, LYNNETTE, hypokalemia. She was started on new antihypertensive as started on new anticoagulation. Patient denies any concerns of bleeding. Appreciate lab work stable hemoglobin, no leukocytosis, improving renal function creatinine down to 1.2, stable CMP. Does have hypokalemia. Orthostatic negative. Continue with amlodipine 5 mg oral daily. Replace 80 mg of oral potassium. Recheck CMP in AM. Appreciate A1c, lipid panel. Start on atorvastatin 40 mg nightly. Plan discussed in detail with nurse at bedside. Thank you for involving us in care of Ms. Narayanan. Please call with any questions. Attestations 2 Medical Necessity Statement*: Requires further hospitalization as per primary team for suicidal ideation in a patient admitted for suicide attempt, septic shock, aspiration pneumonitis, new PE Diagnoses Suicide attempt by multiple drug overdose, initial encounter T50.912A Encounter type: initial encounter Pulmonary embolism I26.99 Acute hypercapnic respiratory failure J96.02 Acute encephalopathy G93.40 Pre-syncope R55 Hypertension I10
[2024-10-21 14:00] VITALS: BP 115/74; PULSE 77; RESP 18; TEMP 36.6; O2SAT 100
[2024-10-21] MEDS: potassium chloride ER 20 mEq Tablet 80 MEQ PO (14:14)
--- NOTE | 2024-10-21 16:32 | P.NPUPN_ITS ---
Subjective NPU 2 Subjective: 63-year-old female with major depressive disorder admitted after significant overdose leading to ICU placement. Patient had continued to report that she was ready to return home but had offered limited information regarding how things would be different when she returned home. She had described having significant isolation and had admitted that she had been holding onto her 's medications for several months and had thought about taking the pills for several days prior to her overdose. The patient had admitted to that previously on interview but when asked about the comments made to this radio script writer several weeks ago she had stated that she did not remember this event or conversation. The patient had reported not feeling dizzy today. She did report at times feeling like she may pass out but reported that she would be okay if she were to return home. Patient had stated that she had appreciated family visits. The patient had described having a lack of support in general but stated that she was hopeful about returning to work soon. Mental Status Exam 2 MSE Comments: This is a well-nourished well-developed white female with adequate dress, grooming and eye contact. No abnormal movements except for mild psychomotor retardation. She was cooperative with exam in mild distress. Speech was slightly decreased rate and normal in volume. Mood described as good. Affect remained flat and mood incongruent. Thought process was linear and organized. Thought content: Patient denies suicidal or homicidal ideation but clearly acknowledged that this was a clear suicide attempt and she continued to report that she would never do this again. there were no delusions reported or noted, she denied any auditory or visual hallucinations. Attention and concentration appear intact and memory appeared mostly reliable but no more formally tested. She is alert and oriented x 3. Insight, judgment and impulse control all appear impaired. Vitals/I&O/Wt Last Vital Signs Temp 98 F 10/21/24 14:00 Pulse 77 10/21/24 14:00 Resp 18 10/21/24 14:00 BP 115/74 10/21/24 14:00 Pulse Ox 100 10/21/24 14:00 O2 Del Method Room Air 10/21/24 06:00 O2 Flow Rate 99 10/09/24 08:00 FiO2 24 10/02/24 00:00 10/21/24 10/21/24 10/21/24 06:59 14:59 22:59 Intake Total 350 / 350 Output Total 1300 / 1300 Balance -950 / -950 Physical Exam 2 Urinary Catheter Management: Dolan: Cath Placed During This Visit: yes, but has since been removed by the nurse Reason for Continuing Indwelling Catheter: Accurate Measurement of Urinary Output in Critically Ill Patients Date Urinary Catheter Removed: 10/04/24 Time Urinary Catheter Discontinued: 10:00 Data NPU 10/20/24 20:14 10/20/24 20:14 A&P Assessment and plan (1) Suicide attempt by multiple drug overdose: Qualifiers: Encounter type: initial encounter Qualified Code(s): T50.912A - Poisoning by multiple unspecified drugs, medicaments and biological substances, intentional self-harm, initial encounter (2) Pulmonary embolism: (3) Acute hypercapnic respiratory failure: (4) Acute encephalopathy: (5) Pre-syncope: (6) Hypertension: (7) Bereavement: (8) Major depressive disorder, recurrent: Plan This is a 63-year-old female who was admitted initially to ICU on overdose who presented initially appearing confused and unable to answer questions with significant concerns about the patient's depression. She acknowledged the overdose as an active suicide attempt and continues to have resistance to engaging in treatment. 1. Continue current medications. Continue Wellbutrin XL 150 mg po qam, Depression and anxiety rating scales to be completed. 2.??Continue every 15 minute checks for safety. 3. Transferred to neuropsychiatric unit. 4. Obtain collateral information. 5. Encourage individual, group and milieu therapy. 6. 21-day hold paperwork filed. Patient on a 21-day hold. 7. Patient continues to struggle with being able to give a convincing report of safety and having no lethality and being focused on being able to go home but it is unclear whether she is safe for discharge at this time. She was more able to have a conversation today about the concerns and the reason that discharge is likely later than sooner. Talk about concerns about her discontinuing her interactions with her family. She identified that others have the same concern and she is trying to accept her situation. 8. Will work with patient on safety planning. Involuntary Hold Information 2 Other Hold: Hold End Date: 10/29/24 Attestations NPU 2 Medical Necessity Statement*: Inpatient psychiatric hospitalization is medically necessary and the clinically appropriate intervention ?at this time. We will monitor/initiate medications and make changes as indicated.? The patient?s likely length of stay 5-7 days. Coding Level of Care Code Acute Code for Chg Fwd Diagnoses Suicide attempt by multiple drug overdose, initial encounter T50.912A Encounter type: initial encounter Pulmonary embolism I26.99 Acute hypercapnic respiratory failure J96.02 Acute encephalopathy G93.40 Pre-syncope R55 Hypertension I10 Bereavement Z63.4 Major depressive disorder, recurrent F33.9
[2024-10-21] MEDS: latanoprost 0.005% Op Soln 2.5 mL Btl 1 DROP EYE-RIGHT (17:16)
[2024-10-21 20:00] VITALS: BP 109/67; BP 115/69; PULSE 86; PULSE 91
[2024-10-21 20:11] VITALS: BP 115/69; PULSE 86; RESP 18; TEMP 36.3; O2SAT 97
[2024-10-21] MEDS: loperamide 2 mg Capsule PO (21:37)
[2024-10-21] MEDS: atorvastatin 40 mg Tablet PO (21:38)
[2024-10-22 06:30] VITALS: BP 118/67; PULSE 79; RESP 16; TEMP 36.7; O2SAT 99
[2024-10-22] MEDS: apixaban 5 mg Tablet PO ×2 (09:33→21:12)
[2024-10-22] MEDS: buPROPion XL (24 HR) 300 mg Tablet PO (09:33)
[2024-10-22] MEDS: timolol 0.5% Op Soln 5 mL Btl 1 DROP EYE-BOTH ×2 (09:33→17:53)
[2024-10-22] MEDS: amlodipine 5 mg Tablet PO (09:34)
[2024-10-22 10:32] LABS: Alanine Aminotransferase 7 U/L (0-33); Alkaline Phosphatase 75 U/L (35-105); Anion Gap 13.4 (5-19); Aspartate Amino Transferase 14 U/L (0-32); Blood Urea Nitrogen 11 mg/dL (8-23); Carbon Dioxide 24 mmol/L (22-29); Chloride 103 mmol/L (98-107); Creatinine Clr Calc Pharmacy 42.3033; Globulin 2.9 g/dL (1.3-4.6); Glomerular Filtration Rate 45.7 mL/min (90-130); Glucose 130 mg/dL (65-115); Osmolality Calculated 285 mOsm/kg (285-295); Potassium 3.4 mmol/L (3.5-5.1); Sodium 137 mmol/L (136-145); Total Bilirubin 0.5 mg/dL (0.15-1.2); Total Protein 6.9 g/dL (6.6-8.7)
[2024-10-22 14:00] VITALS: BP 100/62; PULSE 74; RESP 18; TEMP 36.6; O2SAT 97
[2024-10-22] MEDS: latanoprost 0.005% Op Soln 2.5 mL Btl 1 DROP EYE-RIGHT (17:53)
--- NOTE | 2024-10-22 18:31 | PC.NURSE ---
SPOKE WITH FAMILY AT VISITING HOURS AND WITH MOTHER ON THE PHONE. FAMILY IS UPSET BECAUSE THEY WANT PT TO DISCHARGE. MOTHER STATES SHE FEELS LIKE SHE IS WELL NOW AND IS ACTING LIKE HERSELF LIKE BEFORE. FAMILY EDUCATED THAT THE IS STILL WANTING MORE TIME TO SEE IF PT WILL ENGAGE IN GROUPS AND START TO INTERACT WITH [facility]. PT DOES INTERACT WITH STAFF FREQUENTLY AND VISITS FAMILY DAILY. PTS MOOD IS A BIT BRIGHTER BUT PT STATES SHE IS DEPRESSED DUE TO BEING STUCK IN HERE. PT WAS EDUCATED TO ENGAGE IN GROUP. AFTER CONVERSATION PT DID GO TO GROUP AND INTERACT WITH [facility]. ALL QUESTIONS ANSWERED AND SUPPORT WAS VOICED.
--- NOTE | 2024-10-22 19:34 | P.NPUPN_ITS ---
Subjective NPU 2 Subjective: 63-year-old female with major depressive disorder admitted after significant overdose leading to ICU placement. The patient had continued to insist on being allowed to go home stating that the previous physician had stated that she may be ready to go home later this week. She continued to avoid going to groups and continued to struggle with oral intake. She had shown little effort in attempting to complete activities of daily living without significant prompting. She had continued to minimize the significance of her overdose stating that she would never do it again . She had reported that she was concerned that she would not be allowed to go back to work having used up her PTO time. She had continued to report relative isolation as she had reported that several of her friends were all without their spouse. She had reported having no children but stated that she was attempting to have more contact with her nieces. Mental Status Exam 2 MSE Comments: This is a well-nourished well-developed white female with adequate dress, grooming and eye contact. No abnormal movements except for moderate psychomotor retardation. She was cooperative with exam in mild distress. Speech was slightly decreased rate and normal in volume. Mood described as fine. Affect remained flat and mood incongruent. Thought process was linear and organized. Thought content: Patient denies suicidal or homicidal ideation but clearly acknowledged that this was a clear suicide attempt and she continued to report that she would never do this again. there were no delusions reported or noted, she denied any auditory or visual hallucinations. Attention and concentration appear intact and memory appeared mostly reliable but no more formally tested. She is alert and oriented x 3. Insight, judgment and impulse control all appear impaired. Vitals/I&O/Wt Last Vital Signs Temp 98 F 10/22/24 14:00 Pulse 74 10/22/24 14:00 Resp 18 10/22/24 14:00 BP 100/62 10/22/24 14:00 Pulse Ox 97 10/22/24 14:00 O2 Del Method Room Air 10/21/24 06:00 O2 Flow Rate 99 10/09/24 08:00 FiO2 24 10/02/24 00:00 Physical Exam 2 Urinary Catheter Management: Dolan: Cath Placed During This Visit: yes, but has since been removed by the nurse Reason for Continuing Indwelling Catheter: Accurate Measurement of Urinary Output in Critically Ill Patients Date Urinary Catheter Removed: 10/04/24 Time Urinary Catheter Discontinued: 10:00 Data NPU 10/20/24 20:14 10/22/24 09:55 A&P Assessment and plan (1) Suicide attempt by multiple drug overdose: Qualifiers: Encounter type: initial encounter Qualified Code(s): T50.912A - Poisoning by multiple unspecified drugs, medicaments and biological substances, intentional self-harm, initial encounter (2) Pulmonary embolism: (3) Acute hypercapnic respiratory failure: (4) Acute encephalopathy: (5) Pre-syncope: (6) Hypertension: (7) Bereavement: (8) Major depressive disorder, recurrent: Plan This is a 63-year-old female who was admitted initially to ICU on overdose who presented initially appearing confused and unable to answer questions with significant concerns about the patient's depression. She acknowledged the overdose as an active suicide attempt and continues to have resistance to engaging in treatment. 1. Continue current medications. Continue Wellbutrin XL 300 mg po qam, Depression and anxiety rating scales to be completed. Consider addition of adjunctive medication to target anxiety as well such as lexapro. 2.??Continue every 15 minute checks for safety. 3. Transferred to neuropsychiatric unit. 4. Obtain collateral information. 5. Encourage individual, group and milieu therapy. 6. 21-day hold paperwork filed. Patient on a 21-day hold. 7. Patient continues to struggle with being able to give a convincing report of safety and having no lethality and being focused on being able to go home but it is unclear whether she is safe for discharge at this time. She was more able to have a conversation today about the concerns and the reason that discharge is likely later than sooner. Talk about concerns about her discontinuing her interactions with her family. She identified that others have the same concern and she is trying to accept her situation. 8. Will work with patient on safety planning. Involuntary Hold Information 2 Other Hold: Hold End Date: 10/29/24 Attestations NPU 2 Medical Necessity Statement*: Inpatient psychiatric hospitalization is medically necessary and the clinically appropriate intervention ?at this time. We will monitor/initiate medications and make changes as indicated.? The patient?s likely length of stay 5-7 days. Coding Level of Care Code Acute Code for Chg Fwd Diagnoses Suicide attempt by multiple drug overdose, initial encounter T50.912A Encounter type: initial encounter Pulmonary embolism I26.99 Acute hypercapnic respiratory failure J96.02 Acute encephalopathy G93.40 Pre-syncope R55 Hypertension I10 Bereavement Z63.4 Major depressive disorder, recurrent F33.9
[2024-10-22 20:08] VITALS: BP 116/66; PULSE 81; RESP 16; O2SAT 100
[2024-10-22] MEDS: atorvastatin 40 mg Tablet PO (21:12)
[2024-10-22] MEDS: loperamide 2 mg Capsule PO (21:23)
[2024-10-23 06:30] VITALS: BP 113/72; PULSE 76; RESP 16; O2SAT 98
[2024-10-23] MEDS: apixaban 5 mg Tablet PO ×2 (09:37→21:33)
[2024-10-23] MEDS: buPROPion XL (24 HR) 300 mg Tablet PO (09:37)
[2024-10-23] MEDS: timolol 0.5% Op Soln 5 mL Btl 1 DROP EYE-BOTH ×2 (09:37→18:22)
[2024-10-23] MEDS: amlodipine 5 mg Tablet PO (09:37)
--- NOTE | 2024-10-23 12:35 | PC.NURSE ---
NEW ORDERS RECEIVED BY DR. DENT TO HAVE OT COMPLETE KIERA. SUPPORT VOICED.
[2024-10-23 14:00] VITALS: BP 111/69; PULSE 72; RESP 16; O2SAT 100
--- NOTE | 2024-10-23 14:39 | PC.NURSE ---
IN GROUP PT IS OBSERVED PARTICIPATING.
--- NOTE | 2024-10-23 15:50 | P.NPUPN_ITS ---
Subjective NPU 2 Subjective: 63-year-old female with major depressive disorder admitted after significant overdose leading to ICU placement. The patient had attended groups today. She had stated that she would be willing to live with a family member or friend or have her mother live with her to help her with her transition home. She had complained of having chronic problems with worry. She had reported that she had a tendency to isolate herself. She had continued to minimize any suicidal thoughts at this time. She had continued to struggle with providing ideas about what changes may be in place in her life when she returns home. She had reported to having struggles with falling asleep stating that she frequently worried and had struggles with shutting her mind down. She did not endorse any history of miranda. She had continued to appear to struggle with oral intake although there had not been any significant weight loss recently. She had reported some desire to return to work. She had reported that most of her friendships were far away from here. She endorsed a past history of citalopram use for anxiety and depression but stated that she had frequent nightmares on this medication leading to its eventual discontinuation after several months. Mental Status Exam 2 MSE Comments: This is a well-nourished well-developed white female with adequate dress, grooming and eye contact. No abnormal movements except for moderate psychomotor retardation. She was cooperative with exam in moderate distress. Speech was slightly decreased rate and normal in volume. Mood described as okay. Affect remained restricted in range and mood incongruent. Thought process was linear and organized. Thought content: Patient denies suicidal or homicidal ideation but clearly acknowledged that this was a clear suicide attempt and she continued to report that she would never do this again. there were no delusions reported or noted, she denied any auditory or visual hallucinations. Attention and concentration appear intact and memory appeared mostly reliable but no more formally tested. She is alert and oriented x 3. Insight remained poor. Judgment appeared poor. Her impulse control remained guarded. Vitals/I&O/Wt Last Vital Signs Temp 98 F 10/22/24 14:00 Pulse 72 10/23/24 14:00 Resp 16 10/23/24 14:00 BP 111/69 10/23/24 14:00 Pulse Ox 100 10/23/24 14:00 O2 Del Method Room Air 10/21/24 06:00 O2 Flow Rate 99 10/09/24 08:00 FiO2 24 10/02/24 00:00 Physical Exam 2 Urinary Catheter Management: Dolan: Cath Placed During This Visit: yes, but has since been removed by the nurse Reason for Continuing Indwelling Catheter: Accurate Measurement of Urinary Output in Critically Ill Patients Date Urinary Catheter Removed: 10/04/24 Time Urinary Catheter Discontinued: 10:00 Data NPU 10/20/24 20:14 10/22/24 09:55 A&P Assessment and plan (1) Major depressive disorder, recurrent: (2) JENNIFER (generalized anxiety disorder): (3) Suicide attempt by multiple drug overdose: Qualifiers: Encounter type: initial encounter Qualified Code(s): T50.912A - Poisoning by multiple unspecified drugs, medicaments and biological substances, intentional self-harm, initial encounter (4) Pulmonary embolism: (5) Acute hypercapnic respiratory failure: (6) Acute encephalopathy: (7) Pre-syncope: (8) Hypertension: (9) Bereavement: Plan This is a 63-year-old female who was admitted initially to ICU on overdose who presented initially appearing confused and unable to answer questions with significant concerns about the patient's depression. She acknowledged the overdose as an active suicide attempt and continues to have resistance to engaging in treatment. 1. Continue current medications. Continue Wellbutrin XL 300 mg po qam, Add Zoloft 25mg today to target ANXIETY and DEPRESSION. 2.??Continue every 15 minute checks for safety. 3. Transferred to neuropsychiatric unit. 4. Obtain collateral information. 5. Encourage individual, group and milieu therapy. 6. 21-day hold paperwork filed. Patient on a 21-day hold. 7. Patient continues to struggle with being able to give a convincing report of safety and having no lethality and being focused on being able to go home but it is unclear whether she is safe for discharge at this time. She was more able to have a conversation today about the concerns and the reason that discharge is likely later than sooner. Talk about concerns about her discontinuing her interactions with her family. She identified that others have the same concern and she is trying to accept her situation. 8. Will work with patient on safety planning. Involuntary Hold Information 2 Other Hold: Hold End Date: 10/29/24 Attestations NPU 2 Medical Necessity Statement*: Inpatient psychiatric hospitalization is medically necessary and the clinically appropriate intervention ?at this time. We will monitor/initiate medications and make changes as indicated.? The patient?s likely length of stay 5-7 days. Coding Level of Care Code Acute Code for Chg Fwd Diagnoses Major depressive disorder, recurrent F33.9 JENNIFER (generalized anxiety disorder) F41.1 Suicide attempt by multiple drug overdose, initial encounter T50.912A Encounter type: initial encounter Pulmonary embolism I26.99 Acute hypercapnic respiratory failure J96.02 Acute encephalopathy G93.40 Pre-syncope R55 Hypertension I10 Bereavement Z63.4
[2024-10-23] MEDS: latanoprost 0.005% Op Soln 2.5 mL Btl 1 DROP EYE-RIGHT (18:23)
[2024-10-23 19:53] VITALS: BP 132/71; PULSE 80; RESP 18; O2SAT 97
[2024-10-23] MEDS: atorvastatin 40 mg Tablet PO (21:33)
[2024-10-24 06:00] VITALS: BP 118/68; PULSE 80; RESP 16; O2SAT 99
[2024-10-24] MEDS: apixaban 5 mg Tablet PO ×2 (08:33→21:26)
[2024-10-24] MEDS: amlodipine 5 mg Tablet PO (08:33)
[2024-10-24] MEDS: buPROPion XL (24 HR) 300 mg Tablet PO (08:33)
[2024-10-24] MEDS: timolol 0.5% Op Soln 5 mL Btl 1 DROP EYE-BOTH ×2 (08:38→18:11)
[2024-10-24 13:15] VITALS: PULSE 100; RESP 18; O2SAT 97
[2024-10-24 14:00] VITALS: BP 141/92; PULSE 87; RESP 18; TEMP 37.4; O2SAT 98
[2024-10-24] MEDS: latanoprost 0.005% Op Soln 2.5 mL Btl 1 DROP EYE-RIGHT (18:11)
--- NOTE | 2024-10-24 18:11 | P.NPUPN_ITS ---
Subjective NPU 2 Subjective: 63-year-old female with major depressive disorder admitted after significant overdose leading to ICU placement and current inpatient hospitalization. Patient was able to attend group today. She had continued to lament that she wished to go home. The patient had completed high Rodriguez evaluation of living skills today with occupational therapy services. She had stated that she was considering having family member stay with her at this time. She had described having periods of loneliness currently. She had also stated that she had not yet begun psychotherapy and had no supports from a counseling perspective. She reported no side effects from the Zoloft that was initiated. She had reported that she did not feel suicidal. She had continued to struggle with oral intake and spent much of her time isolating herself on the milieu. Mental Status Exam 2 MSE Comments: This is a well-nourished well-developed white female with adequate dress, grooming and eye contact. No abnormal movements except for moderate psychomotor retardation. She was cooperative with exam in moderate distress. Speech was slightly decreased rate and normal in volume. Mood described as good. Affect remained restricted in range and mood incongruent. Thought process was linear and organized. Thought content: Patient denies suicidal or homicidal ideation but clearly acknowledged that this was a clear suicide attempt and she continued to report that she would never do this again. there were no delusions reported or noted, she denied any auditory or visual hallucinations. Attention and concentration appear intact and memory appeared mostly reliable but no more formally tested. She is alert and oriented x 3. Insight remained poor. Judgment appeared poor. Her impulse control remained guarded. Vitals/I&O/Wt Last Vital Signs Temp 99.3 F 10/24/24 14:00 Pulse 87 10/24/24 14:00 Resp 18 10/24/24 14:00 BP 141/92 10/24/24 14:00 Pulse Ox 98 10/24/24 14:00 O2 Del Method Room Air 10/24/24 14:00 O2 Flow Rate 99 10/09/24 08:00 FiO2 24 10/02/24 00:00 10/24/24 10/24/24 10/24/24 06:59 14:59 22:59 Intake Total 480 / 480 Balance 480 / 480 Physical Exam 2 Urinary Catheter Management: Dolan: Cath Placed During This Visit: yes, but has since been removed by the nurse Reason for Continuing Indwelling Catheter: Accurate Measurement of Urinary Output in Critically Ill Patients Date Urinary Catheter Removed: 10/04/24 Time Urinary Catheter Discontinued: 10:00 Data NPU 10/20/24 20:14 10/22/24 09:55 A&P Assessment and plan (1) Major depressive disorder, recurrent: (2) JENNIFER (generalized anxiety disorder): (3) Suicide attempt by multiple drug overdose: Qualifiers: Encounter type: initial encounter Qualified Code(s): T50.912A - Poisoning by multiple unspecified drugs, medicaments and biological substances, intentional self-harm, initial encounter (4) Pulmonary embolism: (5) Acute hypercapnic respiratory failure: (6) Acute encephalopathy: (7) Pre-syncope: (8) Hypertension: (9) Bereavement: Plan This is a 63-year-old female who was admitted initially to ICU on overdose who presented initially appearing confused and unable to answer questions with significant concerns about the patient's depression. She acknowledged the overdose as an active suicide attempt and continues to have resistance to engaging in treatment. 1. Continue current medications. Continue Wellbutrin XL 300 mg po qam, Increase Zoloft 50mg today to target ANXIETY and DEPRESSION. 2.??Continue every 15 minute checks for safety. 3. Transferred to neuropsychiatric unit. 4. Obtain collateral information. 5. Encourage individual, group and milieu therapy. 6. 21-day hold paperwork filed. Patient on a 21-day hold. 7. Patient continues to struggle with being able to give a convincing report of safety and having no lethality and being focused on being able to go home but it is unclear whether she is safe for discharge at this time. She was more able to have a conversation today about the concerns and the reason that discharge is likely later than sooner. Talk about concerns about her discontinuing her interactions with her family. She identified that others have the same concern and she is trying to accept her situation. 8. Will work with patient on safety planning. 9. Anjel evaluation of living skills was showed 4/13 areas of concern. The patient appeared to require assistance regarding her safety has help and health that she had appeared to struggle with identification of appropriate actions for sickness as well as being unable to remain aware of dangerous household situations when tested. It appeared that the patient could benefit from someone helping her in the home at this time. Involuntary Hold Information 2 Other Hold: Hold End Date: 12/25/24 Attestations NPU 2 Medical Necessity Statement*: Inpatient psychiatric hospitalization is medically necessary and the clinically appropriate intervention ?at this time. We will monitor/initiate medications and make changes as indicated.? The patient?s likely length of stay 5-7 days. Coding Level of Care Code Acute Code for Chg Fwd Diagnoses Major depressive disorder, recurrent F33.9 JENNIFER (generalized anxiety disorder) F41.1 Suicide attempt by multiple drug overdose, initial encounter T50.912A Encounter type: initial encounter Pulmonary embolism I26.99 Acute hypercapnic respiratory failure J96.02 Acute encephalopathy G93.40 Pre-syncope R55 Hypertension I10 Bereavement Z63.4
[2024-10-24 20:44] VITALS: BP 122/67; PULSE 83; RESP 15; O2SAT 100
[2024-10-24] MEDS: atorvastatin 40 mg Tablet PO (21:26)
[2024-10-24] MEDS: sertraline 50 mg Tablet 25 MG PO (21:27)
[2024-10-25 06:00] VITALS: BP 124/75; PULSE 80; RESP 15; O2SAT 98
[2024-10-25] MEDS: buPROPion XL (24 HR) 300 mg Tablet PO (08:32)
[2024-10-25] MEDS: timolol 0.5% Op Soln 5 mL Btl 1 DROP EYE-BOTH ×2 (08:33→17:20)
[2024-10-25] MEDS: amlodipine 5 mg Tablet PO (08:33)
[2024-10-25] MEDS: sertraline 50 mg Tablet 25 MG PO (08:33)
[2024-10-25] MEDS: apixaban 5 mg Tablet PO ×2 (08:33→20:29)
[2024-10-25 14:00] VITALS: BP 111/69; PULSE 70; RESP 16; TEMP 36.9; O2SAT 100
--- NOTE | 2024-10-25 14:02 | P.NPUPN_ITS ---
Subjective NPU 2 Subjective: 63-year-old female with major depressive disorder admitted after significant overdose leading to ICU placement and current inpatient hospitalization. Patient reported that she was hopeful about going home soon. She continued to make efforts to go to group having attended group yesterday. She had reported chronic problems with anxiety. She had reported no side effects from her Zoloft at this time. She reported some difficulties with staying asleep. The patient had appeared to show some difficulties with memory and inability to identify unsafe situations in her household. Mental Status Exam 2 MSE Comments: This is a well-nourished well-developed white female with adequate dress, grooming and eye contact. She remained anergic. No abnormal movements except for moderate psychomotor retardation. She was cooperative with exam in moderate distress. Speech was slightly decreased rate and normal in volume. Mood described as good. Affect remained restricted and mood congruent. Thought process was linear and organized. Thought content: Patient denies suicidal or homicidal ideation but clearly acknowledged that this was a clear suicide attempt and she continued to report that she would never do this again. there were no delusions reported or noted, she denied any auditory or visual hallucinations. Attention and concentration appear intact and memory appeared mostly reliable but no more formally tested. She is alert and oriented x 3. Insight remained poor. Judgment appeared poor. Her impulse control remained guarded. Vitals/I&O/Wt Last Vital Signs Temp 99.3 F 10/24/24 14:00 Pulse 80 10/25/24 06:00 Resp 15 10/25/24 06:00 BP 124/75 10/25/24 06:00 Pulse Ox 98 10/25/24 06:00 O2 Del Method Room Air 10/25/24 06:00 O2 Flow Rate 99 10/09/24 08:00 FiO2 24 10/02/24 00:00 10/24/24 10/25/24 10/25/24 22:59 06:59 14:59 Intake Total 470 / 950 470 / 470 Output Total 1300 / 1300 1300 / 1300 Balance -830 / -350 -830 / -830 Physical Exam 2 Urinary Catheter Management: Dolan: Cath Placed During This Visit: yes, but has since been removed by the nurse Reason for Continuing Indwelling Catheter: Accurate Measurement of Urinary Output in Critically Ill Patients Date Urinary Catheter Removed: 10/04/24 Time Urinary Catheter Discontinued: 10:00 Data NPU 10/20/24 20:14 10/22/24 09:55 A&P Assessment and plan (1) Major depressive disorder, recurrent: (2) JENNIFER (generalized anxiety disorder): (3) Suicide attempt by multiple drug overdose: Qualifiers: Encounter type: initial encounter Qualified Code(s): T50.912A - Poisoning by multiple unspecified drugs, medicaments and biological substances, intentional self-harm, initial encounter (4) Pulmonary embolism: (5) Acute hypercapnic respiratory failure: (6) Acute encephalopathy: (7) Pre-syncope: (8) Hypertension: (9) Bereavement: Plan This is a 63-year-old female who was admitted initially to ICU on overdose who presented initially appearing confused and unable to answer questions with significant concerns about the patient's depression. She acknowledged the overdose as an active suicide attempt and continues to have resistance to engaging in treatment. 1. Continue current medications. Continue Wellbutrin XL 300 mg po qam, Continue Zoloft 50mg today to target ANXIETY and DEPRESSION. 2.??Continue every 15 minute checks for safety. 3. Transferred to neuropsychiatric unit. 4. Obtain collateral information. 5. Encourage individual, group and milieu therapy. 6. 21-day hold paperwork filed. Patient on a 21-day hold. 7. Patient continues to struggle with being able to give a convincing report of safety and having no lethality and being focused on being able to go home but it is unclear whether she is safe for discharge at this time. She was more able to have a conversation today about the concerns and the reason that discharge is likely later than sooner. Talk about concerns about her discontinuing her interactions with her family. She identified that others have the same concern and she is trying to accept her situation. 8. Will work with patient on safety planning. 9. Anjel evaluation of living skills was showed 4/13 areas of concern. The patient appeared to require assistance regarding her safety has help and health that she had appeared to struggle with identification of appropriate actions for sickness as well as being unable to remain aware of dangerous household situations when tested. It appeared that the patient could benefit from someone helping her in the home at this time. Involuntary Hold Information 2 Other Hold: Hold End Date: 10/29/24 Attestations NPU 2 Medical Necessity Statement*: Inpatient psychiatric hospitalization is medically necessary and the clinically appropriate intervention ?at this time. We will monitor/initiate medications and make changes as indicated.? The patient?s likely length of stay 3-4 days. Coding Level of Care Code Acute Code for Chg Fwd Diagnoses Major depressive disorder, recurrent F33.9 JENNIFER (generalized anxiety disorder) F41.1 Suicide attempt by multiple drug overdose, initial encounter T50.912A Encounter type: initial encounter Pulmonary embolism I26.99 Acute hypercapnic respiratory failure J96.02 Acute encephalopathy G93.40 Pre-syncope R55 Hypertension I10 Bereavement Z63.4
[2024-10-25 16:00] VITALS: PULSE 85; RESP 18; O2SAT 97
[2024-10-25] MEDS: latanoprost 0.005% Op Soln 2.5 mL Btl 1 DROP EYE-RIGHT (17:20)
[2024-10-25] MEDS: atorvastatin 40 mg Tablet PO (20:29)
[2024-10-25 22:00] VITALS: BP 113/70; PULSE 74; RESP 16; TEMP 36.7; O2SAT 100
[2024-10-26 06:00] VITALS: BP 117/69; PULSE 83; RESP 16; TEMP 36.9; O2SAT 98; BMI 17.6
[2024-10-26] MEDS: sertraline 50 mg Tablet PO (08:24)
[2024-10-26] MEDS: apixaban 5 mg Tablet PO ×2 (08:24→21:19)
[2024-10-26] MEDS: buPROPion XL (24 HR) 300 mg Tablet PO (08:24)
[2024-10-26] MEDS: amlodipine 5 mg Tablet PO (08:24)
[2024-10-26] MEDS: timolol 0.5% Op Soln 5 mL Btl 1 DROP EYE-BOTH ×2 (08:24→17:05)
[2024-10-26] MEDS: blistex lip oint 7 gm Tube 1 APPLIC TOPICAL (12:27)
[2024-10-26 14:00] VITALS: BP 117/75; PULSE 79; RESP 15; TEMP 37; O2SAT 100
--- NOTE | 2024-10-26 14:19 | P.NPUPN_ITS ---
Subjective NPU 2 Subjective: 63-year-old female with major depressive disorder admitted after significant overdose leading to ICU placement and current inpatient hospitalization. The patient had complained of diarrhea and abdominal discomfort with the Zoloft increase. Patient had reported that she was feeling ready to return home soon. Patient had been able to attend groups on Sunday. She had been able to engage in more appropriate self-care. She had reported feeling at times tired. She reported adequate sleep. She continued to report some diminished appetite. She had reported that she would be staying over at her mother's home over the holidays as she had endorsed some feelings of loneliness while being in her home alone. Mental Status Exam 2 MSE Comments: This is a well-nourished well-developed white female with adequate dress, grooming and eye contact. She remained anergic. No abnormal movements except for mild psychomotor retardation. She was cooperative with exam in mild distress. Speech was slightly decreased rate and normal in volume. Mood described as better. Affect remained restricted and mood congruent. Thought process was linear and organized. Thought content: Patient denies suicidal or homicidal ideation but clearly acknowledged that this was a clear suicide attempt. there were no delusions reported or noted, she denied any auditory or visual hallucinations. Attention and concentration appear intact and memory appeared mostly reliable but no more formally tested. She is alert and oriented x 3. Insight was improving. Judgment appeared poor. Her impulse control remained guarded. Vitals/I&O/Wt Last Vital Signs Temp 98.5 F 10/26/24 06:00 Pulse 83 10/26/24 06:00 Resp 16 10/26/24 06:00 BP 117/69 10/26/24 06:00 Pulse Ox 98 10/26/24 06:00 O2 Del Method Room Air 10/26/24 06:00 O2 Flow Rate 99 10/09/24 08:00 FiO2 24 10/02/24 00:00 10/25/24 10/26/24 10/26/24 22:59 06:59 14:59 Intake Total 470 / 940 710 / 710 Output Total 1300 / 2600 1300 / 1300 Balance -830 / -1660 -590 / -590 Weight last 48 hrs Weight 48.194 kg Physical Exam 2 Urinary Catheter Management: Dolan: Cath Placed During This Visit: yes, but has since been removed by the nurse Reason for Continuing Indwelling Catheter: Accurate Measurement of Urinary Output in Critically Ill Patients Date Urinary Catheter Removed: 10/04/24 Time Urinary Catheter Discontinued: 10:00 Data NPU 10/20/24 20:14 10/22/24 09:55 A&P Assessment and plan (1) Major depressive disorder, recurrent: (2) JENNIFER (generalized anxiety disorder): (3) Suicide attempt by multiple drug overdose: Qualifiers: Encounter type: initial encounter Qualified Code(s): T50.912A - Poisoning by multiple unspecified drugs, medicaments and biological substances, intentional self-harm, initial encounter (4) Pulmonary embolism: (5) Acute hypercapnic respiratory failure: (6) Acute encephalopathy: (7) Pre-syncope: (8) Hypertension: (9) Bereavement: Plan This is a 63-year-old female who was admitted initially to ICU on overdose who presented initially appearing confused and unable to answer questions with significant concerns about the patient's depression. She acknowledged the overdose as an active suicide attempt and continues to have resistance to engaging in treatment. 1. Continue current medications. Continue Wellbutrin XL 300 mg po qam, Decrease zoloft to 25mg today due to diahrrea and abdominal discomfort. 2.??Continue every 15 minute checks for safety. 3. Transferred to neuropsychiatric unit. 4. Obtain collateral information. 5. Encourage individual, group and milieu therapy. 6. 21-day hold paperwork filed. Patient on a 21-day hold. 7. Patient continues to struggle with being able to give a convincing report of safety and having no lethality and being focused on being able to go home but it is unclear whether she is safe for discharge at this time. She was more able to have a conversation today about the concerns and the reason that discharge is likely later than sooner. Talk about concerns about her discontinuing her interactions with her family. She identified that others have the same concern and she is trying to accept her situation. 8. Will work with patient on safety planning-set up counseling through primary care office emergently. Focus on safety planning and patient being alone 9. Anjel evaluation of living skills was showed 4/13 areas of concern. The patient appeared to require assistance regarding her safety has help and health that she had appeared to struggle with identification of appropriate actions for sickness as well as being unable to remain aware of dangerous household situations when tested. It appeared that the patient could benefit from someone helping her in the home at this time. Involuntary Hold Information 2 Other Hold: Hold End Date: 10/29/24 Attestations NPU 2 Medical Necessity Statement*: Inpatient psychiatric hospitalization is medically necessary and the clinically appropriate intervention ?at this time. We will monitor/initiate medications and make changes as indicated.? The patient?s likely length of stay 1-2 days. Coding Level of Care Code Acute Code for Chg Fwd Diagnoses Major depressive disorder, recurrent F33.9 JENNIFER (generalized anxiety disorder) F41.1 Suicide attempt by multiple drug overdose, initial encounter T50.912A Encounter type: initial encounter Pulmonary embolism I26.99 Acute hypercapnic respiratory failure J96.02 Acute encephalopathy G93.40 Pre-syncope R55 Hypertension I10 Bereavement Z63.4
[2024-10-26] MEDS: latanoprost 0.005% Op Soln 2.5 mL Btl 1 DROP EYE-RIGHT (17:05)
[2024-10-26 19:24] VITALS: BP 114/75; PULSE 79; RESP 16; TEMP 36.8; O2SAT 96
[2024-10-26] MEDS: atorvastatin 40 mg Tablet PO (21:19)
[2024-10-27 06:00] VITALS: BP 124/72; PULSE 72; RESP 16; TEMP 36.8; O2SAT 99
[2024-10-27] MEDS: amlodipine 5 mg Tablet PO (08:43)
[2024-10-27] MEDS: buPROPion XL (24 HR) 300 mg Tablet PO (08:43)
[2024-10-27] MEDS: apixaban 5 mg Tablet PO (08:44)
[2024-10-27] MEDS: sertraline 50 mg Tablet PO (08:44)
[2024-10-27] MEDS: timolol 0.5% Op Soln 5 mL Btl 1 DROP EYE-BOTH (08:44)
--- NOTE | 2024-10-27 11:56 | W.PM.NPUDCS ---
Diagnoses at Discharge Discharge Diagnosis (1) Major depressive disorder, recurrent: Status: Acute (2) JENNIFER (generalized anxiety disorder): Status: Acute (3) Suicide attempt by multiple drug overdose: Status: Acute Qualifiers: Encounter type: initial encounter Qualified Code(s): T50.912A - Poisoning by multiple unspecified drugs, medicaments and biological substances, intentional self-harm, initial encounter (4) Pulmonary embolism: Status: Acute (5) Acute hypercapnic respiratory failure: Status: Acute (6) Acute encephalopathy: Status: Acute (7) Pre-syncope: Status: Acute (8) Hypertension: Status: Acute (9) Bereavement: Status: Acute Reason for Visit Reason for Visit: possible OD Brief History: History of Present Illness Denisse Narayanan is a 63 year old female with no history of reported inpatient hospitalization who presented to the emergency department unresponsive and ultimately found to have overdosed on multiple medications intentionally. The patient had been placed in the ICU since 09/22/2024 and today was extubated. The patient was interviewed for the first time today and proceeded to provide no information regarding her placement here. She repeatedly stated I want to go home the patient was unable to provide her name where she is, where she was at this time, but were date, month, or year. She had refused to answer any questions. Some information provided from friends and family members had intimated that the patient had been depressed with the recent of her in November 2023. She had allegedly been more isolative and more sad as the holiday approached. The patient had described having endured the loss of her in May 2024. She had endorsed having depression and increased isolation. Inpatient psychiatric history: None Outpatient psychiatric history: None Medical history: Hearing loss Surgical history: Unknown Allergies: No known drug allergies Legal history: Unknown Substance abuse history: Unknown Family psychiatric history: Notable for depression and completed suicide Social history: Patient is and currently lives alone in [facility]. 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 Patient had endorsed no history of sexual physical or emotional abuse. She had described herself as being a loner. She has a mother who lives in the same city as her. She has no children and is currently . Hospital Course Hospital Course Plan 09/22/24 (1) Suicide attempt by multiple drug overdose: Presentation consistent with suspected intentional drug overdose ED provider reportedly placed 96-hour hold Admit to intensive care unit Continuous telemetry monitoring Tylenol level mildly elevated, trend acetaminophen levels Start IV fluids Monitor cardiopulmonary status, patient may require intubation if she is unable to protect airway Supportive care Will eventually need psychiatric care when medically improved (2) Acute encephalopathy: Acute toxic encephalopathy Serial neurological exams Management as above (3) Hyponatremia: Status post IV fluid bolus in ED Start maintenance fluids Repeat labs in a.m. (4) Hearing loss: Patient is severely hard of hearing at baseline She currently does not have her hearing aids here, family may be able to bring later 09/23/24 #Electively intubated for airway protection #Suicide attempt #Drug overdose #Malignant hyperthermia??Ruled out #Fever most likely secondary to aspiration pneumonia #Atelectasis #Aspiration pneumonia #Hyperphosphatemia #Mild hyponatremia?corrected #Hearing loss. #Pulmonary embolism -96-hour hold placed in ER -Patient intubated for airway protection ? Fever most likely secondary to aspiration pneumonia. Check blood cultures, sputum culture Gram stain, urine culture to rule out other sources ? Chest x-ray shows aspiration pneumonia, infiltrate right middle lobe and lower lobe. 25. Not present on admission. ? Continue Versed and fentanyl at this time. Patient requiring 2 vasopressors in the ER. Vasopressin and Levophed. Will attempt to wean off as able. ?Discussed with malignant hyperthermia sediment remediation consultant over the phone. Low suspicion for NPH at this time. Continue to monitor. ? Check CT head, chest abdomen pelvis ? Hyponatremia corrected. ? Continue IV fluids. ? QT 480. Will recheck EKG. ?Psychiatric consult once patient is extubated. ? Continue vancomycin and Zosyn ? CPK 1400. Continue IV fluids ? Continue to monitor 09/24/24 96-hour hold placed in ER patient intubated for airway protection. Fever of unknown origin mostly secondary to aspiration pneumonia but also has evidence of atelectasis on chest x-ray. Malignant hyperthermia unlikely. Discussed with malignant hyperthermia helpline over the phone on 09/23. Blood cultures urine culture urine culture pending. ? Continue Versed every 4 hours as needed and fentanyl. Versed drip was turned off yesterday evening. ? Have discussed with nursing staff to avoid Versed if possible. ? When patient more awake and following commands we will plan for spontaneous breathing trial and potential extubation in next 24 to 48 hours. ? CT head negative for stroke or acute bleed. ? Continue IV fluids ? EKG reviewed. QTc within normal range ? Psychiatric consult when patient extubated ? CPK trending down 700 today. ? Continue to hospitalize patient at this time. Patient is on minimal vent settings however he is not following commands and is not participating despite being off sedation. Will continue with elective intubation at this time. - time was spent discussing patient's care with patient's nurses, multidisciplinary round, family meeting chart review, documentation. 09/25/24 Patient still intubated. Has been responsive only to verbal stimuli, on fentanyl drip for sedation. Will try to taper off the fentanyl drip for SBT trial. Will repeat chest x-ray in a.m. Continue IV fluids D5 NS at 100 cc/h IV vancomycin 1 g every 12 hours IV Zosyn 3.375 g every 8 hours Blood culture and urine culture negative so far Creatinine 1.2 continue IV fluids Continue heparin drip. Hemoglobin 9.4, platelet count 126. Monitor CBC Will do psychiatric consult once extubated QTc improved to 470. Continue to monitor in ICU. 09/26/24 Patient still intubated, has been responsive to verbal stimuli, off sedation but unable to follow commands. Also noticed to have tongue deviation and right upper and lower extremity flaccid, pupils sluggish, hence CT head without contrast done was negative for acute stroke. Neurological findings could likely be due to drug overdose. Unable to do MRI at this time since patient is intubated. Also creatinine trending up to 2.2, nephrology consulted. Will follow for further recommendations. Continue to monitor creatinine for now. Follow-up 2D echo Platelet count trending down to 99 as compared to 236 on admission. Will discontinue heparin drip and start Eliquis via NG tube Psychiatry to see the patient once extubated Will continue to monitor in ICU Will discuss with family about goals of care. 09/27/24 Neurological and respiratory status unchanged. Patient is not on CPAP, SBT trial but not able to support respiration independently. Neurological changes could likely be due to hypoxic brain injury secondary to drug overdose and respiratory acidosis. Family updated about prognosis and plan of care. Continues to defer for trial of hemodialysis at this time. Will start tube feedings. Continue SBT trial. Organ donation contacted, to see family this afternoon Creatinine trending up to 2.5. 2D echo normal Platelets improved to 109. Continue Eliquis. Will continue to monitor in ICU, family aware of current prognosis and goals of care. Case management consulted for placement 09/28/24 Neurological status improved slightly, she is s/p extubation. Able to communicate with us and family although severely hearing impaired. Doubt hypoxic brain injury given rapid improvement post starting feeds. Creat still trending up to 2.7, As per nephrology, given one dose of lasix. Psychiatry and neurology input appreciated. She is on 96 hour hold again and will need inpatient psych. Continue to monitor in ICU for now. 09/29/24 Deterioration of neurological and respiratory status since this morning. She was found to be tachypneic, using accessory muscles. Patient is on BiPAP. Was initially in acute respiratory acidosis with pCO2 of 72, repeated ABG in 1 hour showed pCO2 of 65. After being on BiPAP for 4 to 5 hours ABG improved with pCO2 in 40s. Patient seen at bedside repeatedly, later during the afternoon was found to be awake, responding to verbal stimuli, family at bedside. As the day progressed she became more awake and is now agitated secondary to BiPAP. She is alert, will discontinue BiPAP and monitor respiratory status on nasal cannula. Had an extensive discussion with the family at bedside about fluctuations in encephalopathic state could likely be secondary to medications overdose which we still not sure about what she actually took. Leukocyte count trended up to 16.3, likely reactive. Will continue to monitor Renal function continue to deteriorate with creatinine of 3 today. Hemoglobin stable Family, her mom and niece decided about limited resuscitation with DNI/no mechanical ventilator. Currently agree with plan of care. Will continue to monitor in ICU. 09/30/24 She has been on BiPAP since yesterday, respiratory rodarte stable. Was awake and alert this morning able to talk and being comprehensive on nasal cannula but still using accessory muscles. Will continue BiPAP with intermittent breaks. Creatinine 2.9 today, refusing hemodialysis. Follow-up nephrology, continue IV fluids. Hemoglobin stable at 8.5, platelets improved to 188. Significant stridor likely secondary to intubation/extubation, racemic nebulization helped. Will continue to monitor Chest x-ray showed persistent opacity in lower lobes, mild interstitial edema As per neurology since she took Valium and has LYNNETTE, will be having respiratory issues for a while. Need respiratory support for now. Spoke with pharmacy about antidote for Valium, no significant options present at this time. Continue Zosyn for now. will Discontinue vancomycin Had bedside swallow eval done, she failed. Will keep n.p.o. for now. Continue therapeutic Lovenox for PE. Creat clearance is 18. 10/01/24 She has been more awake and alert this morning, comprehensive, tolerated clear liquid diet. Bilateral chest wheezing and stridor improved with IV Decadron. Creatinine 2.8 today. Slowly improving. Will follow-up nephrology and neurology for further recommendations As per psychiatry, she needs inpatient psychiatric hospitalization for management of severe depression and drug overdose once medically stable. Has been doing better with PT Will continue current management. Family aware about the plan of care. 10/02/24 She has been more awake and comprehensive. Tolerating diet. Creatinine improved to 2.4. Follow-up nephrology for further recommendations. Still has upper and lower extremity flaccidity, hence would need PT for few days until she starts ambulating. Can be transferred to inpatient psychiatry once out of bed and ambulating and medically stable. Has not required BiPAP overnight. Saturating well on nasal cannula. Has been hypertensive since yesterday, will add amlodipine 5 mg daily and monitor. 10/03/24 She has been improving. Creatinine still 2.5. Antibiotics de-escalated to p.o. levofloxacin. Will discontinue IV fluids, blood pressure medication adjusted to amlodipine 10 mg daily and lisinopril 5 mg daily. She has still been requiring transport assistant for transfer from bed to chair. She has been working with PT for management of generalized weakness and inability to walk due to complicated hospitalization. She has to be ambulating before being transferred to inpatient psychiatry unit. 10/04/24 She has been doing well, tolerating diet, has been in a good mood. She is on 96-hour hold which expires on Sunday midnight, into Sunday. She has been able to walk with assistance from PT with the help of walker. Plan for transfer to inpatient psychiatry unit once ambulating. Will discontinue subcutaneous Lovenox and start on p.o. Eliquis 5 mg twice daily for PE. Continue current management. 10/05/24 She has been medically stable and ambulating with the help of a walker. Will follow-up psychiatry for further recommendations. Continue current management She is medically stable and is being transferred to [facility] inpatient psychiatry for further management. During the hospitalization, the patient had routine laboratory studies which were within normal limits except for a few outliers.? Additionally, there was a general medical evaluation which was also within normal limits and revealed no new acute processes.? At the time of discharge, lethality was denied and mood was described as better.? Mood and anxiety were well managed.? The patient endorsed a plan to avoid all drugs of abuse and follow up with the aftercare recommendations of the treatment team.? The patient was evaluated and deemed to be absent credible lethality and had achieved the maximum benefit from an inpatient hospitalization, and so was discharged. ?The patient was started on Wellbutrin initially and titrated up to a dose of 300 mg daily. Zoloft was added to target anxiety and depression and titrated up to a dose of 50 mg at the time of discharge. The patient appeared to have a lack of significant social supports and was sent to stay with her mother for the next few weeks until psychotherapy on a weekly basis could be established. The patient appeared to do well with safety planning and reported that she had felt better about managing her anxiety and depression at the time of discharge. She had also been started on medications as she had pulmonary embolism and was strongly encouraged to take her amlodipine, Eliquis, and atorvastatin until these issues could be reevaluated by her primary care physician in the next few weeks. Involuntary Hold Information Other Hold: Hold End Date: 10/29/24 Mental Status Exam MSE Comments: This is a well-nourished well-developed white female with adequate dress, grooming and eye contact. She remained anergic. No abnormal movements except for mild psychomotor retardation. She was cooperative with exam in mild distress. Speech was slightly decreased rate and normal in volume. Mood described as better. Affect appeared brighter on discharge. Thought process was linear and organized. Thought content: Patient denies suicidal or homicidal ideation on discharge. There were no delusions reported or noted, she denied any auditory or visual hallucinations. Attention and concentration appear intact and memory appeared mostly reliable but no more formally tested. She is alert and oriented x 3. Insight was improving. Judgment appeared fair. Her impulse control appeared better. Physical Exam Urinary Catheter Management: Dolan: Cath Placed During This Visit: yes, but has since been removed by the nurse Reason for Continuing Indwelling Catheter: Accurate Measurement of Urinary Output in Critically Ill Patients Date Urinary Catheter Removed: 10/04/24 Time Urinary Catheter Discontinued: 10:00 Discharge Data Studies Completed and Pending: Completed Studies During Hospitalization Category Date Time Status CT angio chest w abd pel w con Stat Cat Scan 09/24/24 00:[address] head wo con* 7 0450 Routine Cat Scan 09/26/24 09:[address] head wo con* 7 0450 Stat Cat Scan 09/24/24 00:35 Completed CXRP [XR chest 1V portable [id number]] R outine Exams 09/23/24 10:32 Completed XR chest 1V juan carlos ble [id number] Routine Exams 09/26/24 06:00 Completed XR chest 1V juan carlos ble [id number] Routine Exams 09/30/24 06:00 Completed XR chest 1V juan carlos ble [id number] Routine Exams 10/10/24 07:36 Completed XR chest 1V juan carlos ble [id number] Stat Exams 09/22/24 18:21 Completed XR chest 1V juan carlos ble [id number] Stat Exams 09/23/24 09:31 Completed XR chest 1V juan carlos ble [id number] Stat Exams 09/28/24 07:28 Completed XR chest 1V juan carlos ble [id number] Stat Exams 10/05/24 08:09 Completed CV. echo complete * [id number] Stat Ultrasound 09/26/24 07:26 Completed Radiology Impressions Chest/Abdomen/Pelvis CT 09/24/24 00:36 IMPRESSION: 1. Pulmonary emboli splaying the right lower lobe pulmonary artery and extending into the segmental branches, as well as small bilateral distal segmental/subsegmental pulmonary emboli. 2. No CT evidence of right heart strain. 3. Bibasilar atelectasis and bilateral lower lobe consolidations, which may be the sequela of alveolar edema or multifocal pneumonia. Findings may also be aspiration in etiology given multifocal impacted small airways. 4. Bilateral pleural fluid, small on the right and trace on the left. IMPRESSION: 1. Small amount of abdominopelvic ascites, mesenteric edema and findings suggestive of 3rd spacing. 2. Otherwise, no acute findings. 3. Enteric tube in satisfactory position. ADDENDUM: 09/24/24 0209 COMMENT: THIS REPORT CONTAINS FINDINGS THAT MAY BE CRITICAL TO PATIENT CARE. The exam findings were verbally communicated by me to Fede Matias via telephone conference at 2:08 AM [employer] on 09/24/2024. The findings were acknowledged and understood. Head CT 09/26/24 09:17 IMPRESSION: 1. No evidence of intracranial hemorrhage or mass effect. 2. Mild small vessel changes with mild parenchymal volume loss. 3. Vascular calcification. 4. Paranasal sinusitis with air-fluid levels. 5. No acute intracranial findings. Chest X-Ray 10/10/24 07:36 IMPRESSION: Pleural effusions appear to be resolving compared to the previous examination. Increased opacity of the lower right hemithorax as above. Laboratory Results WBC 5.08 10^3/uL (3.2 9-11.43) 10/20/24 20:14 RBC 2.84 10^6/uL (3.8 5-5.65) L 10/20/24 20:14 Hgb 8.30 g/dL (11.27- 16.99) L 10/20/24 20:14 Hct 24.3 % (36-47) L 10/20/24 20:14 MCV 85.6 fl (85-98) 10/20/24 20:14 MCH 29.2 pg (27-33) 10/20/24 20:14 MCHC 34.2 g/dL (30-55) 10/20/24 20:14 RDW 14.9 % (12.1-15.1 ) 10/20/24 20:14 Plt Count 115 10^3/cmm (157 -399) L 10/20/24 20:14 MPV 11.1 fL (7.4-10.4 ) H 10/20/24 20:14 Neut % (Auto) 67.1 % 10/20/24 20:14 Lymph % (Auto) 15.4 % 10/20/24 20:14 Barbour % (Auto) 11.2 % 10/20/24 20:14 Eos % (Auto) 4.9 % 10/20/24 20:14 Baso % (Auto) 0.8 % 10/20/24 20:14 Neut # (Auto) 3.41 10^3/uL (1.8 -7.7) 10/20/24 20:14 Lymph # (Auto) 0.8 10^3/uL (0.8- 4.8) 10/20/24 20:14 Barbour # (Auto) 0.6 10^3/uL (0.2- 0.9) 10/20/24 20:14 Eos # (Auto) 0.3 10^3/uL (0.0- 0.8) 10/20/24 20:14 Baso # (Auto) 0.0 10^3/uL (0.0- 0.1) 10/20/24 20:14 Nucleated RBC % (a uto) 0 % 10/20/24 20:14 Nucleated RBCs # 0.0 /100WBC 10/20/24 20:14 APTT 66.5 SECONDS (23. 9-36.7) H D 09/26/24 03:09 Specimen Type Arterial 09/29/24 15:50 Sample Site Radial, right 09/29/24 15:50 ABG pH 7.29 (7.35-7.45) L 09/29/24 15:50 ABG pCO2 39.9 mmHg (35-45) 09/29/24 15:50 ABG pO2 182.0 mmHg (80.0- 100.0) H 09/29/24 15:50 ABG PO2/FiO2 Ratio 455 09/29/24 15:50 ABG HCO3 19.2 mmol/L (22-2 6) L 09/29/24 15:50 ABG O2 Saturation 97.2 09/28/24 04:34 ABG Base Excess -6.9 mmol/L (-2.0 -2.0) L 09/29/24 15:50 Saravanan Test Pos 09/29/24 15:50 A-a O2 Gradient 12.6 mmHg (5-10) H 09/28/24 04:34 Hematocrit 30.4 % (37-47) L 09/29/24 15:50 Hgb O2 Saturation 95.2 % (95-100) 09/28/24 04:34 Carboxyhemoglobin 1.0 %THgb (0.4-20 .1) 09/28/24 04:34 Methemoglobin 1.1 % (0.4-1.5) 09/28/24 04:34 Total Hemoglobin 9.0 g/dL (12-16) L 09/28/24 04:34 Sodium 143.0 mmol/L (131 -143) 09/28/24 04:34 Potassium 3.2 mmol/L (3.5-5 .0) L 09/28/24 04:34 Glucose 140.0 mg/dL (70-1 15) H 09/28/24 04:34 Ionized Calcium 1.2 mmol/L (1.1-1 .4) 09/28/24 04:34 O2 Delivery Device Bipap 09/29/24 15:50 O2 Liters/Min 6.0 % 09/29/24 08:00 FiO2 40.0 % 09/29/24 15:50 Tidal Volume .45 09/29/24 09:55 PEEP 10.0 cmH20 09/29/24 09:55 CPAP 5.0 cmH20 09/28/24 04:34 Ror Engineer ID glc 09/29/24 15:50 Sodium 137 mmol/L (136-1 45) 10/22/24 09:55 Potassium 3.4 mmol/L (3.5-5 .1) L 10/22/24 09:55 Chloride 103 mmol/L (98-10 7) 10/22/24 09:55 Carbon Dioxide 24 mmol/L (22-29) 10/22/24 09:55 Anion Gap 13.4 (5-19) 10/22/24 09:55 BUN 11 mg/dL (8-23) 10/22/24 09:55 Creatinine 1.2 mg/dL (0.5-0. 9) H 10/22/24 09:55 GFR Calculation 45.7 mL/min (90-1 30) L 10/22/24 09:55 Glucose 130 mg/dL (65-115 ) H 10/22/24 09:55 POC Glucose 159 mg/dL (70-110 ) H 10/20/24 10:53 Estimat Average Gl ucose 85 10/20/24 20:14 Hemoglobin A1c 4.6 % (4.0-6.0) 10/20/24 20:14 Calculated Osmolal ity 285 mOsm/kg (285- 295) 10/22/24 09:55 Lactic Acid 1.0 mmol/L (0.5-2 .2) 09/23/24 13:23 Lactic Acid (Sepsi s) 0.9 mmol/L (0.5-2 .2) 09/22/24 21:05 Lactate 0.9 mmol/L (0.5-2 .2) 09/29/24 08:42 Calcium 9.0 mg/dL (8.5-10 .5) 10/22/24 09:55 Phosphorus 5.9 mg/dL (2.5-4. 5) H 09/23/24 02:55 Magnesium 1.9 mg/dL (1.7-2. 3) 09/30/24 04:35 Iron 37 ug/dL (37-145) 10/20/24 20:14 TIBC 232 mcg/dl 10/20/24 20:14 % Saturation 15.9 % (20-50) L 10/20/24 20:14 Unsat Iron Binding 195 ug/dL (112-34 7) 10/20/24 20:14 Total Bilirubin 0.5 mg/dL (0.15-1 .2) 10/22/24 09:55 AST 14 U/L (0-32) 10/22/24 09:55 ALT 7 U/L (0-33) 10/22/24 09:55 Alkaline Phosphata se 75 U/L (35-105) 10/22/24 09:55 Creatine Kinase 234 U/L (26-192) H 09/26/24 03:09 Troponin T Baselin e 28 ng/L (0-10) H 09/29/24 08:42 Troponin T 120 Min [place] 32.43 ng/L (0-10) H 09/29/24 10:37 Delta Troponin T 4.43 ABS# (0-10) 09/29/24 10:37 Troponin T Hi Sens 6Hr 27.97 ng/L (0-10) H 09/29/24 13:35 Troponin T Hi Sens 6Hr Delta -0.03 ng/L (0-12) L 09/29/24 13:35 Total Protein 6.9 g/dL (6.6-8.7 ) 10/22/24 09:55 Albumin 4.0 g/dL (3.5-5.2 ) 10/22/24 09:55 Globulin 2.9 g/dL (1.3-4.6 ) 10/22/24 09:55 Triglycerides 161 mg/dL (0-150) H 10/21/24 12:22 Cholesterol 235 mg/dL (0-200) H 10/21/24 12:22 LDL Cholesterol, C alc 160 mg/dL (50-129 ) H 10/21/24 12:22 Total VLDL Cholest kartik 32 mg/dL (0-30) H 10/21/24 12:22 HDL Cholesterol 43 mg/dL (60-100) L 10/21/24 12:22 Cholesterol/HDL Ra yovany 5.47 mg/dL (0.0-4 .40) H 10/21/24 12:22 Vitamin B12 1310 pg/mL (232-1 245) H 10/20/24 20:14 Folate 8.8 ng/mL (4.8-37 .3) 10/21/24 12:22 TSH 0.60 uIU/mL (0.27 -4.20) 09/23/24 13:23 Random Cortisol 11.00 ug/dL (2.47 -19.5) 09/23/24 13:23 Urine Color Yellow (Yellow) 09/29/24 08:43 Urine Appearance Cloudy (CLEAR) A 09/29/24 08:43 Urine pH 5.0 (5-7) 09/29/24 08:43 Ur Specific Gravit y 1.009 (1.005-1.0 30) 09/29/24 08:43 Urine Protein 1+ (Negative) A 09/29/24 08:43 Urine Glucose (UA) Negative (Normal ) 09/29/24 08:43 Urine Ketones Negative (Negati ve) 09/29/24 08:43 Urine Blood 2+ (Negative) A 09/29/24 08:43 Urine Nitrate Negative (Negati ve) 09/29/24 08:43 Urine Bilirubin Negative (Negati ve) 09/29/24 08:43 Urine Urobilinogen 0.2 mg/dL (Negati ve) 09/29/24 08:43 Ur Leukocyte Sofia ase Negative (Negati ve) 09/29/24 08:43 Urine RBC 0-2 /hpf (0-2) 09/29/24 08:43 Urine WBC 0-5 /hpf (0-5) 09/29/24 08:43 Ur Squamous Epith Cells 6-10 /hpf (0-5) 09/29/24 08:43 Amorphous Sediment Not Reportable 09/29/24 08:43 Urine Bacteria None seen /hpf (N ONE) 09/29/24 08:43 Hyaline Casts 17.77 /lpf 09/29/24 08:43 Vancomycin Trough 19.8 ug/mL (10-15 ) H 09/29/24 13:35 Random Vancomycin 18.5 ug/mL (20.0- 40.0) L 09/30/24 04:35 Salicylates < 0.3 mg/dL (3-10 ) L 09/30/24 04:35 Urine Opiates Scre en Negative ng/mL (N egative) 09/22/24 19:15 Acetaminophen < 5.0 ug/mL (10-3 0) L 09/23/24 02:55 Ur Barbiturates Sc reen Negative ng/mL (N egative) 09/22/24 19:15 Ur Phencyclidine S crn Negative ng/mL (N egative) 09/22/24 19:15 Ur Amphetamines Sc reen Negative ng/mL (N egative) 09/22/24 19:15 U Benzodiazepines Scrn Positive ng/mL (N egative) H 09/22/24 19:15 Urine Cocaine Scre en Negative ng/mL (N egative) 09/22/24 19:15 U Marijuana (THC) Screen Negative ng/mL (N egative) 09/22/24 19:15 Ethyl Alcohol < 10 mg/dL (0-10) 09/22/24 18:31 C. difficile (PCR) Negative (Negati ve) 10/01/24 06:02 Vitals: Last Vital Signs Temp 98.2 F 10/27/24 06:00 Pulse 72 10/27/24 06:00 Resp 16 10/27/24 06:00 BP 124/72 10/27/24 06:00 Pulse Ox 99 10/27/24 06:00 O2 Del Method Room Air 10/27/24 06:00 O2 Flow Rate 99 10/09/24 08:00 FiO2 24 10/02/24 00:00 Discharge Plan Discharge Patient Disposition: Home Condition: Stable Prescriptions: New sertraline 50 mg Tablet 50 mg PO DAILY 30 Days Qty: 30 1RF bupropion HCl 300 mg Tablet Extended Release 24 Hr 300 mg PO DAILY 30 Days Qty: 30 1RF atorvastatin 40 mg Tablet 40 mg PO BEDTIME Qty: 30 1RF Eliquis 5 mg Tablet 5 mg PO BID@0900,2100 Qty: 60 1RF amlodipine 5 mg Tablet 5 mg PO DAILY 30 Days Qty: 30 1RF Continued latanoprost [Xalatan] 0.005 % drops 0.005 drp ophthalmic (eye) QPM timolol maleate 0.5 % drops 0.5 drp ophthalmic (eye) BID Discontinued latanoprost 0.005 % drops 1 drp ophthalmic (eye) QPM trazodone 50 mg tablet 50 mg PO QPM PRN (Reason: Sleep) timolol maleate 0.5 % drops 1 drp ophthalmic (eye) BID Discharge Orders: Discharge Order (Routine); Ordered 10/27/24 Ordered By: Omar Henriquez Referrals: [facility] [Other] (Tiff Tatum is your insurance claims clerk. You can contact her at the number provided with extension [phone]) Mireya Willingham PA [Primary Care Provider] - 11/07/24 10:00 am Discharge Diet: As Directed Discharge Activity: Increase activity as tolerated Patient Instructions: Bupropion (By mouth), Sertraline (By mouth), Amlodipine (By mouth), Atorvastatin (By mouth), Apixaban (By mouth), Pulmonary Embolism (DC), Grief and Loss (DC), Aspiration Pneumonia (DC), Help Prevent Suicide in Older Adults (DC), Anxiety (DC), Depression in Older Adults (DC), Opioid Safety Discharge Attestations NPU Time Spent in Discharge Care*: less than 30 min Specific Discharge Activities: Specific discharge activities: educating patient, discussing with pillowcase turner/social workers/dc planners and documenting/other paperwork Coding Level of Care Code Acute Code for Chg Fwd Diagnoses Major depressive disorder, recurrent F33.9 JENNIFER (generalized anxiety disorder) F41.1 Suicide attempt by multiple drug overdose, initial encounter T50.912A Encounter type: initial encounter Pulmonary embolism I26.99 Acute hypercapnic respiratory failure J96.02 Acute encephalopathy G93.40 Pre-syncope R55 Hypertension I10 Bereavement Z63.4
[2024-10-27 13:06] VITALS: BP 124/72; PULSE 72; RESP 16; TEMP 36.8; O2SAT 98
== END 2024-10-27 13:45 | disposition home or self-care (01) | DRG 917 ==
LOC: ER 20:46 → ICU 21:38 → MEDSURG 10-03 18:14 → NP 10-05 21:36
PROVIDERS: Internal Medicine; Internal Medicine Nephrology; Student in an Organized Health Care Education/Training Program; Admitting Provider Internal Medicine; Emergency Provider Emergency Medicine; PCP Physician Assistant; Visit Provider Psychiatry & Neurology Psychiatry
DX: T42.4X2A Poisoning by benzodiazepines, intentional self-harm, initial encounter (principal); G92.8 Other toxic encephalopathy; J69.0 Pneumonitis due to inhalation of food and vomit; I26.99 Other pulmonary embolism without acute cor pulmonale; N17.0 Acute kidney failure with tubular necrosis; J96.02 Acute respiratory failure with hypercapnia; F33.9 Major depressive disorder, recurrent, unspecified; E87.1 Hypo-osmolality and hyponatremia; E87.20 Acidosis, unspecified; J98.11 Atelectasis; T40.2X2A Poisoning by other opioids, intentional self-harm, initial encounter; R00.0 Tachycardia, unspecified; H91.93 Unspecified hearing loss, bilateral; Z97.4 Presence of external hearing-aid; E83.39 Other disorders of phosphorus metabolism; Z63.4 Disappearance and death of family member; R40.4 Transient alteration of awareness; T85.9XXA Unspecified complication of internal prosthetic device, implant and graft, initial encounter; Y70.8 Miscellaneous anesthesiology devices associated with adverse incidents, not elsewhere classified; S19.83XA Other specified injuries of vocal cord, initial encounter
CPT/HCPCS: 36415; 36416; 36573; 36592; 36600; 70450; 71045; 71275; 74177; 80048; 80051; 80053; 80061; 80202; 80306; 80307; 81001; 82330; 82533; 82550; 82607; 82746; 82803; 82805; 82962; 83036; 83540; 83550; 83605; 83735; 84100; 84443; 84484; 85025; 85730; 87040; 87070; 87086; 87205; 87493; 92507; 92523; 92526; 92610; 93005; 93306; 94002; 94003; 94640; 94660; 94664; 94799; 96372; 96374; 96376; 97110; 97116; 97150; 97161; 97163; 97165; 97166; 97167; 97530; 97535; 99285; C1751; J0330; J0612; J1100; J1644; J1650; J1940; J2250; J2310; J2470; J2543; J2598; J3010; J3370; J3372; J3480; J3490; J7030; J7042; J7050; J7120; J7613; J7799; Q0162; Q3014